=== PATIENT | female | born 1945 | race Caucasian/White ===

== ENCOUNTER → 2017-06-10 | Day surgery (SDC) | payer MEDICARE ==
[2017-06-08 11:12] LABS: BASOPHILS % 0.5 % (0.0-1.0); EOSINOPHILS # (AUTO) 0.3 (0.0-0.4); EOSINOPHILS % 3.8 % (0.0-6.0); HEMATOCRIT 40.8 % (34.2-44.1); HEMOGLOBIN 13.6 g/dL (12.0-16.0); LYMPHOCYTES # (AUTO) 2.7 (1.0-3.2); LYMPHOCYTES % 32.8 % (18.0-39.1); MEAN CORPUSCULAR HEMOGLOBIN 29.5 pg (28-32); MEAN CORPUSCULAR HGB CONC 33.3 g/dL (31-35); MEAN CORPUSCULAR VOLUME 88.5 fL (81-99); MONOCYTES # (AUTO) 0.4 (0.2-0.8); MONOCYTES % 4.9 % (4.4-11.3); NEUTROPHILS # (AUTO) 4.8 (2.1-6.9); NEUTROPHILS % 57.8 % (38.7-80.0); PLATELET COUNT 173 x10e3/uL (140-360); RED BLOOD COUNT 4.61 x10e6/uL (3.6-5.1)
--- NOTE | 2017-06-08 11:49 | Diagnostic Imaging Report ---
PROCEDURE: Frontal and lateral views of the chest. COMPARISON: None. INDICATIONS: PRE-OP KNEE FINDINGS: Lines/tubes: None. Lungs: The lungs are well inflated and clear. There is no evidence of pneumonia or pulmonary edema. Pleura: There is no pleural effusion or pneumothorax. Heart and mediastinum: The heart and the mediastinum are normal. Bones: No acute bony abnormality. Degenerative changes of thoracic spine. IMPRESSION: 1. No acute cardiopulmonary disease. Dictated by: Landen Bey M.D. on 06/08/2017 at 11:51 Electronically approved by: Landen Bey M.D. on 06/08/2017 at 11:51
[~2017-06-10] MED LIST: AMLODIPINE BESYL5 MG PO; ASPIR 8181 MG PO; BENAZEPRIL HCL10 MG PO; BUPIVACAINE 0.5%/EPI 30 ML SDV INJ ONE; CEFAZOLIN SOD 2 GM/D5W 50ML 50 ML IV ONE; DEXAMETHASONE SOD PHOS INJ 4 MG/ML VIAL ONE; FENTANYL CITRATE/PF 100MCG/2 ML INJ ONE; LIDOCAINE HCL 2% LOCAL INJ 5 ML SDV VIAL INJ ONE; MIDAZOLAM HCL 2 MG/2 ML VIAL ONE; ONDANSETRON HCL INJ 2 MG/ML VIAL ONE; PROPOFOL IV EMULSION 10 MG/ML 20 ML VIAL ONE; SEVOFLURANE INHAL SOLN 250 ML PEN BTL ONE
--- OUTSIDE RECORDS SUMMARY | 2017-06-10 07:24 | XMS REPORT ---
Author Author [facility] Address Unknown Phone Unavailable Care Team Providers Care Scale Mechanic Name Role Phone DEENA JUAN Unavailable Unavailable Problems This patient has no known problems. Allergies, Adverse Reactions, Alerts This patient has no known allergies or adverse reactions. Medications This patient has no known medications. Results Test Description Test Time Test Comments Text Results Atomic Results Result Comments CHEST 2 VIEWS [place] [address] Patient Name: VALERIA BAUGH MR #: [id number] : 1945 Age/Sex: 71/F Req #: [id number] Adm Physician: Ordered by: DEENA JUAN MD Report #: [id number] Location: OR Room/Bed: Procedure: [id number] DX/CHEST 2 VIEWS Exam Date: 06/08/17 Exam Time: 1120 REPORT STATUS: Signed PROCEDURE: Frontal and lateral views of the chest. COMPARISON: None. INDICATIONS: PRE-OP KNEE FINDINGS: Lines/tubes: None. Lungs: The lungs are well inflated and clear. There is no evidence of pneumonia or pulmonary edema. Pleura: There is no pleural effusion or pneumothorax. Heart and mediastinum: The heart and the mediastinum are normal. Bones: No acute bony abnormality. Degenerative changes of thoracic spine. IMPRESSION: 1. No acute cardiopulmonary disease. Dictated by: Landen Bey M.D. on 2017 at 11:51 Electronically approved by: Landen Bey M.D. on 2017 at 11:51 Dictated By: LANDEN BEY MD 1151 Transcribed By: JOHNIE on 06/08/17 1151 COPY TO: DEENA JUAN MD
--- NOTE | 2017-06-11 00:13 | Operative Report ---
DATE OF PROCEDURE: June 10, 2017 PREOPERATIVE DIAGNOSES: 1. Left knee medial meniscus tear. 2. Left knee degenerative joint disease of the knee. PREOPERATIVE DIAGNOSES: 1. Left knee medial meniscus tear. 2. Left knee degenerative joint disease of the knee. OPERATIONS/PROCEDURES PERFORMED: Patient underwent: 1. Left knee examination under anesthesia. 2. Left knee arthroscopy. 3. Left knee partial medial meniscectomy. 4. Left knee chondroplasty of the patella, the trochlea, the medial femoral condyle, the medial tibial plateau, and the lateral tibial plateau. JUDICIAL REGISTRAR: None. ANESTHESIA: General endotracheal intubation anesthesia. IV FLUIDS: Per the anesthesia record. BRIEF DESCRIPTION OF THE PATIENT'S OPERATIVE PROCEDURE: Ms. Hernandez was taken to the operating room and placed in the supine position on the operating room table. Following the induction of general anesthesia as well as endotracheal intubation, the patient's left lower extremity was examined under anesthesia. She was found to have mild effusion within the knee joint, but otherwise ligamentously stable knee. Patient's lower extremity was prepped and draped in standard surgical fashion. A 2-portal technique was used to provide this patient arthroscopic evaluation of the knee joint. Examination of the suprapatellar pouch and medial and lateral gutters found no evidence of loose bodies. There was, however, evidence of chondromalacia of the patellar and trochlear surfaces. The scope was advanced in the medial compartment and examination of the medial compartment demonstrated a torn medial meniscus. There was also chondromalacia of the articulating surfaces. A combination of biting forceps and a motorized shaver was used to resect the torn portion of the meniscus. Chondroplasties of the medial femoral condyle and medial tibial plateau were performed at this time. Scope was then advanced in the intercondylar notch, and the anterior cruciate ligament was identified and found to be intact. Scope was then advanced in the lateral compartment. There was chondromalacia of the lateral tibial plateau. A chondroplasty of this surface was performed. The scope was placed in the suprapatellar pouch, and chondroplasties of the patella and trochlea were performed. The knee was deflated of its sterile normal saline. Each of the portal sites was closed using 4-0 nylon suture. The portal sites as well as the knee itself were then injected with 0.5% Marcaine with epinephrine. Sterile dressings were applied, and the patient was then awakened and taken to postanesthesia care unit in stable condition. Job#: [id number]
== END | disposition home or self-care (01) ==
LOC: OR 07:22
PROVIDERS: ATTEND Specialist
DX: S83.242A Other tear of medial meniscus, current injury, left knee, initial encounter (principal); M17.12 Unilateral primary osteoarthritis, left knee; I10 Essential (primary) hypertension; Z01.810 Encounter for preprocedural cardiovascular examination; Z01.812 Encounter for preprocedural laboratory examination; Z01.818 Encounter for other preprocedural examination
CPT/HCPCS: 29881; 29999; 36415; 71046; 85025; 93005; J1100; J2001; J2250; J2405

== ENCOUNTER → 2017-12-15 | Outpatient (CLI) | payer MEDICARE ==
[~2017-12-15] MED LIST changes: -BUPIVACAINE 0.5%/EPI 30 ML SDV INJ ONE; -CEFAZOLIN SOD 2 GM/D5W 50ML 50 ML IV ONE; -DEXAMETHASONE SOD PHOS INJ 4 MG/ML VIAL ONE; -FENTANYL CITRATE/PF 100MCG/2 ML INJ ONE; -LIDOCAINE HCL 2% LOCAL INJ 5 ML SDV VIAL INJ ONE; -MIDAZOLAM HCL 2 MG/2 ML VIAL ONE; -ONDANSETRON HCL INJ 2 MG/ML VIAL ONE; -PROPOFOL IV EMULSION 10 MG/ML 20 ML VIAL ONE; -SEVOFLURANE INHAL SOLN 250 ML PEN BTL ONE
--- NOTE | 2017-12-15 19:47 | Diagnostic Imaging Report ---
Solid-phase gastric emptying study Reason for examination: 72 F with nausea x 3 weeks and RUQ abdominal pain The protocol used for this study is based on the Consensus Recommendations for Gastric Scintigraphy by the [place] [employer] and the Society of Nuclear Medicine. Clinical information: The patient is not diabetic. The patient has not had previous gastrointestinal surgery. The patient is not on any medications expected to affect gastric motility. The patient has been fasting for at least 6 hours prior to this exam. Radiopharmaceutical: Tc-99m sulfur colloid 1 mCi Report: The radiopharmaceutical was added to 1/2 cup egg whites that were then prepared and served with 2 pieces of white bread toasted, 30 grams of jam and 4 ounces of water. The patient took the meal orally without difficulty. Images were obtained of the abdomen in the anterior and posterior projections at 10 minutes post the meal and at 1and 2 hours. Uptake was determined from the geometric mean of the anterior and posterior counts and the counts were corrected for decay of the radiolabel. The percent gastric retention of the labeled meal at: 1 hour was 48% (normal 30-90%) 2 hours was 19% (normal <60%) Two-hour gastric retention of less than 35% identifies normal gastric emptying. Impression: The pattern of gastric emptying is normal. Scan findings do not support the clinical diagnosis of gastroparesis. Signed by: Dr. Maggie Jones M.D. on 12/15/2017 7:44 PM
== END ==
LOC: NM 07:30
PROVIDERS: ATTEND Internal Medicine Gastroenterology
DX: R10.13 Epigastric pain (principal); R14.0 Abdominal distension (gaseous); R68.81 Early satiety; I10 Essential (primary) hypertension; E66.9 Obesity, unspecified; Z71.3 Dietary counseling and surveillance
CPT/HCPCS: 78264; A9541

== ENCOUNTER → 2019-01-07 | Outpatient (CLI) | payer MEDICARE ==
[~2019-01-07] MED LIST changes: +IOPAMIDOL 370 MG/ML 200 ML INFUS..BTL INJ ONE; +SODIUM CHLORIDE 0.9% 50ML 50 ML ONE
[2019-01-07 11:00] LABS: BLOOD UREA NITROGEN 8 mg/dL (7-26); BUN/CREATININE RATIO 12 (6-25); CREATININE, SERUM 0.65 mg/dL (0.57-1.11); EST GLOMERULAR FILTRATION RATE > 60 ML/MIN (60-)
--- NOTE | 2019-01-07 12:10 | Diagnostic Imaging Report ---
EXAMINATION: CT of the abdomen and pelvis with contrast. TECHNIQUE: Spiral CT images of the abdomen and pelvis were performed from the lung bases to the lesser trochanters after the intravenous administration of 100 cc Isovue-370. Coronal and sagittal reformatted images were obtained. COMPARISON: None. CLINICAL HISTORY:Constipation, epigastric and right upper quadrant pain DISCUSSION: ABDOMEN/PELVIS: LOWER THORAX:Reticular and groundglass opacities in the dependent lower lobes compatible with subsegmental atelectasis. No pleural or pericardial effusion. HEPATOBILIARY: No focal hepatic lesions. Hepatic parenchyma is diffusely hypoattenuating compatible with steatosis. The gallbladder is normal. SPLEEN: No splenomegaly. PANCREAS: No focal masses or ductal dilatation. ADRENALS: 2.6 cm hypoattenuating nodule in the left adrenal gland has average internal attenuation approximately 50 Hounsfield units. No right adrenal nodule. KIDNEYS/URETERS: 3.8 cm exophytic simple cyst projecting from the lower pole of the left kidney, average internal attenuation 5-10 Hounsfield units. No additional renal mass lesion. No calculi or hydronephrosis. PELVIC ORGANS/BLADDER: The urinary bladder is incompletely distended but otherwise unremarkable. The uterus is not identified and has presumably been removed. No adnexal mass. PERITONEUM/RETROPERITONEUM: No ascites. No pneumoperitoneum. LYMPH NODES: No pelvic sidewall, retroperitoneal, or mesenteric lymphadenopathy. VESSELS: The abdominal aorta, major branch vessels, and iliac arterial systems are patent. No abdominal aortic aneurysm. There is a 1.1 cm saccular aneurysm with a wide neck at the bifurcation of the right renal artery into dorsal and ventral rami best seen on coronal image 55 and axial image 26. GI TRACT: The large bowel is notable for innumerable descending and sigmoid colon diverticula, with less extensive diverticula along the ascending and transverse colon. No wall thickening or adjacent inflammatory change. The appendix is normal. No small bowel dilatation to suggest obstruction. BONES AND SOFT TISSUE: No osseous destructive lesions. Multilevel degenerative disc changes and facet arthropathy of the lumbar spine. Intraosseous hemangioma in the right side of the L3 vertebral body. Age-indeterminate mild anterior compression deformity of T11 with approximately 20% loss of anterior height. Postsurgical changes of the anterior abdominal wall. Otherwise no focal soft tissue abnormalities. IMPRESSION: No acute intra-abdominal or pelvic CT abnormalities. Extensive large bowel diverticulosis without CT findings of diverticulitis. Left adrenal nodule measures 2.6 cm and is incompletely characterized on this single phase examination, though is statistically likely to represent an adenoma. Definitive characterization with CT or MRI of the abdomen with and without contrast (adrenal mass protocol) is suggested. 1.1 cm left renal artery aneurysm should be assessed for stability by CT angiography of the abdomen in one year in the absence of prior cross-sectional imaging for comparison. Hepatic steatosis. Age-indeterminate anterior compression deformity of T11 as above. Point tenderness over this region of the spine would suggest relative acuity. Signed by: Dr. Higinio Suero M.D. on 01/07/2019 12:07 PM
== END ==
LOC: CT 10:00
PROVIDERS: ATTEND Internal Medicine Gastroenterology
DX: R10.13 Epigastric pain (principal); R10.11 Right upper quadrant pain
CPT/HCPCS: 36415; 74177; 82565; 84520; Q9967

== ENCOUNTER 2019-08-27 15:18 | Inpatient (IN) | payer MEDICARE, OTHER ==
[~2019-08-27] VITALS: Ht 160 cm; Wt 92.1 kg
[2019-08-27] VITALS (10 sets, daily range): BP systolic 106–124; BP diastolic 54–60
[~2019-08-27 15:18] MED LIST changes: -IOPAMIDOL 370 MG/ML 200 ML INFUS..BTL INJ ONE; +MIDAZOLAM HCL 2 MG/2 ML VIAL ONE; -SODIUM CHLORIDE 0.9% 50ML 50 ML ONE; +SUCCINYLCHOLINE CHLORIDE 20 MG/ML 10ML VIAL ONE; +VECURONIUM BROMIDE FOR INJ 20 MG VIAL ONE; +WATER STERILE 10 ML VIAL ONE
[2019-08-27] MEDS ORDERED: SODIUM CHLORIDE 0.9% 1000ML 1,000 ML IV STA (15:30)
[2019-08-27] MEDS ORDERED: SODIUM CHLORIDE 0.9% 1000ML 1,000 ML ONE (15:36)
[2019-08-27] MEDS ORDERED: AZITHROMYCIN 500MG/NS 250 ML 250 ML ONE (15:36)
[2019-08-27] MEDS ORDERED: CEFTRIAXONE SOD 2 GM VIAL ONE (15:36)
[2019-08-27] MEDS ORDERED: SODIUM CHLORIDE 0.9% 1000ML 1,000 ML IV SCH (15:45)
[2019-08-27 15:46] LABS: BASOPHILS % 0.1 % (0.0-1.0); HEMOGLOBIN 14.2 g/dL (12.0-16.0); LYMPHOCYTES # (AUTO) 1.4 (1.0-3.2); LYMPHOCYTES % 13.1 % (18.0-39.1); MEAN CORPUSCULAR HGB CONC 33.8 g/dL (31-35); MEAN CORPUSCULAR VOLUME 85.7 fL (81-99); MONOCYTES # (AUTO) 0.4 (0.2-0.8); MONOCYTES % 3.4 % (4.4-11.3); NEUTROPHILS # (AUTO) 8.6 (2.1-6.9); NEUTROPHILS % 83.1 % (38.7-80.0); PLATELET COUNT 184 x10e3/uL (140-360); RED CELL DISTRIBUTION WIDTH 12.5 % (11.7-14.4)
[2019-08-27 15:52] LABS: INR 1.03; PARTIAL THROMBOPLASTIN TIME 26.6 seconds (23.8-35.5); PROTHROMBIN TIME 14.1 seconds (11.9-14.5)
[2019-08-27 15:59] LABS: ALANINE AMINOTRANSFERASE 45 IU/L (0-55); ALBUMIN 2.8 g/dL (3.5-5.0); ALBUMIN/GLOBULIN RATIO 0.8 (0.8-2.0); ALKALINE PHOSPHATASE 87 IU/L (40-150); ANION GAP 14.9 mmol/L (8-16); BLOOD UREA NITROGEN 9 mg/dL (7-26); BUN/CREATININE RATIO 12 (6-25); CALCIUM 8.3 mg/dL (8.4-10.2); CARBON DIOXIDE 25 mmol/L (22-29); CHLORIDE 99 mmol/L (98-107); CREATINE KINASE 46 IU/L (29-168); CREATININE, SERUM 0.73 mg/dL (0.57-1.11); EST GLOMERULAR FILTRATION RATE > 60 ML/MIN (60-); GLUCOSE 272 mg/dL (74-118); SODIUM 136 mmol/L (136-145)
[2019-08-27 16:07] LABS: POTASSIUM 2.9 mmol/L (3.5-5.1)
[2019-08-27 16:13] LABS: B-TYPE NATRIURETIC PEPTIDE2 23.5 pg/mL (0-100); CLARITY,URINE CLEAR (CLEAR); COLOR,URINE YELLOW (YELLOW); LEUKOCYTE ESTERASE ,URINE NEGATIVE (NEGATIVE); NITRITE,URINE NEGATIVE (NEGATIVE); PROTEIN,URINE DIPSTICK 2+ (NEGATIVE)
[2019-08-27 16:14] LABS: BILIRUBIN,URINE SMALL (NEGATIVE); KETONES,URINE 2+ (NEGATIVE)
[2019-08-27 16:15] LABS: BACTERIA,URINE FEW /HPF; EPITHELIAL CELLS,URINE FEW /LPF; MUCUS,URINE FEW (RARE); WBC,URINE (MAN) 0-5 /HPF (0-5)
[2019-08-27] MEDS: AZITHROMYCIN 500MG/NS 250 ML 250 ML IV SCH (16:21)
[2019-08-27] MEDS: CEFTRIAXONE SOD 1 GM/NS 50 ML 50 ML IV SCH (16:21)
[2019-08-27] MEDS ORDERED: PREDNISONE10 MG PO (16:32)
[2019-08-27] MEDS ORDERED: ACTEMRA80 MG/4 ML SQ (16:32)
[2019-08-27] MEDS ORDERED: LYRICA75 MG PO (16:32)
[2019-08-27] MEDS ORDERED: OMEPRAZOLE40 MG PO (16:32)
[2019-08-27] MEDS ORDERED: ALENDRONATE SOD70 MG PO (16:32)
[2019-08-27] MEDS ORDERED: GABAPENTIN100 MG PO (16:32)
[2019-08-27] MEDS ORDERED: LOTREL 5-10 MG1 EACH PO (16:32)
--- NOTE | 2019-08-27 16:39 | NUR ---
PT REMAINS VAPO THERM 40 LPM AT 100%FIO2 WITH NRB AT 15 LMP BY RT. PT SATS FLUCATE 89-94%. PT REMAINS AWAKE AND ALERT.
--- NOTE | 2019-08-27 16:52 | Diagnostic Imaging Report ---
EXAMINATION: CHEST SINGLE (PORTABLE) INDICATION: sob, cough COMPARISON: None FINDINGS: AP view TUBES and LINES: None. LUNGS/PLEURA: Lungs are well inflated. There are bilateral patchy opacities could represent multifocal pneumonia. There is no pleural effusion or pneumothorax. HEART AND MEDIASTINUM: The cardiomediastinal silhouette is unremarkable. BONES AND SOFT TISSUES: No acute osseous lesion. Soft tissues are unremarkable. UPPER ABDOMEN: No free air under the diaphragm. IMPRESSION: Bilateral patchy opacities could represent multifocal pneumonia. Signed by: Beau Ozuna MD on 08/27/2019 4:49 PM
--- NOTE | 2019-08-27 16:52 | Emergency Department Note ---
History of Present Illnes History of Present Illness Chief Complaint: COVID PUI History of Present Illness This is a 73 year old female PT ARRIVED VIA HFD ON NRB AT 100% FIO2. PT AWAKE AND ALERT. PINK/SLIGHT DIAPHORESIS. SOB. DX COVID FROM [facility]. SICK LAST 12 DAYS AGO. PT FELT SICK LAST NIGHT AND TODAY WITH FEVER WITH RAPID ONSET SOB TODAY. PT FEVER 102.6 AND TOOK TYLENOL 1 GRAM PO IMMEDIATELY DOUBLE CUT OFF SAW OPERATOR OF EMS. PT AAOX4. DENIES PULMONARY HX AND DENIES SMOKING. Historian: Patient, Director Of Placement/EMS Arrival Mode: HFD EMS Treatment DOUBLE CUT OFF SAW OPERATOR: See EMS Report Additional Treatment DOUBLE CUT OFF SAW OPERATOR: A93 First Aid Teacher Required: No Onset (how long ago): day(s) (12) Location: LUNGS Quality: SOB Radiation: Reports non-radiation Severity: severe Onset quality: gradual Timing of current episode: constant Progression: worsening Chronicity: new Context: Denies recent illness Relieving factors: none Exacerbating factors: none Associated symptoms: Reports cough, Reports fever/chills, Reports shortness of breath, Reports other (ACHY) Treatments prior to arrival: none Past Medical/Family History Physician Review I have reviewed the patient's past medical and family history. Any updates have been documented here. Past Medical History Recent Fever: Yes Clinical Suspicion of Infectio: Yes New/Unexplained Change in Ment: No Past Medical History: Hypertension, GERD, Osteoarthritis Other Medical History: NEUROPATHY RHEUM ARTHRITIS (TAKES IMMUNE SUPP. ACTEMRA SQ) EVERY OTHER WK Other Surgery: KNEE SURGERY Social History Smoking Cessation: Never Smoker Counseling Performed: No Alcohol Use: None Any Illegal Drug Use: No TB Exposure/Symptoms: No Physically hurt or threatened: No Family History Family history of heart diseas: No Other Any Pre-Existing Lines (PICC,: No Review of Systems Review of Systems Constitutional: Reports as per HPI EENTM: Reports no symptoms Cardiovascular: Reports no symptoms Respiratory: Reports as per HPI Gastrointestinal: Reports no symptoms Genitourinary: Reports no symptoms Musculoskeletal: Reports no symptoms Integumentary: Reports no symptoms Neurological: Reports no symptoms Psychological: Reports no symptoms Endocrine: Reports no symptoms Hematological/Lymphatic: Reports no symptoms Physical Exam Related Data Allergies: Coded Allergies: No Known Allergies (Unverified , 06/08/17) Triage Vital Signs Vital Signs Date Time Temp Pulse Resp B/P (MAP) Pulse Ox O2 Delivery O2 Flow Rate FiO2 08/27/19 15:38 101.5 115 26 110/52 76 Non-Rebreather 15.0 Vital signs reviewed: Yes Physical Exam CONSTITUTIONAL Constitutional: Present distressed, Present ill appearing HENT HENT: Present normocephalic, Present atraumatic, Present oropharynx clear/moist, Present nose normal HENT L/R: Present left ext ear normal, Present right ext ear normal EYES Eyes: Reports PERRL, Reports conjunctivae normal NECK Neck: Present ROM normal PULMONARY Pulmonary: Present respiratory distress, Present other (BILATERAL DIFFUSE RHONCHI) CARDIOVASCULAR Cardiovascular: Present regular rhythm, Present heart sounds normal, Present capillary refill normal, Present normal rate GASTROINTESTINAL Abdominal: Present soft, Present nontender, Present bowel sounds normal GENITOURINARY Genitourinary: Present exam deferred SKIN Skin: Present warm, Present dry MUSCULOSKELETAL Musculoskeletal: Present ROM normal NEUROLOGICAL Neurological: Present alert, Present oriented x 3, Present no gross motor or sensory deficits PSYCHOLOGICAL Psychological: Present mood/affect normal, Present judgement normal Results Laboratory Result Diagram: 08/27/19 1520 08/27/19 1520 Laboratory Laboratory Tests Test 08/27/19 15:20 White Blood Count 10.29 x10e3/uL (4.8-10.8) Red Blood Count 4.90 x10e6/uL (3.6-5.1) Hemoglobin 14.2 g/dL (12.0-16.0) Hematocrit 42.0 % (34.2-44.1) Mean Corpuscular Volume 85.7 fL (81-99) Mean Corpuscular Hemoglobin 29.0 pg (28-32) Mean Corpuscular Hemoglobin Concent 33.8 g/dL (31-35) Red Cell Distribution Width 12.5 % (11.7-14.4) Platelet Count 184 x10e3/uL (140-360) Neutrophils (%) (Auto) 83.1 % (38.7-80.0) Lymphocytes (%) (Auto) 13.1 % (18.0-39.1) Monocytes (%) (Auto) 3.4 % (4.4-11.3) Eosinophils (%) (Auto) 0.0 % (0.0-6.0) Basophils (%) (Auto) 0.1 % (0.0-1.0) Neutrophils # (Auto) 8.6 (2.1-6.9) Lymphocytes # (Auto) 1.4 (1.0-3.2) Monocytes # (Auto) 0.4 (0.2-0.8) Eosinophils # (Auto) 0.0 (0.0-0.4) Basophils # (Auto) 0.0 (0.0-0.1) Absolute Immature Granulocyte (auto 0.03 x10e3/uL (0-0.1) Prothrombin Time 14.1 seconds (11.9-14.5) Prothromb Time International Ratio 1.03 Activated Partial Thromboplast Time 26.6 seconds (23.8-35.5) Urine Color Yellow (YELLOW) Urine Clarity Clear (CLEAR) Urine pH 6 (5 - 7) Urine Specific Criders 1.025 (1.010-1.025) Urine Protein 2+ (NEGATIVE) Urine Glucose (UA) 2+ (NEGATIVE) Urine Ketones 2+ (NEGATIVE) Urine Blood Negative (NEGATIVE) Urine Nitrite Negative (NEGATIVE) Urine Bilirubin Small (NEGATIVE) Urine Urobilinogen 2.0 mg/dL (0.2 - 1) Urine Leukocyte Esterase Negative (NEGATIVE) Urine RBC None /HPF (0-5) Urine WBC 0-5 /HPF (0-5) Urine Epithelial Cells Few /LPF (NONE) Urine Bacteria Few /HPF (NONE) Urine Mucus Few (RARE) Sodium Level 136 mmol/L (136-145) Potassium Level 2.9 mmol/L (3.5-5.1) Chloride Level 99 mmol/L (98-107) Carbon Dioxide Level 25 mmol/L (22-29) Anion Gap 14.9 mmol/L (8-16) Blood Urea Nitrogen 9 mg/dL (7-26) Creatinine 0.73 mg/dL (0.57-1.11) Estimat Glomerular Filtration Rate > 60 ML/MIN (60-) BUN/Creatinine Ratio 12 (6-25) Glucose Level 272 mg/dL (74-118) Lactic Acid Level 2.6 mmol/L (0.5-2.0) Calcium Level 8.3 mg/dL (8.4-10.2) Total Bilirubin 1.4 mg/dL (0.2-1.2) Aspartate Amino Transf (AST/SGOT) 48 IU/L (5-34) Alanine Aminotransferase (ALT/SGPT) 45 IU/L (0-55) Alkaline Phosphatase 87 IU/L (40-150) Creatine Kinase 46 IU/L (29-168) Creatine Kinase MB 0.40 ng/mL (0-5.0) Troponin I 0.017 ng/mL (0-0.300) B-Type Natriuretic Peptide 23.5 pg/mL (0-100) Total Protein 6.5 g/dL (6.5-8.1) Albumin 2.8 g/dL (3.5-5.0) Globulin 3.7 g/dL (2.3-3.5) Albumin/Globulin Ratio 0.8 (0.8-2.0) Lab results reviewed: Yes Imaging Imaging results reviewed: Yes Procedures 12 Lead ECG Interpretation ECG Interpretation : ECG: ECG 1 First Aid Teacher: Interpreted by ED physician Date: Aug 27, 2019 Time: 15:19 Rhythm: sinus tachycardia Rate: tachycardia (112) QRS axis: left Q waves: III, aVF, V3, V4 Clinical Impression: abnormal ECG Critical Care Time Total Critical Care Time (min): 30 Critical care time exclusive o: separately billable procedures Critcal care necessary due to: respiratory failure Critcal care time spent by me: discussion w consultants, discussion w primary provider, evaluation patient response to tx, examination of patient, order/review laboratory studies, pulse oximetry, re-evaluation of patient condition Assessment & Plan Medical Decision Making MDM CBC, CHEM, ECG, CARDIACS, LACTIC, PANCX'S, UA, CXR, COVID SWAB - R/O COVID, CAP, STEMI/NSTEMI, SEPSIS, ELECTROLYTE ABNL Reassessment Reassessment PLACED ON VAPOTHERM ON ARRIVAL - IMPROVED BUT ALSO NEEDED NRB TO GET O2 SAT TO 90% SPOKE WITH DR PEÑA AND DR RODRIGUEZ Assessment & Plan Final Impression: (1) Respiratory failure (2) Pneumonia due to COVID-19 virus Depart Disposition: ADMITTED Last Vital Signs Date Time Temp Pulse Resp B/P (MAP) Pulse Ox O2 Delivery O2 Flow Rate FiO2 08/27/19 16:38 92 28 102/49 95 08/27/19 16:26 100.8 08/27/19 15:38 Non-Rebreather 15.0 Home Meds Reported Medications Pregabalin (LYRICA) 75 Mg Cap, 2 CAP PO DAILY, #30 CAP 08/27/19 Gabapentin (GABAPENTIN) 100 Mg Capsule, 3 CAP PO DAILY 08/27/19 Prednisone (PREDNISONE) 10 Mg Tab, 30 MG PO DAILY, #30 TAB 08/27/19 Alendronate Sodium (ALENDRONATE SODIUM) 70 Mg Tablet, 1 TAB PO UD 08/27/19 Tocilizumab (ACTEMRA) 80 Mg/4 Ml Vial, 160 MG SQ UD 08/27/19 Omeprazole (OMEPRAZOLE) 40 Mg Capsule.dr, 40 MG PO DAILY 08/27/19 Amlodipine Besylate/Benazepril (LOTREL 5-10 MG CAPSULE) 1 Each Capsule, 1 TAB PO DAILY 08/27/19 Discontinued Reported Medications Benazepril Hcl (BENAZEPRIL HCL) 10 Mg Tablet, 10 MG PO DAILY, #30 TAB 06/08/17 Amlodipine Besylate (AMLODIPINE BESYLATE) 5 Mg Tablet, 5 MG PO DAILY, #30 TAB 06/08/17 Aspirin (ASPIR 81) 81 Mg Tablet.dr, 81 MG PO DAILY 06/08/17 Medications in the ED Sodium Chloride 1,000 ml @ 0 mls/hr Q0M STAT IV Last administered on 08/27/19at 16:21; Admin Dose 1,000 MLS/HR; Start 08/27/19 at 15:30; Stop 08/27/19 at 15:35; Status DC Ceftriaxone Sodium 50 ml @ 100 mls/hr Q24H IV Last administered on 08/27/19at 16:21; Admin Dose 100 MLS/HR; Start 08/27/19 at 15:30; Stop 09/03/19 at 15:29 JOSE ANTONIO DIOR MD Aug 27, 2019 16:52
[2019-08-27 16:58] LABS: ABG PCO2 35 mmHg (35-45); ABG PH 7.45 (7.35-7.45); ABG PO2 65 mmHg (80-105)
[2019-08-27 16:59] LABS: ABG HCO3 24 mmol/L (22-26)
[2019-08-27] MEDS ORDERED: POTASSIUM CHLORIDE 20 MEQ TAB CR PO ONE (17:01)
[2019-08-27] MEDS ORDERED: POTASSIUM CHLORIDE 20 MEQ TAB CR PO STA (17:18)
[2019-08-27] MEDS ORDERED: POTASSIUM CHLORIDE 20 MEQ TAB CR PO NR (17:45)
--- NOTE | 2019-08-27 18:42 | NUR ---
H&P cc: sob HPI: 73yoF, PCP , developed sob, found to have multifocal PNA and COVID19. Pt admits that her daughter was COVID 19 positive. PMH: osteoporosis, HTN, GERD, neuropathy, PSHx: unknown Allergies; see emr Fh/SH: no illicits meds; see MAR ROS; unreliable v/s; revd PE tired appearing; NRBM/Vasotherm 100% anicteric ns1s2 reduced BS soft nt nd no e/t skin dry flat affect awake; adams labs/meds revd A/P; 73yoF Multifocal PNA- azithromycin/ceftriaxone/antitussives/loratadine/flonase/Pulm/ID consult COVID19 positive PNA- as above Sepsis- hold antiHTN meds; IV abx Hypokalemia- recheck HTN- cont home meds GERd- cont med Osteoporosis- hold med Prop; heparin dispo: f/u labs; CleveO. MD Froylan, PhD.
[2019-08-27] MEDS ORDERED: DOCUSATE SODIUM 100 MG CAP PO PRN (18:45)
--- NOTE | 2019-08-27 20:31 | NUR ---
Spoke with Dr. Crews regarding gabapentin and lyrica continued from home med rec. ordered to stop gabapentin and continue with lyrica as ordered.
[2019-08-27] MEDS ORDERED: ZOLPIDEM TARTRATE 5 MG TAB PO PRN (21:00)
[2019-08-27] MEDS ORDERED: HEPARIN SOD (PORCINE) 5,000 UNIT/ML VIAL SC SCH (21:00)
[2019-08-27] MEDS: ENOXAPARIN SOD INJ 40 MG/0.4 ML SYR SC SCH (21:21)
[2019-08-27] MEDS: GUAIFENESIN/DEXTROMETHORPHAN LIQD 5 ML UDC NG SCH (21:21)
[2019-08-27] MEDS: BENZONATATE 100 MG CAP PO SCH (21:23)
[2019-08-27] MEDS ORDERED: GABAPENTIN 100 MG CAP PO SCH (22:00)
--- NOTE | 2019-08-27 22:46 | Consultation ---
DATE OF CONSULTATION: Pulmonary Critical Care Consultation CHIEF COMPLAINT: Dyspnea and cough. HISTORY OF PRESENT ILLNESS: The patient is a 73-year-old woman. She has a history of malaise and fever for several days. She also notes dyspnea and cough. She came to the ER, was found to have an x-ray showing bilateral opacities suggestive of viral pneumonia as well as positive COVID-19 test. She was subsequently found to have a low oxygen saturation, was started on Vapotherm. PAST MEDICAL HISTORY: 1. Hypertension. 2. Chronic pain. 3. Gastroesophageal reflux. 4. Osteoporosis. ALLERGIES: NO KNOWN DRUG ALLERGIES. FAMILY HISTORY: Noncontributory. REVIEW OF SYSTEMS: The patient is having some fevers. She has no headache. She has no neck pain. She is not having any chest discomfort. She has minimal cough. She has no abdominal pain. She has no nausea or vomiting. She has no leg edema. PHYSICAL EXAMINATION: VITAL SIGNS: The patient is afebrile. The blood pressure is 106/55, saturation is 98%. The respiratory rate is 15. HEENT: No facial swelling or erythema. CARDIAC: Reveals regular rate and rhythm with normal S1, S2. LUNGS: Auscultation of lungs reveals crackles at both bases. There is no wheezing. ABDOMEN: Soft and nontender. There is no rebound or guarding. EXTREMITIES: No leg edema or calf tenderness. There is no cyanosis or clubbing. SKIN: No rashes. NEUROLOGICAL: No focal abnormalities. LABORATORY DATA: CBC is within normal limits. Potassium is 2.9. BUN to creatinine ratio is normal. Lactic acid is 2.7. The albumin is 2.8. RADIOGRAPHIC DATA: Chest x-ray shows bilateral patchy infiltrates. IMPRESSION: 1. Acute respiratory failure. 2. Viral pneumonia and coronavirus disease-19 infection. 3. Gastroesophageal reflux. 4. Hypertension. PLAN: 1. Continue Zithromax and Rocephin. 2. Continue Vapotherm and monitor. 3. Continue Protonix. 4. Place the patient in prone position. 5. Replace potassium. Alex Crews MD [facility] /[id number]
[2019-08-27] MEDS: ONDANSETRON HCL INJ 2MG/ML 2ML 2 MG/ML VIAL IV PRN (23:30)
[2019-08-28] VITALS (25 sets, daily range): BP systolic 90–129; BP diastolic 38–72
[2019-08-28 01:54] LABS: CREATINE KINASE MB 0.8 ng/mL (0-5.0)
[2019-08-28] MEDS: GUAIFENESIN/DEXTROMETHORPHAN LIQD 5 ML UDC NG SCH ×3 (05:43→21:21)
[2019-08-28] MEDS: DEXAMETHASONE IV SCH (05:43)
[2019-08-28] MEDS: SODIUM CHLORIDE 0.9% IV SCH (05:43)
[2019-08-28] MEDS: ONDANSETRON HCL INJ 2MG/ML 2ML 2 MG/ML VIAL IV PRN ×2 (05:43→18:52)
[2019-08-28 05:52] LABS: BASOPHILS % 0.2 % (0.0-1.0); EOSINOPHILS % 0.3 % (0.0-6.0); HEMOGLOBIN 13.4 g/dL (12.0-16.0); LYMPHOCYTES % 9.5 % (18.0-39.1); MEAN CORPUSCULAR HEMOGLOBIN 28.9 pg (28-32); MEAN CORPUSCULAR HGB CONC 32.7 g/dL (31-35); MEAN CORPUSCULAR VOLUME 88.4 fL (81-99); MONOCYTES # (AUTO) 0.2 (0.2-0.8); MONOCYTES % 2.1 % (4.4-11.3); NEUTROPHILS % 87.5 % (38.7-80.0); PLATELET COUNT 157 x10e3/uL (140-360); RED BLOOD COUNT 4.64 x10e6/uL (3.6-5.1); RED CELL DISTRIBUTION WIDTH 12.9 % (11.7-14.4)
[2019-08-28] MEDS ORDERED: DEXAMETHASONE SOD PHOS 10 MG/1 ML VIAL IV SCH (06:00)
[2019-08-28 06:23] LABS: ALANINE AMINOTRANSFERASE 45 IU/L (0-55); ALBUMIN 2.6 g/dL (3.5-5.0); ALBUMIN/GLOBULIN RATIO 0.7 (0.8-2.0); ALKALINE PHOSPHATASE 99 IU/L (40-150); ANION GAP 12.4 mmol/L (8-16); BLOOD UREA NITROGEN 6 mg/dL (7-26); BUN/CREATININE RATIO 10 (6-25); CALCIUM 7.9 mg/dL (8.4-10.2); CARBON DIOXIDE 24 mmol/L (22-29); CHLORIDE 106 mmol/L (98-107); CREATININE, SERUM 0.59 mg/dL (0.57-1.11); EST GLOMERULAR FILTRATION RATE > 60 ML/MIN (60-); GLUCOSE 211 mg/dL (74-118); POTASSIUM 3.4 mmol/L (3.5-5.1); SODIUM 139 mmol/L (136-145)
[2019-08-28 07:56] LABS: CREATINE KINASE MB 0.8 ng/mL (0-5.0)
[2019-08-28] MEDS: BENZONATATE 100 MG CAP PO SCH ×3 (09:10→21:20)
[2019-08-28] MEDS: ENOXAPARIN SOD INJ 40 MG/0.4 ML SYR SC SCH ×2 (09:10→21:20)
[2019-08-28] MEDS: PANTOPRAZOLE SOD 40 MG TABEC PO SCH (09:10)
[2019-08-28] MEDS: AZITHROMYCIN 500MG/NS 250 ML 250 ML IV SCH (09:10)
[2019-08-28] MEDS: LORATADINE 10 MG TAB PO SCH (09:10)
[2019-08-28] MEDS: FLUTICASONE PROPIONATE NASAL SPRAY NS SCH (09:10)
[2019-08-28] MEDS: PREGABALIN 75 MG CAP PO SCH ×2 (09:18→16:51)
--- NOTE | 2019-08-28 13:54 | Progress Note ---
DATE: SUBJECTIVE: The patient is still on Vapotherm with 40 L of oxygen on 100% FiO2. There are no new complaints. She is saturating in the high 90s. She does have some nausea and dyspepsia. PHYSICAL EXAMINATION: VITAL SIGNS: Blood pressure is 108/50, is 91 and respiratory rate is in the mid 20s. She is 100%. HEENT: Shows no facial swelling or erythema. CARDIAC: Reveals regular rate and rhythm with normal S1 and S2. LUNGS: Auscultation of lungs reveals crackles. ABDOMEN: Soft and nontender. There is no rebound or guarding. EXTREMITIES: Shows no leg edema or calf tenderness. There is no cyanosis or clubbing. SKIN: Shows no rashes. NEUROLOGICAL: Shows no focal abnormalities. LABORATORY DATA: White blood cell count is 10.2 and hemoglobin is 13.4. The platelet count is 157. BUN to creatinine ratio is normal. Other electrolytes are within normal limits. Albumin is 2.6. IMPRESSION: 1. Acute respiratory failure. 2. Viral pneumonia and COVID-19. 3. Gastroesophageal reflux. 4. Hypertension. PLAN: 1. Continue Zithromax and Rocephin. 2. Continue Vapotherm and decrease as tolerated. 3. Continue Protonix. 4. Evaluate for remdesivir. 5. Decadron. Alex Crews MD [facility] /[id number]
[2019-08-28] MEDS: CEFTRIAXONE SOD 1 GM/NS 50 ML 50 ML IV SCH (15:20)
[2019-08-28] MEDS: INSULIN REGULAR, HUMAN 100 UNIT/1 ML 3ML VIAL SQ SCH ×2 (16:50→21:20)
--- NOTE | 2019-08-28 19:06 | NUR ---
IM- progress note O/N see below ROS; unreliable v/s; revd PE tired appearing; NRBM/Vasotherm 100% anicteric ns1s2 reduced BS soft nt nd no e/t skin dry flat affect awake; adams labs/meds revd A/P; 73yoF Multifocal PNA- azithromycin/ceftriaxone/antitussives/loratadine/flonase/Pulm/ID consult COVID19 positive PNA- as above Sepsis- hold antiHTN meds; IV abx Hypokalemia- recheck HTN- cont home meds GERd- cont med Osteoporosis- hold med Prop; heparin dispo: f/u labs; 7-12 cont supportive care; replace Citlali Marte. MD Froylan, PhD.
[2019-08-29] VITALS (27 sets, daily range): BP systolic 99–153; BP diastolic 48–107
[2019-08-29 05:32] LABS: BASOPHILS % 0.2 % (0.0-1.0); EOSINOPHILS % 0.1 % (0.0-6.0); HEMATOCRIT 39.8 % (34.2-44.1); HEMOGLOBIN 13.2 g/dL (12.0-16.0); LYMPHOCYTES # (AUTO) 0.7 (1.0-3.2); LYMPHOCYTES % 5.7 % (18.0-39.1); MEAN CORPUSCULAR HEMOGLOBIN 29.3 pg (28-32); MEAN CORPUSCULAR HGB CONC 33.2 g/dL (31-35); MEAN CORPUSCULAR VOLUME 88.4 fL (81-99); MONOCYTES # (AUTO) 0.3 (0.2-0.8); MONOCYTES % 2.3 % (4.4-11.3); NEUTROPHILS # (AUTO) 10.5 (2.1-6.9); NEUTROPHILS % 91.2 % (38.7-80.0); PLATELET COUNT 181 x10e3/uL (140-360); RED CELL DISTRIBUTION WIDTH 12.7 % (11.7-14.4)
[2019-08-29 05:51] LABS: ANION GAP 12.4 mmol/L (8-16); BLOOD UREA NITROGEN 10 mg/dL (7-26); BUN/CREATININE RATIO 17 (6-25); CALCIUM 7.7 mg/dL (8.4-10.2); CARBON DIOXIDE 25 mmol/L (22-29); CHLORIDE 105 mmol/L (98-107); CREATININE, SERUM 0.58 mg/dL (0.57-1.11); EST GLOMERULAR FILTRATION RATE > 60 ML/MIN (60-); GLUCOSE 229 mg/dL (74-118); POTASSIUM 3.4 mmol/L (3.5-5.1); SODIUM 139 mmol/L (136-145)
[2019-08-29] MEDS: SODIUM CHLORIDE 0.9% IV SCH (06:00)
[2019-08-29] MEDS: DEXAMETHASONE IV SCH (06:00)
[2019-08-29] MEDS: GUAIFENESIN/DEXTROMETHORPHAN LIQD 5 ML UDC NG SCH ×3 (06:00→22:01)
[2019-08-29] MEDS: INSULIN REGULAR, HUMAN 100 UNIT/1 ML 3ML VIAL SQ SCH ×4 (08:09→22:00)
[2019-08-29] MEDS: FLUTICASONE PROPIONATE NASAL SPRAY NS SCH (09:55)
[2019-08-29] MEDS: AZITHROMYCIN 500MG/NS 250 ML 250 ML IV SCH (09:57)
[2019-08-29] MEDS: BENZONATATE 100 MG CAP PO SCH ×3 (09:57→22:01)
[2019-08-29] MEDS: PREGABALIN 75 MG CAP PO SCH ×2 (09:57→16:02)
[2019-08-29] MEDS: LORATADINE 10 MG TAB PO SCH (09:57)
[2019-08-29] MEDS: PANTOPRAZOLE SOD 40 MG TABEC PO SCH (09:57)
[2019-08-29] MEDS: ASCORBIC ACID 500 MG TAB PO SCH ×2 (09:58→16:02)
[2019-08-29] MEDS: ZINC SULFATE 220 MG CAP PO SCH (09:58)
[2019-08-29] MEDS: ENOXAPARIN SOD INJ 40 MG/0.4 ML SYR SC SCH ×2 (10:00→22:01)
[2019-08-29] MEDS ORDERED: SODIUM CHLORIDE 0.45% 1,000 ML IV ONE (11:00)
[2019-08-29] MEDS: CEFTRIAXONE SOD 1 GM/NS 50 ML 50 ML IV SCH (14:49)
[2019-08-29] MEDS: LOPERAMIDE HCL 2 MG CAP PO PRN (17:08)
[2019-08-29] MEDS ORDERED: FLUCONAZOLE 100 MG/NS 50 ML 50 ML IV SCH (18:00)
--- NOTE | 2019-08-29 18:53 | NUR ---
IM- progress note O/N see below ROS; unreliable v/s; revd PE tired appearing; NRBM/Vasotherm 100% anicteric ns1s2 reduced BS soft nt nd no e/t skin dry flat affect awake; adams labs/meds revd A/P; 73yoF Multifocal PNA- azithromycin/ceftriaxone/antitussives/loratadine/flonase/Pulm/ID consult COVID19 positive PNA- as above Sepsis- hold antiHTN meds; IV abx Hypokalemia- recheck HTN- cont home meds GERd- cont med Osteoporosis- hold med Prop; heparin dispo: f/u labs; 7-12 cont supportive care; replace K 7- cont care; recheck K; remaisn on NRBM. CleveO. Froylan MD, PhD.
--- NOTE | 2019-08-29 19:09 | Progress Note ---
DATE: Pulmonary Critical Care Progress Note SUBJECTIVE: The patient remains on Vapotherm with 100% non-rebreather. She is not having any fevers. She does not complain of chest pain. She is not complaining of nausea or vomiting. PHYSICAL EXAMINATION: VITAL SIGNS: The patient is afebrile. The blood pressure is 127/63, saturation is 93%. She is on Vapotherm at 40 L with 100% FiO2. The non-rebreather mask is placed over the Vapotherm. HEENT: No facial swelling or erythema. CARDIAC: Regular rate and rhythm with normal S1, S2. LUNGS: Auscultation of lungs reveals crackles at the bases. There is no wheezing. ABDOMEN: Soft, nontender. There is no rebound or guarding. EXTREMITIES: No leg edema or calf tenderness. There is no cyanosis or clubbing. SKIN: No rashes. NEUROLOGICAL: No focal abnormalities. LABORATORY DATA: BUN to creatinine ratio is normal. The potassium is 3.4. The glucose is 240. CBC is within normal limits. IMPRESSION: 1. Acute respiratory failure. 2. Viral pneumonia and coronavirus disease-19 infection. 3. Gastroesophageal reflux. 4. Hypertension. PLAN: 1. Continue antibiotics. 2. Continue Vapotherm. 3. Evaluation for remdesivir. 4. Decadron. 5. Lovenox. Alex Crews MD [facility]/MODL /[id number]
[2019-08-29] MEDS ORDERED: POTASSIUM CHLORIDE 20 MEQ TAB CR PO STA (21:51)
[2019-08-30] VITALS (22 sets, daily range): BP systolic 99–129; BP diastolic 44–72
[2019-08-30 05:37] LABS: BASOPHILS % 0.2 % (0.0-1.0); HEMATOCRIT 38.8 % (34.2-44.1); HEMOGLOBIN 12.9 g/dL (12.0-16.0); LYMPHOCYTES # (AUTO) 0.7 (1.0-3.2); LYMPHOCYTES % 6.1 % (18.0-39.1); MEAN CORPUSCULAR HEMOGLOBIN 29.1 pg (28-32); MEAN CORPUSCULAR HGB CONC 33.2 g/dL (31-35); MEAN CORPUSCULAR VOLUME 87.6 fL (81-99); MONOCYTES # (AUTO) 0.3 (0.2-0.8); MONOCYTES % 2.5 % (4.4-11.3); NEUTROPHILS # (AUTO) 10.9 (2.1-6.9); NEUTROPHILS % 90.7 % (38.7-80.0); PLATELET COUNT 205 x10e3/uL (140-360); RED BLOOD COUNT 4.43 x10e6/uL (3.6-5.1); RED CELL DISTRIBUTION WIDTH 12.9 % (11.7-14.4)
[2019-08-30] MEDS ORDERED: SODIUM CHLORIDE 0.9% 50ML 50 ML ONE (05:51)
[2019-08-30] MEDS: GUAIFENESIN/DEXTROMETHORPHAN LIQD 5 ML UDC NG SCH ×3 (05:55→20:22)
[2019-08-30] MEDS: DEXAMETHASONE SOD PHOS INJ 4 MG/ML VIAL IV SCH (05:55)
[2019-08-30 06:00] LABS: ANION GAP 11.9 mmol/L (8-16); BLOOD UREA NITROGEN 9 mg/dL (7-26); BUN/CREATININE RATIO 16 (6-25); CALCIUM 7.3 mg/dL (8.4-10.2); CARBON DIOXIDE 25 mmol/L (22-29); CHLORIDE 107 mmol/L (98-107); CREATININE, SERUM 0.55 mg/dL (0.57-1.11); EST GLOMERULAR FILTRATION RATE > 60 ML/MIN (60-); GLUCOSE 167 mg/dL (74-118); POTASSIUM 3.9 mmol/L (3.5-5.1); SODIUM 140 mmol/L (136-145)
--- NOTE | 2019-08-30 06:57 | NUR ---
Spoke with [place], with answering service for Dr. Perera regarding new consult.
[2019-08-30] MEDS: INSULIN REGULAR, HUMAN 100 UNIT/1 ML 3ML VIAL SQ SCH ×5 (07:30→20:48)
[2019-08-30] MEDS: PREGABALIN 75 MG CAP PO SCH (09:00)
[2019-08-30] MEDS: LORATADINE 10 MG TAB PO SCH (09:00)
[2019-08-30] MEDS: ENOXAPARIN SOD INJ 40 MG/0.4 ML SYR SC SCH ×2 (09:23→20:22)
[2019-08-30] MEDS: AZITHROMYCIN 500MG/NS 250 ML 250 ML IV SCH (09:23)
[2019-08-30] MEDS: PANTOPRAZOLE SOD 40 MG TABEC PO SCH (09:28)
[2019-08-30] MEDS: BENZONATATE 100 MG CAP PO SCH ×3 (09:28→20:48)
[2019-08-30] MEDS: ASCORBIC ACID 500 MG TAB PO SCH ×2 (09:29→16:34)
[2019-08-30] MEDS: ZINC SULFATE 220 MG CAP PO SCH (09:29)
[2019-08-30] MEDS: FLUTICASONE PROPIONATE NASAL SPRAY NS SCH (09:31)
[2019-08-30] MEDS: LOPERAMIDE HCL 2 MG CAP PO PRN ×2 (10:24→20:23)
--- NOTE | 2019-08-30 10:37 | Progress Note ---
DATE: SUBJECTIVE: The patient is still on Vapotherm at 40 L with 100%. She is able to eat. She is not complaining of abdominal pain or diarrhea. PHYSICAL EXAMINATION: VITAL SIGNS: Blood pressure is 110/60, pulse is 100, respiratory rate is 25-30, and saturations in the low 90s. HEENT: Shows no facial swelling or erythema. CARDIAC: Reveals regular rate and rhythm with normal S1, S2. LUNGS: Auscultation of lungs reveals crackles at the bases. There is no wheezing. ABDOMEN: Soft and nontender. There is no rebound or guarding. EXTREMITIES: Shows no leg edema or calf tenderness. There is no cyanosis or clubbing. SKIN: Shows no rashes. NEUROLOGIC: Shows no focal abnormalities. LABORATORY DATA: White blood cell count is 12, hemoglobin is 12.9, and the platelet count is 205. BUN to creatinine ratio is 9 to 0.55. Other electrolytes within normal limits. IMPRESSION: 1. Acute respiratory failure. 2. Viral pneumonia and COVID-19 infection. 3. Gastroesophageal reflux. 4. Hypertension. PLAN: 1. Continue Vapotherm. 2. Complete antibiotics. 3. Decadron. 4. Lovenox. 5. Anti-reflux regimen. Alex Crews MD [facility] /[id number]
[2019-08-30] MEDS ORDERED: CHOLESTYRAMINE 4 GM PACKET PO PRN (14:45)
[2019-08-30] MEDS ORDERED: BISMUTH SUBSALICYLATE 262 MG TAB PO PRN (14:45)
[2019-08-30] MEDS: CEFTRIAXONE SOD 1 GM/NS 50 ML 50 ML IV SCH (16:34)
--- NOTE | 2019-08-30 19:17 | NUR ---
IM- progress note O/N see below ROS; unreliable v/s; revd PE tired appearing; NRBM/Vasotherm 100% anicteric ns1s2 reduced BS soft nt nd no e/t skin dry flat affect awake; adams labs/meds revd A/P; 73yoF Multifocal PNA- azithromycin/ceftriaxone/antitussives/loratadine/flonase/Pulm/ID consult COVID19 positive PNA- as above Sepsis- hold antiHTN meds; IV abx Hypokalemia- recheck HTN- cont home meds GERd- cont med Osteoporosis- hold med Prop; heparin dispo: f/u labs; 08-27 cont supportive care; replace K 08-28 cont care; recheck K; remaisn on NRBM. 08-29 remains on high O2 needs; supportive care. pt remains alert and appropriate; CleveO. Froylan MD, PhD.
--- NOTE | 2019-08-30 21:07 | Consultation ---
DATE OF CONSULTATION: REASON FOR CONSULTATION: Pneumonia. HISTORY OF PRESENT ILLNESS: This patient who is a 73-year-old female, who has history of hypertension, chronic pain syndrome, osteoporosis, comes in with weakness for a few days. She was found to have chest x-ray with bilateral opacities, which were suggestive of viral pneumonia. She had positive COVID-19. She was hypoxemic. She was on Vapotherm. The patient was admitted on 08/26. I was asked to see her today as mentioned above. PAST MEDICAL HISTORY: Could not be obtained. PAST SURGICAL HISTORY: Could not be obtained. LABORATORY DATA: Reviewed. Chart reviewed. The patient currently is also with diarrhea. MEDICATIONS: Medication list reviewed. She is currently on Flonase, zinc, vitamin C, Protonix, Lovenox, insulin, ceftriaxone, fluconazole, Claritin, Lyrica, dextrose, and Ambien. PHYSICAL EXAMINATION: GENERAL: The patient seems to be short of breath. HEENT: Normocephalic. CHEST: Few crackles. HEART: S1, S2. ABDOMEN: Soft. EXTREMITIES: No edema. IMPRESSION: 1. Coronavirus diseas-19 respiratory failure, concerned about superimposed bacterial pneumonia, debility. I would suggest to discontinue the Lyrica. Discontinue fluconazole. The patient azithromycin and we will stop. Continue with Rocephin to finish 5 days. We will increase the dexamethasone to 6 mg daily, Lovenox 0.5 mg/kg q.12. We will use Questran for diarrhea one pack p.o. q.6 hours p.r.n., Pepto-Bismol 1 cap p.o. q.4 hours p.r.n. 2. Diabetes, controlled. 3. We will follow. Thank you for asking me to see this patient. MD KAMAR Galdamez/MODL /[id number]
--- NOTE | 2019-08-30 21:25 | NUR ---
Daughter Sharonda updated via phone at this time. Explained current plan of care and pt condition.
[2019-08-30] MEDS: ONDANSETRON HCL INJ 2MG/ML 2ML 2 MG/ML VIAL IV PRN (22:35)
[2019-08-31] VITALS (22 sets, daily range): BP systolic 107–150; BP diastolic 35–79
--- NOTE | 2019-08-31 04:00 | NUR ---
Pt with increased oxygen demand at this time. Pt repositioned into prone position at this time for optimal oxygenation.
[2019-08-31 04:49] LABS: BASOPHILS % 0.1 % (0.0-1.0); EOSINOPHILS % 0.3 % (0.0-6.0); HEMATOCRIT 40.8 % (34.2-44.1); HEMOGLOBIN 13.3 g/dL (12.0-16.0); LYMPHOCYTES # (AUTO) 0.8 (1.0-3.2); LYMPHOCYTES % 7.8 % (18.0-39.1); MEAN CORPUSCULAR HEMOGLOBIN 28.7 pg (28-32); MEAN CORPUSCULAR HGB CONC 32.6 g/dL (31-35); MEAN CORPUSCULAR VOLUME 88.1 fL (81-99); MONOCYTES # (AUTO) 0.1 (0.2-0.8); MONOCYTES % 1.4 % (4.4-11.3); NEUTROPHILS # (AUTO) 8.7 (2.1-6.9); NEUTROPHILS % 90.1 % (38.7-80.0); PLATELET COUNT 188 x10e3/uL (140-360); RED BLOOD COUNT 4.63 x10e6/uL (3.6-5.1); RED CELL DISTRIBUTION WIDTH 12.8 % (11.7-14.4)
[2019-08-31 05:07] LABS: ALANINE AMINOTRANSFERASE 25 IU/L (0-55); ALBUMIN 2.2 g/dL (3.5-5.0); ALBUMIN/GLOBULIN RATIO 0.6 (0.8-2.0); ALKALINE PHOSPHATASE 140 IU/L (40-150); ANION GAP 10.5 mmol/L (8-16); BLOOD UREA NITROGEN 8 mg/dL (7-26); BUN/CREATININE RATIO 16 (6-25); CALCIUM 7.3 mg/dL (8.4-10.2); CARBON DIOXIDE 26 mmol/L (22-29); CHLORIDE 106 mmol/L (98-107); CREATININE, SERUM 0.51 mg/dL (0.57-1.11); EST GLOMERULAR FILTRATION RATE > 60 ML/MIN (60-); GLUCOSE 102 mg/dL (74-118); POTASSIUM 3.5 mmol/L (3.5-5.1); SODIUM 139 mmol/L (136-145)
[2019-08-31] MEDS: DEXAMETHASONE SOD PHOS INJ 4 MG/ML VIAL IV SCH (06:08)
[2019-08-31] MEDS: GUAIFENESIN/DEXTROMETHORPHAN LIQD 5 ML UDC NG SCH ×3 (06:08→21:16)
--- NOTE | 2019-08-31 06:41 | NUR ---
IM- progress note O/N see below ROS; unreliable v/s; revd PE tired appearing; NRBM/Vasotherm 100% anicteric ns1s2 reduced BS soft nt nd no e/t skin dry flat affect awake; adams labs/meds revd A/P; 73yoF Multifocal PNA- azithromycin/ceftriaxone/antitussives/loratadine/flonase/Pulm/ID consult COVID19 positive PNA- as above Sepsis- hold antiHTN meds; IV abx Hypokalemia- recheck HTN- cont home meds GERd- cont med Osteoporosis- hold med Prop; heparin dispo: f/u labs; 08-27 cont supportive care; replace K 08-28 cont care; recheck K; remaisn on NRBM. 08-29 remains on high O2 needs; supportive care. pt remains alert and appropriate; 08-30 cont care; CleveO. MD Froylan, PhD.
[2019-08-31] MEDS: INSULIN REGULAR, HUMAN 100 UNIT/1 ML 3ML VIAL SQ SCH ×4 (07:30→21:21)
[2019-08-31] MEDS: LORATADINE 10 MG TAB PO SCH (08:30)
[2019-08-31] MEDS: ASCORBIC ACID 500 MG TAB PO SCH ×2 (08:36→17:48)
[2019-08-31] MEDS: ZINC SULFATE 220 MG CAP PO SCH (08:36)
[2019-08-31] MEDS: ENOXAPARIN SOD INJ 40 MG/0.4 ML SYR SC SCH ×2 (08:39→21:16)
[2019-08-31] MEDS: PANTOPRAZOLE SOD 40 MG TABEC PO SCH (08:39)
[2019-08-31] MEDS: BENZONATATE 100 MG CAP PO SCH ×3 (08:39→21:16)
[2019-08-31] MEDS: ACETAMINOPHEN 325 MG TAB PO PRN ×2 (10:45→23:07)
--- NOTE | 2019-08-31 12:38 | Diagnostic Imaging Report ---
EXAMINATION: CHEST SINGLE (PORTABLE) INDICATION: Viral pneumonia COMPARISON: None FINDINGS: LINES/TUBES:EKG leads overlie the chest. LUNGS:The lungs are moderately inflated. Unchanged bilateral airspace opacities. PLEURA:No pleural effusion or pneumothorax. MEDIASTINUM:The cardiomediastinal silhouette appears unchanged in size and shape. BONES/SOFT TISSUES:No acute osseous injury. ABDOMEN:No free air under the diaphragm. IMPRESSION: No significant interval change. Signed by: Haroldo Miner MD on 08/31/2019 12:35 PM
--- NOTE | 2019-08-31 15:49 | Progress Note ---
DATE: SUBJECTIVE: The patient is afebrile. T-max is 100.3. She has less dyspnea. She is not complaining of cough. There is no nausea or vomiting. PHYSICAL EXAMINATION: VITAL SIGNS: The blood pressure is 107/45 and the saturation is 94%. Pulse is 100. She remains on Vapotherm at 40 L with 100% FiO2. She is saturating 97%. HEENT: No facial swelling or erythema. CARDIAC: Regular rate and rhythm with normal S1, S2. LUNGS: Auscultation of lungs reveals crackles at the bases. There is no wheezing. ABDOMEN: Soft, nontender. There is no rebound or guarding. EXTREMITIES: No leg edema or calf tenderness. There is no cyanosis or clubbing. SKIN: No rashes. NEUROLOGICAL: No focal abnormalities. LABORATORY DATA: CBC is within normal limits. BUN to creatinine ratio is normal. Albumin is 2.2. IMPRESSION: 1. Acute respiratory failure. 2. Viral pneumonia and coronavirus disease-19 infection. 3. Gastroesophageal reflux. 4. Hypertension. PLAN: 1. Continue Vapotherm. 2. Decadron. 3. Lovenox. 4. Complete antibiotics. 5. Anti-reflux medications. Alex Crews MD [facility]/MODL /[id number]
[2019-08-31] MEDS: CEFTRIAXONE SOD 1 GM/NS 50 ML 50 ML IV SCH (15:56)
[2019-08-31] MEDS ORDERED: DEXMEDETOMIDINE 200MCG/NS 50ML 50 ML IV PRN (20:15)
[2019-08-31] MEDS: DEXMEDETOMIDINE 200MCG/NS 50ML 50 ML IV PRN (23:00)
[2019-09-01] VITALS (27 sets, daily range): BP systolic 90–114; BP diastolic 42–62
[2019-09-01 04:08] LABS: ABG HCO3 25 mmol/L (22-26); ABG PCO2 37 mmHg (35-45); ABG PH 7.44 (7.35-7.45); ABG PO2 43 mmHg (80-105)
[2019-09-01] MEDS: DEXMEDETOMIDINE 200MCG/NS 50ML 50 ML IV PRN (04:30)
[2019-09-01] MEDS: DEXAMETHASONE SOD PHOS INJ 4 MG/ML VIAL IV SCH (05:38)
[2019-09-01] MEDS: GUAIFENESIN/DEXTROMETHORPHAN LIQD 5 ML UDC NG SCH ×3 (05:38→21:12)
[2019-09-01 05:53] LABS: BASOPHILS % 0.2 % (0.0-1.0); EOSINOPHILS # (AUTO) 0.1 (0.0-0.4); EOSINOPHILS % 0.8 % (0.0-6.0); HEMATOCRIT 39.1 % (34.2-44.1); HEMOGLOBIN 12.8 g/dL (12.0-16.0); LYMPHOCYTES # (AUTO) 0.3 (1.0-3.2); LYMPHOCYTES % 4.5 % (18.0-39.1); MEAN CORPUSCULAR HEMOGLOBIN 28.8 pg (28-32); MEAN CORPUSCULAR HGB CONC 32.7 g/dL (31-35); MEAN CORPUSCULAR VOLUME 88.1 fL (81-99); MONOCYTES # (AUTO) 0.1 (0.2-0.8); MONOCYTES % 1.1 % (4.4-11.3); NEUTROPHILS # (AUTO) 6.1 (2.1-6.9); NEUTROPHILS % 92.8 % (38.7-80.0); PLATELET COUNT 179 x10e3/uL (140-360); RED BLOOD COUNT 4.44 x10e6/uL (3.6-5.1)
--- NOTE | 2019-09-01 06:22 | NUR ---
IM- progress note O/N see below ROS; unreliable v/s; revd PE tired appearing; NRBM/Vasotherm 100% anicteric ns1s2 reduced BS soft nt nd no e/t skin dry flat affect awake; adams labs/meds revd A/P; 73yoF Multifocal PNA- azithromycin/ceftriaxone/antitussives/loratadine/flonase/Pulm/ID consult COVID19 positive PNA- as above Sepsis- hold antiHTN meds; IV abx Acute resp failure- BIPAP/Hiflo Hypokalemia- recheck HTN- cont home meds GERd- cont med Osteoporosis- hold med Prop; heparin dispo: f/u labs; 08-27 cont supportive care; replace K 08-28 cont care; recheck K; remaisn on NRBM. 08-29 remains on high O2 needs; supportive care. pt remains alert and appropriate; 08-30 cont care; 08-31 sepsis- cont care; Acute resp failure- cont O2 support; Pt is more SOB, with Desats throughout night; Now in prone position, but complaining of SOB- may eventually need to be intubated- last resort. CleveO. Froylan MD, PhD.
[2019-09-01 06:33] LABS: ALANINE AMINOTRANSFERASE 21 IU/L (0-55); ALBUMIN 2.1 g/dL (3.5-5.0); ALBUMIN/GLOBULIN RATIO 0.6 (0.8-2.0); ALKALINE PHOSPHATASE 152 IU/L (40-150); ANION GAP 12.6 mmol/L (8-16); BLOOD UREA NITROGEN 10 mg/dL (7-26); BUN/CREATININE RATIO 17 (6-25); CALCIUM 7.4 mg/dL (8.4-10.2); CARBON DIOXIDE 25 mmol/L (22-29); CHLORIDE 105 mmol/L (98-107); CREATININE, SERUM 0.59 mg/dL (0.57-1.11); EST GLOMERULAR FILTRATION RATE > 60 ML/MIN (60-); GLUCOSE 123 mg/dL (74-118); POTASSIUM 3.6 mmol/L (3.5-5.1); SODIUM 139 mmol/L (136-145)
--- NOTE | 2019-09-01 06:42 | NUR ---
Notified Dr. Kishor Crews of pt respiratory status changes and ABG results. Dr. Crews would like to prone patient at this time. Educated patient on respiratory benefits of proning position. Patient currently in prone position and tolerating well.
[2019-09-01] MEDS: INSULIN REGULAR, HUMAN 100 UNIT/1 ML 3ML VIAL SQ SCH ×4 (07:30→21:00)
[2019-09-01] MEDS: BENZONATATE 100 MG CAP PO SCH ×3 (09:00→21:11)
[2019-09-01] MEDS: ZINC SULFATE 220 MG CAP PO SCH (09:00)
[2019-09-01] MEDS: LORATADINE 10 MG TAB PO SCH (09:00)
[2019-09-01] MEDS: PANTOPRAZOLE SOD 40 MG TABEC PO SCH (09:00)
[2019-09-01] MEDS: ASCORBIC ACID 500 MG TAB PO SCH ×2 (09:00→17:58)
[2019-09-01] MEDS: ENOXAPARIN SOD INJ 40 MG/0.4 ML SYR SC SCH ×2 (09:59→21:11)
--- NOTE | 2019-09-01 10:03 | Progress Note ---
DATE: SUBJECTIVE: The patient desaturations during the night. She is on a Vapotherm at 40 L with 100%. She is on a non-rebreather over the top of the Vapotherm. She was placed in the prone position. Saturations have improved to 90%. She does not complain of nausea or vomiting. PHYSICAL EXAMINATION: VITAL SIGNS: The patient is afebrile. The blood pressure is 107/52 and the respiratory rate is in the high 20s. HEENT: Shows no facial swelling or erythema. LYMPHATIC: Shows no submandibular, cervical, or supraclavicular adenopathy. CARDIAC: Reveals a regular rate and rhythm with normal S1 and S2. LUNGS: Auscultation of lungs reveals rhonchorous breath sounds bilaterally. There is no wheezing. ABDOMEN: Soft, nontender. There is no rebound or guarding. EXTREMITIES: Shows no leg edema or calf tenderness. There is no cyanosis or clubbing. SKIN: Shows no rashes. NEUROLOGICAL: Shows no focal abnormalities. LABORATORY DATA: White blood cell count is 6.6 and hemoglobin 12.8. The platelet count is 179. The BUN to creatinine ratio is 10 to 0.59. The total protein is 2.1. The other electrolytes are within normal limits. RADIOGRAPHIC DATA: Shows bilateral pulmonary infiltrates. IMPRESSION: 1. Acute respiratory failure. 2. Viral pneumonia and coronavirus disease-2019 infection. 3. Gastroesophageal reflux. 4. Hypoalbuminemia. 5. Hyperglycemia. PLAN: 1. Continue Vapotherm in the prone position as tolerated. 2. If the patient deteriorates, she may require endotracheal intubation. 3. Continue Lovenox. 4. Complete Decadron. 5. Precedex as needed. 6. Monitor and control blood sugars. 7. Hemoglobin A1c. Case discussed with nightshift nursing, dayshift nursing, Respiratory, Infectious Disease, and the patient. Greater than 35 minutes in direct critical care time apart from any procedures performed. Alex Crews MD [facility]/MODL /[id number]
--- NOTE | 2019-09-01 12:08 | Diagnostic Imaging Report ---
EXAM: CHEST SINGLE (PORTABLE) DATE: 09/01/2019 11:25 AM INDICATION: Respiratory failure, viral pneumonia COMPARISON: 08/31/2019 FINDINGS: There are unchanged patchy airspace opacities throughout the lungs bilaterally. There is no evidence for pneumothorax or significant pleural effusion. The cardiomediastinal silhouette is stable in appearance. No acute osseous abnormality is identified. IMPRESSION: No significant interval change from 08/31/2019 Signed by: Dr. Fabricio Snyder MD on 09/01/2019 12:05 PM
--- NOTE | 2019-09-01 18:16 | Progress Note ---
DATE: SUBJECTIVE: The patient is seen and evaluated. Available labs and notes reviewed. Discussed with Dr. Perera. Please refer to chart for more information. The patient remains in COVID ICU, in prone position. The patient is on Vapotherm 40 at 100% and non-rebreather with a saturation at 92% during my visit. The patient seems to be comfortable. PHYSICAL EXAMINATION: VITAL SIGNS: Temperature 100.5, max, pulse 78, respiration 27, and blood pressure 96/57. GENERAL: Comfortable in bed in prone position. CV: S1 and S2. CHEST: Decreased breath sounds. Equal expansion. ABDOMEN: Soft and nontender. HEENT: Moist. No pallor. No JVD. EXTREMITIES: No significant edema. MEDICATIONS: On Lovenox, dexamethasone, Rocephin for 5 days, zinc sulfate, and vitamin C. LABORATORY STUDIES: White count of 6.6, hemoglobin 12.8, and platelet 179. Sodium 139, potassium 3.6, and creatinine 0.59. Coronavirus PCR positive on 08/27/2019. MICROBIOLOGY: Urine culture, blood culture negative, 08/26. IMAGING: Chest x-ray from yesterday showed no significant interval change. ASSESSMENT AND PLAN: 1. COVID-19 pneumonia. 2. Superimposed bacterial pneumonia. 3. Respiratory failure. 4. The patient is status post Zithromax, completed Rocephin. We will stop Rocephin. Continue with other medications as listed above. Monitor temperature. Further management of this patient is based on daily findings on laboratory and physical examination. Dictated by Beau Collazo PA-C (Al) Anderson Perera MD /MODL /[id number]
[2019-09-02] VITALS (25 sets, daily range): BP systolic 101–139; BP diastolic 45–64
[2019-09-02] MEDS: DEXMEDETOMIDINE 200MCG/NS 50ML 50 ML IV PRN ×4 (00:23→18:33)
[2019-09-02 05:21] LABS: ABG PCO2 35 mmHg (35-45); ABG PH 7.47 (7.35-7.45)
[2019-09-02 05:22] LABS: ABG HCO3 25 mmol/L (22-26); ABG PO2 47 mmHg (80-105)
[2019-09-02] MEDS: GUAIFENESIN/DEXTROMETHORPHAN LIQD 5 ML UDC NG SCH ×3 (05:27→20:40)
[2019-09-02] MEDS: DEXAMETHASONE SOD PHOS INJ 4 MG/ML VIAL IV SCH (05:27)
[2019-09-02 06:01] LABS: ALANINE AMINOTRANSFERASE 16 IU/L (0-55); ALBUMIN 1.9 g/dL (3.5-5.0); ALBUMIN/GLOBULIN RATIO 0.4 (0.8-2.0); ALKALINE PHOSPHATASE 164 IU/L (40-150); ANION GAP 13.2 mmol/L (8-16); BLOOD UREA NITROGEN 14 mg/dL (7-26); BUN/CREATININE RATIO 26 (6-25); CALCIUM 7.5 mg/dL (8.4-10.2); CARBON DIOXIDE 25 mmol/L (22-29); CHLORIDE 106 mmol/L (98-107); CREATININE, SERUM 0.54 mg/dL (0.57-1.11); EST GLOMERULAR FILTRATION RATE > 60 ML/MIN (60-); GLUCOSE 141 mg/dL (74-118); POTASSIUM 4.2 mmol/L (3.5-5.1); SODIUM 140 mmol/L (136-145)
[2019-09-02 06:10] LABS: BASOPHILS % 0.2 % (0.0-1.0); EOSINOPHILS % 0.2 % (0.0-6.0); HEMATOCRIT 40.8 % (34.2-44.1); HEMOGLOBIN 13.5 g/dL (12.0-16.0); LYMPHOCYTES # (AUTO) 0.5 (1.0-3.2); LYMPHOCYTES % 5.5 % (18.0-39.1); MEAN CORPUSCULAR HGB CONC 33.1 g/dL (31-35); MEAN CORPUSCULAR VOLUME 90.7 fL (81-99); MONOCYTES # (AUTO) 0.1 (0.2-0.8); MONOCYTES % 1.1 % (4.4-11.3); NEUTROPHILS # (AUTO) 8.2 (2.1-6.9); NEUTROPHILS % 92.4 % (38.7-80.0); PLATELET COUNT 161 x10e3/uL (140-360); RED CELL DISTRIBUTION WIDTH 13.2 % (11.7-14.4)
--- NOTE | 2019-09-02 07:34 | Diagnostic Imaging Report ---
Examination: Single AP view of the chest. COMPARISON: Portable chest 09/01/2019 INDICATION: Shortness of breath IMPRESSION: 1. Lines and Tubes: None 2. No interval change in diffuse bilateral interstitial and alveolar opacities, consistent with multifocal pneumonia. 3. Cardiomediastinal silhouette is normal. Pulmonary vasculature is obscured. 4. No acute bony abnormalities. Signed by: Dr. Carlos Mendoza M.D. on 09/02/2019 7:30 AM
[2019-09-02] MEDS: ENOXAPARIN SOD INJ 40 MG/0.4 ML SYR SC SCH ×2 (08:55→21:10)
[2019-09-02] MEDS: LORATADINE 10 MG TAB PO SCH (08:55)
[2019-09-02] MEDS: BENZONATATE 100 MG CAP PO SCH ×3 (08:55→20:40)
[2019-09-02] MEDS: ZINC SULFATE 220 MG CAP PO SCH (08:55)
[2019-09-02] MEDS: ASCORBIC ACID 500 MG TAB PO SCH ×2 (08:55→17:00)
[2019-09-02] MEDS: INSULIN REGULAR, HUMAN 100 UNIT/1 ML 3ML VIAL SQ SCH ×4 (09:01→21:12)
[2019-09-02] MEDS: PANTOPRAZOLE 40 MG 10ML VIAL IV SCH (10:11)
--- NOTE | 2019-09-02 10:24 | Progress Note ---
DATE: SUBJECTIVE: The patient's saturation was so worse yesterday. She had to be placed in the prone position. She had some intermittent confusion. She is not having any fevers. She has no chest pain. PHYSICAL EXAMINATION: VITAL SIGNS: The blood pressure is 104/53 and the pulse is 116. Saturation is 92% on a Vapotherm of 40 with 100%. She is in the prone position. Her temperature is 99.8. HEENT: Shows no facial swelling or erythema. LYMPHATIC: Shows no submandibular, cervical, or supraclavicular adenopathy. CARDIAC: Reveals regular rate and rhythm with normal S1 and S2. LUNGS: Auscultation of the lungs reveals rhonchorous breath sounds bilaterally. There is no wheezing. ABDOMEN: Soft, nontender. There is no rebound or guarding. EXTREMITIES: Shows no leg edema or calf tenderness. There is no cyanosis or clubbing. SKIN: Shows no rashes. NEUROLOGIC: Shows no focal abnormalities. LABORATORY DATA: BUN to creatinine ratio is 14 to 0.54. The blood sugar is 167. The albumin is 1.9. Other electrolytes are within normal limits. RADIOGRAPHIC DATA: Shows continued bilateral infiltrates. IMPRESSION: 1. Acute respiratory failure. 2. Viral pneumonia and coronavirus disease 2019 infection. 3. Diabetes mellitus. 4. Gastroesophageal reflux. PLAN: 1. Continue Vapotherm. 2. Echocardiogram and Cardiology evaluation. 3. Continue Lovenox. 4. Complete Decadron. 5. Precedex. 6. Monitor and control blood sugars. 7. Small amount of intravenous fluid. 8. Protonix. 9. Case discussed with daughter, night warehouse selector nursing, dayshift nursing, Respiratory, and Internal Medicine. Greater than 35 minutes in direct critical care time. Alex Crews MD [facility]/MODL /[id number]
--- NOTE | 2019-09-02 10:44 | NUR ---
Have discussed with Dr Kishor Crews regarding low O2 sat at 85 while lying supine with HOB up. Pt assisted to lay prone. At this time, Dr Crews has advised ok to hold the routine po meds and and encourage/ assist pt rest in the prone position. Will monitor. Daughter has called, POC has been discussed.
--- NOTE | 2019-09-02 10:50 | NUR ---
Cardiology has been consulted, echo ordered. Dr Mays has advised to not perform the echo until pt can tolerate being on her back for the test.
[2019-09-02 11:27] LABS: BAND NEUTROPHILS % (MANUAL) 3 %; LYMPHOCYTES % (MANUAL) 4 % (19-48); MONOCYTES % (MANUAL) 1 % (3.4-9.0); NEUTROPHILS % (MANUAL) 92 % (40-74)
--- NOTE | 2019-09-02 12:55 | NUR ---
IM- progress note O/N see below ROS; unreliable v/s; revd PE tired appearing; NRBM/Vasotherm 100% anicteric ns1s2 reduced BS soft nt nd no e/t skin dry flat affect awake; adams labs/meds revd A/P; 73yoF Multifocal PNA- azithromycin/ceftriaxone/antitussives/loratadine/flonase/Pulm/ID consult COVID19 positive PNA- as above Sepsis- hold antiHTN meds; IV abx Acute resp failure- BIPAP/Hiflo Hypokalemia- recheck HTN- cont home meds GERd- cont med Osteoporosis- hold med Prop; heparin dispo: f/u labs; 08-27 cont supportive care; replace K 08-28 cont care; recheck K; remaisn on NRBM. 08-29 remains on high O2 needs; supportive care. pt remains alert and appropriate; 08-30 cont care; 08-31 sepsis- cont care; Acute resp failure- cont O2 support; Pt is more SOB, with Desats throughout night; Now in prone position, but complaining of SOB- may eventually need to be intubated- last resort. 09-01 echo ordered- will f/u; O2 support in Multifocal PNA. CleveO. Froylan MD, PhD.
--- NOTE | 2019-09-02 13:36 | Consultation ---
DATE OF CONSULTATION: 09/02/2019 Cardiology Consultation REQUESTING PHYSICIAN: Alex Crews MD. REASON FOR CONSULTATION: Cardiac evaluation. HISTORY OF PRESENT ILLNESS: This is a 73-year-old woman with history of hypertension, newly diagnosed diabetes mellitus, and osteoporosis, who presented with complaints of shortness of breath, malaise, fever and cough. Chest x-ray revealed bilateral patchy opacities, which could represent multifocal pneumonia and she was found to be positive for COVID-19. Of note, patient's daughter was known to be COVID-19 positive as well. The patient's main complaint is of shortness of breath. No chest pain, edema, orthopnea, or lightheadedness were reported. REVIEW OF SYSTEMS: Limited due to respiratory distress. PAST MEDICAL HISTORY: 1. Hypertension. 2. Newly diagnosed diabetes mellitus. 3. Osteoporosis. PAST SURGICAL HISTORY: Left knee surgery. ALLERGIES: NO KNOWN DRUG ALLERGIES. MEDICATIONS: Please see medication list. SOCIAL HISTORY: No smoking, alcohol, or illicit drugs. FAMILY HISTORY: Noncontributory to current illness. PHYSICAL EXAMINATION: VITAL SIGNS: Temperature 99.7 degrees, pulse 90, respiratory rate 26, blood pressure 103/45, oxygen saturation 91% on Vapotherm and non-rebreather. GENERAL: The patient was not examined due to isolation for COVID-19. LABORATORY DATA: Sodium 140, potassium 4.2, chloride 106, CO2 of 25, BUN 14, and creatinine 0.54. WBC 8.91, hemoglobin 13.5, hematocrit 40.8, platelets 161. IMAGING: EKG from admission was reviewed revealing sinus tachycardia. IMPRESSION: 1. Coronavirus disease-19 pneumonia. 2. Acute hypoxic respiratory failure secondary to above. 3. Hypertension. 4. Newly diagnosed diabetes mellitus. 5. Osteoporosis. RECOMMENDATIONS: Continue supportive care per Pulmonary. Repeat BNP. Echo has been ordered, but patient is hypoxic despite being prone. If patient can safely be turned over, we can proceed with echocardiogram at that point. Continue enoxaparin and dexamethasone. Continue supportive care. Antibiotics per Infectious Disease. Thank you for this consult. We will continue to follow. Harika Mays MD [facility]/MODL /[id number]
--- NOTE | 2019-09-02 15:56 | Progress Note ---
DATE: SUBJECTIVE: Ms. Hernandez is worse. She was placed on prone position, confused. OBJECTIVE: VITAL SIGNS: Her blood pressure is 100/53, heart rate 100, saturation 92 on Vapotherm 40 with 100%. HEENT: Normocephalic. CHEST: Few crackles. HEART: S1 and S2. No S3, S4, or murmur. ABDOMEN: Soft. IMPRESSION: Respiratory failure, COVID-19, diabetes mellitus with gastroesophageal reflux disease. The patient was seen by Cardiology today. Her white count is 8.9, sodium 140, potassium 4.2. She is currently on insulin, Lovenox, and dexamethasone. She will finish her antibiotic. This is day #6. Continue as ordered. We will follow. MD KAMAR Galdamez/MODL /[id number]
--- NOTE | 2019-09-02 16:07 | NUR ---
Nutrition Intervention Note RD Recommendation(s) for Physician: -Continue regular diet -Recommend Ensure Compact BID for added nutrition Plan of Care: RD following, monitoring for tolerance and adequacy, oral supplement recommendation Nutrition reason for involvement: length of stay RD Assessment (09/02/19) Pt is a 73 year old female admitted with pneumonia due to COVID-19 virus and respiratory failure. Unable to enter room due to isolation precautions. MD note indicates pt has some intermittent confusion. It is recorded that pt has been consuming 0-50% of meals during admission. There are no previous weights in chart. Recommend Ensure Compact BID for added nutrition. Will continue to monitor Principal Problems/Diagnoses: pneumonia due to COVID-19 virus and respiratory failure PMH: hypertension, chronic pain, gastroesophageal reflux, osteoporosis GI: soft/non-tender abdomen, last recorded BM 08/29 Skin: no pressure ulcer or wounds noted Labs: (09/01) Na 140, K 4.2, BUN 14, Cr 0.54, Glu 141, Ca 7.5 Meds: insulin, protonix, dexmethasone, zofran, Imodium, zinc sulfate, vitamin C, colace Ht: 63 inches Wt: 163 lbs BMI: 28.9 kg/m2 IBW: 115 lbs Malnutrition Evaluation (09/02/19) The patient does not meet criteria for a specified degree of malnutrition at this time. Will re-evaluate at follow-up as appropriate. Energy intake: </=50% of estimated energy requirements for > 5 days Weight loss: Unable to assess Fat loss: unable to evaluate Muscle loss: unable to evaluate Supporting Evidence: Fluid accumulation: no leg edema per MD note Functional Status: unable to evaluate Nutrition Prescription (Diet Order): regular diet Estimated Nutritional Needs: 0419-9945 calories/day (18-20 kcal/kg CBW) 74-111 g protein/day (1-1.5 g pro/kg CBW) Diet Adequacy: Not meeting calorie needs, Not meeting protein needs Tolerance: unable to assess Diet Education Needs Assessment: Diet education not indicated; patient on regular diet. Nutrition Care Level: low Nutrition Diagnosis: Inadequate energy intake related to decreased ability to consume sufficient energy as evidenced by insufficient energy intake from diet compared to needs Goal: Patient will meet 75-100% of estimated needs by follow up Progress: N/A Interventions: -General healthful diet, Commercial beverage Monitoring/Evaluation: -Total energy intake, Total protein intake, Liquid supplement, Weight change Signed: Stephanie Willis RD, LD
[2019-09-03] VITALS (27 sets, daily range): BP systolic 93–143; BP diastolic 42–65
[2019-09-03] MEDS: DEXMEDETOMIDINE 200MCG/NS 50ML 50 ML IV PRN (05:00)
[2019-09-03] MEDS: GUAIFENESIN/DEXTROMETHORPHAN LIQD 5 ML UDC NG SCH ×2 (05:03→05:46)
[2019-09-03] MEDS: DEXAMETHASONE SOD PHOS INJ 4 MG/ML VIAL IV SCH (05:03)
[2019-09-03 06:12] LABS: BASOPHILS % 0.2 % (0.0-1.0); EOSINOPHILS # (AUTO) 0.1 (0.0-0.4); EOSINOPHILS % 0.9 % (0.0-6.0); HEMATOCRIT 44.4 % (34.2-44.1); HEMOGLOBIN 14.3 g/dL (12.0-16.0); LYMPHOCYTES # (AUTO) 0.5 (1.0-3.2); LYMPHOCYTES % 6.2 % (18.0-39.1); MEAN CORPUSCULAR HGB CONC 32.2 g/dL (31-35); MEAN CORPUSCULAR VOLUME 90.1 fL (81-99); MONOCYTES # (AUTO) 0.1 (0.2-0.8); MONOCYTES % 1.1 % (4.4-11.3); NEUTROPHILS # (AUTO) 7.3 (2.1-6.9); PLATELET COUNT 174 x10e3/uL (140-360); RED BLOOD COUNT 4.93 x10e6/uL (3.6-5.1); RED CELL DISTRIBUTION WIDTH 13.5 % (11.7-14.4)
[2019-09-03 06:35] LABS: ALANINE AMINOTRANSFERASE 17 IU/L (0-55); ALBUMIN 2.1 g/dL (3.5-5.0); ALBUMIN/GLOBULIN RATIO 0.4 (0.8-2.0); ALKALINE PHOSPHATASE 165 IU/L (40-150); ANION GAP 15.2 mmol/L (8-16); BLOOD UREA NITROGEN 15 mg/dL (7-26); BUN/CREATININE RATIO 25 (6-25); CARBON DIOXIDE 27 mmol/L (22-29); CHLORIDE 104 mmol/L (98-107); CREATININE, SERUM 0.59 mg/dL (0.57-1.11); EST GLOMERULAR FILTRATION RATE > 60 ML/MIN (60-); GLUCOSE 120 mg/dL (74-118); POTASSIUM 4.2 mmol/L (3.5-5.1); SODIUM 142 mmol/L (136-145)
--- NOTE | 2019-09-03 06:38 | NUR ---
Patient positioned prone at 0615. Pt exerted self during positioning and is recovering slowly. Will continue to monitor. Dr. Galeano notified of UO 350 for entire shift.
--- NOTE | 2019-09-03 06:46 | Diagnostic Imaging Report ---
Examination: Single AP view of the chest. COMPARISON: Portable chest 09/02/2019 INDICATION: Pneumonia, COVID IMPRESSION: 1. Lines and Tubes: None 2. No interval change in diffuse bilateral interstitial and alveolar opacities, consistent with multifocal pneumonia. 3. Cardiomediastinal silhouette is normal. Pulmonary vasculature is obscured. 4. No acute bony abnormalities. Signed by: Dr. Carlos Mendoza M.D. on 09/03/2019 6:42 AM
[2019-09-03] MEDS: INSULIN REGULAR, HUMAN 100 UNIT/1 ML 3ML VIAL SQ SCH ×4 (07:30→20:53)
[2019-09-03] MEDS: ENOXAPARIN SOD INJ 40 MG/0.4 ML SYR SC SCH ×2 (08:24→20:56)
[2019-09-03] MEDS: ASCORBIC ACID 500 MG TAB PO SCH ×2 (08:25→17:00)
[2019-09-03] MEDS: ZINC SULFATE 220 MG CAP PO SCH (08:25)
[2019-09-03] MEDS: PANTOPRAZOLE 40 MG 10ML VIAL IV SCH (08:25)
[2019-09-03] MEDS: BENZONATATE 100 MG CAP PO SCH (08:25)
[2019-09-03 09:36] LABS: BAND NEUTROPHILS % (MANUAL) 5 %; LYMPHOCYTES % (MANUAL) 7 % (19-48); MONOCYTES % (MANUAL) 1 % (3.4-9.0); NEUTROPHILS % (MANUAL) 87 % (40-74); PLATELET ESTIMATE ADEQUATE; PLATELET MORPHOLOGY COMMENT NORMAL; RBC MORPHOLOGY COMMENT NORMAL
--- NOTE | 2019-09-03 09:38 | NUR ---
IM- progress note O/N see below ROS; unreliable v/s; revd PE tired appearing; NRBM/Vasotherm 100% anicteric ns1s2 reduced BS soft nt nd no e/t skin dry flat affect awake; adams labs/meds revd A/P; 73yoF Multifocal PNA- azithromycin/ceftriaxone/antitussives/loratadine/flonase/Pulm/ID consult COVID19 positive PNA- as above Sepsis- hold antiHTN meds; IV abx Acute resp failure- BIPAP/Hiflo Hypokalemia- recheck HTN- cont home meds GERd- cont med Osteoporosis- hold med Prop; heparin dispo: f/u labs; 08-27 cont supportive care; replace K 08-28 cont care; recheck K; remaisn on NRBM. 08-29 remains on high O2 needs; supportive care. pt remains alert and appropriate; 08-30 cont care; 08-31 sepsis- cont care; Acute resp failure- cont O2 support; Pt is more SOB, with Desats throughout night; Now in prone position, but complaining of SOB- may eventually need to be intubated- last resort. 09-01 echo ordered- will f/u; O2 support in Multifocal PNA. 09-02 Proned; 100% O2, at times still hypoxic; Full code; on full therapy; echo pending ability to safely place on back. cont care . CleveO. Froylan MD, PhD.
[2019-09-03] MEDS ORDERED: LACTATED RINGER'S 500 ML INJ ONE (11:15)
[2019-09-03] MEDS ORDERED: LACTATED RINGER'S 1,000 ML ONE (11:45)
--- NOTE | 2019-09-03 13:05 | Progress Note ---
DATE: SUBJECTIVE: The patient is still saturating around 90% despite being on the Vapotherm at 40 L and 100% along with a non-rebreather over the Vapotherm. The patient does not complain of any nausea or vomiting. She has no fevers. PHYSICAL EXAMINATION: VITAL SIGNS: The patient is afebrile. The vital signs are stable. The blood pressure is 128/50. Saturation is 92%. HEENT: No facial swelling or erythema. CARDIAC: Regular rate and rhythm with normal S1, S2. LUNGS: Auscultation of lungs reveals rhonchorous breath sounds bilaterally. There is no wheezing. ABDOMEN: Soft, nontender. There is no rebound or guarding. EXTREMITIES: No leg edema or calf tenderness. There is no cyanosis or clubbing. SKIN: No rashes. LABORATORY DATA: CBC is within normal limits. The BUN to creatinine ratio is normal. Other electrolytes are within normal limits. RADIOGRAPHIC DATA: Chest x-ray shows no changes. There are bilateral infiltrates. IMPRESSION: 1. Acute respiratory failure. 2. Viral pneumonia and coronavirus disease-19 infection. 3. Diabetes mellitus. 4. Gastroesophageal reflux. PLAN: 1. Continue Vapotherm. 2. Placed in prone position as tolerated. 3. Continue Lovenox. 4. Complete Decadron. 5. Precedex. 6. Monitor and control blood sugars. 7. Protonix. 8. Await echocardiogram. Alex Crews MD [facility]/MODL /[id number]
--- NOTE | 2019-09-03 15:02 | NUR ---
Nurse deferred tx due to pt is not appropriate for therapy, desats so quickly while on hi flow o2 and possibly to be intubated. to d/c pt until pt is more stable and appropriate for therapy Addendum: 09/03/19 at 1505 by Froylan Roman PTA Amended: Links added.
--- NOTE | 2019-09-03 15:36 | Progress Note ---
DATE: SUBJECTIVE: This is a 73-year-old, who remains in intensive care unit, still on 94% on Vapotherm and 40 a non-rebreather. The patient remains in intensive care unit. PHYSICAL EXAMINATION: VITAL SIGNS: Stable, afebrile. HEENT: She is not icteric. NECK: Supple. CHEST: Crackles. HEART: S1 and S2. No S3, S4, or murmur. ABDOMEN: Soft. The patient, who is on prone position yesterday. Blood cultures and urine cultures negative. White count 8.03. Sodium 132, potassium 4.2. This is day #7 on admission. The patient is currently on insulin, vitamin C, and to finish 10 days of dexamethasone. Continue as ordered. Continue supportive care. Discussed with the medical team at length. We will follow. Anderson Perera MD [facility]/MODL /[id number]
[2019-09-03] MEDS ORDERED: MIDAZOLAM HCL 2 MG/2 ML VIAL ONE (17:05)
--- NOTE | 2019-09-03 18:12 | NUR ---
Pt intubated 7.5 at 25 to the lip, L ngt placed without complications noted. Versed, etomidate, succinate given. Fentanyl, versed drips started. Stat chest xray to be obtained. Will monitor. Addendum: 09/03/19 at 1816 by Florentino Wright RN FIO2 100, [id number], Rate 30, P 14
--- NOTE | 2019-09-03 18:32 | Operative Report ---
DATE OF PROCEDURE: SURGEON: Alex Crews MD PREOPERATIVE DIAGNOSIS: Respiratory failure. POSTOPERATIVE DIAGNOSIS: Respiratory failure. CONSENT: Consent was deemed emergent due to poor oxygen saturations and worsening respiratory distress. MEDICATIONS: Versed 1 mg IV, etomidate 20 mg IV and succinylcholine 100 mg IV. PROCEDURE IN DETAIL: The patient was placed in a supine position. A milligram of versed was used. The patient was preoxygenated with an Ambu bag and a mask. The saturation still remained in the low 80s. A 3-0 blade was used to visualize glottis. A 7.5 endotracheal tube was passed through the glottis on the first attempt. There was good CO2 return and equal breath sounds bilaterally. COMPLICATIONS: None. ESTIMATED BLOOD LOSS: None. Alex Crews MD [facility]/MODL /[id number]
[2019-09-03] MEDS: FENTANYL 2000MCG/NS 250 250 ML IV PRN ×2 (18:44→20:57)
--- NOTE | 2019-09-03 18:48 | Diagnostic Imaging Report ---
EXAMINATION: CHEST SINGLE (PORTABLE) INDICATION: s/p intubation, ngt placement COMPARISON: Multiple prior chest x-ray examinations most recent performed earlier same day. FINDINGS: AP view TUBES and LINES: There is a new endotracheal tube in place with distal tip 1 cm above the level of harmna. Recommend 2 cm retraction. There is NG tube in place with distal tip beyond the confines of this exam. LUNGS/PLEURA: There are bilateral patchy opacities greater on the left compatible with multifocal pneumonia, unchanged from prior exam. There is no pleural effusion or pneumothorax. HEART AND MEDIASTINUM: The cardiomediastinal silhouette is obscured by adjacent opacities. BONES AND SOFT TISSUES: No acute osseous lesion. Soft tissues are unremarkable. UPPER ABDOMEN: No free air under the diaphragm. IMPRESSION: 1. New endotracheal tube in place with distal tip 1 cm above the level of harman. Recommend 2 cm retraction. 2. Unchanged bilateral patchy opacities greater on the left compatible with multifocal pneumonia. Signed by: Beau Ozuna MD on 09/03/2019 6:44 PM
--- NOTE | 2019-09-03 18:49 | Diagnostic Imaging Report ---
EXAM: Abdomen Radiograph INDICATION: ngtube placement COMPARISON: None FINDINGS: TUBES and LINES: There is a nasogastric tube in place with distal tip in the stomach. LOWER CHEST: No abnormalities in the lower chest. ABDOMEN: Mildly dilated air-filled loops of the small bowel with no evidence of obstruction.. No pneumoperitoneum. No abnormal abdominal calcifications. BONES AND SOFT TISSUES: No acute osseous lesion. Soft tissues are unremarkable. IMPRESSION: Mildly dilated air-filled loops of the small bowel with no evidence of obstruction. Signed by: Beau Ozuna MD on 09/03/2019 6:45 PM
[2019-09-03] MEDS: MIDAZOLAM HCL 5MG/ML 10ML VIAL 100 ML IV PRN ×2 (18:54→20:56)
[2019-09-03] MEDS ORDERED: SODIUM CHLORIDE 0.9% 1000ML 1,000 ML ONE (19:18)
[2019-09-03] MEDS ORDERED: SODIUM CHLORIDE 0.9% 1000ML 500 ML IV ONE (20:00)
[2019-09-03] MEDS ORDERED: NOREPINEPHRINE INJ 4MG/4ML 8 MG in DEXTROSE 5% 250ML 250 ML IV PRN (20:00)
--- NOTE | 2019-09-03 20:33 | Operative Report ---
DATE OF PROCEDURE: SURGEON: Alex Crews MD PROCEDURE: Arterial line placement under ultrasound guidance. PREOPERATIVE DIAGNOSES: Diabetes, COVID-19, and respiratory failure. POSTOPERATIVE DIAGNOSES: Diabetes, COVID-19, and respiratory failure. CONSENT: Consent was obtained from the daughter. MEDICATIONS: The patient was on Versed and fentanyl at the time of the procedure. PROCEDURE IN DETAIL: The left ribs were prepped sterilely with chlorhexidine. A sterile drape was used as well as a sterile mask and sterile gloves. An ultrasound machine was used to locate the radial artery. The radial artery was cannulated under direct visualization with a 20-gauge needle. A wire was passed through the needle and a 20-gauge catheter was passed over the wire by the Seldinger technique. There was good blood return. COMPLICATIONS: None. ESTIMATED BLOOD LOSS: None. Alex Crews MD [facility]/MODL /[id number]
[2019-09-03 21:18] LABS: ABG HCO3 29 mmol/L (22-26); ABG PCO2 72 mmHg (35-45); ABG PH 7.21 (7.35-7.45); ABG PO2 95 mmHg (80-105)
[2019-09-04] VITALS (27 sets, daily range): BP systolic 85–119; BP diastolic 45–66
--- NOTE | 2019-09-04 00:52 | Diagnostic Imaging Report ---
Examination: Single AP view of the chest. COMPARISON: AP chest 09/03/2019 INDICATION: Right PICC line placement IMPRESSION: 1. Lines and Tubes: Interval placement of right-sided PICC line, which has its distal tip projecting in the cavoatrial junction. Other supporting lines and tubes are unchanged. 2. No significant interval change in bilateral interstitial and alveolar opacities consistent with multifocal pneumonia. Signed by: Dr. Carlos Mendoza M.D. on 09/04/2019 12:48 AM
[2019-09-04 03:57] LABS: BASOPHILS % 0.2 % (0.0-1.0); HEMATOCRIT 38.2 % (34.2-44.1); HEMOGLOBIN 11.8 g/dL (12.0-16.0); LYMPHOCYTES # (AUTO) 0.4 (1.0-3.2); MEAN CORPUSCULAR HEMOGLOBIN 28.6 pg (28-32); MEAN CORPUSCULAR HGB CONC 30.9 g/dL (31-35); MEAN CORPUSCULAR VOLUME 92.5 fL (81-99); MONOCYTES # (AUTO) 0.2 (0.2-0.8); MONOCYTES % 2.7 % (4.4-11.3); NEUTROPHILS # (AUTO) 8.2 (2.1-6.9); NEUTROPHILS % 92.3 % (38.7-80.0); PLATELET COUNT 135 x10e3/uL (140-360); RED BLOOD COUNT 4.13 x10e6/uL (3.6-5.1); RED CELL DISTRIBUTION WIDTH 13.6 % (11.7-14.4)
[2019-09-04 04:07] LABS: ALANINE AMINOTRANSFERASE 15 IU/L (0-55); ALBUMIN 1.7 g/dL (3.5-5.0); ALBUMIN/GLOBULIN RATIO 0.4 (0.8-2.0); ALKALINE PHOSPHATASE 124 IU/L (40-150); ANION GAP 9.3 mmol/L (8-16); BLOOD UREA NITROGEN 17 mg/dL (7-26); BUN/CREATININE RATIO 35 (6-25); CALCIUM 7.3 mg/dL (8.4-10.2); CARBON DIOXIDE 28 mmol/L (22-29); CHLORIDE 108 mmol/L (98-107); CREATININE, SERUM 0.49 mg/dL (0.57-1.11); EST GLOMERULAR FILTRATION RATE > 60 ML/MIN (60-); GLUCOSE 130 mg/dL (74-118); POTASSIUM 4.3 mmol/L (3.5-5.1); SODIUM 141 mmol/L (136-145)
[2019-09-04] MEDS: DEXAMETHASONE SOD PHOS INJ 4 MG/ML VIAL IV SCH (05:26)
[2019-09-04] MEDS: MIDAZOLAM HCL 5MG/ML 10ML VIAL 100 ML IV PRN ×3 (06:19→23:00)
[2019-09-04] MEDS: INSULIN REGULAR, HUMAN 100 UNIT/1 ML 3ML VIAL SQ SCH ×4 (07:30→22:30)
[2019-09-04 07:32] LABS: ABG HCO3 29 mmol/L (22-26); ABG PCO2 65 mmHg (35-45); ABG PH 7.26 (7.35-7.45); ABG PO2 102 mmHg (80-105)
[2019-09-04] MEDS ORDERED: NOREPINEPHRINE 8 MG/D5W 250 ML 250 ML ONE (08:01)
[2019-09-04] MEDS: PANTOPRAZOLE 40 MG 10ML VIAL IV SCH (08:47)
[2019-09-04] MEDS: ASCORBIC ACID 500 MG TAB PO SCH ×2 (08:47→17:52)
[2019-09-04] MEDS: ZINC SULFATE 220 MG CAP PO SCH (08:47)
[2019-09-04 08:59] LABS: LYMPHOCYTES % (MANUAL) 2 % (19-48); MONOCYTES % (MANUAL) 2 % (3.4-9.0); NEUTROPHILS % (MANUAL) 96 % (40-74); PLATELET ESTIMATE SLIGHTLY DECREASED; PLATELET MORPHOLOGY COMMENT NORMAL; RBC MORPHOLOGY COMMENT NORMAL
--- NOTE | 2019-09-04 12:10 | Progress Note ---
DATE: Pulmonary Critical Care Progress Note SUBJECTIVE: The patient is currently on mechanical ventilation. She is on a PRVC at a rate of 28 with a tidal volume of 360. Her PEEP is set at 12 and her FiO2 is set at 80%. She is on Versed and fentanyl. PHYSICAL EXAMINATION: VITAL SIGNS: Blood pressure is 103/47, pulse is 66, and saturation is 94%. HEENT: Shows no facial swelling or erythema.. There is an oral endotracheal tube. CARDIAC: Reveals regular rate and rhythm with normal S1 and S2. LUNGS: Auscultation of lungs reveals crackles at the bases. There is no wheezing. ABDOMEN: Soft and nontender. There is no rebound or guarding. EXTREMITIES: Show a PICC line in. There is no leg edema. There is no calf tenderness. LABORATORY DATA: White blood cell count is 8.9, hemoglobin is 11.4, and platelet count is 135. BUN to creatinine ratio is 17 and 0.49. Other electrolytes are within normal limits. Albumin is 1.7. RADIOGRAPHIC DATA: Chest x-ray shows bilateral pulmonary infiltrates. IMPRESSION: 1. Acute respiratory failure. 2. Viral pneumonia and coronavirus disease 2019 infection. 3. Diabetes. 4. Gastroesophageal reflux. 5. Thrombocytopenia. PLAN: 1. Continue PRVC mode of ventilation and monitor ABGs. 2. Continue Lovenox. 3. Complete Decadron. 4. Continue Versed and fentanyl. 5. Begin enteral feedings. 6. Protonix. 7. Monitor and control blood sugars. 8. Case discussed with nightshift nursing, dayshift nursing, Respiratory, Internal Medicine, and Infectious Disease. Greater than 35 minutes in direct critical care time apart from any procedures performed. MD MATT Swanson/[place] /[id number]
[2019-09-04] MEDS: FENTANYL 2000MCG/NS 250 250 ML IV PRN ×2 (12:29→18:38)
--- NOTE | 2019-09-04 15:49 | NUR ---
IM- progress note O/N see below ROS; unreliable v/s; revd PE tired appearing; intubated; NGT anicteric ns1s2 reduced BS soft nt nd no e/t skin dry flat affect adams labs/meds revd A/P; 73yoF Multifocal PNA- azithromycin/ceftriaxone/antitussives/loratadine/flonase/Pulm/ID consult COVID19 positive PNA- as above Sepsis- hold antiHTN meds; IV abx Acute resp failure- BIPAP/Hiflo Hypokalemia- recheck HTN- cont home meds GERd- cont med Osteoporosis- hold med Prop; heparin dispo: f/u labs; 08-27 cont supportive care; replace K 08-28 cont care; recheck K; remaisn on NRBM. 08-29 remains on high O2 needs; supportive care. pt remains alert and appropriate; 08-30 cont care; 08-31 sepsis- cont care; Acute resp failure- cont O2 support; Pt is more SOB, with Desats throughout night; Now in prone position, but complaining of SOB- may eventually need to be intubated- last resort. 09-01 echo ordered- will f/u; O2 support in Multifocal PNA. 09-02 Proned; 100% O2, at times still hypoxic; Full code; on full therapy; echo pending ability to safely place on back. cont care . 09-03 Intubated overnight; cont vent support; Estuardo. MD Froylan, PhD.
[2019-09-04] MEDS: ENOXAPARIN SOD INJ 40 MG/0.4 ML SYR SC SCH (21:12)
[2019-09-04 21:15] LABS: ABG HCO3 26 mmol/L (22-26); ABG PCO2 56 mmHg (35-45); ABG PH 7.27 (7.35-7.45); ABG PO2 88 mmHg (80-105)
[2019-09-05] VITALS (20 sets, daily range): BP systolic 96–114; BP diastolic 44–61
[2019-09-05] MEDS: FENTANYL 2000MCG/NS 250 250 ML IV PRN ×2 (03:56→23:26)
[2019-09-05] MEDS: MIDAZOLAM HCL 5MG/ML 10ML VIAL 100 ML IV PRN ×2 (03:56→21:33)
[2019-09-05] MEDS: DEXAMETHASONE SOD PHOS INJ 4 MG/ML VIAL IV SCH (06:00)
[2019-09-05 06:06] LABS: BASOPHILS # (AUTO) 0.1 (0.0-0.1); BASOPHILS % 0.8 % (0.0-1.0); EOSINOPHILS % 0.3 % (0.0-6.0); HEMOGLOBIN 11.9 g/dL (12.0-16.0); LYMPHOCYTES # (AUTO) 0.3 (1.0-3.2); LYMPHOCYTES % 4.2 % (18.0-39.1); MEAN CORPUSCULAR HEMOGLOBIN 30.7 pg (28-32); MEAN CORPUSCULAR HGB CONC 31.3 g/dL (31-35); MEAN CORPUSCULAR VOLUME 97.9 fL (81-99); MONOCYTES # (AUTO) 0.1 (0.2-0.8); NEUTROPHILS # (AUTO) 5.7 (2.1-6.9); PLATELET COUNT 104 x10e3/uL (140-360); RED BLOOD COUNT 3.88 x10e6/uL (3.6-5.1); RED CELL DISTRIBUTION WIDTH 14.4 % (11.7-14.4)
[2019-09-05 06:34] LABS: ALANINE AMINOTRANSFERASE 17 IU/L (0-55); ALBUMIN 1.7 g/dL (3.5-5.0); ALBUMIN/GLOBULIN RATIO 0.4 (0.8-2.0); ALKALINE PHOSPHATASE 122 IU/L (40-150); ANION GAP 11.3 mmol/L (8-16); BUN/CREATININE RATIO 38 (6-25); CALCIUM 7.3 mg/dL (8.4-10.2); CARBON DIOXIDE 27 mmol/L (22-29); CHLORIDE 110 mmol/L (98-107); CREATININE, SERUM 0.68 mg/dL (0.57-1.11); EST GLOMERULAR FILTRATION RATE > 60 ML/MIN (60-); GLUCOSE 296 mg/dL (74-118); POTASSIUM 4.3 mmol/L (3.5-5.1); SODIUM 144 mmol/L (136-145)
--- NOTE | 2019-09-05 06:35 | Diagnostic Imaging Report ---
Examination: Single AP view of the chest. COMPARISON: Portable chest 09/03/2019 INDICATION: Intubated, COVID IMPRESSION: 1. Lines and Tubes: Supporting lines and tubes are unchanged. Endotracheal tube has distal tip projecting approximately 2.0 cm above the harman. 2. No significant interval change in bilateral interstitial and alveolar opacities consistent with multifocal pneumonia. 3. Cardiac silhouette is normal. Pulmonary vasculature is normal. 4. No acute bony abnormalities. Signed by: Dr. Carlos Mendoza M.D. on 09/05/2019 6:31 AM
[2019-09-05 06:43] LABS: BLOOD UREA NITROGEN 26 mg/dL (7-26)
--- NOTE | 2019-09-05 07:03 | NUR ---
infectious disease progress note Date entry for 09/04/2019 Patient seen and examined chart reviewed discussed the medical team please refer to my orders and notes he patient is currently on mechanical ventilation. She is on a PRVC at a rate of 28 with a tidal volume of 360. Her PEEP is set at 12 and her FiO2 is set at 80%. She is on Versed and fentanyl. PHYSICAL EXAMINATION: VITAL SIGNS: Blood pressure is 103/47, pulse is 66, and saturation is 94%. HEENT: Shows no facial swelling or erythema.. There is an oral endotracheal tube. CARDIAC: Reveals regular rate and rhythm with normal S1 and S2. LUNGS: Auscultation of lungs reveals crackles at the bases. There is no wheezing. ABDOMEN: Soft and nontender. There is no rebound or guarding. EXTREMITIES: Show a PICC line in. There is no leg edema. There is no calf tenderness. LABORATORY DATA: White blood cell count is 8.9, hemoglobin is 11.4, and platelet count is 135. BUN to creatinine ratio is 17 and 0.49. Other electrolytes are within normal limits. Albumin is 1.7. RADIOGRAPHIC DATA: Chest x-ray shows bilateral pulmonary infiltrates. IMPRESSION: 1. Acute respiratory failure. 2. Viral pneumonia and coronavirus disease 2019 infection. 3. Diabetes. 4. Gastroesophageal reflux. 5. Thrombocytopenia. Continue as ordered discussed with the medical team and care
--- NOTE | 2019-09-05 07:04 | NUR ---
infectious disease progress note Patient seen and examined chart reviewed met with all consultants discussed with critical care discussed with the medical team he patient is currently on mechanical ventilation. She is on a PRVC at a rate of 28 with a tidal volume of 360. Her PEEP is set at 12 and her FiO2 is set at 80%. She is on Versed and fentanyl. PHYSICAL EXAMINATION: VITAL SIGNS: Blood pressure is 103/47, pulse is 66, and saturation is 94%. HEENT: Shows no facial swelling or erythema.. There is an oral endotracheal tube. CARDIAC: Reveals regular rate and rhythm with normal S1 and S2. LUNGS: Auscultation of lungs reveals crackles at the bases. There is no wheezing. ABDOMEN: Soft and nontender. There is no rebound or guarding. EXTREMITIES: Show a PICC line in. There is no leg edema. There is no calf tenderness. LABORATORY DATA: White blood cell count is 8.9, hemoglobin is 11.4, and platelet count is 135. BUN to creatinine ratio is 17 and 0.49. Other electrolytes are within normal limits. Albumin is 1.7. RADIOGRAPHIC DATA: Chest x-ray shows bilateral pulmonary infiltrates. IMPRESSION: 1. Acute respiratory failure. 2. Viral pneumonia and coronavirus disease 2019 infection. 3. Diabetes. 4. Gastroesophageal reflux. 5. Thrombocytopenia. [id number]
[2019-09-05] MEDS: INSULIN REGULAR, HUMAN 100 UNIT/1 ML 3ML VIAL SQ SCH ×4 (07:09→21:21)
[2019-09-05 08:13] LABS: BAND NEUTROPHILS % (MANUAL) 3 %; LYMPHOCYTES % (MANUAL) 6 % (19-48); MONOCYTES % (MANUAL) 1 % (3.4-9.0); NEUTROPHILS % (MANUAL) 90 % (40-74)
[2019-09-05 08:14] LABS: PLATELET ESTIMATE SLIGHTLY DECREASED; PLATELET MORPHOLOGY COMMENT NORMAL; RBC MORPHOLOGY COMMENT NORMAL
[2019-09-05] MEDS: PANTOPRAZOLE 40 MG 10ML VIAL IV SCH (09:00)
[2019-09-05] MEDS: ENOXAPARIN SOD INJ 40 MG/0.4 ML SYR SC SCH ×2 (09:00→21:14)
[2019-09-05] MEDS: ZINC SULFATE 220 MG CAP PO SCH (09:00)
[2019-09-05] MEDS: ASCORBIC ACID 500 MG TAB PO SCH ×2 (09:00→16:55)
[2019-09-05 10:42] LABS: ABG PCO2 65 mmHg (35-45); ABG PH 7.26 (7.35-7.45); ABG PO2 162 mmHg (80-105)
[2019-09-05 10:43] LABS: ABG HCO3 29 mmol/L (22-26)
[2019-09-05] MEDS ORDERED: FENTANYL 2,000 MCG/250 ML BAG ONE (10:46)
--- NOTE | 2019-09-05 12:44 | Progress Note ---
DATE: 09/05/2019 Medicine Progress Note SUBJECTIVE: I am covering for Dr. Kevni Galeano. The patient was admitted for COVID-19 pneumonia. She is currently intubated and sedated. I have discussed the case with nursing staff. No overnight events. She is still at baseline. PHYSICAL EXAMINATION: VITAL SIGNS: Temperature is 99.5, pulse 111, respiratory rate is 32, and blood pressure is 96/57. She is on a mechanical ventilator, 93% saturating. GENERAL: Intubated and sedated. PULMONARY: Intubated and sedated. CARDIOVASCULAR: Positive S1 and S2. No murmurs, rubs, or gallops appreciated. ABDOMEN: Soft, nondistended, and nontender to palpation. Bowel sounds present. MUSCULOSKELETAL: Unable to assess. She is sedated. NEUROLOGIC: Sedated. SKIN: Intact. Warm to touch. Good cap refill. EXTREMITIES: No edema appreciated. LABORATORY DATA: Show white count 6.1, hemoglobin 11.9, hematocrit is 38, and platelets of 104. Chemistry; sodium 144, potassium 4.3, chloride 110, bicarb 27, anion gap of 11, BUN is 26, creatinine is 0.68, glucose is 296 recorded, and calcium is 7.3. Coronavirus is positive. MICROBIOLOGY: Blood cultures, no growth. Urine cultures were negative. IMAGING STUDIES: Chest x-ray this morning still shows evidence of bilateral interstitial alveolar opacity consistent with multifocal pneumonia. IMPRESSION: 1. Acute respiratory failure, now on a mechanical ventilator secondary to coronavirus. 2. Viral pneumonia with COVID-19 infection. 3. Type 2 diabetes. 4. Acid reflux. 5. Thrombocytopenia. PLAN: At this time, continue with mechanical ventilator, being managed by Pulmonary Critical Care. Continue with Decadron, IV antibiotics, and vitamins. ID is consulted. Cardiology was consulted as well. Continue with anticoagulation with Lovenox 40 mg subcutaneous b.i.d. We will continue to monitor very closely. MD CALISTA Blandon/MODL /[id number]
--- NOTE | 2019-09-05 14:43 | NUR ---
Late entry for 09/03/2019 @ 1700H Discussed care with GLORY Alexander and VALERIE Roman. Patient has been medically unstable for PT. Will discontinue PT services at this time. Possible intubation today per . Addendum: 09/05/19 at 1448 by Jeff Bobby PT Amended: Links added.
--- NOTE | 2019-09-05 15:05 | Progress Note ---
DATE: SUBJECTIVE: The patient remains on mechanical ventilation. She is on a PRVC mode of ventilation and rate of 32 with the tidal volume of 350 and a PEEP of 16. Her FiO2 is set at 80%. She remains on Versed and fentanyl. She has enteral feeding tube in place and is receiving enteral feedings. PHYSICAL EXAMINATION: VITAL SIGNS: The blood pressure is 102/53, saturation is in the low 90s. Her T-max is 99.6. She is on the above ventilator settings. HEENT: Shows no facial swelling or erythema. She has an oral endotracheal tube. LYMPHATIC: Shows no submandibular, cervical, or supraclavicular adenopathy. CARDIAC: Reveals a regular rate and rhythm with a normal S1 and S2. There are no murmurs or rubs. LUNGS: Auscultation of lungs reveals crackles at the bases. There is no wheezing. ABDOMEN: Soft and nontender. There is no rebound or guarding. EXTREMITIES: Shows no leg edema or calf tenderness. There is no cyanosis or clubbing. SKIN: Shows no rashes. NEUROLOGICAL: Shows the patient to be sedated. LABORATORY DATA: White blood cell count is 6.1, hemoglobin is 11.9. The platelet count is 104. The BUN to creatinine ratio is 26 to 0.68, and the sodium is 155. Chloride is 110 and the blood sugars are 130 to 280. RADIOGRAPHIC DATA: Chest x-ray shows bilateral infiltrates. IMPRESSION: 1. Acute respiratory failure. 2. Viral pneumonia and COVID-19 infection. 3. Diabetes. 4. Thrombocytopenia. 5. Anemia. 6. Gastroesophageal reflux. PLAN: 1. Continue current mode of ventilation and monitor ABGs. 2. Complete Decadron. 3. Continue Lovenox. 4. Continue Versed and fentanyl. 5. Continue enteral feedings. 6. Monitor and control blood sugars. 7. Case discussed with nightshift nursing, dayshift nursing, Respiratory, and Infectious Disease. Greater than 35 minutes in direct critical care time. Alex Crews MD [facility]/MODL /[id number]
--- NOTE | 2019-09-05 15:35 | Progress Note ---
DATE: SUBJECTIVE: Ms. Hernandez is currently in the intensive care unit, intubated. PHYSICAL EXAMINATION: GENERAL: Noncommunicative, intubated, sedated. VITAL SIGNS: Stable, afebrile. HEENT: Not icteric. NECK: Supple. CHEST: Clear. IMPRESSION: Respiratory failure, COVID-19. Continue as ordered. Discussed with medical team. MD KAMAR Galdamez/[facility] /[id number]
--- NOTE | 2019-09-05 18:56 | Progress Note ---
DATE: 09/05/2019 Cardiology Progress Note SUBJECTIVE: Remains critically ill. OBJECTIVE: VITAL SIGNS: Temperature 99.6, pulse 88, respiratory rate 22, blood pressure 102/53, 92% on mechanical ventilation. GENERAL: Intubated and sedated. Rest of the exam not performed due to COVID isolation. INPATIENT MEDICATIONS: Reviewed. LABORATORY DATA: Reviewed. TELEMETRY DATA: Reviewed, shows sinus tachycardia and sinus rhythm, frequent PACs. ASSESSMENT AND PLAN: 1. Coronavirus disease 2019 pneumonia. 2. Hypoxemic respiratory failure. 3. Elevated BNP. ASSESSMENT AND PLAN: Continue supportive care. We will continue to monitor volume status. Thank you for this consult. We will continue to follow. MD GEOVANNA Rich/[place] /[id number]
[2019-09-05] MEDS ORDERED: INSULIN GLARGINE 100 UNITS/ML VIAL SQ SCH (21:00)
[2019-09-05 22:58] LABS: ABG HCO3 28 mmol/L (22-26); ABG PCO2 55 mmHg (35-45); ABG PH 7.31 (7.35-7.45); ABG PO2 68 mmHg (80-105)
[2019-09-06] VITALS (25 sets, daily range): BP systolic 91–110; BP diastolic 23–59
[2019-09-06] MEDS: MIDAZOLAM HCL 5MG/ML 10ML VIAL 100 ML IV PRN ×2 (02:07→06:52)
[2019-09-06] MEDS: DEXAMETHASONE SOD PHOS INJ 4 MG/ML VIAL IV SCH (06:06)
--- NOTE | 2019-09-06 06:06 | Diagnostic Imaging Report ---
EXAMINATION: CHEST SINGLE (PORTABLE) INDICATION: resp failure COMPARISON: Chest radiograph 09-05-2019. FINDINGS: TUBES and LINES: ET tube, enteric tube, and right arm PICC are unchanged. LUNGS: Lungs are well inflated. Slightly increased bilateral interstitial and airspace opacities. PLEURA: Trace bilateral pleural effusions. No pneumothorax. HEART AND MEDIASTINUM: The cardiomediastinal silhouette is unremarkable. BONES AND SOFT TISSUES: No acute osseous lesion. Soft tissues are unremarkable. UPPER ABDOMEN: No free air under the diaphragm. IMPRESSION: Slightly increased bilateral interstitial and airspace opacities, compatible with multifocal pneumonia, possibly with superimposed pulmonary edema. Lines and tubes as above. No pneumothorax. Signed by: Dr. Serafin Maldonado MD on 09/06/2019 6:03 AM
[2019-09-06] MEDS: FENTANYL 2000MCG/NS 250 250 ML IV PRN ×2 (06:31→15:21)
[2019-09-06 06:41] LABS: BASOPHILS # (AUTO) 0.1 (0.0-0.1); BASOPHILS % 0.6 % (0.0-1.0); EOSINOPHILS % 0.2 % (0.0-6.0); HEMATOCRIT 34.3 % (34.2-44.1); HEMOGLOBIN 10.6 g/dL (12.0-16.0); LYMPHOCYTES # (AUTO) 0.4 (1.0-3.2); LYMPHOCYTES % 3.9 % (18.0-39.1); MEAN CORPUSCULAR HEMOGLOBIN 30.4 pg (28-32); MEAN CORPUSCULAR HGB CONC 30.9 g/dL (31-35); MEAN CORPUSCULAR VOLUME 98.3 fL (81-99); MONOCYTES # (AUTO) 0.1 (0.2-0.8); MONOCYTES % 1.4 % (4.4-11.3); NEUTROPHILS # (AUTO) 9.3 (2.1-6.9); NEUTROPHILS % 92.5 % (38.7-80.0); PLATELET COUNT 89 x10e3/uL (140-360); RED BLOOD COUNT 3.49 x10e6/uL (3.6-5.1); RED CELL DISTRIBUTION WIDTH 14.5 % (11.7-14.4)
[2019-09-06 07:07] LABS: ALANINE AMINOTRANSFERASE 14 IU/L (0-55); ALBUMIN 1.6 g/dL (3.5-5.0); ALBUMIN/GLOBULIN RATIO 0.4 (0.8-2.0); ALKALINE PHOSPHATASE 99 IU/L (40-150); BLOOD UREA NITROGEN 29 mg/dL (7-26); BUN/CREATININE RATIO 45 (6-25); CALCIUM 7.5 mg/dL (8.4-10.2); CARBON DIOXIDE 27 mmol/L (22-29); CHLORIDE 112 mmol/L (98-107); CREATININE, SERUM 0.64 mg/dL (0.57-1.11); EST GLOMERULAR FILTRATION RATE > 60 ML/MIN (60-); GLUCOSE 367 mg/dL (74-118); SODIUM 144 mmol/L (136-145)
[2019-09-06] MEDS: ENOXAPARIN SOD INJ 40 MG/0.4 ML SYR SC SCH ×2 (08:40→21:22)
[2019-09-06] MEDS: PANTOPRAZOLE 40 MG 10ML VIAL IV SCH (08:40)
[2019-09-06] MEDS: ASCORBIC ACID 500 MG TAB PO SCH ×2 (08:40→21:22)
[2019-09-06] MEDS: ZINC SULFATE 220 MG CAP PO SCH (08:40)
[2019-09-06] MEDS: INSULIN REGULAR, HUMAN 100 UNIT/1 ML 3ML VIAL SQ SCH ×3 (08:47→17:49)
[2019-09-06 09:06] LABS: ABG HCO3 29 mmol/L (22-26); ABG PCO2 52 mmHg (35-45); ABG PH 7.35 (7.35-7.45); ABG PO2 58 mmHg (80-105); ABG TCO2 30
[2019-09-06 09:59] LABS: BAND NEUTROPHILS % (MANUAL) 4 %; LYMPHOCYTES % (MANUAL) 2 % (19-48); MONOCYTES % (MANUAL) 1 % (3.4-9.0); NEUTROPHILS % (MANUAL) 93 % (40-74); PLATELET ESTIMATE MODERATELY DECREASED
[2019-09-06 10:00] LABS: PLATELET MORPHOLOGY COMMENT NORMAL
--- NOTE | 2019-09-06 12:44 | Progress Note ---
DATE: SUBJECTIVE: The patient remains on mechanical ventilation. She is in a prone position. She is sedated with Versed and fentanyl. PHYSICAL EXAMINATION: VITAL SIGNS: The blood pressure is 108/55 and saturation is 94%. She is on a PRVC mode of ventilation at a rate of 34 with a tidal volume of 350. Her FiO2 is set at 80%. HEENT: Shows no facial swelling or erythema. There is an oral endotracheal tube. There is a nasogastric tube. CARDIAC: Reveals regular rate and rhythm with normal S1 and S2. LUNGS: Auscultation of lungs reveals rhonchorous breath sounds bilaterally. There is no wheezing. ABDOMEN: Soft and nontender. There is no rebound or guarding. EXTREMITIES: Shows no leg edema or calf tenderness. There is no cyanosis or clubbing. SKIN: Shows no rashes. NEUROLOGICAL: Shows no focal abnormalities. LABORATORY DATA: White blood cell count is 10 and hemoglobin is 10.6. The platelet count is 89. BUN to creatinine ratio is normal. The other electrolytes are within normal limits. The blood sugar is 270 to 372. The albumin is 1.6. Blood gas is 7.35, 52, 58, and 29. RADIOGRAPHIC DATA: Chest x-ray shows bilateral airspace disease. IMPRESSION: 1. Acute respiratory failure. 2. Viral pneumonia and COVID-19 infection. 3. Diabetes. 4. Thrombocytopenia. 5. Anemia. PLAN: 1. Continue current ventilator settings and monitor ABGs. 2. Complete Decadron. 3. Continue Lovenox. 4. Continue Versed and fentanyl. 5. Continue enteral feedings. 6. Adjust insulin. Greater than 35 minutes in direct critical care time. Alex Crews MD [facility]/MODL /[id number]
[2019-09-06] MEDS: ACETAMINOPHEN 325 MG TAB PO PRN (13:01)
--- NOTE | 2019-09-06 16:06 | Progress Note ---
DATE: 09/06/2019 Medicine Progress Note SUBJECTIVE: The patient is still at baseline with no change. She is intubated and sedated. PHYSICAL EXAMINATION: VITAL SIGNS: Temperature 100.4, pulse 67, respiratory rate is 34, blood pressure 104/55, and pulse ox 95% on mechanical ventilator. GENERAL: Intubated and sedated. PULMONARY: Intubated and sedated. CARDIOVASCULAR: Positive S1 and S2. No murmurs, rubs, or gallops appreciated. ABDOMEN: Soft, nondistended, and nontender to palpation. Bowel sounds present. MUSCULOSKELETAL: Unable to assess. NEUROLOGIC: Unable to assess. SKIN: Intact. Warm to touch. Good cap refill. EXTREMITIES: No edema appreciated. LABORATORY DATA: CBC reviewed, stable. Chemistry reviewed, stable. IMPRESSION: 1. Acute respiratory failure, intubated and sedated, secondary to COVID-19. 2. Viral pneumonia with COVID-19 infection. 3. Type 2 diabetes. 4. Acid reflux. 5. Thrombocytopenia. PLAN: At this time, the patient is intubated and sedated. She is on antibiotics and vitamins and Decadron. She is being managed by Pulmonary, Critical Care, and ID. Continue with Lovenox b.i.d. Continue following recommendations by the consultants. MD CALISTA Blandon/MODL /[id number]
--- NOTE | 2019-09-06 20:52 | Progress Note ---
DATE: SUBJECTIVE: Ms. Hernandez remains in intensive care unit. No changes, intubated. OBJECTIVE: VITAL SIGNS: Stable, afebrile, low fever. HEENT: She is not icteric. NECK: Supple. CHEST: Clear. IMPRESSION: Respiratory failure, coronavirus disease 19, diabetes mellitus, has been off antibiotic. Continue supportive care. Discussed with the medical team. We will follow. MD KAMAR Galdamez/MODL /[id number]
[2019-09-06] MEDS ORDERED: INSULIN GLARGINE 100 UNITS/ML VIAL SQ SCH (21:00)
[2019-09-06 21:51] LABS: ABG HCO3 29 mmol/L (22-26); ABG PCO2 57 mmHg (35-45); ABG PH 7.31 (7.35-7.45); ABG PO2 90 mmHg (80-105)
[2019-09-06 21:52] LABS: ABG TCO2 31
[2019-09-07] VITALS (26 sets, daily range): BP systolic 102–127; BP diastolic 50–64
[2019-09-07] MEDS: INSULIN REGULAR, HUMAN 100 UNIT/1 ML 3ML VIAL SQ SCH ×4 (00:47→18:12)
[2019-09-07] MEDS: FENTANYL 2000MCG/NS 250 250 ML IV PRN ×2 (05:45→20:35)
--- NOTE | 2019-09-07 05:52 | Diagnostic Imaging Report ---
EXAMINATION: CHEST SINGLE (PORTABLE) INDICATION: resp failure COMPARISON: Chest radiograph 09-06-2019. FINDINGS: TUBES and LINES: ET tube, enteric tube, and right arm PICC are unchanged. LUNGS: Lungs are well inflated. Decreased bilateral interstitial and airspace opacities. PLEURA: Trace bilateral pleural effusions. No pneumothorax. HEART AND MEDIASTINUM: The cardiomediastinal silhouette is unremarkable. BONES AND SOFT TISSUES: No acute osseous lesion. Soft tissues are unremarkable. UPPER ABDOMEN: No free air under the diaphragm. IMPRESSION: Decreased bilateral interstitial and airspace opacities, compatible with multifocal pneumonia, possibly with superimposed pulmonary edema. Lines and tubes as above. No pneumothorax. Signed by: Dr. Serafin Maldonado MD on 09/07/2019 5:49 AM
[2019-09-07] MEDS: DEXAMETHASONE SOD PHOS INJ 4 MG/ML VIAL IV SCH (05:55)
[2019-09-07 06:02] LABS: BASOPHILS % 0.3 % (0.0-1.0); EOSINOPHILS % 0.1 % (0.0-6.0); HEMOGLOBIN 10.3 g/dL (12.0-16.0); LYMPHOCYTES # (AUTO) 0.5 (1.0-3.2); LYMPHOCYTES % 5.1 % (18.0-39.1); MEAN CORPUSCULAR HEMOGLOBIN 29.4 pg (28-32); MEAN CORPUSCULAR HGB CONC 30.3 g/dL (31-35); MEAN CORPUSCULAR VOLUME 97.1 fL (81-99); MONOCYTES # (AUTO) 0.2 (0.2-0.8); MONOCYTES % 2.1 % (4.4-11.3); NEUTROPHILS # (AUTO) 9.4 (2.1-6.9); PLATELET COUNT 111 x10e3/uL (140-360); RED CELL DISTRIBUTION WIDTH 14.3 % (11.7-14.4)
[2019-09-07 06:27] LABS: ALANINE AMINOTRANSFERASE 25 IU/L (0-55); ALBUMIN 1.5 g/dL (3.5-5.0); ALBUMIN/GLOBULIN RATIO 0.4 (0.8-2.0); ALKALINE PHOSPHATASE 102 IU/L (40-150); BLOOD UREA NITROGEN 29 mg/dL (7-26); BUN/CREATININE RATIO 48 (6-25); CALCIUM 7.5 mg/dL (8.4-10.2); CARBON DIOXIDE 29 mmol/L (22-29); CHLORIDE 112 mmol/L (98-107); EST GLOMERULAR FILTRATION RATE > 60 ML/MIN (60-); GLUCOSE 334 mg/dL (74-118); SODIUM 145 mmol/L (136-145)
[2019-09-07 08:11] LABS: ABG PCO2 59 mmHg (35-45); ABG PH 7.32 (7.35-7.45); ABG PO2 104 mmHg (80-105)
[2019-09-07 08:12] LABS: ABG HCO3 30 mmol/L (22-26); ABG TCO2 32
[2019-09-07] MEDS: PANTOPRAZOLE 40 MG 10ML VIAL IV SCH (09:08)
[2019-09-07] MEDS: ZINC SULFATE 220 MG CAP PO SCH (09:08)
[2019-09-07] MEDS: ASCORBIC ACID 500 MG TAB PO SCH ×2 (09:08→20:33)
[2019-09-07] MEDS: ENOXAPARIN SOD INJ 40 MG/0.4 ML SYR SC SCH ×2 (09:08→20:34)
[2019-09-07 11:07] LABS: BAND NEUTROPHILS % (MANUAL) 1 %; LYMPHOCYTES % (MANUAL) 2 % (19-48); MONOCYTES % (MANUAL) 2 % (3.4-9.0); NEUTROPHILS % (MANUAL) 95 % (40-74)
[2019-09-07 11:08] LABS: PLATELET ESTIMATE SLIGHTLY DECREASED; PLATELET MORPHOLOGY COMMENT NORMAL; RBC MORPHOLOGY COMMENT NORMAL
[2019-09-07] MEDS ORDERED: FUROSEMIDE INJ 10 MG/ML 2 ML VIAL IV SCH (11:15)
--- NOTE | 2019-09-07 11:47 | Progress Note ---
DATE: SUBJECTIVE: The patient is still on a mechanical ventilator. She is on a PRVC mode of ventilation at a rate of 32 with a tidal volume of 370. Her FiO2 is set at 65% and her PEEP is set at 12. She is now in the prone position. She is on Versed and fentanyl. She is receiving enteral feedings. PHYSICAL EXAMINATION: VITAL SIGNS: The patient is afebrile. The blood pressure is 125/64 and saturation 96%. HEENT: Shows no facial swelling or erythema. There is an oral endotracheal tube in place. There is a nasogastric feeding tube. The patient has a PICC line. There is a radial arterial line. CARDIAC: Reveals regular rate and rhythm with normal S1 and S2. LUNGS: Auscultation of lungs reveals crackles at the bases. There is no wheezing. ABDOMEN: Soft and nontender. There is no rebound or guarding. EXTREMITIES: Shows 1 to 2+ leg edema. There is no calf tenderness. LABORATORY DATA: White blood cell count is 10.5 and the hemoglobin is 10.3. The platelet count is 111. The BUN to creatinine ratio is 29 to 0.6 and other electrolytes are within normal limits. The glucose is 290 to 380. Albumin is 1.5. RADIOGRAPHIC DATA: Shows slight improvement in pulmonary infiltrates. IMPRESSION: 1. Acute respiratory failure. 2. Viral pneumonia and COVID-19 infection. 3. Diabetes. 4. Anemia secondary to chronic blood loss. 5. Thrombocytopenia. PLAN: 1. Continue current ventilator settings. Check ABG. 2. Lasix 20 mg IV now. 3. Continue Decadron. 4. Continue enteral feedings and free water. 5. Increase Lantus insulin at night and continue sliding scale. 6. Echocardiogram. 7. Complete Decadron. 8. Continue antibiotics. 9. Case discussed with nursing staff, Respiratory, Cardiology, and Infectious Disease. Greater than 35 minutes in direct critical care time. Alex Crews MD [facility]/MODL /[id number]
--- NOTE | 2019-09-07 13:52 | NUR ---
this is infectious disease progress note Patient seen and examined chart reviewed The patient has been here for 11 days Remains on a ventilator See she is slowly getting better The patient is still on a mechanical ventilator. She is on a PRVC mode of ventilation at a rate of 32 with a tidal volume of 370. Her FiO2 is set at 65% and her PEEP is set at 12. She is now in the prone position. She is on Versed and fentanyl. She is receiving enteral feedings. PHYSICAL EXAMINATION: VITAL SIGNS: The patient is afebrile. The blood pressure is 125/64 and saturation 96%. HEENT: Shows no facial swelling or erythema. There is an oral endotracheal tube in place. There is a nasogastric feeding tube. The patient has a PICC line. There is a radial arterial line. CARDIAC: Reveals regular rate and rhythm with normal S1 and S2. LUNGS: Auscultation of lungs reveals crackles at the bases. There is no wheezing. ABDOMEN: Soft and nontender. There is no rebound or guarding. EXTREMITIES: Shows 1 to 2+ leg edema. There is no calf tenderness. LABORATORY DATA: White blood cell count is 10.5 and the hemoglobin is 10.3. The platelet count is 111. The BUN to creatinine ratio is 29 to 0.6 and other electrolytes are within normal limits. The glucose is 290 to 380. Albumin is 1.5. RADIOGRAPHIC DATA: Shows slight improvement in pulmonary infiltrates. IMPRESSION: 1. Acute respiratory failure. 2. Viral pneumonia and COVID-19 infection. 3. Diabetes. 4. Anemia secondary to chronic blood loss. 5. Thrombocytopenia. continue as ordered continue supportive care PLAN: 1. Continue current ventilator settings. Check ABG. 2. Lasix 20 mg IV now. 3. Continue Decadron. 4. Continue enteral feedings and free water. 5. Increase Lantus insulin at night and continue sliding scale. 6. Echocardiogram. 7. Complete Decadron. 8. 9. Case discussed with nursing staff, Respiratory, Cardiology, medical care Greater than 35 minutes in direct critical care time.
--- NOTE | 2019-09-07 15:38 | Progress Note ---
DATE: 09/07/2019 SUBJECTIVE: The patient is still intubated. She is still requiring a little left oxygen according to the nursing staff. PHYSICAL EXAMINATION: VITAL SIGNS: Temperature is 98.9, pulse 80, respiratory rate 36, blood pressure 121/64. She is on a mechanical ventilator. GENERAL: Intubated and sedated. PULMONARY: Intubated and sedated. CARDIOVASCULAR: Positive S1, S2. No murmurs, rubs, or gallops. GI: Abdomen is soft, nondistended, nontender to palpation. Bowel sounds present. MUSCULOSKELETAL: Unable to assess. She is sedated. NEUROLOGICAL: Sedated. SKIN: Intact, warm to touch. Good cap refill. LABORATORY DATA: Show CBC stable. Chemistries; reviewed, shows stable, potassium was 5. MICROBIOLOGY: All cultures were negative. IMAGING STUDIES: Chest x-ray this morning shows decreased bilateral interstitial airspace opacities, compatible with multifocal pneumonia. IMPRESSION: 1. Acute respiratory failure, intubated and sedated, secondary to COVID-19. 2. Viral pneumonia with COVID-19 infection. 3. Type 2 diabetes. 4. Acid reflux. 5. Thrombocytopenia. PLAN: At this time, the patient continues to be intubated and sedated, requiring less oxygen. Continue with antibiotics, vitamins, Decadron as well, being managed by Pulmonary, Critical Care, and ID. Continue with Lovenox b.i.d. Continue to follow with the rest of the consultants. MD CALISTA Blandon/[place] /[id number]
--- NOTE | 2019-09-07 15:41 | NUR ---
Nutrition Intervention Note RD Recommendation(s) for Physician: -Continue Vital AF 1.2. Recommend increasing goal rate to 50 mL/hr (provides 1440 kcal, 90 g protein) -Fluid management per MD Plan of Care: RD following, monitoring for tolerance and adequacy, tube feeding recommendation Nutrition reason for involvement: enteral nutrition RD Assessment 09/06: Follow up. Pt is now mechanically ventilated and tube feeding of Vital AF was started. MD note today indicates pt is in the prone position. Tube feeding rate was recorded at 40 mL/hr yesterday. Will continue to monitor. (09/02/19) Pt is a 73 year old female admitted with pneumonia due to COVID-19 virus and respiratory failure. Unable to enter room due to isolation precautions. MD note indicates pt has some intermittent confusion. It is recorded that pt has been consuming 0-50% of meals during admission. There are no previous weights in chart. Recommend Ensure Compact BID for added nutrition. Will continue to monitor Principal Problems/Diagnoses: pneumonia due to COVID-19 virus and respiratory failure PMH: hypertension, chronic pain, gastroesophageal reflux, osteoporosis GI: soft/non-tender abdomen, last recorded BM 08/29 Skin: stage 2 sacrum pressure ulcer Labs: 09/06: Na 145, K 5.0, BUN 29, Cr 0.60, Glu 334, Ca 7.5, AST 39 (09/01) Na 140, K 4.2, BUN 14, Cr 0.54, Glu 141, Ca 7.5 Meds: insulin, lasix, vitamin C, protonix, zinc sulfate, fentanyl, zofran, insulin, colace, cholestyramine Ht: 63 inches Wt: 162 lbs (09/04) 163 lbs (08/29) BMI: 28.8 kg/m2 IBW: 115 lbs Malnutrition Evaluation (09/07/19) The patient does not meet criteria for a specified degree of malnutrition at this time. Will re-evaluate at follow-up as appropriate. Energy intake: </=50% of estimated energy requirements for > 5 days Weight loss: Unable to assess Fat loss: unable to evaluate Muscle loss: unable to evaluate Supporting Evidence: Fluid accumulation: MD note indicates pt has 1 to 2+ leg edema Functional Status: unable to evaluate Nutrition Prescription (Diet Order): Vital AF 1.2 @ 40 mL/hr (provides 1152 kcal and 72 g protein) Estimated Nutritional Needs: 5000-7861 calories/day (18-20 kcal/kg CBW) 89-148 g protein/day (1.2-2 g pro/kg CBW) Diet Adequacy: Not meeting calorie needs, Not meeting protein needs Tolerance: tolerating TF Diet Education Needs Assessment: Diet education not indicated; patient intubated Nutrition Care Level: high Nutrition Diagnosis: Inadequate oral intake related to acute respiratory failure/mechanical ventilation as evidenced by pt requiring enteral nutrition. Goal: Patient will meet 75-100% of estimated needs by follow up Progress: progressing Interventions: -Composition/Rate/Route, Recommended modifications Monitoring/Evaluation: -Total energy intake, Total protein intake, Formula/Solution Signed: Stephanie Willis RD, LD
[2019-09-07] MEDS: MIDAZOLAM HCL 5MG/ML 10ML VIAL 100 ML IV PRN (18:11)
[2019-09-07] MEDS ORDERED: ACETAMINOPHEN 325 MG/10 ML UDC NG PRN (20:00)
--- NOTE | 2019-09-07 20:33 | NUR ---
Pt noted febrile (100.8) at beginning of shift. Several layers of sheets immedately removed from pt. MD notified, order for tylenol obtained. Prior to administration of tylenol, temperature rechecked. Current temp 100.0 degress F. Tylenol held at this time. Will continue to monitor and note all changes.
[2019-09-07] MEDS ORDERED: INSULIN GLARGINE 100 UNITS/ML VIAL SQ SCH (21:00)
[2019-09-08] VITALS (24 sets, daily range): BP systolic 112–145; BP diastolic 20–77
[2019-09-08] MEDS: INSULIN REGULAR, HUMAN 100 UNIT/1 ML 3ML VIAL SQ SCH ×4 (00:06→18:01)
[2019-09-08 03:24] LABS: ABG HCO3 32 mmol/L (22-26); ABG PCO2 50 mmHg (35-45); ABG PH 7.42 (7.35-7.45); ABG PO2 88 mmHg (80-105); ABG TCO2 33
[2019-09-08 04:51] LABS: BASOPHILS % 0.2 % (0.0-1.0); EOSINOPHILS % 0.2 % (0.0-6.0); HEMOGLOBIN 10.3 g/dL (12.0-16.0); LYMPHOCYTES # (AUTO) 0.7 (1.0-3.2); LYMPHOCYTES % 5.6 % (18.0-39.1); MEAN CORPUSCULAR HEMOGLOBIN 28.3 pg (28-32); MEAN CORPUSCULAR HGB CONC 30.3 g/dL (31-35); MEAN CORPUSCULAR VOLUME 93.4 fL (81-99); MONOCYTES # (AUTO) 0.2 (0.2-0.8); MONOCYTES % 1.8 % (4.4-11.3); NEUTROPHILS # (AUTO) 10.5 (2.1-6.9); NEUTROPHILS % 87.8 % (38.7-80.0); PLATELET COUNT 144 x10e3/uL (140-360); RED BLOOD COUNT 3.64 x10e6/uL (3.6-5.1)
[2019-09-08 05:09] LABS: ALANINE AMINOTRANSFERASE 39 IU/L (0-55); ALBUMIN 1.6 g/dL (3.5-5.0); ALBUMIN/GLOBULIN RATIO 0.4 (0.8-2.0); ALKALINE PHOSPHATASE 119 IU/L (40-150); ANION GAP 11.8 mmol/L (8-16); BLOOD UREA NITROGEN 28 mg/dL (7-26); BUN/CREATININE RATIO 49 (6-25); CALCIUM 7.7 mg/dL (8.4-10.2); CARBON DIOXIDE 30 mmol/L (22-29); CHLORIDE 108 mmol/L (98-107); CREATININE, SERUM 0.57 mg/dL (0.57-1.11); EST GLOMERULAR FILTRATION RATE > 60 ML/MIN (60-); GLUCOSE 269 mg/dL (74-118); POTASSIUM 4.8 mmol/L (3.5-5.1); SODIUM 145 mmol/L (136-145)
--- NOTE | 2019-09-08 05:10 | Diagnostic Imaging Report ---
EXAMINATION: CHEST SINGLE (PORTABLE) INDICATION: resp failure COMPARISON: Chest radiograph 09-07-2019. FINDINGS: TUBES and LINES: ET tube, enteric tube, and right arm PICC are unchanged. LUNGS: Lungs are well inflated. Slightly increased bilateral interstitial and airspace opacities. PLEURA: Trace bilateral pleural effusions. No pneumothorax. HEART AND MEDIASTINUM: The cardiomediastinal silhouette is unremarkable. BONES AND SOFT TISSUES: No acute osseous lesion. Soft tissues are unremarkable. UPPER ABDOMEN: No free air under the diaphragm. IMPRESSION: Slightly increased bilateral interstitial and airspace opacities, compatible with multifocal pneumonia, possibly with superimposed pulmonary edema. Lines and tubes as above. No pneumothorax. Signed by: Dr. Serafin Maldonado MD on 09/08/2019 5:07 AM
[2019-09-08 08:27] LABS: MAGNESIUM 2.2 MG/DL (1.3-2.1)
[2019-09-08] MEDS: ENOXAPARIN SOD INJ 40 MG/0.4 ML SYR SC SCH ×2 (08:36→21:35)
[2019-09-08] MEDS: ASCORBIC ACID 500 MG TAB PO SCH ×2 (08:36→21:35)
[2019-09-08] MEDS: PANTOPRAZOLE 40 MG 10ML VIAL IV SCH (08:36)
[2019-09-08] MEDS: ZINC SULFATE 220 MG CAP PO SCH (08:36)
--- NOTE | 2019-09-08 11:36 | Progress Note ---
DATE: SUBJECTIVE: The patient remains on a PRVC mode of ventilation. She is now on a rate of 32 with a tidal volume of 370. Her PEEP is set at 10 and her FiO2 is at 50%. She is in the prone position. She is receiving enteral feedings as well as free water through an NG tube. She is on Versed at 2 mg along with fentanyl at 75. PHYSICAL EXAMINATION: VITAL SIGNS: The patient is afebrile. She is saturating in the mid 90s on the above settings. Her blood pressure is 130/70 and heart rate is 70 to 80. HEENT: No facial swelling or erythema. She has oral endotracheal tube in place. She has a PICC line and arterial line. CARDIAC: Regular rate and rhythm with normal S1, S2. LUNGS: Auscultation of lungs reveals crackles at the bases. There is no wheezing. ABDOMEN: Soft, nontender. There is no rebound or guarding. EXTREMITIES: No leg edema or calf tenderness. There is no cyanosis or clubbing. SKIN: No rashes. NEUROLOGICAL: The patient to be sedated. LABORATORY DATA: The BUN to creatinine ratio is normal. The other electrolytes are within normal limits. The CBC is within normal limits. IMPRESSION: 1. Acute respiratory failure. 2. Viral pneumonia and coronavirus disease-19 infection. 3. Diabetes. PLAN: 1. Continue current mode of ventilation. 2. Continue to monitor ABGs. 3. Continue enteral feedings and free water. 4. Complete dexamethasone. 5. Complete antibiotics. 6. Case discussed with daughter today. 7. Case discussed with the production supervisor off shift nursing, dayshift nursing, Respiratory, and Infectious Disease. Greater than 35 minutes in direct critical care time. MD MATT Swanson/K[place]LEY /[id number]
[2019-09-08 12:19] LABS: ABG HCO3 33 mmol/L (22-26); ABG PCO2 51 mmHg (35-45); ABG PH 7.42 (7.35-7.45); ABG PO2 101 mmHg (80-105); ABG TCO2 34
[2019-09-08] MEDS: ALBUMIN 25% 25GM 100ML 0.25 GM/ML BTL IV SCH ×2 (12:44→17:05)
[2019-09-08] MEDS: MIDAZOLAM HCL 5MG/ML 10ML VIAL 100 ML IV PRN (12:51)
--- NOTE | 2019-09-08 15:29 | Progress Note ---
DATE: 09/08/2019 Medicine Progress Note SUBJECTIVE: No change overnight. The patient is still intubated, on a mechanical ventilator. PHYSICAL EXAMINATION: VITAL SIGNS: Temperature is 96.6, pulse 69, respiratory rate is 34, blood pressure 124/62, and pulse ox 94% on mechanical ventilator. GENERAL: Intubated and sedated. PULMONARY: Intubated and sedated. CARDIOVASCULAR: Positive S1 and S2. No murmurs, rubs, or gallops appreciated. ABDOMEN: Soft, nondistended, and nontender to palpation. Bowel sounds present. MUSCULOSKELETAL: Unable to assess. NEUROLOGIC: Unable to assess. SKIN: Intact. Warm to touch. Good cap refill. PSYCHIATRIC: Unable to assess. EXTREMITIES: Still shows some edema on examination. LABORATORY DATA: White count 11.8, hemoglobin 10.3, hematocrit is 34, and platelets of 144. Chemistry; sodium 145, potassium 4.8, chloride 108, bicarb 30, anion gap of 11, BUN is 28, creatinine is 0.57, glucose was 269, calcium is 7.7, magnesium 2.2, and phosphorus is 2. IMAGING STUDIES: Chest x-ray, there is slightly increased bilateral interstitial airspace opacity compatible with multifocal pneumonia. IMPRESSION: 1. Acute respiratory failure, intubated and sedated secondary to COVID-19 pneumonia. 2. Viral pneumonia with COVID-19 infection. 3. Type 2 diabetes. 4. Acid reflux. 5. Thrombocytopenia. PLAN: At this time, I will go ahead and add Diamox and Lasix to see if this will help with her oxygenation and give some fluid off. She is still intubated and sedated. Antibiotics, vitamins, and Decadron all being managed by Pulmonary Critical Care and ID. She is on Lovenox b.i.d. Continue to follow with the rest of the consultants. MD CALISTA Blandon/MODL /[id number]
[2019-09-08] MEDS: FUROSEMIDE INJ 10 MG/ML 4 ML VIAL IV SCH ×2 (15:53→21:36)
--- NOTE | 2019-09-08 16:11 | NUR ---
o change overnight. The patient is still intubated, on a mechanical ventilator. PHYSICAL EXAMINATION: VITAL SIGNS: Temperature is 96.6, pulse 69, respiratory rate is 34, blood pressure 124/62, and pulse ox 94% on mechanical ventilator. GENERAL: Intubated and sedated. PULMONARY: Intubated and sedated. CARDIOVASCULAR: Positive S1 and S2. No murmurs, rubs, or gallops appreciated. ABDOMEN: Soft, nondistended, and nontender to palpation. Bowel sounds present. MUSCULOSKELETAL: Unable to assess. NEUROLOGIC: Unable to assess. SKIN: Intact. Warm to touch. Good cap refill. PSYCHIATRIC: Unable to assess. EXTREMITIES: Still shows some edema on examination. LABORATORY DATA: White count 11.8, hemoglobin 10.3, hematocrit is 34, and platelets of 144. Chemistry; sodium 145, potassium 4.8, chloride 108, bicarb 30, anion gap of 11, BUN is 28, creatinine is 0.57, glucose was 269, calcium is 7.7, magnesium 2.2, and phosphorus is 2. IMAGING STUDIES: Chest x-ray, there is slightly increased bilateral interstitial airspace opacity compatible with multifocal pneumonia. IMPRESSION: 1. Acute respiratory failure, intubated and sedated secondary to COVID-19 pneumonia. 2. Viral pneumonia with COVID-19 infection. 3. Type 2 diabetes. 4. Acid reflux. 5. Thrombocytopenia. PLAN: At this time, I will go ahead and add Diamox and Lasix to see if this will help with her oxygenation and give some fluid off. She is still intubated and sedated. Antibiotics, vitamins, and Decadron all being managed by Pulmonary Critical Care and ID. She is on Lovenox b.i.d. Continue to follow with the rest of the consultants.
[2019-09-08] MEDS: ACETAZOLAMIDE SODIUM 500 MG/VIAL IV SCH ×2 (17:05→21:36)
[2019-09-08] MEDS: INSULIN GLARGINE 100 UNITS/ML VIAL SQ SCH (20:09)
[2019-09-08 22:41] LABS: ABG HCO3 32 mmol/L (22-26); ABG PCO2 55 mmHg (35-45); ABG PH 7.37 (7.35-7.45); ABG PO2 72 mmHg (80-105); ABG TCO2 34
[2019-09-09] VITALS (23 sets, daily range): BP systolic 86–146; BP diastolic 44–95
[2019-09-09] MEDS: MIDAZOLAM HCL 5MG/ML 10ML VIAL 100 ML IV PRN (00:34)
[2019-09-09] MEDS: INSULIN REGULAR, HUMAN 100 UNIT/1 ML 3ML VIAL SQ SCH ×4 (00:35→18:00)
[2019-09-09 05:49] LABS: BASOPHILS # (AUTO) 0.1 (0.0-0.1); BASOPHILS % 0.6 % (0.0-1.0); EOSINOPHILS # (AUTO) 0.1 (0.0-0.4); EOSINOPHILS % 0.9 % (0.0-6.0); HEMATOCRIT 31.4 % (34.2-44.1); HEMOGLOBIN 9.8 g/dL (12.0-16.0); LYMPHOCYTES # (AUTO) 0.5 (1.0-3.2); LYMPHOCYTES % 3.4 % (18.0-39.1); MEAN CORPUSCULAR HGB CONC 31.2 g/dL (31-35); MONOCYTES # (AUTO) 0.2 (0.2-0.8); MONOCYTES % 1.1 % (4.4-11.3); NEUTROPHILS # (AUTO) 14.1 (2.1-6.9); NEUTROPHILS % 90.7 % (38.7-80.0); PLATELET COUNT 134 x10e3/uL (140-360); RED BLOOD COUNT 3.27 x10e6/uL (3.6-5.1); RED CELL DISTRIBUTION WIDTH 14.3 % (11.7-14.4)
[2019-09-09] MEDS: ACETAZOLAMIDE SODIUM 500 MG/VIAL IV SCH (06:00)
[2019-09-09] MEDS: FUROSEMIDE INJ 10 MG/ML 4 ML VIAL IV SCH ×2 (06:00→18:45)
[2019-09-09 06:23] LABS: ALANINE AMINOTRANSFERASE 49 IU/L (0-55); ALBUMIN 2.5 g/dL (3.5-5.0); ALBUMIN/GLOBULIN RATIO 0.8 (0.8-2.0); ALKALINE PHOSPHATASE 124 IU/L (40-150); ANION GAP 13.4 mmol/L (8-16); BLOOD UREA NITROGEN 23 mg/dL (7-26); BUN/CREATININE RATIO 39 (6-25); CALCIUM 7.7 mg/dL (8.4-10.2); CARBON DIOXIDE 31 mmol/L (22-29); CHLORIDE 102 mmol/L (98-107); CREATININE, SERUM 0.59 mg/dL (0.57-1.11); EST GLOMERULAR FILTRATION RATE > 60 ML/MIN (60-); GLUCOSE 189 mg/dL (74-118); POTASSIUM 3.4 mmol/L (3.5-5.1); SODIUM 143 mmol/L (136-145)
--- NOTE | 2019-09-09 06:57 | Diagnostic Imaging Report ---
EXAMINATION: CHEST SINGLE (PORTABLE) INDICATION: resp failure COMPARISON: Chest radiograph 09-08-2019. FINDINGS: TUBES and LINES: ET tube, enteric tube, and right arm PICC are unchanged. LUNGS: Lungs are well inflated. Persistent bilateral airspace opacities, slightly increased on the right, and slightly decreased on the left. PLEURA: Trace bilateral pleural effusions. No pneumothorax. HEART AND MEDIASTINUM: The cardiomediastinal silhouette is unremarkable. BONES AND SOFT TISSUES: No acute osseous lesion. Soft tissues are unremarkable. UPPER ABDOMEN: No free air under the diaphragm. IMPRESSION: Bilateral pulmonary opacities, compatible with multifocal pneumonia, possibly with superimposed pulmonary edema. Lines and tubes as above. No pneumothorax. Signed by: Dr. Serafin Maldonado MD on 09/09/2019 6:53 AM
[2019-09-09] MEDS: ENOXAPARIN SOD INJ 40 MG/0.4 ML SYR SC SCH ×2 (08:43→21:33)
[2019-09-09] MEDS: PANTOPRAZOLE 40 MG 10ML VIAL IV SCH (08:43)
[2019-09-09] MEDS: ASCORBIC ACID 500 MG TAB PO SCH ×2 (08:43→21:33)
[2019-09-09] MEDS: POTASSIUM CHLORIDE 20MEQ/15ML UDC NG SCH ×2 (08:45→09:00)
[2019-09-09] MEDS: ZINC SULFATE 220 MG CAP PO SCH (08:46)
[2019-09-09] MEDS: FENTANYL 2000MCG/NS 250 250 ML IV PRN ×2 (09:01→22:21)
[2019-09-09 09:11] LABS: BAND NEUTROPHILS % (MANUAL) 6 %; EOSINOPHILS % (MANUAL) 2 % (0-7); LYMPHOCYTES % (MANUAL) 2 % (19-48); NEUTROPHILS % (MANUAL) 90 % (40-74)
[2019-09-09 09:13] LABS: PLATELET ESTIMATE SLIGHTLY DECREASED; PLATELET MORPHOLOGY COMMENT NORMAL
[2019-09-09 09:13] LABS: ABG HCO3 30 mmol/L (22-26); ABG PCO2 55 mmHg (35-45); ABG PH 7.35 (7.35-7.45); ABG PO2 76 mmHg (80-105); ABG TCO2 32
[2019-09-09] MEDS: PIPER-TAZ 3.375 GM 50 ML IV SCH ×2 (11:35→18:46)
[2019-09-09] MEDS ORDERED: VECURONIUM BROMIDE FOR INJ 20 MG VIAL IV STA (12:01)
--- NOTE | 2019-09-09 12:53 | Progress Note ---
DATE: SUBJECTIVE: The patient is currently on a PRVC mode of ventilation. She is not synchronized well with the ventilator. She required a small dose of vecuronium. She remains on Versed and fentanyl. PHYSICAL EXAMINATION: VITAL SIGNS: The blood pressure is 93/60 and heart rate is 68. She is on a PRVC mode of ventilation at a rate of 26. Her tidal volume is set at 390. Her FiO2 is set at 60% and PEEP is set at 12. HEENT: Shows no facial swelling or erythema. She has an oral endotracheal tube. CARDIAC: Reveals regular rate and rhythm with normal S1 and S2. LUNGS: Auscultation of lungs reveals crackles at the bases. There is no wheezing. ABDOMEN: Soft and nontender. There is no rebound or guarding. EXTREMITIES: Shows no leg edema or calf tenderness. There is no cyanosis or clubbing. SKIN: Shows no rashes. NEUROLOGICAL: Shows no focal abnormalities. LABORATORY DATA: White blood cell count is 15.6 and the hemoglobin is 9.8. The platelet count is 134. BUN to creatinine ratio is normal. The other electrolytes are within normal limits. The albumin is 2.5. Chest x-ray shows no acute disease. There are bilateral infiltrates consistent with viral pneumonia. IMPRESSION: 1. Acute respiratory failure. 2. Viral pneumonia and COVID-19 infection. 3. Diabetes. PLAN: 1. Continue current PRVC mode of ventilation. 2. Place the patient back in prone position. 3. Continue enteral feedings and free water. 4. Continue dexamethasone. 5. Complete antibiotics. 6. Case discussed with Respiratory, nursing, and Infectious Disease. Greater than 35 minutes in direct critical care time. Alex Crews MD [facility]/MODL /[id number]
[2019-09-09] MEDS ORDERED: POTASSIUM CHLORIDE 20MEQ/100ML 200 ML IV ONE (15:00)
--- NOTE | 2019-09-09 15:59 | Progress Note ---
DATE: 09/09/2019 Medicine Progress Note SUBJECTIVE: The patient is still intubated, sedated. No overnight events. PHYSICAL EXAMINATION: VITAL SIGNS: Temperature is 98, pulse , respiratory rate is 32, blood pressure 104/47, and pulse ox 98% on mechanical ventilator. GENERAL: Intubated and sedated. CARDIOVASCULAR: Positive S1 and S2. No murmurs, rubs, or gallops appreciated. PULMONARY: Intubated and sedated. ABDOMEN: Soft, nondistended, and nontender to palpation. Bowel sounds present. MUSCULOSKELETAL: Unable to assess. The patient is sedated. NEUROLOGIC: Sedated. SKIN: Intact. Warm to touch. Good cap refill. LABORATORY DATA: Show white count 15, hemoglobin 9.8, hematocrit is 31, and platelets of 134. Chemistry; sodium 143, potassium 3.4, chloride 102, bicarb 21, anion gap of 13, BUN is 23, creatinine is 0.59, and glucose is 189. IMAGING STUDIES: Chest x-ray shows bilateral pulmonary opacities compatible with multifocal pneumonia, possibly with superimposed pulmonary edema. IMPRESSION: 1. Acute respiratory failure, intubated and sedated secondary to COVID-19 pneumonia. 2. Viral pneumonia with COVID-19 infection. 3. Type 2 diabetes. 4. Acid reflux. 5. Thrombocytopenia. PLAN: At this time, go ahead and potassium was replaced. We will continue with IV diuretics, which will hopefully help the oxygenation. The patient is still intubated and sedated. She is on antibiotics, vitamins, Decadron, full-dose anticoagulation. All being managed by Pulmonary, Critical Care, and ID. Continue to follow with the rest of the consultants MD CALISTA Blandon/MODL /[id number]
--- NOTE | 2019-09-09 16:06 | NUR ---
ITAL SIGNS: The blood pressure is 93/60 and heart rate is 68. She is on a PRVC mode of ventilation at a rate of 26. Her tidal volume is set at 390. Her FiO2 is set at 60% and PEEP is set at 12. HEENT: Shows no facial swelling or erythema. She has an oral endotracheal tube. CARDIAC: Reveals regular rate and rhythm with normal S1 and S2. LUNGS: Auscultation of lungs reveals crackles at the bases. There is no wheezing. ABDOMEN: Soft and nontender. There is no rebound or guarding. EXTREMITIES: Shows no leg edema or calf tenderness. There is no cyanosis or clubbing. SKIN: Shows no rashes. NEUROLOGICAL: Shows no focal abnormalities. LABORATORY DATA: White blood cell count is 15.6 and the hemoglobin is 9.8. The platelet count is 134. BUN to creatinine ratio is normal. The other electrolytes are within normal limits. The albumin is 2.5. Chest x-ray shows no acute disease. [id number]
--- NOTE | 2019-09-09 18:15 | Progress Note ---
DATE: SUBJECTIVE: Ms. Hernandez, this is day #13, remains on a ventilator. She is requiring sedation to sync with the ventilator. OBJECTIVE: VITAL SIGNS: Stable. HEENT: She is not icteric. NECK: Supple. CHEST: A few crackles. HEART: S1 and S2. No S3, S4, or murmur. ABDOMEN: Soft. LABORATORY DATA: Reviewed. Chart reviewed. IMPRESSION: Respiratory failure, coronavirus disease 2019, diabetes mellitus. Her white count today is 15.5, hemoglobin 9.8. Sodium 143, creatinine 0.59. Concerned about aspiration pneumonia. She is on Zosyn, we started today. We will plan for 7 days. Continue anticoagulation. Continue with supportive care. We will follow. MD KAMAR Galdamez/MODL /[id number]
[2019-09-09] MEDS ORDERED: SODIUM CHLORIDE 0.9% 500ML 500 ML IV ONE (21:20)
[2019-09-09] MEDS: INSULIN GLARGINE 100 UNITS/ML VIAL SQ SCH (21:37)
[2019-09-10] VITALS (24 sets, daily range): BP systolic 92–152; BP diastolic 39–80
[2019-09-10 00:03] LABS: ABG HCO3 30 mmol/L (22-26); ABG PCO2 54 mmHg (35-45); ABG PH 7.35 (7.35-7.45); ABG PO2 80 mmHg (80-105)
[2019-09-10] MEDS: INSULIN REGULAR, HUMAN 100 UNIT/1 ML 3ML VIAL SQ SCH ×4 (00:24→18:12)
[2019-09-10] MEDS: FUROSEMIDE INJ 10 MG/ML 4 ML VIAL IV SCH ×2 (00:28→06:32)
[2019-09-10] MEDS: PIPER-TAZ 3.375 GM 50 ML IV SCH ×3 (02:05→18:11)
[2019-09-10 04:39] LABS: BASOPHILS % 0.2 % (0.0-1.0); EOSINOPHILS # (AUTO) 0.2 (0.0-0.4); EOSINOPHILS % 1.3 % (0.0-6.0); HEMATOCRIT 31.1 % (34.2-44.1); HEMOGLOBIN 9.6 g/dL (12.0-16.0); LYMPHOCYTES # (AUTO) 0.7 (1.0-3.2); LYMPHOCYTES % 4.4 % (18.0-39.1); MEAN CORPUSCULAR HEMOGLOBIN 28.6 pg (28-32); MEAN CORPUSCULAR HGB CONC 30.9 g/dL (31-35); MEAN CORPUSCULAR VOLUME 92.6 fL (81-99); MONOCYTES # (AUTO) 0.2 (0.2-0.8); MONOCYTES % 1.4 % (4.4-11.3); NEUTROPHILS # (AUTO) 13.1 (2.1-6.9); PLATELET COUNT 122 x10e3/uL (140-360); RED BLOOD COUNT 3.36 x10e6/uL (3.6-5.1); RED CELL DISTRIBUTION WIDTH 14.2 % (11.7-14.4)
[2019-09-10 04:57] LABS: ALANINE AMINOTRANSFERASE 47 IU/L (0-55); ALBUMIN 2.4 g/dL (3.5-5.0); ALBUMIN/GLOBULIN RATIO 0.7 (0.8-2.0); ALKALINE PHOSPHATASE 117 IU/L (40-150); ANION GAP 10.9 mmol/L (8-16); BLOOD UREA NITROGEN 17 mg/dL (7-26); BUN/CREATININE RATIO 35 (6-25); CALCIUM 7.7 mg/dL (8.4-10.2); CARBON DIOXIDE 31 mmol/L (22-29); CHLORIDE 102 mmol/L (98-107); CREATININE, SERUM 0.49 mg/dL (0.57-1.11); EST GLOMERULAR FILTRATION RATE > 60 ML/MIN (60-); GLUCOSE 181 mg/dL (74-118); POTASSIUM 3.9 mmol/L (3.5-5.1); SODIUM 140 mmol/L (136-145)
[2019-09-10] MEDS: MIDAZOLAM HCL 5MG/ML 10ML VIAL 100 ML IV PRN (05:54)
[2019-09-10] MEDS: PANTOPRAZOLE 40 MG 10ML VIAL IV SCH (08:38)
[2019-09-10] MEDS: ASCORBIC ACID 500 MG TAB PO SCH ×2 (08:38→21:29)
[2019-09-10] MEDS: ZINC SULFATE 220 MG CAP PO SCH (08:38)
[2019-09-10] MEDS: ENOXAPARIN SOD INJ 40 MG/0.4 ML SYR SC SCH ×2 (08:39→21:19)
[2019-09-10] MEDS: FENTANYL 2000MCG/NS 250 250 ML IV PRN (11:57)
--- NOTE | 2019-09-10 12:18 | Progress Note ---
DATE: SUBJECTIVE: The patient remains on mechanical ventilation. She is in a prone position. The patient received Lasix yesterday, was negative 300 mL. PHYSICAL EXAMINATION: VITAL SIGNS: The blood pressure is 113/56, pulse is 97. Saturation is 95%. HEENT: Shows no facial swelling or erythema. CARDIAC: Reveals regular rate and rhythm with normal S1 and S2. There is a PICC line in place and an arterial line. ABDOMEN: Soft, nontender. There is no rebound or guarding. EXTREMITIES: Shows 1 to 2+ leg edema. LABORATORY DATA: White blood cell count is 14.7, hemoglobin is 9.6. The platelet count is 122. The BUN to creatinine ratio is 17 to 0.49 and the electrolytes within normal limits. The albumin is 2.4. IMPRESSION: 1. Acute respiratory failure. 2. Viral pneumonia coronavirus disease-2019. 3. Diabetes. PLAN: 1. Continue PRVC mode of ventilation. 2. Continue ventilating in the prone position. 3. Continue enteral feedings and free water. 4. Complete antibiotics. 5. Complete dexamethasone. 6. Continue to monitor and control blood sugars. Greater than 35 minutes in direct critical care time. Alex rCews MD [facility]/MODL /[id number]
[2019-09-10 14:23] LABS: ABG PH 7.38 (7.35-7.45)
[2019-09-10 14:24] LABS: ABG HCO3 33 mmol/L (22-26); ABG PCO2 55 mmHg (35-45); ABG PO2 86 mmHg (80-105); ABG TCO2 34
--- NOTE | 2019-09-10 16:15 | NUR ---
dictation done progress note
--- NOTE | 2019-09-10 17:25 | Progress Note ---
DATE: SUBJECTIVE: Ms. Hernandez remains on the ventilator. PHYSICAL EXAMINATION: VITAL SIGNS: Stable. HEENT: Not icteric. NECK: Supple. CHEST: Crackles. HEART: S1, S2. ABDOMEN: Soft. IMPRESSION: Respiratory failure, COVID-19. Discussed with medical team to continue course as ordered. MD KAMAR Galdamez/MODL /[id number]
--- NOTE | 2019-09-10 17:45 | Progress Note ---
DATE: 09/10/2019 Medicine Progress Note SUBJECTIVE: The patient is still intubated, sedated. PHYSICAL EXAMINATION: VITAL SIGNS: Temperature 97.7, pulse 89, respiratory rate 34, blood pressure 104/54, and pulse ox 90% on mechanical ventilator. GENERAL: Intubated and sedated. CARDIOVASCULAR: Positive S1, S2. No murmurs, rubs, or gallops. ABDOMEN: Soft, nondistended, nontender to palpation. Bowel sounds present. MUSCULOSKELETAL: Unable to assess. NEUROLOGIC: Unable to assess. SKIN: Intact, warm to touch. Good cap refill. EXTREMITIES: No edema appreciated. LABORATORY DATA: Labs show white count was 14.7, hemoglobin 9.6, hematocrit 31, and platelets of 122. Chemistry; sodium 140, potassium 3.9, chloride 102, bicarb 31, anion gap of 10. BUN 17. Creatinine 0.49. MICROBIOLOGY: None. Chest x-ray, none. IMPRESSION: 1. Acute respiratory failure, intubated today, secondary to COVID-19 pneumonia. 2. Viral pneumonia with COVID-19 infection. 3. Type 2 diabetes. 4. Acid reflux. 5. Thrombocytopenia. PLAN: At this time, get a.m. labs. Continue with IV diuretics, hopefully that will help with oxygenation. Still intubated and sedated. On antibiotics, vitamins, Decadron, and full-dose anticoagulation. Continue following with Pulmonary Critical Care and ID. I am covering for Dr. Kevin Galeano. MD CALISTA Blandon/MODL /[id number]
[2019-09-10] MEDS: INSULIN GLARGINE 100 UNITS/ML VIAL SQ SCH (21:21)
[2019-09-11] VITALS (27 sets, daily range): BP systolic 72–186; BP diastolic 45–89
[2019-09-11] MEDS: ROCURONIUM BROMIDE 250 MG in SODIUM CHLORIDE 0.9% 250ML 225 ML IV SCH ×2 (00:10→06:15)
[2019-09-11] MEDS: FENTANYL 2000MCG/NS 250 250 ML IV PRN ×3 (00:36→21:17)
[2019-09-11] MEDS: INSULIN REGULAR, HUMAN 100 UNIT/1 ML 3ML VIAL SQ SCH ×4 (00:44→18:05)
[2019-09-11] MEDS ORDERED: DILTIAZEM HCL 125 ML IV SCH (01:00)
[2019-09-11] MEDS ORDERED: DILTIAZEM HCL IV 5MG/ML 25 ML VIAL ONE (01:05)
[2019-09-11] MEDS ORDERED: SODIUM CHLORIDE 0.9% 100 ML ONE (01:06)
[2019-09-11] MEDS ORDERED: DILTIAZEM HCL VIAL 5 ML ONE (01:20)
[2019-09-11] MEDS: PIPER-TAZ 3.375 GM 50 ML IV SCH ×3 (01:34→17:34)
[2019-09-11] MEDS: MIDAZOLAM HCL 5MG/ML 10ML VIAL 100 ML IV PRN ×2 (03:25→12:00)
--- NOTE | 2019-09-11 04:46 | Progress Note ---
DATE: 09/08/2019 SUBJECTIVE: Ms. Hernandez seems to be doing well. She remains on the ventilator. PHYSICAL EXAMINATION: GENERAL: Intubated, sedated. VITAL SIGNS: Stable, afebrile. HEENT: He is not icteric. NECK: Supple. CHEST: Crackles. IMPRESSION: 1. Respiratory failure. 2. COVID-19. PLAN: Discussed with medical team. Discussed at length with ICU, Critical Care and Internal Medicine. Please refer to the notes in the chart. MD KAMAR Galdamez/MODL /[id number]
--- NOTE | 2019-09-11 05:19 | NUR ---
AT 2340 LAST NIGHT PATIENTS HEAD WAS TURNED FROM LEFT FACING TO RIGHT FACING (PATIENT WAS IN PRONE POSITION). PATIENT SEEMED TO TOLERATE IT OKAY, BUT 15 MIN LATER SPO2 STARTED TO DECREASE TO 78-80% AND HR/RR INCREASED TO 120'2-130'S/RR 40'S. FENTANYL AND VERSED GTTS WERE INCREASED TO MAX DOSE INFUSION BUT DID NOT CHANGE VITALS. DR. RODRIGUEZ WAS CALLED AT THIS TIME WHO GAVE A VERBAL ORDER TO START ROCURONIUM. ROCURONIUM BEGAN INFUSING AT 0010. SPO2 IMPROVED FOLLOWING ROCURONIUM ADMINISTRATION, BUT HR CONTINUED TO INCREASE TO 150'S -160. DR. RODRIGUEZ WAS AGAIN CALLED AND REPORTED TO. REQUESTED EKG ORDER BUT WOULD NEED TO REPOSITION PATIENT TO SUPINE. DR. RODRIGUEZ TOLD RN TO HOLD OFF ON EKG AND TO START DILTIAZEM GTT WITH 10CC BOLUS, WHICH WAS STARTED AT 0113 AND INCREASED TO 15ML/HR BY 0138. AT 0330 SBP < 100 WITH HR IN THE 130'S SO DILT WAS DECREASED TO 10ML/HR. AT 035 DILT WAS TURNED OFF D/T BP OF 76/49. Addendum: 09/11/19 at 0623 by Gabbie Cristobal RN NG TUBE WAS ACCIDENTALLY PULLED OUT WHILE HANGING CARDIZEM. REPLACEMENT NOT ATTEMPTED AT THIS TIME D/T PATIENT BEING IN PRONE POSITION.
[2019-09-11 05:28] LABS: BASOPHILS % 0.5 % (0.0-1.0); EOSINOPHILS % 0.2 % (0.0-6.0); LYMPHOCYTES # (AUTO) 0.3 (1.0-3.2); LYMPHOCYTES % 4.5 % (18.0-39.1); MEAN CORPUSCULAR HEMOGLOBIN 28.2 pg (28-32); MEAN CORPUSCULAR VOLUME 93.9 fL (81-99); MONOCYTES # (AUTO) 0.2 (0.2-0.8); MONOCYTES % 2.5 % (4.4-11.3); NEUTROPHILS # (AUTO) 5.9 (2.1-6.9); NEUTROPHILS % 91.1 % (38.7-80.0); PLATELET COUNT 185 x10e3/uL (140-360); RED BLOOD COUNT 4.26 x10e6/uL (3.6-5.1); RED CELL DISTRIBUTION WIDTH 14.4 % (11.7-14.4)
[2019-09-11 05:55] LABS: ALANINE AMINOTRANSFERASE 46 IU/L (0-55); ALBUMIN 2.1 g/dL (3.5-5.0); ALBUMIN/GLOBULIN RATIO 0.5 (0.8-2.0); ALKALINE PHOSPHATASE 142 IU/L (40-150); ANION GAP 12.6 mmol/L (8-16); BLOOD UREA NITROGEN 22 mg/dL (7-26); BUN/CREATININE RATIO 31 (6-25); CALCIUM 7.9 mg/dL (8.4-10.2); CARBON DIOXIDE 28 mmol/L (22-29); CHLORIDE 101 mmol/L (98-107); CREATININE, SERUM 0.72 mg/dL (0.57-1.11); EST GLOMERULAR FILTRATION RATE > 60 ML/MIN (60-); GLUCOSE 130 mg/dL (74-118); POTASSIUM 3.6 mmol/L (3.5-5.1); SODIUM 138 mmol/L (136-145)
[2019-09-11] MEDS ORDERED: NOREPINEPHRINE 8 MG/D5W 250 ML 250 ML ONE (07:59)
[2019-09-11] MEDS ORDERED: NOREPINEPHRINE INJ 4MG/4ML 8 MG in DEXTROSE 5% 250ML 250 ML IV SCH (08:30)
[2019-09-11] MEDS: ASCORBIC ACID 500 MG TAB PO SCH ×2 (08:42→21:30)
[2019-09-11] MEDS: ENOXAPARIN SOD INJ 40 MG/0.4 ML SYR SC SCH (08:42)
[2019-09-11] MEDS: PANTOPRAZOLE 40 MG 10ML VIAL IV SCH (08:42)
[2019-09-11] MEDS: ZINC SULFATE 220 MG CAP PO SCH (08:42)
[2019-09-11] MEDS: NOREPINEPHRINE 8 MG/D5W 250 ML 250 ML IV PRN ×2 (08:51→18:47)
[2019-09-11] MEDS ORDERED: PROPOFOL IV EMULSION 10MG/ML 100 ML ONE (10:16)
[2019-09-11] MEDS ORDERED: HYDROCORTISONE SOD SUCCINATE 100 MG VIAL IV ONE (10:30)
[2019-09-11] MEDS ORDERED: LACTATED RINGER'S 500 ML INJ ONE (10:30)
--- NOTE | 2019-09-11 10:51 | Progress Note ---
DATE: Pulmonary Critical Care Progress Note SUBJECTIVE: The patient had some hypertension and tachycardia yesterday. She was given some Cardizem. She also required an increase in her FiO2. This morning, she was hypotensive and required Levophed briefly. She also has a decreased urine output. PHYSICAL EXAMINATION: VITAL SIGNS: The patient is now on a PRVC at a rate of 30 with a tidal volume of 400 and FiO2 of 90%. Her PEEP is set at 13. GENERAL: She is on Versed and fentanyl as well as rocuronium. She is now off the Levophed. HEENT: She has an oral endotracheal tube in place. She has an arterial line. She also has a PICC line. CARDIAC: Reveals regular rhythm with normal S1 and S2. LUNGS: Auscultation of lungs reveals rhonchorous breath sounds bilaterally. There is no wheezing. ABDOMEN: Soft and nontender. There is no rebound or guarding. EXTREMITIES: Show no leg edema or calf tenderness. There is no cyanosis or clubbing. SKIN: Shows no rashes. NEUROLOGICAL: Shows the patient to be sedated. LABORATORY DATA: The BUN to creatinine ratio is normal. The other electrolytes are within normal limits. White blood cell count is 6.5, hemoglobin is 12, and platelet count is 185. IMPRESSION: 1. Acute respiratory failure. 2. Viral pneumonia and coronavirus disease 2019 infection. 3. Diabetes. 4. Decreased urine output. PLAN: 1. Continue PRVC of mode of ventilation and wean oxygen as tolerated. 2. Hydrocortisone x1 for possible adrenal insufficiency. 3. Continue enteral feedings. 4. 500 mL of lactated Ringer's. 5. Continue antibiotics. 6. Continue dexamethasone. 7. Monitor and control blood sugars. 8. Renal ultrasound. 9. Stat portable chest x-ray. Greater than 35 minutes in direct critical care time. Alex Crews MD [facility]/MODL /[id number]
--- NOTE | 2019-09-11 15:17 | Progress Note ---
DATE: SUBJECTIVE: Ms. Hernandez is in the intensive care unit. She is intubated and sedated, but looks comfortable. PHYSICAL EXAMINATION: GENERAL: She is currently intubated. VITAL SIGNS: Stable, afebrile. HEENT: She is not icteric. NECK: Supple. CHEST: Crackles bilaterally. HEART: S1, S2. ABDOMEN: Soft. IMPRESSION AND PLAN: 1. Respiratory failure. 2. Coronavirus disease-19. 3. Diabetes mellitus. Laboratory data reviewed. Chart reviewed. She is receiving one dose of steroid today. Her white count came down to normal today. She remains on insulin. She remains on Zosyn. The patient has been on Zosyn now since 09/09/2019 with the plan is to continue for 5 days. Discussed with the medical team. Continue plan as ordered. MD KAMAR Galdamez/MODL /[id number]
[2019-09-11 15:48] LABS: ABG HCO3 29 mmol/L (22-26); ABG PCO2 64 mmHg (35-45); ABG PH 7.26 (7.35-7.45); ABG PO2 168 mmHg (80-105); ABG TCO2 30
[2019-09-11] MEDS ORDERED: FUROSEMIDE INJ 10 MG/ML 4 ML VIAL IV NR (16:00)
--- NOTE | 2019-09-11 17:45 | Diagnostic Imaging Report ---
EXAMINATION: CHEST SINGLE (PORTABLE) INDICATION: resp failure COMPARISON: Multiple prior chest x-ray examinations most recent dated 09/08/2019. FINDINGS: TUBES and LINES: ET tube, enteric tube, and right arm PICC are unchanged. LUNGS: Lungs are well inflated. Unchanged bilateral airspace opacities compatible multifocal pneumonia. PLEURA: Trace bilateral pleural effusions, unchanged. No pneumothorax. HEART AND MEDIASTINUM: The cardiomediastinal silhouette is unremarkable. BONES AND SOFT TISSUES: No acute osseous lesion. Soft tissues are unremarkable. UPPER ABDOMEN: No free air under the diaphragm. IMPRESSION: Unchanged multifocal pneumonia. Signed by: Beau Ozuna MD on 09/11/2019 5:42 PM
--- NOTE | 2019-09-11 17:47 | Diagnostic Imaging Report ---
EXAM: Abdomen Radiograph INDICATION:NG TUBE PLACEMENT VERIFICATION COMPARISON: KUB dated 09/03/2019 FINDINGS: TUBES and LINES: There is a nasogastric tube in place with distal tip in the stomach. LOWER CHEST: Bilateral patchy consolidations due to multifocal pneumonia. ABDOMEN: Improved previously seen multiple dilated air-filled loops of the small bowel. No evidence of obstruction.. No pneumoperitoneum. No abnormal abdominal calcifications. BONES AND SOFT TISSUES: No acute osseous lesion. Soft tissues are unremarkable. IMPRESSION: Improved previously seen multiple dilated air-filled loops of the small bowel. No evidence of obstruction. Signed by: Beau Ozuna MD on 09/11/2019 5:44 PM
[2019-09-11] MEDS: ALBUMIN 25% 25GM 100ML 0.25 GM/ML BTL IV SCH (18:02)
--- NOTE | 2019-09-11 18:54 | Progress Note ---
DATE: 09/11/2019 Medicine Progress Note SUBJECTIVE: I am covering for Dr. Kevin Galeano. The patient is still at baseline. She is still intubated. No overnight events. PHYSICAL EXAMINATION: VITAL SIGNS: Temperature 97.5, pulse 110, respiratory rate 30, blood pressure 120/62, pulse ox 96% on mechanical ventilator. GENERAL: Intubated and sedated. PULMONARY: Intubated and sedated. CARDIOVASCULAR: Positive S1, S2. No murmurs, rubs, or gallops appreciated. ABDOMEN: Soft, nondistended, nontender to palpation. Bowel sounds present. MUSCULOSKELETAL: Unable to assess. NEUROLOGIC: Unable to assess. SKIN: Intact, warm to touch. Good cap refill. PSYCHIATRIC: Unable to assess. LABORATORY FINDINGS: Show white count 6.4, hemoglobin 12, hematocrit 40, platelets of 185. Chemistry; sodium 138, potassium 3.6, chloride 101, bicarb 29, anion gap of 12, BUN 22, creatinine 0.72, glucose is 130, calcium is 7.9. MICROBIOLOGY: Nothing there. IMAGING STUDIES: None. IMPRESSION: 1. Acute respiratory failure, intubated secondary to coronavirus disease-19 pneumonia. 2. Viral pneumonia with coronavirus disease-19 infection. 3. Type 2 diabetes. 4. Acid reflux. 5. Thrombocytopenia. PLAN: At this time, the patient's labs are stable. We will get repeat labs in the morning. Continue with steroids, antibiotics, full-dose anticoagulation and vitamins. Pulmonary Critical Care and ID are following. Dr. Kevin Galeano will be available tomorrow. The patient is still in the ICU. MD CALISTA Blandon/MODL /[id number]
--- NOTE | 2019-09-11 19:05 | NUR ---
patient urine output for the 12 hr shift was 110ml. Dr Crews is aware. Dr rcews ordered LR 1L was given, albulmin was also given but urine output was still low.
[2019-09-11 20:19] LABS: ABG HCO3 28 mmol/L (22-26); ABG PCO2 57 mmHg (35-45); ABG PO2 88 mmHg (80-105)
[2019-09-11 20:20] LABS: ABG TCO2 29
--- NOTE | 2019-09-11 21:15 | NUR ---
DR. RODRIGUEZ HAS GIVEN THE OKAY TO USE NG TUBE. TUBE FEEDING TO BE STARTED AT A RATE OF 20CC/HR. BLOOD GAS DISCUSSED. PATIENT NOT TO BE PRONED THIS EVENING. FIO2 TO BE DECREASED TO 65%. THIS HAS BEEN RELAYED TO RT.
[2019-09-11] MEDS: INSULIN GLARGINE 100 UNITS/ML VIAL SQ SCH (21:33)
--- NOTE | 2019-09-11 21:59 | NUR ---
DURING PICC LINE ASSESSMENT I FOUND THE WHITE PORT TO BE OCCLUDED, UNABLE TO FLUSH OR PULL BACK BLOOD. OTHER TWO LUMENS FLUSHING AND INFUSING WITHOUT ISSUE.
[2019-09-12] VITALS (27 sets, daily range): BP systolic 99–148; BP diastolic 47–94
[2019-09-12] MEDS: ALBUMIN 25% 25GM 100ML 0.25 GM/ML BTL IV SCH ×2 (00:45→05:32)
[2019-09-12] MEDS: INSULIN REGULAR, HUMAN 100 UNIT/1 ML 3ML VIAL SQ SCH ×4 (00:46→18:14)
[2019-09-12] MEDS: PIPER-TAZ 3.375 GM 50 ML IV SCH ×2 (01:59→10:02)
[2019-09-12] MEDS ORDERED: ALBUMIN 25% 25GM 100ML 0.25 GM/ML BTL IV ONE ×2 (02:00→02:14)
[2019-09-12] MEDS ORDERED: FUROSEMIDE INJ 10 MG/ML 4 ML VIAL IV ONE ×3 (04:15→19:00)
[2019-09-12 04:42] LABS: BASOPHILS % 0.3 % (0.0-1.0); EOSINOPHILS % 0.2 % (0.0-6.0); HEMATOCRIT 29.2 % (34.2-44.1); LYMPHOCYTES # (AUTO) 0.4 (1.0-3.2); MEAN CORPUSCULAR HEMOGLOBIN 28.7 pg (28-32); MEAN CORPUSCULAR HGB CONC 30.8 g/dL (31-35); MONOCYTES # (AUTO) 0.2 (0.2-0.8); MONOCYTES % 1.5 % (4.4-11.3); NEUTROPHILS # (AUTO) 9.8 (2.1-6.9); NEUTROPHILS % 92.6 % (38.7-80.0); PLATELET COUNT 74 x10e3/uL (140-360); RED BLOOD COUNT 3.14 x10e6/uL (3.6-5.1); RED CELL DISTRIBUTION WIDTH 14.6 % (11.7-14.4)
[2019-09-12] MEDS: ROCURONIUM BROMIDE 250 MG in SODIUM CHLORIDE 0.9% 250ML 225 ML IV SCH ×2 (04:44→10:30)
[2019-09-12 04:58] LABS: ALBUMIN 3.2 g/dL (3.5-5.0); ALBUMIN/GLOBULIN RATIO 1.2 (0.8-2.0); ANION GAP 14.3 mmol/L (8-16); CALCIUM 7.4 mg/dL (8.4-10.2); POTASSIUM 4.3 mmol/L (3.5-5.1)
--- NOTE | 2019-09-12 05:22 | NUR ---
IM- progress note O/N see below ROS; unreliable v/s; revd PE tired appearing; intubated; NGT anicteric ns1s2 reduced BS soft nt nd no e/t skin dry flat affect adams labs/meds revd A/P; 73yoF Multifocal PNA- azithromycin/ceftriaxone/antitussives/loratadine/flonase/Pulm/ID consult COVID19 positive PNA- as above Sepsis- hold antiHTN meds; IV abx Acute resp failure-BIPAP/Hiflo; Now intubated; Hypokalemia- recheck HTN- cont home meds GERd- cont med Osteoporosis- hold med 09-12-19 remains intubated; f/u labs; continue zosyn; RADHA- recheck later today; give free water flushes with NGT; Thrombocytopenia- d/c lovenox; CleveO. MD Froylan, PhD.
[2019-09-12 05:24] LABS: CREATININE, SERUM 1.63 mg/dL (0.57-1.11)
[2019-09-12 07:30] LABS: ANISOCYTOSIS SLIGHT; BAND NEUTROPHILS % (MANUAL) 4 %; LYMPHOCYTES % (MANUAL) 4 % (19-48); MONOCYTES % (MANUAL) 1 % (3.4-9.0); NEUTROPHILS % (MANUAL) 91 % (40-74); RBC MORPHOLOGY COMMENT NORMAL
[2019-09-12 07:31] LABS: PLATELET ESTIMATE MODERATELY DECREASED; PLATELET MORPHOLOGY COMMENT NORMAL
[2019-09-12] MEDS: CEFTRIAXONE SOD 1 GM/NS 50 ML 50 ML IV SCH (07:57)
--- NOTE | 2019-09-12 08:11 | Progress Note ---
DATE: SUBJECTIVE: The patient is having difficulty with urine output. She received IV fluids late yesterday. She subsequently received Lasix and albumin. She has had several 100 mL of the output over the past 24 hours, but her creatinine is increased to 1.63. The patient remains on mechanical ventilation with a PRVC mode of ventilation at a rate of 32 with a tidal volume of 400. Her FiO2 is set at 70%. PEEP is set at 14. PHYSICAL EXAMINATION: VITAL SIGNS: Blood pressure is 115/51 and the pulse is 95. Saturation is in the low 90s. HEENT: No facial swelling or erythema. LYMPHATIC: No submandibular, cervical, or supraclavicular adenopathy. CARDIAC: Regular rate and rhythm with normal S1 and S2. LUNGS: Auscultation of lungs reveals rhonchorous breath sounds bilaterally. There is no wheezing. ABDOMEN: Soft and nontender. There is no rebound or guarding. EXTREMITIES: No leg edema or calf tenderness. There is no cyanosis or clubbing. SKIN: No rashes. The patient is currently sedated on vent, fentanyl and Versed. She has no focal neurological abnormalities. LABORATORY DATA: White blood cell count is 10.6 and hemoglobin is 9. The platelet count is 74,000. Creatinine is 1.63. BUN is 38 and the other electrolytes are within normal limits. Albumin is 3.2. IMPRESSION: 1. Acute renal failure with decreased urine output. 2. Acute respiratory failure. 3. COVID-19 and viral pneumonia. 4. Thrombocytopenia. 5. Anemia, unspecified. 6. Diabetes. PLAN: 1. Await renal ultrasound and Nephrology consultation. 2. Urinalysis. 3. Stop Zosyn due to the risk of substitute antibiotics. 4. Monitor and control blood sugars. 5. Continue PRVC mode of ventilation. 6. Continue enteral feedings. 7. Case discussed with nursing, Respiratory, daughter, Infectious Disease, and administration. Greater than 35 minutes in direct critical care time apart from any procedures performed. Alex Crews MD [facility]/MODL /[id number]
[2019-09-12] MEDS: ASCORBIC ACID 500 MG TAB PO SCH ×2 (08:25→20:37)
[2019-09-12] MEDS: ZINC SULFATE 220 MG CAP PO SCH (08:25)
[2019-09-12] MEDS: PANTOPRAZOLE 40 MG 10ML VIAL IV SCH (08:25)
[2019-09-12 09:09] LABS: ABG HCO3 26 mmol/L (22-26); ABG PCO2 60 mmHg (35-45); ABG PH 7.24 (7.35-7.45); ABG PO2 65 mmHg (80-105); ABG TCO2 28
[2019-09-12] MEDS: FENTANYL 2000MCG/NS 250 250 ML IV PRN ×2 (11:26→20:53)
[2019-09-12] MEDS: MIDAZOLAM HCL 5MG/ML 10ML VIAL 100 ML IV PRN ×2 (11:28→19:50)
--- NOTE | 2019-09-12 13:50 | Diagnostic Imaging Report ---
EXAM: Renal Ultrasound INDICATION: Decreased urine output COMPARISON: CT abdomen and pelvis of 01/07/2019 TECHNIQUE: Transverse and longitudinal images of the kidneys and bladder were obtained. FINDINGS: Right Kidney: Length: 11.9 cm Appearance: Normal echogenicity. Collecting system: No hydronephrosis Stones: None Cyst/Mass: None Left Kidney: Length: 13.2 cm Appearance: Normal echogenicity. Collecting system: No hydronephrosis Stones: None Cyst/Mass: Lower pole 3.6 cm anechoic simple cyst. Bladder: Leos catheter in the decompressed bladder. Trace abdominal ascites. Hepatic steatosis. Gallbladder filled with sludge. Gallbladder wall measures 4 mm. IMPRESSION: No hydronephrosis or renal calculi. Simple left renal cyst. Sludge filled gallbladder. Hepatic steatosis. Small volume ascites. Signed by: Haroldo Miner MD on 09/12/2019 1:47 PM
--- NOTE | 2019-09-12 16:11 | NUR ---
Nutrition Intervention Note RD Recommendation(s) for Physician: -Continue Vital AF 1.2. Recommend increasing goal rate to 50 mL/hr (provides 1440 kcal, 90 g protein) -Fluid management per MD Plan of Care: RD following, monitoring for tolerance and adequacy, tube feeding recommendation Nutrition reason for involvement: enteral nutrition RD Assessment 09/11: Follow up. Pt remains intubated. TF was recorded at 30 mL/hr this morning. Current recommendations remain appropriate at this time. Will continue to monitor. 09/06: Follow up. Pt is now mechanically ventilated and tube feeding of Vital AF was started. MD note today indicates pt is in the prone position. Tube feeding rate was recorded at 40 mL/hr yesterday. Will continue to monitor. (09/02/19) Pt is a 73 year old female admitted with pneumonia due to COVID-19 virus and respiratory failure. Unable to enter room due to isolation precautions. MD note indicates pt has some intermittent confusion. It is recorded that pt has been consuming 0-50% of meals during admission. There are no previous weights in chart. Recommend Ensure Compact BID for added nutrition. Will continue to monitor Principal Problems/Diagnoses: pneumonia due to COVID-19 virus and respiratory failure PMH: hypertension, chronic pain, gastroesophageal reflux, osteoporosis GI: soft abdomen, last recorded BM 08/29 Skin: stage 2 sacrum pressure ulcer Labs: 09/11: Na 137, K 4.3, BUN 38, Cr 1.63, Glu 134, Ca 7.4, Total bili 2.7 09/06: Na 145, K 5.0, BUN 29, Cr 0.60, Glu 334, Ca 7.5, AST 39 (09/01) Na 140, K 4.2, BUN 14, Cr 0.54, Glu 141, Ca 7.5 Meds: fentanyl, insulin, rocuronium, antibiorics, vitamin C, zinc sulfate, norepinephrine, zofran, colace Ht: 63 inches Wt: 183.5 lbs (09/11) 162 lbs (09/04) 163 lbs (08/29) BMI: 28.8 kg/m2 using weight of 163 lbs IBW: 115 lbs Malnutrition Evaluation (09/07/19) The patient does not meet criteria for a specified degree of malnutrition at this time. Will re-evaluate at follow-up as appropriate. Energy intake: </=50% of estimated energy requirements for > 5 days Weight loss: Unable to assess Fat loss: unable to evaluate Muscle loss: unable to evaluate Supporting Evidence: Fluid accumulation: no leg edeme per MD note Functional Status: unable to evaluate Nutrition Prescription (Diet Order): Vital AF 1.2 @ 40 mL/hr (provides 1152 kcal and 72 g protein) infusing at 30 mL/hr this morning Estimated Nutritional Needs: 8250-9942 calories/day (18-20 kcal/kg CBW) 89-148 g protein/day (1.2-2 g pro/kg CBW) Diet Adequacy: Not meeting calorie needs, Not meeting protein needs Tolerance: tolerating TF Diet Education Needs Assessment: Diet education not indicated; patient is intubated Nutrition Care Level: high Nutrition Diagnosis: Inadequate oral intake related to acute respiratory failure/mechanical ventilation as evidenced by pt requiring enteral nutrition. Goal: Patient will meet 75-100% of estimated needs by follow up Progress: progressing Interventions: -Composition/Rate/Route, Recommended modifications Monitoring/Evaluation: -Total energy intake, Total protein intake, Formula/Solution Signed: Stephanie Willis RD, LD
--- NOTE | 2019-09-12 16:33 | Progress Note ---
DATE: SUBJECTIVE: Ms. Hernandez remains in intensive care unit, concerned about her urine output. PHYSICAL EXAMINATION: GENERAL: She is intubated. VITAL SIGNS: Stable, afebrile. HEENT: She is not icteric. NECK: Supple. CHEST: Few crackles. HEART: S1, S2. No murmurs. ABDOMEN: Soft. Bowel sounds present. EXTREMITIES: No edema. LABORATORY DATA: Her sputum showing yeast. Her white count 10.4, hemoglobin 9. Her sodium 137, potassium 4.3 with creatinine 1.63. IMPRESSION: 1. Respiratory failure. 2. Acute kidney injury. 3. Diabetes mellitus. 4. Aspiration. Discussed with Critical Care. We will DC Zosyn. Currently on Rocephin. We will plan five days for aspiration. Continue with other medical management as ordered. MD KAMAR Galdamez/MODL /[id number]
[2019-09-12] MEDS ORDERED: ENOXAPARIN 30 MG/0.3 ML SYR SC SCH (17:00)
[2019-09-12] MEDS ORDERED: SODIUM CHLORIDE 0.9% 250ML 250 ML IV ONE (19:00)
[2019-09-12] MEDS: INSULIN GLARGINE 100 UNITS/ML VIAL SQ SCH (20:39)
[2019-09-12 21:00] LABS: ABG HCO3 23 mmol/L (22-26); ABG PCO2 57 mmHg (35-45); ABG PH 7.22 (7.35-7.45); ABG PO2 70 mmHg (80-105)
[2019-09-12 21:01] LABS: ABG TCO2 25
[2019-09-13] VITALS (26 sets, daily range): BP systolic 103–148; BP diastolic 53–92
[2019-09-13] MEDS: INSULIN REGULAR, HUMAN 100 UNIT/1 ML 3ML VIAL SQ SCH ×4 (00:34→13:45)
[2019-09-13 01:47] LABS: BILIRUBIN,URINE NEGATIVE (NEGATIVE); CLARITY,URINE CLOUDY (CLEAR); COLOR,URINE YELLOW (YELLOW); KETONES,URINE NEGATIVE (NEGATIVE); LEUKOCYTE ESTERASE ,URINE TRACE (NEGATIVE); NITRITE,URINE NEGATIVE (NEGATIVE); PROTEIN,URINE DIPSTICK >=300 (NEGATIVE); URINE UROBILINOGEN 1 mg/dL (0.2 - 1)
[2019-09-13 01:52] LABS: BACTERIA,URINE MODERATE /HPF; EPITHELIAL CELLS,URINE FEW /LPF; WBC,URINE (MAN) 21-50 /HPF (0-5)
[2019-09-13 01:53] LABS: MUCUS,URINE FEW (RARE)
[2019-09-13] MEDS: MIDAZOLAM HCL 5MG/ML 10ML VIAL 100 ML IV PRN ×2 (02:53→17:15)
[2019-09-13] MEDS: ROCURONIUM BROMIDE 250 MG in SODIUM CHLORIDE 0.9% 250ML 225 ML IV SCH ×2 (04:03→20:19)
--- NOTE | 2019-09-13 05:12 | NUR ---
IM- progress note O/N see below ROS; unreliable v/s; revd PE tired appearing; intubated; NGT anicteric ns1s2 reduced BS soft nt nd no e/t skin dry flat affect adams labs/meds revd A/P; 73yoF Multifocal PNA- azithromycin/ceftriaxone/antitussives/loratadine/flonase/Pulm/ID consult COVID19 positive PNA- as above Sepsis- hold antiHTN meds; IV abx Acute resp failure-BIPAP/Hiflo; Now intubated; Hypokalemia- recheck HTN- cont home meds GERd- cont med Osteoporosis- hold med 09-12-19 remains intubated; f/u labs; continue zosyn; RADHA- recheck later today; give free water flushes with NGT; Thrombocytopenia- d/c lovenox; 09-12 check labs; cont vent support; Estuardo. MD Froylan, PhD.
[2019-09-13 05:35] LABS: BASOPHILS # (AUTO) 0.1 (0.0-0.1); BASOPHILS % 0.6 % (0.0-1.0); EOSINOPHILS # (AUTO) 0.1 (0.0-0.4); EOSINOPHILS % 0.5 % (0.0-6.0); HEMATOCRIT 30.2 % (34.2-44.1); HEMOGLOBIN 9.3 g/dL (12.0-16.0); LYMPHOCYTES # (AUTO) 0.5 (1.0-3.2); LYMPHOCYTES % 3.4 % (18.0-39.1); MEAN CORPUSCULAR HEMOGLOBIN 29.2 pg (28-32); MEAN CORPUSCULAR HGB CONC 30.8 g/dL (31-35); MEAN CORPUSCULAR VOLUME 94.7 fL (81-99); MONOCYTES # (AUTO) 0.3 (0.2-0.8); MONOCYTES % 1.8 % (4.4-11.3); NEUTROPHILS # (AUTO) 13.7 (2.1-6.9); PLATELET COUNT 88 x10e3/uL (140-360); RED BLOOD COUNT 3.19 x10e6/uL (3.6-5.1); RED CELL DISTRIBUTION WIDTH 15.2 % (11.7-14.4)
[2019-09-13 06:11] LABS: ALBUMIN 2.7 g/dL (3.5-5.0); ALBUMIN/GLOBULIN RATIO 0.8 (0.8-2.0); ANION GAP 17.9 mmol/L (8-16); CALCIUM 7.3 mg/dL (8.4-10.2); CREATININE, SERUM 2.54 mg/dL (0.57-1.11); POTASSIUM 4.9 mmol/L (3.5-5.1)
[2019-09-13 06:24] LABS: MAGNESIUM 1.6 MG/DL (1.3-2.1); PHOSPHORUS 5.2 MG/DL (2.3-4.7)
[2019-09-13] MEDS: FENTANYL 2000MCG/NS 250 250 ML IV PRN ×2 (06:43→17:14)
--- NOTE | 2019-09-13 06:51 | NUR ---
PATIENT WITH MINIMAL OUTPUT OVERNIGHT, JUST 20CC. CONCERN FOR PLUNKETT OBSTRUCTION SO PLUNKETT CATHETER CHANGED. SMALL AMOUNT OF URINE NOTED IN CATHETER TO CONFIRM CORRECT PLACEMENT BUT NO URINE NOT FLOWING. PLUNKETT IRRIGATED WITH MULTIPLE SMALL CLOTS COMING FROM CATHETER LINE. HR IN THE 120'S OVERNIGHT. PATIENT VERY SENSITIVE TO SLIGHT POSITIONAL CHANGES AND DESATS QUICKLY. ATTEMPTED TO SUCTION PATIENT INLINE AND CLOT PRESENT AT END OF SUCTION LINE. RT CALLED TO ASSESS IN LINE SUCTION. DR. RODRIGUEZ CALLED TO REPORT PATIENT STATUS. VERBAL ORDERS RECEIVED AND ENTERED INTO COMPUTER (HIT ANTIBODY, STAT ABG, FIBRINOGEN, PT/PTT, D-DIMER, CONSULT TO DR. HOOKS). DR. RODRIGUEZ ON HIS WAY INTO HOSPITAL.
[2019-09-13 07:29] LABS: INR 1.06; PROTHROMBIN TIME 14.4 seconds (11.9-14.5)
[2019-09-13 07:30] LABS: PARTIAL THROMBOPLASTIN TIME 29.9 seconds (23.8-35.5)
[2019-09-13] MEDS ORDERED: SODIUM BICARBONATE 8.4% INJ 50 ML SYR IV STA (07:39)
[2019-09-13 07:45] LABS: ABG HCO3 23 mmol/L (22-26); ABG PCO2 84 mmHg (35-45); ABG PH 7.05 (7.35-7.45); ABG PO2 110 mmHg (80-105)
[2019-09-13] MEDS ORDERED: FUROSEMIDE INJ 10 MG/ML 4 ML VIAL IV STA (07:46)
[2019-09-13] MEDS: CEFTRIAXONE SOD 1 GM/NS 50 ML 50 ML IV SCH (07:59)
[2019-09-13 08:26] LABS: ANISOCYTOSIS SLIGHT; BAND NEUTROPHILS % (MANUAL) 3 %; LYMPHOCYTES % (MANUAL) 5 % (19-48); MONOCYTES % (MANUAL) 2 % (3.4-9.0); NEUTROPHILS % (MANUAL) 90 % (40-74); PLATELET ESTIMATE SLIGHTLY DECREASED; PLATELET MORPHOLOGY COMMENT NORMAL; RBC MORPHOLOGY COMMENT NORMAL
--- NOTE | 2019-09-13 08:37 | Progress Note ---
DATE: Pulmonary Critical Care Progress Note SUBJECTIVE: The patient had decreased urine output for the last 24 hours. Her respiratory status is worsening. She has increased to 90% FiO2. She has less responsive. She remains on sedation. PHYSICAL EXAMINATION: VITAL SIGNS: The blood pressure is 112/53 and the pulse is 118. The respiratory rate is now 34 is set with the vent. Her saturation is 92%. She is on a PRVC at a rate of 34 with tidal volume of 430. Her PEEP is set at 12 and FiO2 is set at 90%. Her peak airway pressures are 47 and a mean airway pressure is 28. She has an oral endotracheal tube in place. She has an arterial line. She also has a PICC line. CARDIAC: Regular rate and rhythm with normal S1, S2. LUNGS: Auscultation of lungs reveals crackles at the bases. There is no wheezing. ABDOMEN: Soft, nontender. There is no rebound or guarding. EXTREMITIES: 2 to 3+ edema. LABORATORY DATA: BUN to creatinine ratio is 55 to 2.54. The carbon dioxide is 21 and the sodium is 134. The glucose is 169. The total bilirubin is 2.4 and the AST is 64. The ALT is 36. Albumin is 2.7. White blood cell count is 15.7, hemoglobin is 9.3, and the platelet count is 88. RADIOGRAPHIC DATA: Chest x-ray is still pending. IMPRESSION: 1. Acute respiratory failure. 2. Viral pneumonia and coronavirus disease-19 infection. 3. Acute renal failure with metabolic acidosis and volume overload. 4. Thrombocytopenia. 5. Anemia secondary to chronic blood loss. 6. Diabetes. PLAN: 1. The patient's minute ventilation has been increased by increasing the tidal volume to 430 and the rate to 34. 2. In order to keep her plateau pressure and peak airway pressure close to the acceptable range, her PEEP has been decreased to 12. She remains at 90%. 3. The patient has received two amps of bicarb. 4. I placed dialysis access and begin dialysis. 5. Adjust current antibiotics for renal failure. 6. Continue enteral feedings. 7. Adjust free water. Case discussed with Respiratory, nursing, administration, Nephrology, Infectious Disease and family. Greater than 35 minutes in direct critical care time apart from any procedures performed. MD MATT Swanson/IGORL /[id number]
[2019-09-13] MEDS: ZINC SULFATE 220 MG CAP PO SCH (08:57)
[2019-09-13] MEDS: ASCORBIC ACID 500 MG TAB PO SCH ×2 (08:57→21:00)
[2019-09-13] MEDS: PANTOPRAZOLE 40 MG 10ML VIAL IV SCH (08:58)
--- NOTE | 2019-09-13 08:59 | Diagnostic Imaging Report ---
Examination: Single AP view of the chest. COMPARISON: 09/11/2019 INDICATION: Respiratory failure DISCUSSION: Endotracheal tube tip now projects 1.2 cm above the harman, which may be related to neck flexion. Enteric tube and right upper extremity PICC are unchanged in position. No appreciable interval change in confluent bilateral airspace opacities relative to 09/11/2019. No sizable pleural effusion or definite pneumothorax. Stable cardiomediastinal contour when accounting for rightward patient rotation. No acute osseous abnormalities. IMPRESSION: Tip of endotracheal tube now terminates approximately 1.2 cm above the harman, which may be related to cervical flexion. Remaining support lines and tubes are stable in appearance. Stable findings of multifocal pneumonia relative to 09/11/2019. Signed by: Dr. Higinio Suero M.D. on 09/13/2019 8:55 AM
--- NOTE | 2019-09-13 09:06 | Diagnostic Imaging Report ---
Exam: Abdominal film Clinical History: NG tube placement Comparison: 09/11/2019 DISCUSSION: Nasogastric tube is stable in position, coiled over the stomach with the tip projecting over the expected region of the gastric fundus. No dilated, air-filled loops of bowel, or abnormal calcifications. Regional skeletal structures are intact. IMPRESSION: Nasogastric tube is stable in position relative to 09/11/2019. Nonobstructive bowel gas pattern. Signed by: Dr. Higinio Suero M.D. on 09/13/2019 9:02 AM
--- NOTE | 2019-09-13 09:18 | NUR ---
HEMATOLOGY/ONCOLOGY CONSULTATION NOTE: REASON FOR CONSULTATION: Anticoagulation management HISTORY OF PRESENT ILLNESS: Ms. Hernandez is a 73-year-old female with past medical history of GERD, HTN, Chronic pain syndrome, and osteoporosis, who was admitted on 08/27/2019 with malaise and fever along with dyspnea nd cough found to have COVID19 pneumonia leading to acute respiratory failure requiring intubation and transfer to the [facility] ICU. She has been on IV antibiotics, Vitamin C, Zinc, and started on pressor support on 09/11/2019. Patient was noted to have worsening renal failure with minimal urine output and clotting in Cherry catheter. Patient was on DVT proph with Lovenox 30mg sq daily, however, due to clots in Cherry catheter, Lovenox was discontinued and DIC and HIT panel were ordered. Hematology/Oncology has been consulted to assist with management. Discussed with nurse via phone. Patient with little UOP, plans for dialysis starting today. ALLERGIES: NKDA PAST MEDICAL HISTORY: Hypertension, Chronic pain, Gastroesophageal reflux, Osteoporosis. PAST SURGICAL HISTORY: Unable to obtain FAMILY HISTORY: Noncontributory REVIEW OF SYSTEMS: 14 Point ROS unable to obtain secondary to patient clinical condition, intubated and sedated PHYSICAL EXAMINATION: VITAL SIGNS: Reviewed per [facility] PHYSICAL EXAM NOT PERFORMED PATIENT IS ON COVID ICU UNIT ON CONTACT PRECAUTIONS. LABORATORY DATA: 09/13/2019 WBC: 15.70 Hgb: 9.3 Hct: 30.2 Plt: 88 BUN: 55 Creatinine: 2.54 PT: 14.4 INR: 1.06 Fibrinogen: 685 D-dimer: 4460 HIT antibody: Pending RADIOGRAPHIC DATA: 09/13/19: CXR: Tip of endotracheal tube now terminates approximately 1.2 cm above the harman, which may be related to cervical flexion. Remaining support lines and tubes are stable in appearance. Stable findings of multifocal pneumonia relative to 09/11/2019. Abd X-ray: Nasogastric tube is stable in position relative to 09/11/2019. Nonobstructive bowel gas pattern. ASSESSMENT/PLAN: Ms. Hernandez is a 73-year-old female with past medical history of GERD, HTN, Chronic pain syndrome, and osteoporosis, who was admitted on 08/27/2019 with malaise and fever along with dyspnea nd cough found to have COVID19 pneumonia leading to acute respiratory failure requiring intubation and transfer to the [facility] ICU. She has been on IV antibiotics, Vitamin C, Zinc, and started on pressor support on 09/11/2019. Patient was noted to have worsening renal failure with minimal urine output and clotting in Cherry catheter. Patient was on DVT proph with Lovenox 30mg sq daily, however, due to clots in Cherry catheter, Lovenox was discontinued and DIC and HIT panel were ordered. Hematology/Oncology has been consulted to assist with management. 1. COVID19 PNA/sepsis/resp failure: Patient is on IV antibiotics, Zinc, Vitamin C. She is on pressor support as well. Patient remains intubated and sedated. Maame kocytosis trending up, currently afebrile. Managed per ICu/primary/pulmonary/ID teams on board. 2. Anticoagulation: Patient is at increased risk for microthrombotic event secondary to COVID19. Lovenox 30mg sq daily has been discontinued with HIT panel pending. Will start patient on argatroban drip until HIT panel is back as patie nt has worsening renal failure and inflammatory markers are elevated. Will check inflammatory markers daily including D-dimer and CRP. Monitor closely for now. 3. Renal failure: Uncertain etiology. Could be secondary to COVID19 PNA however recommend avoiding nephrotoxic medications. Creatinine trending up with little UOP in Cherry catheter per nursing staff. Clots in cherry catheter noted as well, does not appear DIC. Plans to start dialysis. Managed per ICU/primary team. 4. Thrombocytopenia: Appears acute as counts were normal on admission. Could be consumption secondary to sepsis as per #1. Does not appear DIC though. Platelets slightly trending down however appear overall stable and in the noncritical range. Will await for HIT panel to come back however this appears less likely. Will obtain acute hepatitis panel. For now, avoid heparin or heparin containing products as per #2. Monitor closely. 5. Anemia: Likely multifactorial. Normocytic, hypochromic counts suggestive of underlying iron deficiency anemia. Will obtain baseline workup and provide futher recommendation pending results. Counts overall stable. Patient may benefit from IV Iron infusions pending ferritin level as this is likely elevated as APR per #1. Monitor for now. 6. DVT proph: Start patient on argatroban per #2. Above plan discussed with Dr. Franklin. Thank you for the consult. I will be available. Please call with questions.
--- NOTE | 2019-09-13 09:45 | NUR ---
ASSESSMENT: Spiritual distress Door Patcher called pt's daughter to provide spiritual/emotional support. Pt's dtr overwhelmed by worry and guilt concerning mother's illness. Pt's daughter states she came in contact with the disease through her work and unknowingly transmitted it to her mother because they share a small apartment. Pt's daughter states her mother is a devout Mandaen and is her "best friend." Pt's daughter expressed emotions thru words and tears. Pt's daughter states it is difficult to not be at her mother's bedside. Intervention: Provided non-judgmental, empathic listening. Facilitated storytelling. Provided prayer. Outcome: Pt's daughter stated, "thank you for your call. I really needed it." Pt's daughter is open to follow up calls. I will follow as able. MARTIN Walker Spiritual Care Department O: [phone]
[2019-09-13 10:07] LABS: FERRITIN 429.58 ng/mL (4.63-204.00)
--- NOTE | 2019-09-13 10:22 | Operative Report ---
DATE OF PROCEDURE: SURGEON: Alex Crews MD PROCEDURE: Trialysis catheter placement under ultrasound guidance. PREOPERATIVE DIAGNOSIS: Acute renal failure. POSTOPERATIVE DIAGNOSIS: Acute renal failure. CONSENT: Consent was obtained from the daughter. ANESTHESIA: 1% lidocaine for local anesthesia. PROCEDURE IN DETAIL: The right neck was prepped sterilely with Betadine and chlorhexidine. A full length sterile drape was used as well as a sterile gown, sterile gloves, and sterile mask. The area between the heads of sternocleidomastoid was anesthetized with 1% lidocaine. An ultrasound probe was used to locate the right internal jugular vein. It was patent without thrombosis. The right internal jugular vein was cannulated under direct visualization with a 16-gauge needle. A wire was then passed through the needle. A dilator was used to open the skin and a Trialysis catheter was placed over the wire by the Seldinger technique. All the ports flushed. COMPLICATIONS: None. ESTIMATED BLOOD LOSS: 5 mL. Alex Crews MD [facility]/MODL /[id number]
--- NOTE | 2019-09-13 10:27 | Diagnostic Imaging Report ---
EXAMINATION: CHEST SINGLE (PORTABLE) INDICATION: Catheter placement COMPARISON: Chest radiograph of 09/11/2019 FINDINGS: LINES/TUBES:Interval placement of right IJ temporary dialysis catheter which terminates in the superior vena cava. Remaining support lines and tubes unchanged. LUNGS:The lungs are moderately inflated. Interval increase in bilateral lower lung airspace opacities. PLEURA:No pleural effusion or pneumothorax. MEDIASTINUM:The cardiomediastinal silhouette appears normal in size and shape. BONES/SOFT TISSUES:No acute osseous injury. ABDOMEN:No free air under the diaphragm. IMPRESSION: Interval placement of right IJ temporary dialysis catheter which terminates at the superior vena cava. Remaining support lines and tubes unchanged. Interval increase in bilateral lower lung predominant multifocal airspace opacities. Signed by: Haroldo Miner MD on 09/13/2019 10:24 AM
--- NOTE | 2019-09-13 10:32 | Consultation ---
DATE OF CONSULTATION: 09/13/2019 Nephrology Consultation REASON FOR CONSULTATION: Acute kidney injury. HISTORY OF PRESENT ILLNESS: This is a 73-year-old female, admitted more than two weeks ago with multifocal pneumonia, and COVID-19 positive. She has a history of hypertension. Her renal function on admission was normal. However, in the last couple of days, she has become oligoanuric, having both metabolic and respiratory acidosis and needing 100% FiO2 on a ventilator with 14 of PEEP. Her serum creatinine has gone from 0.72 on 10 September to 2.54 today. She has remained hemodynamically stable, without need for vasopressors. She is being treated with IV ceftriaxone for the pneumonia. She has also received some IV sodium bicarbonate boluses to counter the metabolic acidosis. She was given a single dose of Lasix 80 mg IV this morning with no apparent effect. This consultation is requested for acute management of the renal failure. PAST MEDICAL HISTORY: As above. MEDICATIONS: Reviewed in APR. REVIEW OF SYSTEMS: The patient is currently sedated and on a ventilator and unable to give any history. SOCIAL AND FAMILY HISTORY: Unobtainable. PHYSICAL EXAMINATION: GENERAL: The patient is lying supine in [facility] ICU. Appears sedated. VITAL SIGNS: Stable. Blood pressure 130/60, pulse 110 per minute, and temperature 98.1. Mechanically ventilated on FiO2 of 100% and PEEP of 14. HEENT: Normocephalic, atraumatic. Eyes are closed. Obvious facial edema. NECK: Unable to tell if she has any jugular venous distention due to thickness of the neck and unable to manipulate. CHEST: Has bilateral air entry to mechanical breaths. CARDIOVASCULAR: Regular rate and rhythm. ABDOMEN: Soft, nondistended. EXTREMITIES: May have peripheral edema, though both legs are compressed by anti-DVT equipment. NEUROLOGICAL: The patient is sedated. IMAGING DATA: Chest x-ray reports bilateral pneumonic infiltrates. LABORATORY DATA: Sodium 135, potassium 4.9, chloride 101, bicarb 21, BUN 55, creatinine 2.5, glucose 144, and total calcium 7.3 with albumin of 2.7. White count 15.7, hemoglobin 9.3, and platelet count has dropped from 185 two days ago to 88,000 today. Latest ABGs this morning showed pH of 7.05, pCO2 of 84, and PO2 of 110. IMPRESSION: 1. Acute, oligoanuric renal failure in a patient with coronavirus disease pneumonia/sepsis. Urinalysis reviewed. Most likely cause of the acute kidney injury is coronavirus disease associated acute tubular necrosis. 2. Severe, mainly, respiratory acidosis due to pneumonia and pulmonary edema. 3. History of hypertension, current blood pressure is stable. 4. Fluid overload, secondary to oliguria and having received high volumes of IV fluids. RECOMMENDATION: 1. We will institute immediate hemodialysis, with the primary goal of removing fluid and alleviate pulmonary edema thereby lessening oxygen requirement. Dialysis should also help with the metabolic component of acidosis. 2. Avoid all known nephrotoxins such as NSAIDs, IV iodine contrast, aminoglycoside antibiotics. 3. Adjust dose of relevant medications for decreased GFR. Briefly discussed with Dr. Smith in ICU and [facility]. A hemodialysis catheter has just been placed and will be used shortly. We will follow the patient closely and recommend as indicated. Thank you for the opportunity to participate in her care. Bishop Nation MD [facility]/MODL /[id number]
--- NOTE | 2019-09-13 11:31 | NUR ---
[facility] notified of need for dialysis. dialysis nurse will call RN back.
[2019-09-13 11:46] LABS: ABG HCO3 23 mmol/L (22-26); ABG PCO2 46 mmHg (35-45); ABG PO2 61 mmHg (80-105)
[2019-09-13 11:47] LABS: ABG TCO2 24
[2019-09-13] MEDS: ARGATROBAN 250 MG in SODIUM CHLORIDE 0.9% 250ML 247.5 ML IV SCH (12:41)
[2019-09-13] MEDS ORDERED: HEPARIN SOD (PORCINE) 1000 UNIT/ML SDV ONE (18:44)
[2019-09-13] MEDS ORDERED: MANNITOL 25% 12.5GM/50ML 100 ML ONE (18:45)
[2019-09-13] MEDS: FLUCONAZOLE 200 MG/100 ML 100 ML IV SCH (19:32)
--- NOTE | 2019-09-13 20:20 | Progress Note ---
DATE: SUBJECTIVE: Ms. Hernandez is in the intensive care unit, intubated, sedated. PHYSICAL EXAMINATION: VITAL SIGNS: Stable. Currently afebrile. HEENT: She is not icteric. NECK: Supple. CHEST: Crackles bilateral. COR: S1 and S2. ABDOMEN: Soft. IMPRESSION: COVID-19, respiratory failure, acute kidney injury, leukocytosis, concerned about infection. We will discontinue Rocephin. We will add Diflucan. Put her on heparin subcu. Continue supportive care. We will follow. MD KAMAR Galdamez/MODL /[id number]
[2019-09-13] MEDS ORDERED: HEPARIN SOD (PORCINE) 5,000 UNIT/ML VIAL SC SCH (21:00)
[2019-09-13] MEDS: INSULIN GLARGINE 100 UNITS/ML VIAL SQ SCH (21:14)
[2019-09-14] VITALS (21 sets, daily range): BP systolic 112–143; BP diastolic 53–75
[2019-09-14] MEDS: FENTANYL 2000MCG/NS 250 250 ML IV PRN ×2 (03:40→07:21)
[2019-09-14] MEDS: ROCURONIUM BROMIDE 250 MG in SODIUM CHLORIDE 0.9% 250ML 225 ML IV SCH ×3 (03:41→22:50)
[2019-09-14 05:15] LABS: BASOPHILS % 0.2 % (0.0-1.0); EOSINOPHILS # (AUTO) 0.1 (0.0-0.4); EOSINOPHILS % 0.8 % (0.0-6.0); HEMOGLOBIN 8.4 g/dL (12.0-16.0); LYMPHOCYTES # (AUTO) 0.5 (1.0-3.2); LYMPHOCYTES % 3.9 % (18.0-39.1); MEAN CORPUSCULAR HEMOGLOBIN 28.3 pg (28-32); MEAN CORPUSCULAR HGB CONC 32.3 g/dL (31-35); MEAN CORPUSCULAR VOLUME 87.5 fL (81-99); MONOCYTES # (AUTO) 0.3 (0.2-0.8); MONOCYTES % 1.9 % (4.4-11.3); NEUTROPHILS # (AUTO) 11.6 (2.1-6.9); NEUTROPHILS % 89.1 % (38.7-80.0); PLATELET COUNT 93 x10e3/uL (140-360); RED BLOOD COUNT 2.97 x10e6/uL (3.6-5.1); RED CELL DISTRIBUTION WIDTH 15.2 % (11.7-14.4)
[2019-09-14 05:43] LABS: ALBUMIN 2.1 g/dL (3.5-5.0); ALBUMIN/GLOBULIN RATIO 0.6 (0.8-2.0); ANION GAP 14.2 mmol/L (8-16); CALCIUM 7.1 mg/dL (8.4-10.2); CREATININE, SERUM 2.3 mg/dL (0.57-1.11); POTASSIUM 4.2 mmol/L (3.5-5.1)
[2019-09-14] MEDS: INSULIN REGULAR, HUMAN 100 UNIT/1 ML 3ML VIAL SQ SCH ×4 (06:09→17:03)
[2019-09-14] MEDS: MIDAZOLAM HCL 5MG/ML 10ML VIAL 100 ML IV PRN ×3 (07:22→23:30)
--- NOTE | 2019-09-14 08:17 | NUR ---
HEMATOLOGY/ONCOLOGY PROGRESS NOTE: REASON FOR CONSULTATION: Anticoagulation management HISTORY OF PRESENT ILLNESS: Events noted, discussed with nurse. Dialysis cath placed, patient remains on argatroban drop with HIT panel pending. REVIEW OF SYSTEMS: 14 Point ROS unable to obtain secondary to patient clinical condition, intubated and sedated PHYSICAL EXAMINATION: VITAL SIGNS: Reviewed per [facility] PHYSICAL EXAM NOT PERFORMED PATIENT IS ON COVID ICU UNIT ON CONTACT PRECAUTIONS. LABORATORY DATA: 09/14/2019 WBC: 12.98 Hgb: 8.4 Hct: 26.0 Plt: 93 BUN: 44 Creatinine: 2.30 HIT antibody: Pending Iron: 21 TIBC: 104 %sat: 20 Transferrin: 74 Ferrtin 429 B12: 1465 Folate: 6.6 RADIOGRAPHIC DATA: 09/14/2019: Pending, follow up results.. ASSESSMENT/PLAN: Ms. Hernandez is a 73-year-old female with past medical history of GERD, HTN, Chronic pain syndrome, and osteoporosis, who was admitted on 08/27/2019 with malaise and fever along with dyspnea nd cough found to have COVID19 pneumonia leading to acute respiratory failure requiring intubation and transfer to the [facility] ICU. She has been on IV antibiotics, Vitamin C, Zinc, and started on pressor support on 09/11/2019. Patient was noted to have worsening renal failure with minimal urine output and clotting in Cherry catheter. Patient was on DVT proph with Lovenox 30mg sq daily, however, due to clots in Cherry catheter, Lovenox was discontinued and DIC and HIT panel were ordered. Hematology/Oncology has been consulted to assist with management. 1. COVID19 PNA/sepsis/resp failure: Patient is on IV antibiotics, Zinc, Vitamin C. She is on pressor support as well. Patient remains intubated and sedated. Maame kocytosis trending up, currently afebrile. Managed per ICu/primary/pulmonary/ID teams on board. 2. Anticoagulation: Patient is at increased risk for microthrombotic event secondary to COVID19. Lovenox 30mg sq daily has been discontinued with HIT panel pending. Continue patient on argatroban drip until HIT panel is back as patient has worsening renal failure and inflammatory markers are elevated. If HI T negative, patient can likely switch to heparin drip. Will check inflammatory markers daily including D-dimer and CRP. Monitor closely for now. 3. Renal failure: Uncertain etiology. Could be secondary to COVID19 PNA however recommend avoiding nephrotoxic medications. Creatinine trending up with little UOP in Cherry catheter per nursing staff. Clots in cherry catheter noted as well, does not appear DIC. S/p dialysis catheter placement, on HD. Managed per ICU/Primary/Nephrology team. 4. Thrombocytopenia: Appears acute as counts were normal on admission. Could be consumption secondary to sepsis as per #1. Does not appear DIC though. Platelets slightly trending up today and appear overall stable in the noncritical range. Will await for HIT panel to come back however this appears less likely. Acute hepatitis panel pending. For now, avoid heparin or heparin containing products as per #2. Monitor closely. 5. Anemia: Likely multifactorial. Normocytic, hypochromic counts appears secondary to iron deficiency anemia. TIBC low and ferritin elevated likely as APR. H/H trending down, will give trial dose of IV Iron although plan to limit IV Iron secondary to elevated ferritin level as above. Monitor for now. 6. DVT proph: Continue on argatroban per #2. Above plan discussed with Dr. Franklin. Thank you for the consult. I will be available. Please call with questions.
--- NOTE | 2019-09-14 08:50 | Diagnostic Imaging Report ---
EXAM: CHEST SINGLE (PORTABLE) DATE: 09/14/2019 5:20 AM INDICATION: Respiratory failure COMPARISON: 09/13/2019 FINDINGS/IMPRESSION: Right IJ nontunneled dialysis catheter, right-sided PICC line, an endotracheal tube identified in stable position. Enteric tube noted coursing below the diaphragm. Again identified are patchy airspace opacities throughout the lungs bilaterally, which appears similar to slightly decreased in appearance from the prior examination. Findings can be seen in the setting of a multifocal/viral infectious process. There is no evidence for pneumothorax or significant volume pleural effusion. The cardiomediastinal silhouette is stable in appearance. No acute osseous abnormalities identified. Signed by: Dr. Fabricio Snyder MD on 09/14/2019 8:47 AM
[2019-09-14] MEDS ORDERED: SODIUM CHLORIDE 0.9% 1000ML 3,000 ML ONE (08:56)
[2019-09-14] MEDS ORDERED: HEPARIN SOD (PORCINE) 1000 UNIT/ML SDV ONE (08:57)
[2019-09-14] MEDS: CEFTRIAXONE SOD 1 GM/NS 50 ML 50 ML IV SCH (09:07)
[2019-09-14] MEDS: ZINC SULFATE 220 MG CAP PO SCH (09:34)
[2019-09-14] MEDS: PANTOPRAZOLE 40 MG 10ML VIAL IV SCH (09:34)
[2019-09-14] MEDS: ASCORBIC ACID 500 MG TAB PO SCH ×2 (09:34→21:10)
[2019-09-14] MEDS ORDERED: SODIUM FERRIC GLUCONATE COMPLX 125 MG in SODIUM CHLORIDE 0.9% 100 ML 100 ML IV ONE (10:00)
[2019-09-14] MEDS: ARGATROBAN 250 MG in SODIUM CHLORIDE 0.9% 250ML 247.5 ML IV SCH (10:03)
--- NOTE | 2019-09-14 16:09 | Progress Note ---
DATE: SUBJECTIVE: The patient had dialysis again today. She remains on a PRVC mode of ventilation at a rate of 26 with the FiO2 of 100% PEEP of 13. Her tidal volume was 370. She remains on Versed and fentanyl along with rocuronium. PHYSICAL EXAMINATION: VITAL SIGNS: The patient is afebrile. Blood pressure is 126/73, saturation set at 90%. She is on the above ventilator settings. She is on fentanyl and Versed as well as rocuronium. HEENT: Shows no facial swelling or erythema. There is an oral endotracheal tube. The patient has a right IJ line. The site looks clean. There is no drainage. CARDIAC: Reveals regular rate and rhythm with normal S1 and S2. LUNGS: Auscultation of lungs reveals crackles at the bases. There is no wheezing. ABDOMEN: Soft and nontender. There is no rebound or guarding. EXTREMITIES: Shows 2 to 3+ leg edema. LABORATORY DATA: White blood cell count is 12.98 and hemoglobin is 8.4. The platelet count is 93. The patient's BUN to creatinine ratio is 44 to 2.3. The other electrolytes are within normal limits. Albumin is 2.1. RADIOGRAPHIC DATA: Chest x-ray shows bilateral infiltrates. IMPRESSION: 1. Acute respiratory failure. 2. Viral pneumonia and COVID-19 infection. 3. Acute renal failure. 4. Thrombocytopenia. 5. Anemia secondary to chronic blood loss. 6. Diabetes. 7. Thrombocytopenia. PLAN: 1. Place the patient in prone position. 2. Continue current mode of ventilation and monitor ABGs. 3. Continue dialysis as needed. 4. Complete antibiotics. 5. Continue enteral feedings. 6. Prognosis is poor. Greater than 35 minutes in direct critical care time. Alex Crews MD [facility]/MODL /[id number]
[2019-09-14] MEDS: FLUCONAZOLE 200 MG/100 ML 100 ML IV SCH (16:50)
--- NOTE | 2019-09-14 19:44 | Progress Note ---
DATE: SUBJECTIVE: Ms. Hernandez remains in Intensive Care Unit, intubated, sedated. OBJECTIVE: VITAL SIGNS: Stable. Afebrile. HEENT: She is not icteric. NECK: Supple. CHEST: Crackles. HEART: S1, S2. ABDOMEN: Soft. Bowel sounds present. EXTREMITIES: No edema. IMPRESSION AND PLAN: 1. Respiratory failure. 2. COVID-19. 3. Acute renal failure. 4. Anemia. 5. Diabetes mellitus. Currently, on dialysis. White count 12.9 and hemoglobin 8.4. Sodium 136 and creatinine 2.3. Currently, on fluconazole and Rocephin. The plan is to continue both for 7 days, and then we will stop. Anderson Perera MD [facility]/MODL /[id number]
[2019-09-14 20:37] LABS: ABG PCO2 45 mmHg (35-45); ABG PH 7.32 (7.35-7.45); ABG PO2 74 mmHg (80-105)
[2019-09-14 20:38] LABS: ABG HCO3 23 mmol/L (22-26); ABG TCO2 24
[2019-09-14] MEDS: INSULIN GLARGINE 100 UNITS/ML VIAL SQ SCH (21:46)
[2019-09-15] VITALS (26 sets, daily range): BP systolic 102–135; BP diastolic 49–80
[2019-09-15] MEDS: INSULIN REGULAR, HUMAN 100 UNIT/1 ML 3ML VIAL SQ SCH ×5 (00:03→23:43)
[2019-09-15] MEDS: FENTANYL 2000MCG/NS 250 250 ML IV PRN ×3 (00:27→18:31)
[2019-09-15 04:32] LABS: BASOPHILS # (AUTO) 0.1 (0.0-0.1); BASOPHILS % 0.4 % (0.0-1.0); EOSINOPHILS # (AUTO) 0.2 (0.0-0.4); EOSINOPHILS % 1.3 % (0.0-6.0); HEMATOCRIT 25.1 % (34.2-44.1); LYMPHOCYTES # (AUTO) 0.8 (1.0-3.2); LYMPHOCYTES % 5.9 % (18.0-39.1); MEAN CORPUSCULAR HEMOGLOBIN 27.8 pg (28-32); MEAN CORPUSCULAR HGB CONC 31.9 g/dL (31-35); MEAN CORPUSCULAR VOLUME 87.2 fL (81-99); MONOCYTES # (AUTO) 0.3 (0.2-0.8); MONOCYTES % 2.1 % (4.4-11.3); NEUTROPHILS # (AUTO) 10.3 (2.1-6.9); NEUTROPHILS % 81.4 % (38.7-80.0); PLATELET COUNT 104 x10e3/uL (140-360); RED BLOOD COUNT 2.88 x10e6/uL (3.6-5.1); RED CELL DISTRIBUTION WIDTH 15.7 % (11.7-14.4)
[2019-09-15 04:56] LABS: ALBUMIN 1.8 g/dL (3.5-5.0); ALBUMIN/GLOBULIN RATIO 0.5 (0.8-2.0); ANION GAP 15.1 mmol/L (8-16); CALCIUM 7.2 mg/dL (8.4-10.2); CREATININE, SERUM 2.06 mg/dL (0.57-1.11); POTASSIUM 4.1 mmol/L (3.5-5.1)
[2019-09-15] MEDS: ROCURONIUM BROMIDE 250 MG in SODIUM CHLORIDE 0.9% 250ML 225 ML IV SCH ×4 (05:30→23:49)
[2019-09-15] MEDS: ARGATROBAN 250 MG in SODIUM CHLORIDE 0.9% 250ML 247.5 ML IV SCH (05:30)
[2019-09-15] MEDS: MIDAZOLAM HCL 5MG/ML 10ML VIAL 100 ML IV PRN ×3 (05:45→21:40)
--- NOTE | 2019-09-15 06:30 | NUR ---
IM- progress note O/N see below ROS; unreliable v/s; revd PE tired appearing; intubated; NGT anicteric ns1s2 reduced BS soft nt nd no e/t skin dry flat affect adams labs/meds revd A/P; 73yoF Multifocal PNA- azithromycin/ceftriaxone/antitussives/loratadine/flonase/Pulm/ID consult COVID19 positive PNA- as above Sepsis- hold antiHTN meds; IV abx Acute resp failure-BIPAP/Hiflo; Now intubated; Hypokalemia- recheck HTN- cont home meds GERd- cont med Osteoporosis- hold med 09-12-19 remains intubated; f/u labs; continue zosyn; RADHA- recheck later today; give free water flushes with NGT; Thrombocytopenia- d/c lovenox; 09-12 check labs; cont vent support; 09-13 HD started; remains intubated; cont care; 09-14 cont care; monitor; labs rev/d Estuardo. MD Froylan, PhD.
[2019-09-15 08:06] LABS: BAND NEUTROPHILS % (MANUAL) 1 %; EOSINOPHILS % (MANUAL) 1 % (0-7); LYMPHOCYTES % (MANUAL) 6 % (19-48); MYELOCYTES % (MANUAL) 3 % (0-0); NEUTROPHILS % (MANUAL) 89 % (40-74); NUCLEATED RED BLOOD CELLS 1
[2019-09-15 08:07] LABS: ANISOCYTOSIS SLIGHT; PLATELET ESTIMATE SLIGHTLY DECREASED; PLATELET MORPHOLOGY COMMENT FEW LARGE; RBC MORPHOLOGY COMMENT NORMAL
--- NOTE | 2019-09-15 08:33 | NUR ---
HEMATOLOGY/ONCOLOGY PROGRESS NOTE: REASON FOR CONSULTATION: Anticoagulation management HISTORY OF PRESENT ILLNESS: Events noted, HIT still not back? Will reorder. Discussed with nurse. REVIEW OF SYSTEMS: 14 Point ROS unable to obtain secondary to patient intubated and sedated PHYSICAL EXAMINATION: VITAL SIGNS: Reviewed per [facility] PHYSICAL EXAM NOT PERFORMED PATIENT IS ON COVID19 ICU UNIT ON CONTACT PRECAUTIONS. LABORATORY DATA: 09/15/2019 WBC: 12.65 Hgb: 8.0 Hct: 25.1 Plt: 104 BUN: 37 Creatinine: 2.06 HIT antibody: Pending D-dimer: 3390 CRP: pending RADIOGRAPHIC DATA: CXR 09/14/2019: Right IJ nontunneled dialysis catheter, right-sided PICC line, an endotracheal tube identified in stable position. Enteric tube noted coursing below the diaphragm. Again identified are patchy airspace opacities throughout the lungs bilaterally, which appears similar to slightly decreased in appearance from the prior examination. Findings can be seen in the setting of a multifocal/viral infectious process. There is no evidence for pneumothorax or significant volume pleural effusion. The cardiomediastinal silhouette is stable in appearance. No acute osseous abnormalities identified. ASSESSMENT/PLAN: Ms. Hernandez is a 73-year-old female with past medical history of GERD, HTN, Chronic pain syndrome, and osteoporosis, who was admitted on 08/27/2019 with malaise and fever along with dyspnea nd cough found to have COVID19 pneumonia leading to acute respiratory failure requiring intubation and transfer to the COVID ICU. She has been on IV antibiotics, Vitamin C, Zinc, and started on pressor support on 09/11/2019. Patient was noted to have worsening renal failure with minimal urine output and clotting in Cherry catheter. Patient was on DVT proph with Lovenox 30mg sq daily, however, due to clots in Cherry catheter, Lovenox was discontinued and DIC and HIT panel were ordered. Hematology/Oncology has been consulted to assist with management. 1. COVID19 PNA/sepsis/resp failure: Patient is on IV antibiotics, Zinc, Vitamin C. Patient remains intubated and sedated. Leukocytosis stable, currently afebrile. Managed per ICu/primary/pulmonary/ID teams on board. 2. Anticoagulation: Patient is at increased risk for microthrombotic event secondary to COVID19. Lovenox 30mg sq daily has been discontinued with HIT panel pending, reordered STAT this morning. Continue patient on argatroban drip until HIT panel is back as patient is intubated, has worsening renal failure requiring dialysis, and inflammatory markers are elevated. If HIT negative, patient can likely switch to heparin drip. Will check inflammatory markers daily including D-dimer and CRP, D-dimer trending down, CRP pending for today. Monitor closely for now. 3. Renal failure: Uncertain etiology. Could be secondary to COVID19 PNA however recommend avoiding nephrotoxic medications. Clots in cherry catheter noted on 09/13/19, does not appear DIC. S/p dialysis catheter placement, on HD, creatinine trending down. Managed per ICU/Primary/Nephrology team. 4. Thrombocytopenia: Appears acute as counts were normal on admission. Could be consumption secondary to sepsis as per #1. Does not appear DIC though. Platelets trending up and appear overall stable in the noncritical range. Will await for HIT panel to come back however this appears less likely. Acute hepatitis panel negative. For now, avoid heparin or heparin containing products as per #2. Monitor closely. 5. Anemia: Likely multifactorial. Appears secondary to iron deficiency anemia. TIBC low and ferritin elevated likely as APR. H/H trending down, s/p trial dose of IV Iron. Plan to limit IV Iron secondary to elevated ferritin level as above. Transfuse if hemoglobin <7. Monitor for now. 6. DVT proph: Continue on argatroban per #2. Above plan discussed with Dr. Franklin. Thank you for the consult. I will be available. Please call with questions.
[2019-09-15] MEDS: PANTOPRAZOLE 40 MG 10ML VIAL IV SCH (09:58)
[2019-09-15] MEDS: CEFTRIAXONE SOD 1 GM/NS 50 ML 50 ML IV SCH (09:58)
[2019-09-15] MEDS: ZINC SULFATE 220 MG CAP PO SCH (09:58)
[2019-09-15] MEDS: ASCORBIC ACID 500 MG TAB PO SCH ×2 (09:58→19:58)
--- NOTE | 2019-09-15 10:52 | Diagnostic Imaging Report ---
X-ray chest AP portable prone Comparison: 09/14/2019 History: Respiratory failure. Findings: Endotracheal tube at the thoracic inlet. Nasogastric tube courses down the expected path with the tip overlying the left upper quadrant. Right arm PICC line with the tip overlying the cavoatrial junction. A large bore double lumen catheter in the superior vena cava. All of these are unchanged. There is no definite pleural effusion. There is no pneumothorax. There is apparent worsening of the right lung infiltrates. Bilateral diffuse pulmonary infiltrates are present and relatively unchanged in the left lung. Visualized skeletal structures show left rib fractures. Upper abdomen unremarkable. Impression: Worsening of bilateral pulmonary infiltrates. Signed by: Chuckie Pollock MD on 09/15/2019 10:49 AM
--- NOTE | 2019-09-15 12:38 | Progress Note ---
DATE: SUBJECTIVE: The patient is currently on mechanical ventilation. Her tidal volume is decreased to 390. Her rate is increased to 36, her PEEP is 10, and her FiO2 is 80%. She remains on fentanyl and Versed as well as rocuronium. She is also on argatroban. She is currently in the prone position. PHYSICAL EXAMINATION: VITAL SIGNS: The blood pressure is 127/58 and pulse is 101. Saturation is 97% on the above mentioned settings. HEENT: Shows some irritation and slight bleeding in the perilabial area. The patient has an oral endotracheal tube. There is a dialysis catheter in place on the right side. CARDIAC: Reveals regular rate and rhythm with normal S1 and S2. LUNGS: Auscultation of lungs reveals crackles at the bases. There is no wheezing. ABDOMEN: Soft and nontender. There is no rebound or guarding. EXTREMITIES: Shows 1 to 2+ leg edema. LABORATORY DATA: White blood cell count is 12.6 and hemoglobin is 8. The platelet count is 104. BUN to creatinine ratio is 37 to 2.06. The other electrolytes are within normal limits. The total bilirubin is 1.9. AST is 82 and the albumin is 1.8. RADIOGRAPHIC DATA: Chest x-ray shows bilateral infiltrates. IMPRESSION: 1. Acute respiratory failure. 2. Viral pneumonia and COVID-19 infection. 3. Acute renal failure. 4. Thrombocytopenia. 5. Anemia secondary to chronic blood loss. 6. Diabetes. PLAN: 1. Continue to adjust ventilator as tolerated and monitor ABG. 2. Continue enteral feedings. 3. Continue argatroban until HIT antibodies are available. 4. Complete antibiotics. 5. Prognosis remains poor. 6. Family is aware of poor prognosis. 7. Case discussed with Respiratory, nursing, medicine, Nephrology, and administration. Greater than 35 minutes in direct critical care time. Alex Crews MD [facility]/MODL /[id number]
[2019-09-15 13:33] LABS: ABG PCO2 49 mmHg (35-45); ABG PH 7.27 (7.35-7.45); ABG PO2 108 mmHg (80-105)
[2019-09-15 13:34] LABS: ABG HCO3 23 mmol/L (22-26); ABG TCO2 24
--- NOTE | 2019-09-15 14:54 | Progress Note ---
DATE: 09/15/2019 Nephrology Progress Note SUBJECTIVE: Followed up for acute kidney injury, which is essentially anuric. Has been dialyzed twice so far, ultrafiltered 2.5 L yesterday, limited by tachycardia. OBJECTIVE: GENERAL: The patient remains sedated, and mechanically ventilated. FiO2 of 80% with PEEP of 10. VITAL SIGNS: Blood pressure 127/58, pulse 101, saturation 97% on above oxygen settings. HEENT: Positive for periorbital edema. Endotracheal tube in place. CARDIAC: Regular rate and rhythm. LUNGS: Bilateral air entry to mechanical ventilation. EXTREMITIES: 1 to 2+ leg edema. LABORATORY DATA: Labs are reviewed. Hemoglobin 8 and white count 12.6. BUN down to 2.06 following yesterday's dialysis. Electrolytes stable. Serum albumin 1.8. IMPRESSION: 1. Acute, anuric renal failure, most likely coronavirus disease induced acute tubular necrosis. No improvement yet. Being dialyzed for fluid overload and pulmonary edema. 2. History of hypertension, currently not requiring any blood pressure medications. 3. Fluid overload, remains in positive balance despite ultrafiltration x2. RECOMMENDATIONS: These were discussed with RN. Attempt to concentrate all IV infusions to limit intake. We will dialyze and ultrafilter today, attempting to remove maximum fluid tolerated to improve respiratory status. Bishop Nation MD [facility]/MODL /[id number]
[2019-09-15 15:41] LABS: ABG HCO3 22 mmol/L (22-26); ABG PH 7.28 (7.35-7.45); ABG TCO2 23
[2019-09-15 15:42] LABS: ABG PCO2 47 mmHg (35-45); ABG PO2 100 mmHg (80-105)
[2019-09-15] MEDS: FLUCONAZOLE 200 MG/100 ML 100 ML IV SCH (16:45)
--- NOTE | 2019-09-15 17:32 | NUR ---
MPRESSION: 1. Acute respiratory failure. 2. Viral pneumonia and COVID-19 infection. 3. Acute renal failure. 4. Thrombocytopenia. 5. Anemia secondary to chronic blood loss. 6. Diabetes. PLAN: 1. Continue to adjust ventilator as tolerated and monitor ABG. 2. Continue enteral feedings. 3. Continue argatroban until HIT antibodies are available. 4. Complete antibiotics. 5. Prognosis remains poor. 6. Family is aware of poor prognosis. 7. Case discussed with Respiratory, nursing, medicine, Nephrology, and administration. Greater than 35 minutes in direct critical care time. [id number]
[2019-09-15] MEDS ORDERED: SODIUM CHLORIDE 0.9% 1000ML 2,000 ML ONE (20:49)
[2019-09-15] MEDS: INSULIN GLARGINE 100 UNITS/ML VIAL SQ SCH (21:00)
[2019-09-15] MEDS ORDERED: HEPARIN SOD (PORCINE) 1000 UNIT/ML SDV ONE ×2 (22:46→23:39)
[2019-09-16] VITALS (25 sets, daily range): BP systolic 100–146; BP diastolic 45–68
[2019-09-16] MEDS: MIDAZOLAM HCL 5MG/ML 10ML VIAL 100 ML IV PRN ×3 (04:00→18:24)
[2019-09-16 04:41] LABS: BASOPHILS # (AUTO) 0.1 (0.0-0.1); BASOPHILS % 0.7 % (0.0-1.0); EOSINOPHILS # (AUTO) 0.2 (0.0-0.4); EOSINOPHILS % 1.6 % (0.0-6.0); HEMATOCRIT 23.6 % (34.2-44.1); HEMOGLOBIN 7.5 g/dL (12.0-16.0); LYMPHOCYTES # (AUTO) 0.7 (1.0-3.2); LYMPHOCYTES % 5.4 % (18.0-39.1); MEAN CORPUSCULAR HEMOGLOBIN 28.4 pg (28-32); MEAN CORPUSCULAR HGB CONC 31.8 g/dL (31-35); MEAN CORPUSCULAR VOLUME 89.4 fL (81-99); MONOCYTES # (AUTO) 0.3 (0.2-0.8); MONOCYTES % 2.1 % (4.4-11.3); NEUTROPHILS # (AUTO) 10.4 (2.1-6.9); NEUTROPHILS % 79.7 % (38.7-80.0); PLATELET COUNT 105 x10e3/uL (140-360); RED BLOOD COUNT 2.64 x10e6/uL (3.6-5.1); RED CELL DISTRIBUTION WIDTH 16.1 % (11.7-14.4)
[2019-09-16 05:01] LABS: ALBUMIN 1.7 g/dL (3.5-5.0); ALBUMIN/GLOBULIN RATIO 0.4 (0.8-2.0); ANION GAP 14.2 mmol/L (8-16); CALCIUM 7.4 mg/dL (8.4-10.2); CREATININE, SERUM 1.72 mg/dL (0.57-1.11); POTASSIUM 4.2 mmol/L (3.5-5.1)
[2019-09-16] MEDS: INSULIN REGULAR, HUMAN 100 UNIT/1 ML 3ML VIAL SQ SCH ×3 (06:00→18:10)
[2019-09-16] MEDS: ROCURONIUM BROMIDE 250 MG in SODIUM CHLORIDE 0.9% 250ML 225 ML IV SCH ×2 (06:15→20:50)
--- NOTE | 2019-09-16 06:31 | NUR ---
IM- progress note O/N see below ROS; unreliable v/s; revd PE tired appearing; intubated; NGT anicteric ns1s2 reduced BS soft nt nd no e/t skin dry flat affect adams labs/meds revd A/P; 73yoF Multifocal PNA- azithromycin/ceftriaxone/antitussives/loratadine/flonase/Pulm/ID consult COVID19 positive PNA- as above Sepsis- hold antiHTN meds; IV abx Acute resp failure-BIPAP/Hiflo; Now intubated; Hypokalemia- recheck HTN- cont home meds GERd- cont med Osteoporosis- hold med 09-12-19 remains intubated; f/u labs; continue zosyn; RADHA- recheck later today; give free water flushes with NGT; Thrombocytopenia- d/c lovenox; 09-12 check labs; cont vent support; 09-13 HD started; remains intubated; cont care; 09-14 cont care; monitor; labs rev/d 09-15 started on argatroban; falling Hb- recheck at 4pm. continue supportive care; Monitor BP CleveO. Froylan MD, PhD.
[2019-09-16 07:08] LABS: ABG HCO3 23 mmol/L (22-26); ABG PCO2 46 mmHg (35-45); ABG PH 7.32 (7.35-7.45); ABG PO2 82 mmHg (80-105); ABG TCO2 25
[2019-09-16 07:35] LABS: BAND NEUTROPHILS % (MANUAL) 3 %; EOSINOPHILS % (MANUAL) 2 % (0-7); LYMPHOCYTES % (MANUAL) 2 % (19-48); MONOCYTES % (MANUAL) 1 % (3.4-9.0); MYELOCYTES % (MANUAL) 6 % (0-0); NEUTROPHILS % (MANUAL) 86 % (40-74)
[2019-09-16 07:36] LABS: ANISOCYTOSIS SLIGHT; PLATELET ESTIMATE SLIGHTLY DECREASED
[2019-09-16 07:37] LABS: POLYCHROMASIA FEW
[2019-09-16 07:38] LABS: PLATELET MORPHOLOGY COMMENT NORMAL; RBC MORPHOLOGY COMMENT NORMAL
--- NOTE | 2019-09-16 08:36 | Diagnostic Imaging Report ---
Examination: Single AP view of the chest. COMPARISON: 09/15/2019 INDICATION: Respiratory failure DISCUSSION: Endotracheal tube, enteric tube, right upper extremity PICC, and right internal jugular high flow central venous catheter are stable in appearance when accounting for differences in patient positioning. The lungs remain reasonably well inflated. Interval improvement in multifocal consolidations relative to 09/15/2019, particularly with improved aeration of the upper lung zones. No pneumothorax. Stable cardiomediastinal contour. Left-sided rib fractures described on the comparison examination are less conspicuous on the current radiograph. IMPRESSION: Stable position of support lines and tubes. Slight interval improvement in multifocal airspace consolidations relative to 09/15/2019. Signed by: Dr. Higinio Suero M.D. on 09/16/2019 8:32 AM
--- NOTE | 2019-09-16 08:37 | Progress Note ---
DATE: SUBJECTIVE: The patient desaturates last night after being turned from the prone position to the supine position. Her FiO2 was increased to 100%. She subsequently received dialysis and her oxygenation improved. She is now on 80%. She is on a PRVC mode of ventilation, rate of 36 with a tidal volume of 370 and FiO2 of 80% and a PEEP of 12. PHYSICAL EXAMINATION: VITAL SIGNS: The blood pressure is 108/45 and saturation is 93%, and respiratory rate is 36. She is breathing with the ventilator. HEENT: Shows no facial swelling or erythema. LYMPHATIC: Shows no submandibular, cervical, or supraclavicular adenopathy. CARDIAC: Reveals regular rate and rhythm with normal S1 and S2. LUNGS: Auscultation of lungs is crackles at the bases. There is no wheezing. ABDOMEN: Soft and nontender. There is no rebound or guarding. EXTREMITIES: Shows no leg edema or calf tenderness. There is no cyanosis or clubbing. SKIN: Shows no rashes. NEUROLOGIC: The patient to be sedated. She is currently on rocuronium, Versed and fentanyl. LABORATORY DATA: White blood cell count is 13.1, hemoglobin is 7.5, and the platelet count is 105. HIT antibody was negative. Electrolytes within normal limits. BUN to creatinine ratio is 29 to 1.72. Albumin is 1.7. Total bilirubin is 1.8, AST is 70, and the alkaline phosphatase is 232. IMPRESSION: 1. Acute respiratory failure. 2. Viral pneumonia and COVID-19. 3. Acute renal failure. 4. Thrombocytopenia. 5. Anemia, unspecified. 6. Diabetes. PLAN: 1. The patient is scheduled to receive ultrafiltration again today. 2. Continue enteral feedings. 3. Stop argatroban and restart heparin. 4. Complete antibiotics. 5. Monitor blood counts. 6. Continue to monitor blood sugars and adjust insulin. 7. Continue enteral feedings. 8. Case discussed with Dr. Galeano of Internal Medicine, Nephrology, administration, nursing, and Respiratory. Greater than 35 minutes in direct critical care time. Alex Crews MD [facility]/MODL /[id number]
[2019-09-16] MEDS: CEFTRIAXONE SOD 1 GM/NS 50 ML 50 ML IV SCH (08:42)
[2019-09-16] MEDS: PANTOPRAZOLE 40 MG 10ML VIAL IV SCH (08:42)
[2019-09-16] MEDS: ZINC SULFATE 220 MG CAP PO SCH (08:42)
[2019-09-16] MEDS: ASCORBIC ACID 500 MG TAB PO SCH ×2 (08:42→20:09)
--- NOTE | 2019-09-16 09:22 | Progress Note ---
DATE: 09/16/2019 Renal Progress Note BODY AFTER ALLERGIES: SUBJECTIVE: The patient is followed for acute kidney injury, ATN secondary to COVID pneumonia. The patient remains intubated in the ICU. The patient has been having 12 hours of proning and 12 hours of supination, remains on the vent, dialysis #3, treatment #3 was done yesterday. Ultrafiltration was done as well as clearance. The patient's labs this morning, creatinine is 1.7, potassium is 4.2, BUN is 29. The patient's chest x-ray from yesterday showed increased worsening pulmonary infiltrates. OBJECTIVE: VITAL SIGNS: Have been noted. Blood pressure 108/45, respirations 30s, pulse 100, afebrile, 93% on O2 saturation, the patient is on about 85% FiO2. LUNGS: Bilateral rhonchi over the lung etienne. CARDIOVASCULAR: S1, S2. No rub. ABDOMEN: Soft. Positive bowel sounds. Difficult to assess tenderness. EXTREMITIES: No evidence of lower extremity edema. No clubbing or cyanosis. LABORATORY DATA: Creatinine 1.7, BUN 29, potassium is 4.2. IMPRESSION AND PLAN: 1. Acute kidney injury, sustained acute tubular necrosis. We will continue to monitor daily for dialysis needs. The patient may even benefit from ultrafiltration only today and then will likely need both clearance and ultrafiltration tomorrow and we will watch daily for any further dialysis needs. 2. Hypertension. Blood pressure is currently stable. Continue to monitor. 3. Fluid overload. We will ultrafilter as allowed by dialysis. We will also consider adding IV Lasix if the patient has become nonoliguric and is not already on IV Lasix. 4. Coronavirus disease pneumonia. Plan would be as per pulmonology recommendations. Dao Diallo MD [facility]/MODL /[id number]
--- NOTE | 2019-09-16 09:33 | Progress Note ---
DATE: SUBJECTIVE: Ms. Hernandez remain intubated, sedated. OBJECTIVE: VITAL SIGNS: Stable and afebrile. HEENT: She is not icteric. NECK: Supple. CHEST: Crackles. HEART: S1 and S2. ABDOMEN: Soft. IMPRESSION: 1. Respiratory failure, COVID-19. 2. Acute kidney injury. 3. Thrombocytopenia. 4. Anemia. 5. Diabetes. 6. Continue supportive care as ordered. Prognosis remains poor. Discussed with medical team. We will follow. MD KAMAR Galdamez/MODL /[id number]
[2019-09-16] MEDS: ARGATROBAN 250 MG in SODIUM CHLORIDE 0.9% 250ML 247.5 ML IV SCH (10:00)
--- OUTSIDE RECORDS SUMMARY | 2019-09-16 10:12 | XMS REPORT ---
Author Author VALERIA Jade Organization [employer] Address Unknown Phone Unavailable Care Team Providers Care Dipper Machine Operator Name Role Phone Lucinda Jade CP Unavailable Allergies No Known Allergies Problems Problem Type Condition Code Onset Dates Condition Statu s Problem Left knee pain M25.562 Active Medications No Known Medications Results No Known Results Summary Purpose eClinicalWorks Submission
--- OUTSIDE RECORDS SUMMARY | 2019-09-16 10:12 | XMS REPORT ---
Author Author VALERIA Jade Organization [employer] Address Unknown Phone Unavailable Care Team Providers Care Virtual Assistant Name Role Phone Lucinda Jade CP Unavailable Allergies, Adverse Reactions, Alerts Substance Reaction Event Type N.K.D.A. Info Not Available Non Drug Allergy Problems Problem Type Condition Code Onset Dates Condition Statu s Problem Left knee pain M25.562 Active Problem Temporal arteritis M31.6 Active Assessment Temporal arteritis M31.6 Active Medications Medication Code System Code Instructions Start Date End Date Status Dosage Amlodipine Besy-Benazepril HCl ND 32668402284 5-10 MG Orally on ce a day Active 1 tablet Actemra SQ ND 6553018214 162mg/0.9 mL subcutaneous every wee k June 15, 2018 Active 1 injection PredniSONE ND 70493947912 20 MG Orally Once a day A ctive 1.5 tablets FD nathen NDC 0 Active as directed Vital Signs Date/Time: June 30, 2018 BMI 32 Index Weight 157.1 lbs Height 59 in Temperature 98.8 F Cardiac Monitoring Heart Rate 84 /min Blood Pressure Diastolic 76 mm Hg Blood Pressure Systolic 138 mm Hg Results No Known Results Summary Purpose eClinicalWorks Submission
--- OUTSIDE RECORDS SUMMARY | 2019-09-16 10:12 | XMS REPORT ---
Author Author VALERIA Paz Organization [employer] Address Unknown Phone Unavailable Care Team Providers Care Process Improvement Consultant Name Role Phone Norbert Paz CP Unavailable Allergies No Known Allergies Problems Problem Type Condition Code Onset Dates Condition Statu s Problem Hypercholesteremia E78.00 Active Problem Vitamin D deficiency E55.9 Active Problem Liver function abnormality K76.89 A ctive Problem Left knee pain M25.562 Active Problem Osteoporosis M81.0 Active Problem Temporal arteritis M31.6 Active Medications Medication Code System Code Instructions Start Date End Date Status Dosage PredniSONE [facility] 48100888802 5 MG Orally Once a day Feb 02, 2019 Active 4 Tablets Results No Known Results Summary Purpose eClinicalWorks Submission
--- OUTSIDE RECORDS SUMMARY | 2019-09-16 10:12 | XMS REPORT ---
Author Author VALERIA Metz Organization [employer] Address Unknown Phone Unavailable Care Team Providers Care Clutch Inspector Name Role Phone Mira Metz CP Unavailable Allergies No Known Allergies Problems Problem Type Condition Code Onset Dates Condition Statu s Problem Liver function abnormality K76.89 A ctive Problem Hypercholesteremia E78.00 Active Problem Elevated C-reactive protein (CRP) R79.82 Active Problem Temporal arteritis M31.6 Active Problem Left knee pain M25.562 Active Problem Vitamin D deficiency E55.9 Active Problem Osteoporosis M81.0 Active Medications Medication Code System Code Instructions Start Date End Date Status Dosage Alendronate Sodium [facility] 62493938399 70 MG Orally once a week June 21, 2019 Active 1 tablet Results No Known Results Summary Purpose eClinicalWorks Submission
--- OUTSIDE RECORDS SUMMARY | 2019-09-16 10:12 | XMS REPORT ---
Author Author VALERIA Metz Organization [employer] Address Unknown Phone Unavailable Care Team Providers Care Gypsum Block Setter Name Role Phone Mira Metz CP Unavailable Allergies, Adverse Reactions, Alerts Substance Reaction Event Type N.K.D.A. Info Not Available Non Drug Allergy Problems Problem Type Condition Code Onset Dates Condition Statu s Assessment Osteoporosis M81.0 Active Assessment Temporal arteritis M31.6 Active Assessment Immunocompromised patient D89.9 Ac tive Assessment Encounter for long-term (current) drug use Z79.899 Active Problem Liver function abnormality K76.89 A ctive Problem Hypercholesteremia E78.00 Active Problem Elevated C-reactive protein (CRP) R79.82 Active Problem Temporal arteritis M31.6 Active Problem Left knee pain M25.562 Active Problem Vitamin D deficiency E55.9 Active Problem Osteoporosis M81.0 Active Medications Medication Code System Code Instructions Start Date End Date Status Dosage Actemra SQ NDC 0 162mg/0.9 mL subcutaneous every other w [place] June 15, 2018 Active 1 injection Alendronate Sodium NDC 51235568635 70 MG Orally once a week August 30, 2018 Active 1 tablet PredniSONE NDC 0 10 MG Orally Once a day Mar 23, 2019 Active 1.5 Gabapentin NDC 29470483135 100 MG Orally Once a day Mar 25, 2019 Active 3 capsule FD nathen NDC 0 Active as directed Amlodipine Besy-Benazepril HCl NDC 25885405309 5-10 MG Orally on ce a day Active 1 tablet Omeprazole NDC 65218414455 40 MG Orally Once a day A ctive 1 capsule 30 minutes before morning meal Pregabalin NDC 93446606638 75 MG Orally Once a day A ctive 2 capsules Vital Signs Date/Time: June 23, 2019 Blood Pressure Diastolic 70 mm Hg Blood Pressure Systolic 117 mm Hg Results No Known Results Summary Purpose eClinicalWorks Submission
--- OUTSIDE RECORDS SUMMARY | 2019-09-16 10:12 | XMS REPORT ---
Author Author VALERIA Metz Organization [employer] Address Unknown Phone Unavailable Care Team Providers Care Rand Tacker Name Role Phone Mira Metz CP Unavailable [...] End Date Status Dosage Alendronate Sodium [facility] 66528632026 70 MG Orally once a week June 21, 2019 Active 1 tablet Results No Known Results Summary Purpose eClinicalWorks Submission
--- OUTSIDE RECORDS SUMMARY | 2019-09-16 10:12 | XMS REPORT ---
Author Author VALERIA Metz Organization [employer] Address Unknown Phone Unavailable Care Team Providers Care Residential Sales Executive Name Role Phone Mira Metz CP Unavailable Allergies, Adverse Reactions, Alerts Substance Reaction Event Type N.K.D.A. Info Not Available Non Drug Allergy Problems Problem Type Condition Code Onset Dates Condition Statu s Assessment Encounter for drug therapy Z79.899 A ctive Assessment Temporal arteritis M31.6 Active Assessment Osteoporosis M81.0 Active Problem Liver function abnormality K76.89 A ctive Problem Hypercholesteremia E78.00 Active Problem Elevated C-reactive protein (CRP) R79.82 Active Problem Temporal arteritis M31.6 Active Problem Left knee pain M25.562 Active Problem Vitamin D deficiency E55.9 Active Problem Osteoporosis M81.0 Active Medications Medication Code System Code Instructions Start Date End Date Status Dosage Gabapentin NDC 54777296933 100 MG Orally Once a day Mar 25, 2019 Active 3 capsule Pregabalin NDC 93077205721 75 MG Orally Once a day A ctive 2 capsules Omeprazole NDC 46205211291 40 MG Orally Once a day A ctive 1 capsule 30 minutes before morning meal Amlodipine Besy-Benazepril HCl NDC 12766265561 5-10 MG Orally on ce a day Active 1 tablet PredniSONE NDC 0 10 MG Orally Once a day Mar 23, 2019 Active 1.5 Alendronate Sodium NDC 08329423393 70 MG Orally once a week August 30, 2018 Active 1 tablet Actemra SQ NDC 0 162mg/0.9 mL subcutaneous every other w ione June 15, 2018 Active 1 injection FD nathen NDC 0 Active as directed Vital Signs Date/Time: May 12, 2019 BMI 34.27 Index Weight 164 lbs Height 58 in Cardiac Monitoring Heart Rate 99 /min Blood Pressure Diastolic 75 mm Hg Blood Pressure Systolic 122 mm Hg Results No Known Results Summary Purpose eClinicalWorks Submission
--- OUTSIDE RECORDS SUMMARY | 2019-09-16 10:12 | XMS REPORT | Clinical Summary ---
Author Author Jaiden Cheondoism Organization [employer] Address Unknown Phone Unavailable Care Team Providers Care Parts Inspector Name Role Phone PCP Unavailable Allergies Not on File Medications Not on file Active Problems Not on file Social History Date Tobacco Use Types Packs/Day Years Used Never Assessed Sex Assigned at Date Recorded Not on file Industry Job Start Date Occupation Not on file Not on file Not on file Travel End Travel History Travel Start No recent travel history available. Last Filed Vital Signs Not on file Plan of Treatment Health Maintenance Due Date Last Done Comments COLONOSCOPY SCREENING 12/15/1995 SHINGLES VACCINES (#1) 12/15/1995 65+ PNEUMOCOCCAL VACCINE 2010 (1 of 2 - PCV13) BREAST CANCER SCREENING 09/04/2012 09/04/2010 INFLUENZA VACCINE 09/17/2019 Results Not on fileafter 08/26/2018 Insurance Type Payer Benefit Subscriber ID Effective Phone Address Plan / Dates Group HMO [employer] C[employer] xxxxxxxxxxx [id number] [facility] Advance Directives For more information, please contact: [phone] Patient Director Plans Explanation Type Date Recorded Advance Directives, Living Will and Medical Power of Logistics Supervisor
--- OUTSIDE RECORDS SUMMARY | 2019-09-16 10:12 | XMS REPORT ---
Author Author VALERIA Metz Organization [employer] Address Unknown Phone Unavailable Care Team Providers Care Lion Hunter Name Role Phone Mira Metz CP Unavailable [...] Instructions Start Date End Date Status Dosage [facility] 57587408662 75 MG Orally Once a day May 10, 2019 Active 1 capsule Results No Known Results Summary Purpose eClinicalWorks Submission
--- OUTSIDE RECORDS SUMMARY | 2019-09-16 10:12 | XMS REPORT ---
Author Author VALERIA Metz Organization [employer] Address Unknown Phone Unavailable Care Team Providers Care Sizing End Bander Name Role Phone Mira Metz CP Unavailable Allergies, Adverse Reactions, Alerts Substance Reaction Event Type N.K.D.A. Info Not Available Non Drug Allergy Problems Problem Type Condition Code Onset Dates Condition Statu s Assessment Liver function abnormality K76.89 A ctive Assessment Temporal arteritis M31.6 Active Assessment Osteoporosis M81.0 Active Problem Hypercholesteremia E78.00 Active Problem Vitamin D deficiency E55.9 Active Problem Liver function abnormality K76.89 A ctive Problem Left knee pain M25.562 Active Problem Osteoporosis M81.0 Active Problem Temporal arteritis M31.6 Active Medications Medication Code System Code Instructions Start Date End Date Status Dosage Omeprazole NDC 19835829093 40 MG Orally Once a day A ctive 1 capsule 30 minutes before morning meal Actemra SQ ND 1391824823 162mg/0.9 mL subcutaneous every wee k June 15, 2018 Active 1 injection Alendronate Sodium NDC 93612521210 70 MG Orally once a week August 30, 2018 Active 1 tablet Biotin Maximum Strength ND 69663309462 97096 MCG Orally Once a day Active 1 tablet Amlodipine Besy-Benazepril HCl NDC 26104519559 5-10 MG Orally on a day Active 1 tablet PredniSONE NDC 0 10 MG Orally Once a day Jan 27, 2019 Active 3 tabs PredniSONE NDC 80184215108 5 MG Orally Once a day July 22, 2018 Active 1 tablet Prednisone NDC 0 1mg Orally Once a day Dec 07, 2018 Ac tive 4 tabs FD nathen NDC 0 Active as directed Vital Signs Date/Time: Jan 27, 2019 BMI 34.63 Index Weight 165.7 lbs Height 58 in Temperature 98.6 F Cardiac Monitoring Heart Rate 72 /min Blood Pressure Diastolic 70 mm Hg Blood Pressure Systolic 140 mm Hg Results Name Result Date Reference Range Unit Abnormali ty Flag C-REACTIVE PROTEIN ----C-REACTIVE PROTEIN 2.5 [id number] <8.0 mg/L N SED RATE BY MODIFIED WESTERGREN ----SED RATE BY MODIFIED WESTERGREN 2 [id number] < OR = 30 mm/h N Summary Purpose eClinicalWorks Submission
--- OUTSIDE RECORDS SUMMARY | 2019-09-16 10:12 | XMS REPORT ---
Author Author VALERIA Jade Organization [employer] Address Unknown Phone Unavailable Care Team Providers Care Town Administrator Name Role Phone Lucinda Jade CP Unavailable Allergies No Known Allergies Problems Problem Type Condition Code Onset Dates Condition Statu s Problem Osteoporosis M81.0 Active Problem Hypercholesteremia E78.00 Active Problem Vitamin D deficiency E55.9 Active Problem Temporal arteritis M31.6 Active Problem Left knee pain M25.562 Active Medications No Known Medications Results No Known Results Summary Purpose eClinicalWorks Submission
--- OUTSIDE RECORDS SUMMARY | 2019-09-16 10:12 | XMS REPORT ---
Author Author VALERIA Paz Organization [employer] Address Unknown Phone Unavailable Care Team Providers Care Chinese Language Professor Name Role Phone Norbert Paz CP Unavailable Allergies, Adverse Reactions, Alerts Substance Reaction Event Type N.K.D.A. Info Not Available Non Drug Allergy Problems Problem Type Condition Code Onset Dates Condition Statu s Assessment Pain in left knee M25.562 Active Problem Left knee pain M25.562 Active Medications Medication Code System Code Instructions Start Date End Date Status Dosage Amlodipine Besy-Benazepril HCl ND 97526103117 5-10 MG Orally on ce a day Active 1 tablet Meloxicam ND 10185362507 7.5 MG Orally bid with food AprilJuly 20, 2017 Active 1 tablet Aspir-81 ND 51845001932 81 MG Orally Once a day Act rich 1 tablet Vital Signs Date/Time: April 21, 2017 BMI 31.50 Index Weight 156 lbs Height 59 in Temperature 98.6 F Cardiac Monitoring Heart Rate 68 /min Blood Pressure Diastolic 62 mm Hg Blood Pressure Systolic 122 mm Hg Results No Known Results Summary Purpose eClinicalWorks Submission
--- OUTSIDE RECORDS SUMMARY | 2019-09-16 10:12 | XMS REPORT ---
Author Author VALERIA Jade Organization [employer] Address Unknown Phone Unavailable Care Team Providers Care Restorative Coordinator Name Role Phone Lucinda Jdae CP Unavailable Allergies, Adverse Reactions, Alerts Substance Reaction Event Type N.K.D.A. Info Not Available Non Drug Allergy Problems Problem Type Condition Code Onset Dates Condition Statu s Assessment Temporal arteritis M31.6 Active Problem Osteoporosis M81.0 Active Problem Hypercholesteremia E78.00 Active Problem Vitamin D deficiency E55.9 Active Assessment Osteoporosis M81.0 Active Problem Temporal arteritis M31.6 Active Problem Left knee pain M25.562 Active Medications Medication Code System Code Instructions Start Date End Date Status Dosage Ibuprofen ND 84147801109 200 MG Orally Three times a day Active 1 tablet with food or milk as needed PredniSONE ND 30076241561 5 MG Orally Once a day July 22, 2018 Active 2 tablet FD nathen NDC 0 Active as directed Amlodipine Besy-Benazepril HCl ND 96698358443 5-10 MG Orally on ce a day Active 1 tablet Actemra SQ ND 4436341067 162mg/0.9 mL subcutaneous every wee k June 15, 2018 Active 1 injection Alendronate Sodium ND 03749737539 70 MG Orally once a week August 30, 2018 Active 1 tablet Vital Signs Date/Time: Oct 29, 2018 BMI 33.20 Index Weight 164.4 lbs Height 59 in Temperature 97.1 F Cardiac Monitoring Heart Rate 72 /min Blood Pressure Diastolic 70 mm Hg Blood Pressure Systolic 120 mm Hg Results No Known Results Summary Purpose [employer] Submission
--- OUTSIDE RECORDS SUMMARY | 2019-09-16 10:12 | XMS REPORT ---
Author Author VALERIA Paz Organization [employer] Address Unknown Phone Unavailable Care Team Providers Care Mandarin Chinese Teacher Name Role Phone Norbert Paz CP Unavailable Allergies No Known Allergies Problems Problem Type Condition Code Onset Dates Condition Statu s Problem Left knee pain M25.562 Active Problem Temporal arteritis M31.6 Active Medications No Known Medications Results No Known Results Summary Purpose [employer] Submission
--- OUTSIDE RECORDS SUMMARY | 2019-09-16 10:12 | XMS REPORT ---
Author Author VALERIA Metz Organization [employer] Address Unknown Phone Unavailable Care Team Providers Care Moccasin Sewer Name Role Phone Mira Metz CP Unavailable Allergies, Adverse Reactions, Alerts Substance Reaction Event Type N.K.D.A. Info Not Available Non Drug Allergy Problems Problem Type Condition Code Onset Dates Condition Statu s Assessment Numbness R20.0 Active Assessment Temporal arteritis M31.6 Active Problem Liver function abnormality K76.89 A ctive Problem Hypercholesteremia E78.00 Active Problem Elevated C-reactive protein (CRP) R79.82 Active Problem Temporal arteritis M31.6 Active Problem Left knee pain M25.562 Active Problem Vitamin D deficiency E55.9 Active Problem Osteoporosis M81.0 Active Medications Medication Code System Code Instructions Start Date End Date Status Dosage FD nathen NDC 0 Active as directed Amlodipine Besy-Benazepril HCl NDC 07959323333 5-10 MG Orally on ce a day Active 1 tablet Alendronate Sodium NDC 52474662210 70 MG Orally once a week August 30, 2018 Active 1 tablet PredniSONE NDC 0 10 MG Orally Once a day Mar 23, 2019 Active 1.5 Pregabalin NDC 40436510049 75 MG Orally Once a day A ctive 2 capsules Omeprazole NDC 16833754190 40 MG Orally Once a day A ctive 1 capsule 30 minutes before morning meal Actemra SQ NDC 0 162mg/0.9 mL subcutaneous every other w viejas June 15, 2018 Active 1 injection Vital Signs Date/Time: July 26, 2019 Cardiac Monitoring Heart Rate 79 /min Blood Pressure Diastolic 67 mm Hg Blood Pressure Systolic 128 mm Hg Results No Known Results Summary Purpose eClinicalWorks Submission
--- OUTSIDE RECORDS SUMMARY | 2019-09-16 10:12 | XMS REPORT ---
Author Author VALERIA Jade Organization [employer] Address Unknown Phone Unavailable Care Team Providers Care Reproduction Production Manager Name Role Phone Lucinda Jade CP Unavailable [...] Date Status Dosage Amlodipine Besy-Benazepril HCl ND 52888232373 5-10 MG Orally on ce a day Active 1 tablet FD nathen NDC 0 Active as directed PredniSONE ND 56872218808 20 MG Orally Once a day I nactive 1.5 tablets Actemra SQ ND 7280576717 162mg/0.9 mL subcutaneous every wee k June 15, 2018 Active 1 injection PredniSONE ND 32923801831 5 MG Orally Once a day July 22, 2018 Nov 19, 2018 Active 25mg x 1wk, 20mg x1wk, 15mg x1wk, 10mgx1 wk and then take 5mg daily Vital Signs Date/Time: July 22, 2018 BMI 31.67 Index Weight 156.8 lbs Height 59 in Temperature 97.0 F Cardiac Monitoring Heart Rate 80 /min Blood Pressure Diastolic 78 mm Hg Blood Pressure Systolic 130 mm Hg Results No Known Results Summary Purpose [employer]ClinicalWorks Submission
--- OUTSIDE RECORDS SUMMARY | 2019-09-16 10:12 | XMS REPORT ---
Author Author VALERIA Paz Organization [employer] Address Unknown Phone Unavailable Care Team Providers Care Rn Cvicu Name Role Phone Norbert Paz CP Unavailable Allergies No Known Allergies Problems Problem Type Condition Code Onset Dates Condition Statu s Assessment Left knee pain M25.562 Active Assessment Medial meniscus tear S83.249A Active Problem Left knee pain M25.562 Active Medications No Known Medications Results No Known Results Summary Purpose [employer] Submission
--- OUTSIDE RECORDS SUMMARY | 2019-09-16 10:12 | XMS REPORT ---
Author Author VALERIA Jade Organization [employer] Address Unknown Phone Unavailable Care Team Providers Care Show Host/Hostess Name Role Phone Lucinda Jade CP Unavailable Allergies No Known Allergies Problems Problem Type Condition Code Onset Dates Condition Statu s Problem Left knee pain M25.562 Active Problem Temporal arteritis M31.6 Active Medications No Known Medications Results No Known Results Summary Purpose [employer] Submission
--- OUTSIDE RECORDS SUMMARY | 2019-09-16 10:12 | XMS REPORT | Continuity of Care Document ---
Author Author [facility] VALERIA West Organization [employer] Address Unknown Phone Unavailable Care Team Providers Care Forward Air Controller/Air Officer Name Role Phone [employer] Unavailable Un available Problems Problem Status Onset Date Classification Date Reported Comments Source Left knee pain Active Problem 09/07/2019 Galen Jackson Medial meniscus tear Active Diagnosis 04/28/2017 Galen Paz Pain in left knee Active Diagnosis 04/30/2017 Galen Paz Temporal arteritis Active Problem 09/07/2019 Galenangelina Paz Osteoporosis Active Problem 09/07/2019 Galen Paz Hypercholesteremia Active Problem 09/07/2019 Galen Paz Vitamin D deficiency Active Problem 09/07/2019 Galen Paz Liver function abnormality Act rich Problem Galen Paz Elevated C-reactive protein (CRP) Active Problem Galen Paz Headache Active Diagnosis 02/24/2019 Galen Paz Unspecified ptosis of unspecified eyelid Active Diagnosis 02/24/2019 Galen Paz Encounter for drug therapy Act rich Diagnosis 0 05/14/2019 Galen Paz Immunocompromised patient Acti ve Diagnosis 0 06/24/2019 Galen Paz Encounter for long-term (current) drug use Active Diagnosis 06/24/2019 Galen Paz Numbness Active Diagnosis 07/31/2019 Galen Paz Medications Medication Details Route Status Patient Instructions Ordering Provider Order Date Source Actemra SQ 1 injection subcutaneous Active 162mg/0.9 mL subcutaneous every week [place] 08/23/2019 Galen Paz Alendronate Sodium 1 tablet Orally Active 70 MG Orally once a week [place] 06/21/2019 Galen Paz Lyrica 1 capsule Orally Active 75 MG Orally Once a day [place] 05/10/2019 Galen Paz Gabapentin 3 capsule Orally Active 100 MG Orally Once a da y [place] 03/25/2019 Galen Paz PredniSONE 1.5 Orally Active 10 MG Orally Once a day [place] 03/23/2019 Galen Paz PredniSONE 1 tablet Orally Active 2.5 MG Orally Once a da y [place] 03/22/2019 Galen Paz Gabapentin 1 capsule Orally Active 100 MG Orally 1 cap on day one, 2 caps on day two, 3 caps every day after [place] 02/23/2019 Galen Paz PredniSONE 3 tablets Orally Active 10 MG Orally Once a day [place] 02/10/2019 Galen Paz PredniSONE 4 Tablets Orally Active 5 MG Orally Once a day [place] 02/02/2019 Galen Paz PredniSONE 3 tabs Orally Active 10 MG Orally Once a day [place] 01/27/2019 Galen Paz Prednisone 4 tabs Orally Active 1mg Orally Once a day [place] 12/07/2018 Galen Paz Alendronate Sodium 1 tablet Orally Active 70 MG Orally once a week [place] 08/30/2018 Galen Paz PredniSONE 1 tablet Orally Active 5 MG Orally Once a day [place] 07/22/2018 Galen Paz Actemra SQ 1 injection subcutaneous Active 162mg/0.9 mL subcutaneous every week [place] 06/15/2018 Galen Paz Actemra SQ 1 injection subcutaneous Active 162mg/0.9 mL subcutaneous every other week [place] 06/15/2018 Galen Paz Meloxicam 1 tablet Orally Active 7.5 MG Orally bid with food [place] 04/21/2017 Galen Paz Amlodipine Besy-Benazepril HCl 1 tablet Orally Active 5-10 MG Orally once a day [place] Galen Paz Aspir-81 1 tablet Orally Active 81 MG Orally Once a day [facility] [place] [place] Jaylon Paz PredniSONE 1.5 tablets Orally Active 20 MG Orally Once a day Yasmany Galen Paz FD nathen as directed NA Active [place] is Galen Paz Ibuprofen 1 tablet with food o r milk as needed Orally Active 200 MG Orally Three times a day Yasmany Galen Paz Amlodipine Besy-Benazepril HCl 1 tablet Orally Active 5-10 MG Orally once a day Yasmany Galen Paz Sqwhkzmg-Rvygcaesd-Cpzxgczl 1 application Ophthalmic Active 0.1 % Ophthalmic Two times a day Yasmany Galen Paz Omeprazole 1 capsule 30 minute s before morning meal Orally Active 40 MG Orally Once a day [place] Galen Paz Biotin Maximum Strength 1 tabl et Orally Active 13410 MCG Orally Once a day [place] Galen Paz Pregabalin 2 capsules Orally Active 75 MG Orally Once a day [place] Galen Paz Ondansetron 1 tablet on the to ngue and allow to dissolve as needed Orally Active 8 MG Orally Once a day Isaías Paz Allergies, Adverse Reactions, Alerts Substance Category Reaction Severity Reaction type Status Date Reported Comments Source N.K.D.A. Adverse Reaction Info Not Available Adverse Reaction 07/26/2019 Galen Paz Immunizations No Data Provided for This Section Results No Data Provided for This Section Pathology Reports No Data Provided for This Section Diagnostic Reports No Data Provided for This Section Consultation Notes No Data Provided for This Section Discharge Summaries No Data Provided for This Section History and Physicals No Data Provided for This Section Vital Signs Vital Sign Value Date Comments Source Heart Rate 79 07/26/2019 Galen Paz Diastolic (mm Hg) 67 07/26/2019 Galen Paz Systolic (mm Hg) 128 07/26/2019 Galen Paz Diastolic (mm Hg) 70 06/23/2019 Galen Paz Systolic (mm Hg) 117 06/23/2019 Galen Paz Weight 164 05/12/2019 Galen Paz Height 58 0 05/12/2019 Galen Paz Heart Rate 99 05/12/2019 Galen Paz Diastolic (mm Hg) 75 05/12/2019 Galen Paz Systolic (mm Hg) 122 05/12/2019 Galen Paz Weight 163.8 03/22/2019 Galen Paz Height 58 0 03/22/2019 Galen Paz Temperature Oral (F) 97.6 F 03/22/2019 Galen Paz Heart Rate 84 03/22/2019 Galen Paz Diastolic (mm Hg) 78 03/22/2019 Galen Paz Systolic (mm Hg) 130 03/22/2019 Galen Paz Weight 165.7 01/27/2019 Galen Paz Height 58 1 03/30/2018 Galen Paz Temperature Oral (F) 98.6 F 01/27/2019 Galen Paz Heart Rate 72 01/27/2019 Galen Paz Diastolic (mm Hg) 70 01/27/2019 Galen Paz Systolic (mm Hg) 140 01/27/2019 Galen Paz Weight 163.8 12/07/2018 Galen Paz Height 58.5 12/07/2018 Galen Paz Temperature Oral (F) 97.0 F 12/07/2018 Galen Paz Heart Rate 68 12/07/2018 Galen Paz Diastolic (mm Hg) 70 12/07/2018 Galen Paz Systolic (mm Hg) 118 12/07/2018 Galen Paz Weight 164.4 10/29/2018 Galen Paz Height 59 0 10/29/2018 Galen Paz Temperature Oral (F) 97.1 F 10/29/2018 Galen Paz Heart Rate 72 10/29/2018 Galen Paz Diastolic (mm Hg) 70 10/29/2018 Galen Paz Systolic (mm Hg) 120 10/29/2018 Galen Paz Weight 157.2 08/30/2018 Galen Paz Height 59 0 08/30/2018 Galen Paz Temperature Oral (F) 98.2 F 08/30/2018 Galen Paz Heart Rate 78 08/30/2018 Galen Paz Diastolic (mm Hg) 70 08/30/2018 Galen Paz Systolic (mm Hg) 120 08/30/2018 Galen Paz Weight 156.8 07/22/2018 Galen Paz Height 59 0 07/22/2018 Galen Paz Temperature Oral (F) 97.0 F 07/22/2018 Galen Paz Heart Rate 80 07/22/2018 Galen Paz Diastolic (mm Hg) 78 07/22/2018 Galen Paz Systolic (mm Hg) 130 07/22/2018 Galen Paz Weight 157.1 06/30/2018 Galen Paz Height 59 0 06/30/2018 Galen Paz Temperature Oral (F) 98.8 F 06/30/2018 Galen Paz Heart Rate 84 06/30/2018 Galen Paz Diastolic (mm Hg) 76 06/30/2018 Galen Paz Systolic (mm Hg) 138 06/30/2018 Galen Paz Weight 158.2 06/15/2018 Galen Paz Height 59 0 06/15/2018 Galen Paz Temperature Oral (F) 98.9 F 06/15/2018 Galen Paz Heart Rate 76 06/15/2018 Galen Paz Diastolic (mm Hg) 76 06/15/2018 Galen Paz Systolic (mm Hg) 152 06/15/2018 Galen Paz Weight 156 04/21/2017 Galen Paz Height 59 0 04/21/2017 Galen Paz Temperature Oral (F) 98.6 F 04/21/2017 Galen Paz Heart Rate 68 04/21/2017 Galen Paz Diastolic (mm Hg) 62 04/21/2017 Galen Paz Systolic (mm Hg) 122 04/21/2017 Galen Paz Encounters No Data Provided for This Section Procedures No Data Provided for This Section Assessment and Plan No Data Provided for This Section Plan of Care No Data Provided for This Section Social History No Data Provided for This Section Family History No Data Provided for This Section Advance Directives No Data Provided for This Section Functional Status No Data Provided for This Section
--- OUTSIDE RECORDS SUMMARY | 2019-09-16 10:12 | XMS REPORT ---
Author Author VALERIA Paz Organization [employer] Address Unknown Phone Unavailable Care Team Providers Care International Logistics Manager Name Role Phone Norbert Paz CP Unavailable Allergies No Known Allergies Problems Problem Type Condition Code Onset Dates Condition Statu s Problem Liver function abnormality K76.89 A ctive Problem Hypercholesteremia E78.00 Active Problem Elevated C-reactive protein (CRP) R79.82 Active Problem Temporal arteritis M31.6 Active Problem Left knee pain M25.562 Active Problem Vitamin D deficiency E55.9 Active Problem Osteoporosis M81.0 Active Medications No Known Medications Results No Known Results Summary Purpose eClinicalWorks Submission
--- OUTSIDE RECORDS SUMMARY | 2019-09-16 10:12 | XMS REPORT ---
Author Author VALERIA Jade Organization [employer] Address Unknown Phone Unavailable Care Team Providers Care Supervising Librarian Name Role Phone YasmanyLucinda mejia CP Unavailable Allergies, Adverse Reactions, Alerts Substance Reaction Event Type N.K.D.A. Info Not Available Non Drug Allergy Problems Problem Type Condition Code Onset Dates Condition Statu s Problem Left knee pain M25.562 Active Problem Temporal arteritis M31.6 Active Assessment Temporal arteritis M31.6 Active Medications Medication Code System Code Instructions Start Date End Date Status Dosage Aspir-81 [facility] 30634003365 81 MG Orally Once a day Act rich 1 tablet Actemra SQ [facility] 4406263142 162mg/0.9 mL subcutaneous every wee k June 15, 2018 Active 1 injection FD nathen NDC 0 Active as directed PredniSONE [facility] 68431960175 20 MG Orally Once a day A ctive 1.5 tablets Amlodipine Besy-Benazepril HCl [facility] [address]-41 5-10 MG Orally once a day Active 1 tablet Actemra SQ [facility] 1473301318 162mg/0.9 mL subcutaneous ev akosua other week June 15, 2018 Inactive 1 injection Lajufdwj-Bkuizjfpn-Ykyuolsi [facility] [address]-85 0.1 % Ophtha lmic Two times a day Active 1 application Vital Signs Date/Time: June 15, 2018 BMI 31.95 Index Weight 158.2 lbs Height 59 in Temperature 98.9 F Cardiac Monitoring Heart Rate 76 /min Blood Pressure Diastolic 76 mm Hg Blood Pressure Systolic 152 mm Hg Results No Known Results Summary Purpose eClinicalWorks Submission
--- OUTSIDE RECORDS SUMMARY | 2019-09-16 10:12 | XMS REPORT ---
Author Author VALERIA Paz Organization [employer] Address Unknown Phone Unavailable Care Team Providers Care Stereotype Caster Name Role Phone Norbert Pza CP Unavailable Allergies No Known Allergies Problems Problem Type Condition Code Onset Dates Condition Statu s Problem Osteoporosis M81.0 Active Problem Hypercholesteremia E78.00 Active Problem Vitamin D deficiency E55.9 Active Assessment Temporal arteritis M31.6 Active Problem Temporal arteritis M31.6 Active Problem Left knee pain M25.562 Active Medications Medication Code System Code Instructions Start Date End Date Status Dosage Actemra SQ [facility] 1431781169 162mg/0.9 mL subcutaneous every wee k June 15, 2018 Active 1 injection Results No Known Results Summary Purpose eClinicalWorks Submission
--- OUTSIDE RECORDS SUMMARY | 2019-09-16 10:13 | XMS REPORT ---
Author Author VALERIA Metz Organization [employer] Address Unknown Phone Unavailable Care Team Providers Care Gis Physical Scientist Name Role Phone Mira Metz CP Unavailable [...] NDC 0 Active as directed PredniSONE ND 47250104435 5 MG Orally Once a day July 22, 2018 Active 4 tablets Pregabalin ND 85807062329 75 MG Orally Once a day A ctive 1 capsule Omeprazole ND 20397720306 40 MG Orally Once a day A ctive 1 capsule 30 minutes before morning meal PredniSONE ND 09620301209 2.5 MG Orally Once a day Mar 22, 2019 Active 1 tablet Alendronate Sodium ND 05128566272 70 MG Orally once a week August 30, 2018 Active 1 tablet Actemra SQ [facility] 5120420159 162mg/0.9 mL subcutaneous every wee k June 15, 2018 Active 1 injection Amlodipine Besy-Benazepril HCl ND 41532392853 5-10 MG Orally on ce a day Active 1 tablet Vital Signs Date/Time: Mar 22, 2019 BMI 34.23 Index Weight 163.8 lbs Height 58 in Temperature 97.6 F Cardiac Monitoring Heart Rate 84 /min Blood Pressure Diastolic 78 mm Hg Blood Pressure Systolic 130 mm Hg Results No Known Results Summary Purpose eClinicalWorks Submission
--- OUTSIDE RECORDS SUMMARY | 2019-09-16 10:13 | XMS REPORT ---
Author Author VALERIA Paz Organization [employer] Address Unknown Phone Unavailable Care Team Providers Care Supervisor [employer] Name Role Phone Norbert Paz CP Unavailable [...]
--- OUTSIDE RECORDS SUMMARY | 2019-09-16 10:13 | XMS REPORT ---
Author Author VALERIA Paz Organization [employer] Address Unknown Phone Unavailable Care Team Providers Care Complaint Clerk Name Role Phone Norbert Paz CP Unavailable [...] Start Date End Date Status Dosage Gabapentin [facility] 39454312366 100 MG Orally Once a day Mar 25, 2019 Active 3 capsule Results No Known Results Summary Purpose eClinicalWorks Submission
--- OUTSIDE RECORDS SUMMARY | 2019-09-16 10:13 | XMS REPORT ---
Author Author VALERIA Paz Organization [employer] Address Unknown Phone Unavailable Care Team Providers Care Die Designer Name Role Phone Norbert Paz CP Unavailable Allergies No Known Allergies Problems Problem Type Condition Code Onset Dates Condition Statu s Assessment Temporal arteritis M31.6 Active Problem Hypercholesteremia E78.00 Active Problem Vitamin D deficiency E55.9 Active Problem Liver function abnormality K76.89 A ctive Problem Left knee pain M25.562 Active Problem Osteoporosis M81.0 Active Problem Temporal arteritis M31.6 Active Medications Medication Code System Code Instructions Start Date End Date Status Dosage Prednisone NDC 0 1mg Orally Once a day Dec 07, 2018 Ac tive 4 tabs PredniSONE NDC 19523080501 5 MG Orally Once a day July 22, 2018 Active 2 tablets Results No Known Results Summary Purpose [employer]ClinicalWorks Submission
--- OUTSIDE RECORDS SUMMARY | 2019-09-16 10:13 | XMS REPORT ---
Author Author VALERIA Paz Organization [employer] Address Unknown Phone Unavailable Care Team Providers Care On Call Name Role Phone Norbert Paz CP Unavailable Allergies No Known Allergies Problems Problem Type Condition Code Onset Dates Condition Statu s Problem Left knee pain M25.562 Active Problem Temporal arteritis M31.6 Active Medications No Known Medications Results No Known Results Summary Purpose [employer]ClinicalWorks Submission
--- OUTSIDE RECORDS SUMMARY | 2019-09-16 10:13 | XMS REPORT ---
Author Author VALERIA Jade Organization [employer] Address Unknown Phone Unavailable Care Team Providers Care Cane Stripper Name Role Phone Lucinda Jade CP Unavailable Allergies, Adverse Reactions, Alerts Substance Reaction Event Type N.K.D.A. Info Not Available Non Drug Allergy Problems Problem Type Condition Code Onset Dates Condition Statu s Assessment Osteoporosis M81.0 Active Assessment Hypercholesteremia E78.00 Active Assessment Vitamin D deficiency E55.9 Active Problem Osteoporosis M81.0 Active Problem Hypercholesteremia E78.00 Active Problem Vitamin D deficiency E55.9 Active Assessment Temporal arteritis M31.6 Active Problem Temporal arteritis M31.6 Active Problem Left knee pain M25.562 Active Medications Medication Code System Code Instructions Start Date End Date Status Dosage Alendronate Sodium ND 86815825496 70 MG Orally once a week [place] 2018Dec 28, 2018 Active 1 tablet Actemra SQ ND 0869419926 162mg/0.9 mL subcutaneous every wee k June 15, 2018 Active 1 injection FD nathen NDC 0 Active as directed Amlodipine Besy-Benazepril HCl ND 60678811474 5-10 MG Orally on ce a day Active 1 tablet PredniSONE ND 77137400435 5 MG Orally Once a day July 22, 2018 Active 1 tablet Vital Signs Date/Time: August 30, 2018 BMI 31.75 Index Weight 157.2 lbs Height 59 in Temperature 98.2 F Cardiac Monitoring Heart Rate 78 /min Blood Pressure Diastolic 70 mm Hg Blood Pressure Systolic 120 mm Hg Results No Known Results Summary Purpose eClinicalWorks Submission
--- OUTSIDE RECORDS SUMMARY | 2019-09-16 10:13 | XMS REPORT ---
Author Author VALERIA Metz Organization [employer] Address Unknown Phone Unavailable Care Team Providers Care Prepper Name Role Phone Mira Metz CP Unavailable [...] Date End Date Status Dosage Actemra SQ [facility] 5030308686 162mg/0.9 mL subcutaneous every week August 23, 2019 Active 1 injection Results No Known Results Summary Purpose eClinicalWorks Submission
--- OUTSIDE RECORDS SUMMARY | 2019-09-16 10:13 | XMS REPORT ---
Author Author VALERIA Paz Organization [employer] Address Unknown Phone Unavailable Care Team Providers Care Alteration Specialist Name Role Phone Norbert Paz CP Unavailable [...] Start Date End Date Status Dosage PredniSONE NDC 0 10 MG Orally Once a day Mar 23, 2019 Active 3 tablets Results No Known Results Summary Purpose eClinicalWorks Submission
--- OUTSIDE RECORDS SUMMARY | 2019-09-16 10:13 | XMS REPORT ---
Author Author VALERIA Metz Organization [employer] Address Unknown Phone Unavailable Care Team Providers Care Data Systems Analyst Name Role Phone Mira Metz CP Unavailable Allergies, Adverse Reactions, Alerts Substance Reaction Event Type N.K.D.A. Info Not Available Non Drug Allergy Problems Problem Type Condition Code Onset Dates Condition Statu s Assessment Osteoporosis M81.0 Active Assessment Temporal arteritis M31.6 Active Problem [...] Active as directed Amlodipine Besy-Benazepril HCl ND 73015163193 5-10 MG Orally on ce a day Active 1 tablet Actemra SQ ND 1010521059 162mg/0.9 mL subcutaneous every wee k June 15, 2018 Active 1 injection PredniSONE ND 08294844759 5 MG Orally Once a day July 22, 2018 Active 1 tablet Ondansetron ND 41981787876 8 MG Orally Once a day A ctive 1 tablet on the tongue and allow to dissolve as needed Biotin Maximum Strength ND 30100035181 63707 MCG Orally Once a day Active 1 tablet Prednisone NDC 0 1mg Orally Once a day Dec 07, 2018 Ac tive 4 tabs Alendronate Sodium NDC 83478918819 70 MG Orally once a week August 30, 2018 Active 1 tablet Vital Signs Date/Time: Dec 07, 2018 BMI 33.65 Index Weight 163.8 lbs Height 58.5 in Temperature 97.0 F Cardiac Monitoring Heart Rate 68 /min Blood Pressure Diastolic 70 mm Hg Blood Pressure Systolic 118 mm Hg Results No Known Results Summary Purpose eClinicalWorks Submission
--- OUTSIDE RECORDS SUMMARY | 2019-09-16 10:13 | XMS REPORT ---
Author Author VALERIA Jade Organization [employer] Address Unknown Phone Unavailable Care Team Providers Care Cell Phone Repair Technician Name Role Phone Lucinda Jade CP Unavailable Allergies No Known Allergies Problems Problem Type Condition Code Onset Dates Condition Statu s Problem Left knee pain M25.562 Active Problem Temporal arteritis M31.6 Active Medications No Known Medications Results No Known Results Summary Purpose [employer] Submission
--- OUTSIDE RECORDS SUMMARY | 2019-09-16 10:13 | XMS REPORT | Continuity of Care Document ---
Author Author Le Floch Depollution VALERIA West Organization [employer] Address Unknown Phone Unavailable Care Team Providers Care Rug Cleaner Helper Name Role Phone [employer] Unavailable Un available Problems Problem Status Onset [...] subcutaneous Active 162mg/0.9 mL subcutaneous every week [place] 08/23/2019 [place] Alendronate Sodium 1 tablet Orally Active 70 MG Orally once a week [place] 06/21/2019 [place] Lyrica 1 capsule Orally Active 75 MG Orally Once a day [place] 05/10/2019 [place] Gabapentin 3 capsule Orally Active 100 MG Orally Once a da y [place] 03/25/2019 [place] PredniSONE 1.5 Orally Active 10 MG Orally Once a day [place] 03/23/2019 [place] PredniSONE 1 tablet Orally Active 2.5 MG Orally Once a da y [place] 03/22/2019 [place] Gabapentin 1 capsule Orally Active 100 MG Orally 1 cap on day one, 2 caps on day two, 3 caps every day after [place] 02/23/2019 [place] PredniSONE 3 tablets Orally Active 10 MG Orally Once a day [place] 02/10/2019 [place] PredniSONE 4 Tablets Orally Active 5 MG Orally Once a day [place] 02/02/2019 [place] PredniSONE 3 tabs Orally Active 10 MG Orally Once a day [place] 01/27/2019 [place] Prednisone 4 tabs Orally Active 1mg Orally Once a day [place] 12/07/2018 [place] Alendronate Sodium 1 tablet Orally Active 70 MG Orally once a week [place] 08/30/2018 [place] PredniSONE 1 tablet Orally Active 5 MG Orally Once a day [place] 07/22/2018 [place] Actemra SQ 1 injection subcutaneous Active 162mg/0.9 mL subcutaneous every week [place] 06/15/2018 [place] Actemra SQ 1 injection subcutaneous Active 162mg/0.9 mL subcutaneous every other week [place] 06/15/2018 [place] Meloxicam 1 tablet Orally Active 7.5 MG Orally bid with food [place] 04/21/2017 [place] Amlodipine Besy-Benazepril HCl 1 tablet Orally Active 5-10 MG Orally once a day [place] Aspir-81 1 tablet Orally Active 81 MG Orally Once a day [facility] Jaylon Paz PredniSONE 1.5 tablets Orally Active [...] Orally once a day Yasmany [place] Lgeepjay-Btrfmzjop-Ugsbadgw 1 application Ophthalmic Active 0.1 % Ophthalmic Two times a day Yasmany [place] Omeprazole 1 capsule 30 minute s before morning meal Orally Active 40 MG Orally Once a day [place] Biotin Maximum Strength 1 tabl et Orally Active 04942 MCG Orally Once a day [place] Pregabalin 2 capsules Orally Active 75 MG Orally Once a day [place] Ondansetron 1 tablet on the to [...] [place]az Diastolic (mm Hg) 70 08/30/2018 [place] [facility] Systolic (mm Hg) 120 08/30/2018 [place] [...] 152 06/15/2018 [place] Weight 156 04/21/2017 [place] Height 59 0 04/21/2017 [place] [...]
--- OUTSIDE RECORDS SUMMARY | 2019-09-16 10:13 | XMS REPORT ---
Author Author VALERIA Paz Organization [employer] Address Unknown Phone Unavailable Care Team Providers Care Baton Twirler Name Role Phone Norbert Paz CP Unavailable [...]
--- OUTSIDE RECORDS SUMMARY | 2019-09-16 10:13 | XMS REPORT ---
Author Author VALERIA Metz Organization [employer] Address Unknown Phone Unavailable Care Team Providers Care Medication Aid Name Role Phone Mira Metz CP Unavailable Allergies No Known Allergies Problems Problem Type Condition Code Onset Dates Condition Statu s Assessment Headache R51 Active Assessment Unspecified ptosis of unspecified eyelid H02.409 Active Problem Hypercholesteremia E78.00 Active Problem Vitamin D deficiency E55.9 Active Problem Liver function abnormality K76.89 A ctive Problem Left knee pain M25.562 Active Problem Osteoporosis M81.0 Active Problem Temporal arteritis M31.6 Active Medications Medication Code System Code Instructions Start Date End Date Status Dosage PredniSONE NDC 0 10 MG Orally Once a day Feb 10, 2019 Active 3 tablets Gabapentin NDC [id number] 100 MG Orally 1 cap on day one, 2 caps on day two, 3 caps every day after Feb 23, 2019 Active 1 capsule Results No Known Results Summary Purpose [employer] Submission
--- OUTSIDE RECORDS SUMMARY | 2019-09-16 10:13 | XMS REPORT ---
Author Author VALERIA Metz Organization [employer] Address Unknown Phone Unavailable Care Team Providers Care House Sitter Name Role Phone Mira Metz CP Unavailable [...]
--- OUTSIDE RECORDS SUMMARY | 2019-09-16 10:13 | XMS REPORT ---
Author Author VALERIA Paz Organization [employer] Address Unknown Phone Unavailable Care Team Providers Care Project Management Advisor Name Role Phone Norbert Paz CP Unavailable [...]
--- NOTE | 2019-09-16 10:54 | NUR ---
called pt's daughter, Sharonda, for follow up. Pt's daughter states her mom "is a strong woman" and they are "in the palm of God's hand." Pt's daughter remains hopeful for recovery. Banjo Repairer reminded pt's daughter of availability of spiritual support. Will continue to follow as able. MARTIN Walker [facility] Department O: [phone]
--- NOTE | 2019-09-16 15:40 | NUR ---
HEMATOLOGY/ONCOLOGY PROGRESS NOTE: REASON FOR CONSULTATION: Anticoagulation management HISTORY OF PRESENT ILLNESS: Events noted, tried to call ICU phone 3 times, no answer. HIT back and negative REVIEW OF SYSTEMS: 14 Point ROS unable to obtain secondary to patient intubated and sedated PHYSICAL EXAMINATION: VITAL SIGNS: Reviewed per [facility] PHYSICAL EXAM NOT PERFORMED PATIENT IS ON COVID19 ICU UNIT ON CONTACT PRECAUTIONS. LABORATORY DATA: 09/16/2019 WBC: 13.10 Hgb: 7.5 Hct: 23.6 Plt: 105 BUN: 29 Creatinine: 1.72 HIT antibody: 0.281 D-dimer: 2820 CRP: 127 RADIOGRAPHIC DATA: CXR 09/14/2019: Right IJ nontunneled dialysis catheter, right-sided PICC line, an endotracheal tube identified in stable position. Enteric tube noted coursing below the diaphragm. Again identified are patchy airspace opacities throughout the lungs bilaterally, which appears similar to slightly decreased in appearance from the prior examination. Findings can be seen in the setting of a multifocal/viral infectious process. There is no evidence for pneumothorax or significant volume pleural effusion. The cardiomediastinal silhouette is stable in appearance. No acute osseous abnormalities identified. ASSESSMENT/PLAN: Ms. Hernandez is a 73-year-old female with past medical history of GERD, HTN, Chronic pain syndrome, and osteoporosis, who was admitted on 08/27/2019 with malaise and fever along with dyspnea nd cough found to have COVID19 pneumonia leading to acute respiratory failure requiring intubation and transfer to the COVID ICU. She has been on IV antibiotics, Vitamin C, Zinc, and started on pressor support on 09/11/2019. Patient was noted to have worsening renal failure with minimal urine output and clotting in Cherry catheter. Patient was on DVT proph with Lovenox 30mg sq daily, however, due to clots in Cherry catheter, Lovenox was discontinued and DIC and HIT panel were ordered. Hematology/Oncology has been consulted to assist with management. 1. COVID19 PNA/sepsis/resp failure: Patient is on IV antibiotics, Zinc, Vitamin C. Patient remains intubated and sedated. Leukocytosis stable, currently afebrile. Managed per ICu/primary/pulmonary/ID teams on board. 2. Anticoagulation: Patient is at increased risk for microthrombotic event secondary to COVID19. HIT panel NEGATIVE. Discontinue Argatroban drip and start patient on heparin drip as she remains intubated and elevated inflammatory markers although improving. Kidney function improving. Will check inflammatory markers daily including D-dimer and CRP. Monitor closely for now. 3. Renal failure: Uncertain etiology. Could be secondary to COVID19 PNA however recommend avoiding nephrotoxic medications. Clots in cherry catheter noted on 09/13/19, does not appear DIC. S/p dialysis catheter placement, on HD, creatinine trending down. Managed per ICU/Primary/Nephrology team. 4. Thrombocytopenia: Appears acute as counts were normal on admission. Could be consumption secondary to sepsis as per #1. Does not appear DIC though. Platelets stable in the 100s range. Acute hepatitis panel negative. Monitor closely. 5. Anemia: Likely multifactorial. Appears secondary to iron deficiency anemia. TIBC low and ferritin elevated likely as APR. H/H trending down, s/p trial dose of IV Iron. Plan to limit IV Iron secondary to elevated ferritin level as above. Transfuse if hemoglobin <7. Monitor for now. 6. DVT proph: Started on heparin drip as per #2. Above plan discussed with Dr. Franklin. Thank you for the consult. I will be available. Please call with questions.
[2019-09-16] MEDS ORDERED: HEPARIN 25,000 UNIT 1,200 UNIT in DEXTROSE 5% 250ML 250 ML IV SCH ×2 (15:45→16:00)
--- NOTE | 2019-09-16 15:57 | NUR ---
HemOnc - DC argatroban and start heparin drip per DVT/PE protocol without bolus, discussed with pharmacy. HIT panel NEGATIVE. Plt count stable. Full note below. Thank you, JOÃO Charlton Dr.
--- NOTE | 2019-09-16 16:06 | NUR ---
Nutrition Intervention Note RD Recommendation(s) for Physician: -Continue Vital AF 1.2. Recommend increasing goal rate to 50 mL/hr (provides 1440 kcal, 90 g protein) -Fluid management per MD Plan of Care: RD following, monitoring for tolerance and adequacy, tube feeding recommendation Nutrition reason for involvement: enteral nutrition RD Assessment 09/15: Follow up. Pt remains intubated. Pt is being dialyzed for fluid overload and pulmonary edema per MD note. Last recorded tube feed rate was 20 mL/hr yesterday morning. Current recommendations remain appropriate. Will continue to monitor. 09/11: Follow up. Pt remains intubated. TF was recorded at 30 mL/hr this morning. Current recommendations remain appropriate at this time. Will continue to monitor. 09/06: Follow up. Pt is now mechanically ventilated and tube feeding of Vital AF was started. MD note today indicates pt is in the prone position. Tube feeding rate was recorded at 40 mL/hr yesterday. Will continue to monitor. (09/02/19) Pt is a 73 year old female admitted with pneumonia due to COVID-19 virus and respiratory failure. Unable to enter room due to isolation precautions. MD note indicates pt has some intermittent confusion. It is recorded that pt has been consuming 0-50% of meals during admission. There are no previous weights in chart. Recommend Ensure Compact BID for added nutrition. Will continue to monitor Principal Problems/Diagnoses: pneumonia due to COVID-19 virus and respiratory failure PMH: hypertension, chronic pain, gastroesophageal reflux, osteoporosis GI: soft abdomen, last recorded BM 08/29 Skin: stage 2 sacrum pressure ulcer Labs: 09/15: Na 138, K 4.2, BUN 29, Cr 1.72, Glu 101, Ca 7.4, Total Bili 1.8, AST 70 09/11: Na 137, K 4.3, BUN 38, Cr 1.63, Glu 134, Ca 7.4, Total bili 2.7 09/06: Na 145, K 5.0, BUN 29, Cr 0.60, Glu 334, Ca 7.5, AST 39 (09/01) Na 140, K 4.2, BUN 14, Cr 0.54, Glu 141, Ca 7.5 Meds: insulin, antibiotic, vitamin C, protonix, zinc sulfate, rocuronium, fentanyl, norepinephrine, zofran, colace Ht: 63 inches Wt: 183.5 lbs (09/11) 162 lbs (09/04) 163 lbs (08/29) BMI: 28.8 kg/m2 using weight of 163 lbs IBW: 115 lbs Malnutrition Evaluation (09/07/19) The patient does not meet criteria for a specified degree of malnutrition at this time. Will re-evaluate at follow-up as appropriate. Energy intake: </=50% of estimated energy requirements for > 5 days Weight loss: Unable to assess Fat loss: unable to evaluate Muscle loss: unable to evaluate Supporting Evidence: Fluid accumulation: no leg edema per MD note Functional Status: unable to evaluate Nutrition Prescription (Diet Order): Vital AF 1.2 @ 30 mL/hr (provides 864 kcal and 54 g protein) infusing at 20 mL/hr per documentation yesterday morning Estimated Nutritional Needs: 3373-5055 calories/day (18-20 kcal/kg CBW) 89-148 g protein/day (1.2-2 g pro/kg CBW) Diet Adequacy: Not meeting calorie needs, Not meeting protein needs Tolerance: tolerating TF Diet Education Needs Assessment: Diet education not indicated; patient is intubated Nutrition Care Level: high Nutrition Diagnosis: Inadequate oral intake related to acute respiratory failure/mechanical ventilation as evidenced by pt requiring enteral nutrition. Goal: Patient will meet 75-100% of estimated needs by follow up Progress: goal not met Interventions: -Composition/Rate/Route, Recommended modifications Monitoring/Evaluation: -Total energy intake, Total protein intake, Formula/Solution Signed: Stephanie Willis RD, JOSHUA
[2019-09-16 16:42] LABS: HEMATOCRIT 21.3 % (34.2-44.1); HEMOGLOBIN 6.8 g/dL (12.0-16.0)
--- NOTE | 2019-09-16 16:44 | NUR ---
progress note infectious diseases he patient desaturates last night after being turned from the prone position to the supine position. Her FiO2 was increased to 100%. She subsequently received dialysis and her oxygenation improved. She is now on 80%. She is on a PRVC mode of ventilation, rate of 36 with a tidal volume of 370 and FiO2 of 80% and a PEEP of 12. PHYSICAL EXAMINATION: VITAL SIGNS: The blood pressure is 108/45 and saturation is 93%, and respiratory rate is 36. She is breathing with the ventilator. HEENT: Shows no facial swelling or erythema. LYMPHATIC: Shows no submandibular, cervical, or supraclavicular adenopathy. CARDIAC: Reveals regular rate and rhythm with normal S1 and S2. LUNGS: Auscultation of lungs is crackles at the bases. There is no wheezing. ABDOMEN: Soft and nontender. There is no rebound or guarding. EXTREMITIES: Shows no leg edema or calf tenderness. There is no cyanosis or clubbing. SKIN: Shows no rashes. NEUROLOGIC: The patient to be sedated. She is currently on rocuronium, Versed and fentanyl. LABORATORY DATA: White blood cell count is 13.1, hemoglobin is 7.5, and the platelet count is 105. HIT antibody was negative. Electrolytes within normal limits. BUN to creatinine ratio is 29 to 1.72. Albumin is 1.7. Total bilirubin is 1.8, AST is 70, and the alkaline phosphatase is 232. covid 19 resp failure CKD cont same
[2019-09-16] MEDS: FLUCONAZOLE 200 MG/100 ML 100 ML IV SCH (17:07)
[2019-09-16] MEDS ORDERED: SODIUM CHLORIDE 0.9% 250ML 250 ML IV ONE (17:15)
[2019-09-16] MEDS ORDERED: ACETAMINOPHEN 325 MG TAB PO ONE (17:15)
[2019-09-16] MEDS: HEPARIN 25,000 UNIT 1,200 UNIT in DEXTROSE 5% 250ML 250 ML IV SCH (18:10)
[2019-09-16] MEDS ORDERED: HEPARIN SOD (PORCINE) 1000 UNIT/ML SDV ONE (19:26)
[2019-09-16] MEDS ORDERED: SODIUM CHLORIDE 0.9% 1000ML 1,000 ML ONE (19:27)
[2019-09-16] MEDS: INSULIN GLARGINE 100 UNITS/ML VIAL SQ SCH (20:17)
[2019-09-16 21:08] LABS: ABG HCO3 21 mmol/L (22-26); ABG PCO2 50 mmHg (35-45); ABG PH 7.22 (7.35-7.45); ABG PO2 79 mmHg (80-105); ABG TCO2 22
--- NOTE | 2019-09-16 23:05 | NUR ---
Patient received one unit of RBC with dialysis. 3L of fluid removed during dialysis.
[2019-09-17] VITALS (23 sets, daily range): BP systolic 102–136; BP diastolic 43–85
[2019-09-17] MEDS: INSULIN REGULAR, HUMAN 100 UNIT/1 ML 3ML VIAL SQ SCH ×4 (00:15→17:21)
[2019-09-17] MEDS: MIDAZOLAM HCL 5MG/ML 10ML VIAL 100 ML IV PRN ×3 (01:55→16:36)
--- NOTE | 2019-09-17 02:07 | NUR ---
Critical aPTT level of greater than 200seconds on 2 different draws one hour apart. Heparin gtt stopped after the first result of >200s. Will recheck PTT after 6 hours.
[2019-09-17] MEDS: FENTANYL 2000MCG/NS 250 250 ML IV PRN ×2 (03:57→12:54)
[2019-09-17] MEDS: ROCURONIUM BROMIDE 250 MG in SODIUM CHLORIDE 0.9% 250ML 225 ML IV SCH ×3 (04:40→20:24)
[2019-09-17 05:37] LABS: BASOPHILS # (AUTO) 0.1 (0.0-0.1); BASOPHILS % 0.7 % (0.0-1.0); EOSINOPHILS # (AUTO) 0.2 (0.0-0.4); EOSINOPHILS % 1.2 % (0.0-6.0); HEMOGLOBIN 8.4 g/dL (12.0-16.0); LYMPHOCYTES # (AUTO) 1.1 (1.0-3.2); LYMPHOCYTES % 5.8 % (18.0-39.1); MEAN CORPUSCULAR HEMOGLOBIN 28.4 pg (28-32); MEAN CORPUSCULAR HGB CONC 32.3 g/dL (31-35); MEAN CORPUSCULAR VOLUME 87.8 fL (81-99); MONOCYTES # (AUTO) 0.4 (0.2-0.8); MONOCYTES % 2.2 % (4.4-11.3); NEUTROPHILS % 78.1 % (38.7-80.0); PLATELET COUNT 130 x10e3/uL (140-360); RED BLOOD COUNT 2.96 x10e6/uL (3.6-5.1); RED CELL DISTRIBUTION WIDTH 16.1 % (11.7-14.4)
[2019-09-17 06:03] LABS: MAGNESIUM 1.8 MG/DL (1.3-2.1); PHOSPHORUS 5.5 MG/DL (2.3-4.7)
--- NOTE | 2019-09-17 06:52 | NUR ---
IM- progress note O/N see below ROS; unreliable v/s; revd PE tired appearing; intubated; NGT anicteric ns1s2 reduced BS soft nt nd no e/t skin dry flat affect adams labs/meds revd A/P; 73yoF Multifocal PNA- azithromycin/ceftriaxone/antitussives/loratadine/flonase/Pulm/ID consult COVID19 positive PNA- as above Sepsis- hold antiHTN meds; IV abx Acute resp failure-BIPAP/Hiflo; Now intubated; Hypokalemia- recheck HTN- cont home meds GERd- cont med Osteoporosis- hold med 09-12-19 remains intubated; f/u labs; continue zosyn; RADHA- recheck later today; give free water flushes with NGT; Thrombocytopenia- d/c lovenox; 09-12 check labs; cont vent support; 09-13 HD started; remains intubated; cont care; 09-14 cont care; monitor; labs rev/d 09-15 started on argatroban; falling Hb- recheck at 4pm. continue supportive care; Monitor BP 8-1 Hb better after 1 unit PRBC; CleveO. Froylan MD, PhD.
[2019-09-17 07:34] LABS: ALBUMIN 1.7 g/dL (3.5-5.0); ALBUMIN/GLOBULIN RATIO 0.4 (0.8-2.0); ANION GAP 17.1 mmol/L (8-16); CALCIUM 7.5 mg/dL (8.4-10.2); CREATININE, SERUM 2.49 mg/dL (0.57-1.11); POTASSIUM 5.1 mmol/L (3.5-5.1)
[2019-09-17] MEDS ORDERED: SODIUM CHLORIDE 0.9% 1000ML 2,000 ML ONE (08:31)
[2019-09-17] MEDS ORDERED: ALBUMIN 25% 12.5GM 50ML 100 ML IV ONE (08:31)
[2019-09-17] MEDS: ZINC SULFATE 220 MG CAP PO SCH (09:42)
[2019-09-17] MEDS: PANTOPRAZOLE 40 MG 10ML VIAL IV SCH (09:42)
[2019-09-17] MEDS: CEFTRIAXONE SOD 1 GM/NS 50 ML 50 ML IV SCH (09:42)
[2019-09-17] MEDS: ASCORBIC ACID 500 MG TAB PO SCH ×2 (09:42→21:25)
[2019-09-17 10:42] LABS: ABG HCO3 20 mmol/L (22-26); ABG PCO2 47 mmHg (35-45); ABG PH 7.24 (7.35-7.45); ABG PO2 89 mmHg (80-105); ABG TCO2 22
--- NOTE | 2019-09-17 11:47 | NUR ---
PTT 133.3. Heparin drip decreased to 1000 u/hr from 1200 units/ hr. Nurse S Wright with Citlali monsalve. PTT at 1800 today.
--- NOTE | 2019-09-17 12:54 | Progress Note ---
DATE: 09/17/2019 Renal Progress Note SUBJECTIVE: Followed for acute kidney injury. The patient continues to be dialysis dependent, oligoanuric. The patient had dialysis yesterday for ultrafiltration only. Will have a dialysis session today for both clearance and UF. The patient has COVID pneumonia and is not significantly better from that. Remains on the ventilator. OBJECTIVE: VITAL SIGNS: Have been noted. Blood pressure is 105/52, pulse 95, afebrile. LUNGS: Rhonchi bilaterally. CARDIOVASCULAR: S1, S2. No rub. ABDOMEN: Soft, nontender. EXTREMITIES: 1+ edema. LABORATORY DATA: H and H 8.4 and 26. Chemistry; sodium 135, potassium 5.1, chloride 103, carbon 20, BUN 57, creatinine is 2.49, calcium 7.5. IMPRESSION AND PLAN: 1. Acute kidney injury, sustained acute tubular necrosis secondary to coronavirus disease pneumonia. Continue dialysis today. We will watch daily for any dialysis needs. May watch off dialysis tomorrow if there is no urgent indication. We will continue monitor closely. 2. Hypertension. Blood pressure is on the low side of normal. Continue to monitor closely. 3. Anemia of chronic disease. The patient's hemoglobin has improved. We will continue to monitor closely. 4. Metabolic acidosis. We will correct with dialysis today. 5. Case is discussed with Dr. Crews. Dao Diallo MD /MODL /[id number]
[2019-09-17 13:00] LABS: ABG HCO3 28 mmol/L (22-26); ABG PCO2 62 mmHg (35-45); ABG PH 7.26 (7.35-7.45); ABG PO2 80 mmHg (80-105); ABG TCO2 30
--- NOTE | 2019-09-17 15:25 | Progress Note ---
DATE: SUBJECTIVE: The patient is receiving dialysis with ultrafiltration again today. She remains on a mechanical ventilator. She is on pressure control. Her PEEP is set at 10. Her pressure above PEEP is 32. Her FiO2 is set at 85%. OBJECTIVE: VITAL SIGNS: The blood pressure is 105/52, saturation is 91%, and the respiratory rate is 36. HEENT: Shows no facial swelling or erythema. There is an oral endotracheal tube in place. The patient has a dialysis catheter in the right IJ area. The site looks clean. CARDIAC: Reveals regular rate and rhythm with normal S1 and S2. LUNGS: Auscultation of lungs shows decreased breath sounds at the bases. There is no wheezing. ABDOMEN: Soft, nontender. There is no rebound or guarding. EXTREMITIES: Shows no leg edema or calf tenderness. There is no cyanosis or clubbing. SKIN: Shows no rashes. NEUROLOGICAL: Shows no focal abnormalities. LABORATORY DATA: White blood cell count is 17.9 and hemoglobin is 8.4. The platelet count is 130. The BUN to creatinine ratio is 57 to 2.49. Carbon dioxide is 20 and the potassium is 2.1. The albumin is 1.7. AST is 119 and the ALT is 71. The alkaline phosphatase is 417. ASSESSMENT: 1. Acute respiratory failure. 2. Viral pneumonia and coronavirus disease-19 infection. 3. Acute renal failure. 4. Thrombocytopenia. 5. Anemia. 6. Diabetes. PLAN: 1. The patient will continue to receive dialysis and ultrafiltration. 2. The patient remains on pressure control ventilation. Repeat ABG. 3. The patient is now on heparin. 4. The patient received blood yesterday and will continue to monitor blood counts. 5. Continue to monitor blood sugars. 6. Continue enteral feedings. 7. Case discussed with Nephrology, Nursing and Respiratory. Greater than 35 minutes in direct critical care time apart from any procedures performed. Alex Crews MD [facility]/MODL /[id number]
[2019-09-17] MEDS: HEPARIN 25,000 UNIT 1,200 UNIT in DEXTROSE 5% 250ML 250 ML IV SCH ×2 (16:15→21:00)
--- NOTE | 2019-09-17 16:55 | NUR ---
HEMATOLOGY/ONCOLOGY PROGRESS NOTE: REASON FOR CONSULTATION: Anticoagulation management HISTORY OF PRESENT ILLNESS: Events noted, tried to call ICU phone 3 times, no answer. HIT back and negative REVIEW OF SYSTEMS: 14 Point ROS unable to obtain secondary to patient intubated and sedated PHYSICAL EXAMINATION: VITAL SIGNS: Reviewed per [facility] PHYSICAL EXAM NOT PERFORMED PATIENT IS ON COVID19 ICU UNIT ON CONTACT PRECAUTIONS. LABORATORY DATA: 09/17/2019 WBC: 17.97 Hgb: 8.4 Hct: 26.0 Plt: 130 BUN: 57 Creatinine: 2.49 HIT antibody: 0.281 RADIOGRAPHIC DATA: CXR 09/14/2019: Right IJ nontunneled dialysis catheter, right-sided PICC line, an endotracheal tube identified in stable position. Enteric tube noted coursing below the diaphragm. Again identified are patchy airspace opacities throughout the lungs bilaterally, which appears similar to slightly decreased in appearance from the prior examination. Findings can be seen in the setting of a multifocal/viral infectious process. There is no evidence for pneumothorax or significant volume pleural effusion. The cardiomediastinal silhouette is stable in appearance. No acute osseous abnormalities identified. ASSESSMENT/PLAN: Ms. Hernandez is a 73-year-old female with past medical history of GERD, HTN, Chronic pain syndrome, and osteoporosis, who was admitted on 08/27/2019 with malaise and fever along with dyspnea nd cough found to have COVID19 pneumonia leading to acute respiratory failure requiring intubation and transfer to the COVID ICU. She has been on IV antibiotics, Vitamin C, Zinc, and started on pressor support on 09/11/2019. Patient was noted to have worsening renal failure with minimal urine output and clotting in Cherry catheter. Patient was on DVT proph with Lovenox 30mg sq daily, however, due to clots in Cherry catheter, Lovenox was discontinued and DIC and HIT panel were ordered. Hematology/Oncology has been consulted to assist with management. 1. COVID19 PNA/sepsis/resp failure: Patient is on IV antibiotics, Zinc, Vitamin C. Patient remains intubated and sedated. Leukocytosis trending up, currently afebrile. Managed per ICU/primary/pulmonary/ID teams on board. 2. Anticoagulation: Patient is at increased risk for microthrombotic event secondary to COVID19. HIT panel NEGATIVE. Discontinued Argatroban drip. Continue heparin drip as she remains intubated and elevated inflammatory markers although improving. Kidney function trending back up. Will check inflammatory markers daily including D-dimer and CRP. Monitor closely for now. 3. Renal failure: Uncertain etiology. Could be secondary to COVID19 PNA however recommend avoiding nephrotoxic medications. Clots in cherry catheter noted on 08/17 10/05, does not appear DIC. S/p dialysis catheter placement, creatinine trending up, HD today. Managed per ICU/Primary/Nephrology team. 4. Thrombocytopenia: Appears acute as counts were normal on admission. Could be consumption secondary to sepsis as per #1. Does not appear DIC though. Platelets improving, 130,000. Acute hepatitis panel negative. Monitor closely. 5. Anemia: Likely multifactorial. Appears secondary to iron deficiency anemia. TIBC low and ferritin elevated likely as APR. S/p trial dose of IV Iron. Plan to limit IV Iron secondary to elevated ferritin level as above. Hgb drop yesterday afternoon s/p 1 unit PRBC with improvement in H/H. Monitor for now. 6. DVT proph: On heparin drip as per #2. Above plan discussed with Dr. Franklin. Thank you for the consult. I will be available. Please call with questions.
[2019-09-17] MEDS: FLUCONAZOLE 200 MG/100 ML 100 ML IV SCH (16:58)
--- NOTE | 2019-09-17 19:35 | Progress Note ---
DATE: SUBJECTIVE: Ms. Hernandez remains in intensive care unit, intubated, sedated, on dialysis ultrafiltration. Vent settings reviewed. OBJECTIVE: HEENT normocephalic. CHEST: Crackles. HEART: S1, S2. ABDOMEN: Soft. EXTREMITIES: No edema. LABORATORY DATA: White count 17.9, hemoglobin 8.4, and platelet 130. IMPRESSION AND PLAN: Respiratory failure, acute renal failure, status post coronavirus disease-19, thrombocytopenia, anemia, and diabetes mellitus. Continue with dialysis as ordered. I am going to stop her Diflucan. I am going to stop her Rocephin. We will check her CBC. The patient has been on antibiotic since admission. This is day #21 of hospitalization. We will follow. MD KAMAR Galdamez/MODL /[id number]
[2019-09-17] MEDS: INSULIN GLARGINE 100 UNITS/ML VIAL SQ SCH (21:00)
[2019-09-17] MEDS: SENNOSIDES 8.6 MG TAB PO SCH (21:25)
[2019-09-17] MEDS: FENTANYL CITRATE INJ 2,000 MCG in SODIUM CHLORIDE 0.9% 250ML 210 ML IV PRN (22:20)
[2019-09-18] VITALS (60 sets, daily range): BP systolic 89–153; BP diastolic 48–66
[2019-09-18] MEDS: INSULIN REGULAR, HUMAN 100 UNIT/1 ML 3ML VIAL SQ SCH ×5 (00:23→23:54)
[2019-09-18] MEDS: MIDAZOLAM HCL 50 MG in SODIUM CHLORIDE 0.9% 100 ML 90 ML IV PRN ×2 (01:20→09:30)
[2019-09-18] MEDS: ROCURONIUM BROMIDE 250 MG in SODIUM CHLORIDE 0.9% 250ML 225 ML IV SCH (03:51)
[2019-09-18 05:30] LABS: BASOPHILS # (AUTO) 0.1 (0.0-0.1); BASOPHILS % 0.5 % (0.0-1.0); EOSINOPHILS # (AUTO) 0.3 (0.0-0.4); EOSINOPHILS % 1.4 % (0.0-6.0); HEMATOCRIT 23.3 % (34.2-44.1); HEMOGLOBIN 7.5 g/dL (12.0-16.0); LYMPHOCYTES # (AUTO) 1.5 (1.0-3.2); LYMPHOCYTES % 7.1 % (18.0-39.1); MEAN CORPUSCULAR HEMOGLOBIN 28.2 pg (28-32); MEAN CORPUSCULAR HGB CONC 32.2 g/dL (31-35); MEAN CORPUSCULAR VOLUME 87.6 fL (81-99); MONOCYTES # (AUTO) 0.7 (0.2-0.8); NEUTROPHILS # (AUTO) 16.6 (2.1-6.9); NEUTROPHILS % 77.6 % (38.7-80.0); RED BLOOD COUNT 2.66 x10e6/uL (3.6-5.1); RED CELL DISTRIBUTION WIDTH 16.6 % (11.7-14.4)
[2019-09-18 05:46] LABS: ANION GAP 13.9 mmol/L (8-16); CALCIUM 7.7 mg/dL (8.4-10.2); CREATININE, SERUM 2.08 mg/dL (0.57-1.11); POTASSIUM 4.9 mmol/L (3.5-5.1)
[2019-09-18] MEDS: FENTANYL CITRATE INJ 2,000 MCG in SODIUM CHLORIDE 0.9% 250ML 210 ML IV PRN (08:37)
[2019-09-18] MEDS: ASCORBIC ACID 500 MG TAB PO SCH ×2 (08:49→21:09)
[2019-09-18] MEDS: ZINC SULFATE 220 MG CAP PO SCH (08:49)
[2019-09-18] MEDS: PANTOPRAZOLE 40 MG 10ML VIAL IV SCH (08:49)
[2019-09-18] MEDS: SENNOSIDES 8.6 MG TAB PO SCH ×2 (08:49→21:09)
[2019-09-18] MEDS: DOCUSATE SODIUM LIQD 100 MG/10 ML UDC NG SCH (08:49)
[2019-09-18 09:16] LABS: ABG HCO3 23 mmol/L (22-26); ABG PCO2 55 mmHg (35-45); ABG PH 7.24 (7.35-7.45); ABG PO2 70 mmHg (80-105); ABG TCO2 25
[2019-09-18 09:31] LABS: PLATELET COUNT 159 x10e3/uL (140-360)
--- NOTE | 2019-09-18 12:27 | Progress Note ---
DATE: The patient received dialysis yesterday. The patient was in the prone position yesterday, but is now in a supine position. OBJECTIVE: VITAL SIGNS: The blood pressure is 105/52, saturation is 91%, and the respiratory rate is 36. HEENT: Shows no facial swelling or erythema. There is an oral endotracheal tube in place. The patient has a dialysis catheter in the right IJ area. The site looks clean. CARDIAC: Reveals regular rate and rhythm with normal S1 and S2. LUNGS: Auscultation of lungs shows decreased breath sounds at the bases. There is no wheezing. ABDOMEN: Soft, nontender. There is no rebound or guarding. EXTREMITIES: Shows no leg edema or calf tenderness. There is no cyanosis or clubbing. SKIN: Shows no rashes. NEUROLOGICAL: Shows no focal abnormalities. LABORATORY DATA: White blood cell count is 17.9 and hemoglobin is 8.4. The platelet count is 130. The BUN to creatinine ratio is 57 to 2.49. Carbon dioxide is 20 and the potassium is 2.1. The albumin is 1.7. AST is 119 and the ALT is 71. The alkaline phosphatase is 417. ASSESSMENT: 1. Acute respiratory failure. 2. Viral pneumonia and coronavirus disease-19 infection. 3. Acute renal failure. 4. Thrombocytopenia. 5. Anemia. 6. Diabetes. PLAN: 1. The patient will continue to receive dialysis and ultrafiltration. 2. The patient remains on pressure control ventilation. Repeat ABG. 3. The patient is now on heparin. 4. The patient received blood yesterday and will continue to monitor blood counts. 5. Continue to monitor blood sugars. 6. Continue enteral feedings. 7. Case discussed with Nephrology, Nursing and Respiratory. Greater than 35 minutes in direct critical care time apart from any procedures performed. MD MATT Swanson/[place] /[id number] THAO
--- NOTE | 2019-09-18 13:44 | NUR ---
INFECTIOUS DISEASE PROGRESS NOTE DR PATEL SUBJECTIVE: Ms. Hernandez remains in intensive care unit, intubated, sedated, on dialysis ultrafiltration. Vent settings reviewed. PHYSICAL EXAM OBJECTIVE: HEENT normocephalic. CHEST: Crackles. HEART: S1, S2. ABDOMEN: Soft. EXTREMITIES: No edema. LABORATORY DATA: REVIEWED RADIOLOGY: REVIEWED IMPRESSION AND PLAN: Respiratory failure acute renal failure status post coronavirus disease-19, thrombocytopenia, anemia, diabetes mellitus. Continue with dialysis as ordered. I am going to stop her Diflucan. I am going to stop her Rocephin. We will check her CBC. The patient has been on antibiotic since admission. This is day #21 of hospitalization. We will follow. PT SEEN AND EXAMINED BY DR PATEL
--- NOTE | 2019-09-18 13:53 | Progress Note ---
DATE: SUBJECTIVE: The patient received dialysis again yesterday. She continued four saturations in the low 90s on 85% and 13 of PEEP. PHYSICAL EXAMINATION: VITAL SIGNS: The blood pressure is 116/60, saturations in the low 90s on the ventilator settings as noted above. HEENT: Shows some skin breakdown from the ET tube holding zygomatic area bilaterally. There is an oral endotracheal tube. There is a right-sided dialysis line. The site looks clean. There is a nasogastric tube. CARDIAC: Reveals regular rate and rhythm with normal S1 and S2. LUNGS: Auscultation of lungs reveals crackles at the bases. There is no wheezing. ABDOMEN: Soft and nontender. There is no rebound or guarding. EXTREMITIES: Shows no leg edema or calf tenderness. There is no cyanosis or clubbing. SKIN: Shows no rashes. NEUROLOGICAL: Shows the patient to be sedated. LABORATORY DATA: White blood cell count is 21.4 and hemoglobin is 7.5. The platelet count is 159. The BUN to creatinine ratio is 53 to 2.08 and the other electrolytes are within normal limits. Blood gas shows a pH of 7.24 with a CO2 of 55 and an O2 of 57. RADIOGRAPHIC DATA: Chest x-ray shows bilateral infiltrates. IMPRESSION: 1. Acute respiratory failure. 2. Viral pneumonia and COVID-19 infection. 3. Acute renal failure. 4. Thrombocytopenia. 5. Anemia. 6. Diabetes. PLAN: 1. Place the patient in prone position. 2. Continue current ventilation and monitor ABG. 3. Continue dialysis as needed. 4. Wound care consult. 5. Continue enteral feedings. 6. Continue anticoagulation. 7. Continue enteral feedings. Greater than 35 minutes in direct critical care time. Alex Crews MD [facility]/MODL /[id number]
--- NOTE | 2019-09-18 16:29 | NUR ---
IM- progress note O/N see below ROS; unreliable v/s; revd PE tired appearing; intubated; NGT anicteric ns1s2 reduced BS soft nt nd no e/t skin dry flat affect adams labs/meds revd A/P; 73yoF Multifocal PNA- azithromycin/ceftriaxone/antitussives/loratadine/flonase/Pulm/ID consult COVID19 positive PNA- as above Sepsis- hold antiHTN meds; IV abx Acute resp failure-BIPAP/Hiflo; Now intubated; Hypokalemia- recheck HTN- cont home meds GERd- cont med Osteoporosis- hold med 09-12-19 remains intubated; f/u labs; continue zosyn; RADHA- recheck later today; give free water flushes with NGT; Thrombocytopenia- d/c lovenox; 09-12 check labs; cont vent support; 09-13 HD started; remains intubated; cont care; 09-14 cont care; monitor; labs rev/d 09-15 started on argatroban; falling Hb- recheck at 4pm. continue supportive care; Monitor BP 8-1 Hb better after 1 unit PRBC; 8-2 WBC worse today; Hb improved, now trending down again. CleveO. Froylan MD, PhD.
[2019-09-18] MEDS: INSULIN GLARGINE 100 UNITS/ML VIAL SQ SCH (20:12)
[2019-09-18 20:48] LABS: ABG HCO3 23 mmol/L (22-26); ABG PCO2 61 mmHg (35-45); ABG PH 7.18 (7.35-7.45); ABG PO2 74 mmHg (80-105); ABG TCO2 25
[2019-09-18] MEDS ORDERED: SODIUM BICARBONATE 8.4% SYRING 100 ML ONE (21:04)
[2019-09-18] MEDS ORDERED: DEXTROSE 5% 1,000 ML IV ONE (21:04)
[2019-09-18] MEDS: SODIUM BICARBONATE 8.4% 100 ML in DEXTROSE 5% 1,000 ML IV SCH (21:39)
[2019-09-19] VITALS (63 sets, daily range): BP systolic 86–135; BP diastolic 39–61
[2019-09-19] MEDS: MIDAZOLAM HCL 50 MG in SODIUM CHLORIDE 0.9% 100 ML 90 ML IV PRN ×3 (00:06→17:03)
[2019-09-19] MEDS: ROCURONIUM BROMIDE 250 MG in SODIUM CHLORIDE 0.9% 250ML 225 ML IV SCH ×3 (03:26→18:44)
[2019-09-19 05:24] LABS: BASOPHILS # (AUTO) 0.1 (0.0-0.1); BASOPHILS % 0.3 % (0.0-1.0); EOSINOPHILS # (AUTO) 0.1 (0.0-0.4); EOSINOPHILS % 0.5 % (0.0-6.0); HEMATOCRIT 23.3 % (34.2-44.1); HEMOGLOBIN 7.5 g/dL (12.0-16.0); LYMPHOCYTES # (AUTO) 1.1 (1.0-3.2); LYMPHOCYTES % 5.3 % (18.0-39.1); MEAN CORPUSCULAR HEMOGLOBIN 28.7 pg (28-32); MEAN CORPUSCULAR HGB CONC 32.2 g/dL (31-35); MEAN CORPUSCULAR VOLUME 89.3 fL (81-99); MONOCYTES # (AUTO) 0.8 (0.2-0.8); MONOCYTES % 3.6 % (4.4-11.3); NEUTROPHILS # (AUTO) 18.2 (2.1-6.9); PLATELET COUNT 173 x10e3/uL (140-360); RED BLOOD COUNT 2.61 x10e6/uL (3.6-5.1); RED CELL DISTRIBUTION WIDTH 17.6 % (11.7-14.4)
[2019-09-19] MEDS: INSULIN REGULAR, HUMAN 100 UNIT/1 ML 3ML VIAL SQ SCH ×3 (05:32→18:30)
[2019-09-19] MEDS: FENTANYL CITRATE INJ 2,000 MCG in SODIUM CHLORIDE 0.9% 250ML 210 ML IV PRN ×2 (06:10→17:04)
[2019-09-19 06:17] LABS: ALBUMIN 1.7 g/dL (3.5-5.0); ALBUMIN/GLOBULIN RATIO 0.3 (0.8-2.0); ANION GAP 17.3 mmol/L (8-16); CALCIUM 7.7 mg/dL (8.4-10.2); CREATININE, SERUM 2.82 mg/dL (0.57-1.11); MAGNESIUM 1.9 MG/DL (1.3-2.1); PHOSPHORUS 8.1 MG/DL (2.3-4.7)
[2019-09-19 06:28] LABS: POTASSIUM 6.3 mmol/L (3.5-5.1)
[2019-09-19] MEDS ORDERED: SOD POLYSTYRENE SULFONATE SUSP 15 GM/60 ML BTL ONE (06:46)
--- NOTE | 2019-09-19 07:19 | NUR ---
Potassium 6.3 this morning. Reported to Dr. Kishor Crews. Received order to give Kayexalate. same given via NG tube
[2019-09-19] MEDS: SENNOSIDES 8.6 MG TAB PO SCH ×2 (09:00→20:53)
[2019-09-19] MEDS: DOCUSATE SODIUM LIQD 100 MG/10 ML UDC NG SCH (09:00)
[2019-09-19] MEDS: ZINC SULFATE 220 MG CAP PO SCH (09:00)
[2019-09-19] MEDS: ASCORBIC ACID 500 MG TAB PO SCH ×2 (09:00→20:53)
[2019-09-19] MEDS: PANTOPRAZOLE 40 MG 10ML VIAL IV SCH (09:00)
[2019-09-19 10:00] LABS: ABG PCO2 70 mmHg (35-45); ABG PH 7.14 (7.35-7.45)
[2019-09-19 10:01] LABS: ABG HCO3 24 mmol/L (22-26); ABG PO2 64 mmHg (80-105); ABG TCO2 26
--- NOTE | 2019-09-19 10:03 | Progress Note ---
DATE: 09/19/2019 Renal Progress Note SUBJECTIVE: The patient is followed for acute kidney injury. The patient has sustained ATN secondary to COVID pneumonia. Remains dialysis-dependent. Potassium is slightly elevated today at 6.3. The patient is due for dialysis today. Creatinine is also elevated at 2.82, BUN 67, still oliguric, anuric. Remains on the vent. OBJECTIVE: VITAL SIGNS: Noted. Blood pressure is 117/49. The patient is on 100% FiO2 on the ventilator. Afebrile. LUNGS: Rhonchi bilaterally. CARDIOVASCULAR: S1 and S2. No rub. ABDOMEN: Soft. Positive bowel sounds. EXTREMITIES: 1 to 2+ edema. No clubbing. No cyanosis. LABORATORY DATA: Sodium 132, potassium 6.0, chloride 97, bicarb 25, BUN 67, and creatinine is 2.82. Hematology; H and H are 7.5 and 23.3. IMPRESSION AND PLAN: 1. Acute kidney injury, sustained acute tubular necrosis. We will continue to provide dialysis today and once daily for dialysis needs and for ultrafiltration only. We will continue to monitor closely. 2. Hypertension. Blood pressure is on low side of normal. Continue to monitor. Continue all blood pressure lowering medications. 3. Hyperkalemia. We will correct with dialysis. 4. Anemia of chronic disease. Transfuse as needed for hemoglobin less than 7. Recommend to continue Epogen. Dao Diallo MD /MODL /[id number]
--- NOTE | 2019-09-19 10:06 | NUR ---
IM- progress note O/N see below ROS; unreliable v/s; revd PE tired appearing; intubated; NGT anicteric ns1s2 reduced BS soft nt nd no e/t skin dry flat affect adams labs/meds revd A/P; 73yoF Multifocal PNA- azithromycin/ceftriaxone/antitussives/loratadine/flonase/Pulm/ID consult COVID19 positive PNA- as above Sepsis- hold antiHTN meds; IV abx Acute resp failure-BIPAP/Hiflo; Now intubated; Hypokalemia- recheck HTN- cont home meds GERd- cont med Osteoporosis- hold med 09-12-19 remains intubated; f/u labs; continue zosyn; RADHA- recheck later today; give free water flushes with NGT; Thrombocytopenia- d/c lovenox; 09-12 check labs; cont vent support; 09-13 HD started; remains intubated; cont care; 09-14 cont care; monitor; labs rev/d 09-15 started on argatroban; falling Hb- recheck at 4pm. continue supportive care; Monitor BP 8-1 Hb better after 1 unit PRBC; 8-2 WBC worse today; Hb improved, now trending down again. 8-3 supportive care; Hyperkalemia- HD now; monitor H/H CleveO. Froylan MD, PhD.
[2019-09-19] MEDS ORDERED: SODIUM CHLORIDE 0.9% 1000ML 2,000 ML ONE (11:00)
[2019-09-19] MEDS ORDERED: SODIUM CHLORIDE 0.9% 1000ML 2,000 ML IV PRN (11:00)
[2019-09-19] MEDS ORDERED: ALBUMIN 25% 12.5GM 0.25 GM/ML BTL IV PRN ×2 (11:00→11:15)
[2019-09-19] MEDS ORDERED: HEPARIN SOD (PORCINE) 1000 UNIT/ML SDV IV PRN (11:00)
[2019-09-19] MEDS ORDERED: SODIUM CHLORIDE 0.9% 250ML 500 ML IV PRN (11:00)
[2019-09-19] MEDS ORDERED: HEPARIN SOD (PORCINE) 1000 UNIT/ML SDV ONE (11:02)
[2019-09-19] MEDS ORDERED: ALBUMIN 25% 12.5GM 50ML 100 ML IV ONE (11:02)
--- NOTE | 2019-09-19 11:57 | Progress Note ---
DATE: SUBJECTIVE: The patient had worsening acidosis yesterday on her blood gas. Her minute ventilation was increased. She is now on a rate of 36 with pressure control. Her pressure is set at 35 above PEEP with a PEEP of 10. Her tidal volumes are 300-350 mL. She is now on a bicarb drip. She is in the supine position. PHYSICAL EXAMINATION: VITAL SIGNS: The patient is afebrile. The blood pressure is 120/51, and the pulse is 116. HEENT: No facial swelling or erythema. There is no oral endotracheal tube. There is a nasogastric tube. There is a right IJ line. The site looks clean. There is no drainage. CARDIAC: Regular rate and rhythm. Normal S1, S2. LUNGS: Auscultation of lungs reveals crackles at the bases. There is no wheezing. ABDOMEN: Soft, nontender. There is no rebound or guarding. EXTREMITIES: Leg edema. LABORATORY DATA: White blood cell count 21.6 and hemoglobin 7.5. The platelet count is 173. BUN to creatinine ratio is 67 to 2.82 and the potassium is 6.3. Blood gas is 7.14, 70, 64 and 24. IMPRESSION: 1. Acute kidney injury. 2. Acute renal failure. 3. Mixed respiratory and metabolic acidosis. 4. Acute respiratory failure. 5. Viral pneumonia and coronavirus disease-19 infection. 6. Hyperkalemia. 7. Anemia. 8. Thrombocytopenia. 9. Diabetes. PLAN: 1. Prognosis is very poor. The family is aware of this. 2. Continue dialysis and ultrafiltration as tolerated. 3. Continue bicarbonate drip along with Kayexalate. 4. Continue to increase minute ventilation and repeat ABG. 5. Place the patient in prone position after dialysis. 6. Continue enteral feedings. Greater than 35 minutes in direct critical care time. Alex Crews MD [facility]/MODL /[id number]
[2019-09-19] MEDS: SODIUM BICARBONATE 8.4% 100 ML in DEXTROSE 5% 1,000 ML IV SCH (12:15)
[2019-09-19 12:20] LABS: ANISOCYTOSIS SLIGHT; HYPOCHROMASIA SLIGHT; LYMPHOCYTES % (MANUAL) 5 % (19-48); MONOCYTES % (MANUAL) 4 % (3.4-9.0); MYELOCYTES % (MANUAL) 2 % (0-0); NEUTROPHILS % (MANUAL) 89 % (40-74); PLATELET ESTIMATE ADEQUATE; PLATELET MORPHOLOGY COMMENT NORMAL; POLYCHROMASIA FEW
[2019-09-19 12:21] LABS: RBC MORPHOLOGY COMMENT ABNORMAL
--- NOTE | 2019-09-19 12:29 | Diagnostic Imaging Report ---
EXAMINATION: CHEST SINGLE (PORTABLE) INDICATION: Respiratory failure COMPARISON: Chest radiograph 09/16/2019 FINDINGS: LINES/TUBES:Support lines and tubes unchanged. LUNGS:The lungs are moderately inflated. Stable bilateral lower lung predominant multifocal patchy airspace opacities. PLEURA:Possible small bilateral pleural effusions. No pneumothorax. MEDIASTINUM:The cardiomediastinal silhouette appears unchanged in size and shape. BONES/SOFT TISSUES:No acute osseous injury. ABDOMEN:No free air under the diaphragm. IMPRESSION: No significant interval change. Signed by: Haroldo Miner MD on 09/19/2019 12:26 PM
[2019-09-19] MEDS: HEPARIN 25,000 UNIT 1,200 UNIT in DEXTROSE 5% 250ML 250 ML IV SCH (14:14)
--- NOTE | 2019-09-19 14:28 | NUR ---
WOUND CARE CONSULT FOR 73YO FEMALE HX OF [place] 9 ON STRICT PUP STATUS AND INTERVENTIONS AND ALTERNATING PRESSURE MATTRESS LABS: WBC-21.66 HGB_7.5 GLUCOSE-137 SKIN ASSESSMENT COMPLETE PATIENT PRESENTS WITH BILATERAL CHEEK US ULCERATION R/T NG TUBE LAWSON 2.5CM X2.5CM BROWN SCABB /ESCHAR RIGHT THIGH HEALING SKIN TEAR 5CM X4CM X0.1CM RECOMMENDATIONS: NURSING TO CONTINUE TO MAINTAIN STRICT PUP STATUS PUP STATUS AND INTERVENTIONS AND ALTERNATING PRESSURE MATTRESS NURSING TO CONTINUE TO ASSIST PATIENT NEEDED WITH MEALS AND NUTRITIONAL SUPPLEMENTS TO ENSURE PROPER REQUIREMENTS FOR HEALING NURSING TO CONTINUE TO OFFLOAD FEET AND HEELS NEEDED WITH PILLOW SUSPENSION WHEN IN BED NURSING TO CLEAN BILATERAL CHEEKS US ULCERATION BROWN SCAB /ESCHAR AND RIGHT THIGH HEALING SKIN TEAR WITH NORMAL SALINE DAILY AND APPLY VENELEX OINTMENT AND APPLY ALLEVYN FOAM DRESSING TO RIGHT THIGH Addendum: 09/19/19 at 1446 by Roberto Martinez RN Amended: Links added.
--- NOTE | 2019-09-19 16:17 | NUR ---
NFECTIOUS DISEASE PROGRESS NOTE DR PATEL SUBJECTIVE: Ms. Hernandez remains in intensive care unit, intubated, sedated, on dialysis ultrafiltration. Vent settings reviewed. PHYSICAL EXAM OBJECTIVE: HEENT normocephalic. CHEST: Crackles. HEART: S1, S2. ABDOMEN: Soft. EXTREMITIES: No edema. LABORATORY DATA: REVIEWED RADIOLOGY: REVIEWED IMPRESSION AND PLAN: Respiratory failure acute renal failure status post coronavirus disease-19, thrombocytopenia, anemia, diabetes mellitus. cont supportive care discussed with medical team day
--- NOTE | 2019-09-19 17:55 | NUR ---
HEMATOLOGY/ONCOLOGY PROGRESS NOTE: REASON FOR CONSULTATION: Anticoagulation management HISTORY OF PRESENT ILLNESS: Events noted. Discussed with RN, no new changed. On vent 100% FiO2. On heparin drip. REVIEW OF SYSTEMS: 14 Point ROS unable to obtain secondary to patient intubated and sedated PHYSICAL EXAMINATION: VITAL SIGNS: Reviewed per [facility] [place] PHYSICAL EXAM NOT PERFORMED PATIENT IS ON COVID19 ICU UNIT ON CONTACT PRECAUTIONS. LABORATORY DATA: 09/19/2019 WBC: 21.66 Hgb: 7.5 Hct: 23.3 Plt: 173 Creatinine: 2.82 BUN: 67 RADIOGRAPHIC DATA: CXR 09/19/2019:No significant interval change. ASSESSMENT/PLAN: Ms. Hernandez is a 73-year-old female with past medical history of GERD, HTN, Chronic pain syndrome, and osteoporosis, who was admitted on 08/27/2019 with malaise and fever along with dyspnea nd cough found to have COVID19 pneumonia leading to acute respiratory failure requiring intubation and transfer to the [facility] ICU. She has been on IV antibiotics, Vitamin C, Zinc, and started on pressor support on 09/11/2019. Patient was noted to have worsening renal failure with minimal urine output and clotting in Cherry catheter. Patient was on DVT proph with Lovenox 30mg sq daily, however, due to clots in Cherry catheter, Lovenox was discontinued and DIC and HIT panel were ordered. Hematology/Oncology has been consulted to assist with management. 1. COVID19 PNA/sepsis/resp failure: Patient is s/p antibiotics. Zinc, Vitamin C. Patient remains intubated and sedated. Leukocytosis trending up, currently afebrile. Managed per ICU/primary/pulmonary/ID teams on board. 2. Anticoagulation: Patient is at increased risk for microthrombotic event secondary to COVID19. HIT panel NEGATIVE. Discontinued Argatroban drip. Continue heparin drip as she remains intubated with elevated inflammatory markers. Kidney function trending back up. Will check inflammatory markers daily including D-dimer and CRP. Monitor closely for now. 3. Renal failure: Uncertain etiology. Could be secondary to COVID19 PNA however recommend avoiding nephrotoxic medications. Clots in cherry catheter noted on 09/13/19, does not appear DIC. S/p dialysis catheter placement. On HD. Managed per ICU/Primary/Nephrology team. 4. Thrombocytopenia: Appears acute as counts were normal on admission. Could be consumption secondary to sepsis as per #1. Does not appear DIC though. RESOLVED. Acute hepatitis panel negative. Monitor closely. 5. Anemia: Likely multifactorial. Appears secondary to iron deficiency anemia. TIBC low and ferritin elevated likely as APR. S/p trial dose of IV Iron. Plan to limit IV Iron secondary to elevated ferritin level as above. S/p 1 unit PRBC with improvement in H/H, though now trending down. Give one time dose of ES A as kidney function is worsening. CBC in the morning. Continue to transfuse for hemoglobin less than 7. Monitor for now. 6. DVT proph: On heparin drip as per #2. Above plan discussed with Dr. Franklin. Thank you for the consult. I will be available. Please call with questions.
[2019-09-19] MEDS ORDERED: EPOETIN ALFA-EPBX 10,000 UNIT/ML VIAL SC ONE (18:00)
[2019-09-19 20:30] LABS: ABG PH 7.17 (7.35-7.45)
[2019-09-19 20:31] LABS: ABG HCO3 32 mmol/L (22-26); ABG PCO2 86 mmHg (35-45); ABG PO2 66 mmHg (80-105); ABG TCO2 34
[2019-09-19] MEDS: INSULIN GLARGINE 100 UNITS/ML VIAL SQ SCH (20:58)
[2019-09-20] VITALS (44 sets, daily range): BP systolic 95–135; BP diastolic 44–65
[2019-09-20] MEDS: INSULIN REGULAR, HUMAN 100 UNIT/1 ML 3ML VIAL SQ SCH ×4 (00:28→18:45)
[2019-09-20] MEDS: FENTANYL CITRATE INJ 2,000 MCG in SODIUM CHLORIDE 0.9% 250ML 210 ML IV PRN ×2 (00:37→21:25)
[2019-09-20] MEDS: ROCURONIUM BROMIDE 250 MG in SODIUM CHLORIDE 0.9% 250ML 225 ML IV SCH ×3 (00:37→21:24)
[2019-09-20] MEDS: MIDAZOLAM HCL 50 MG in SODIUM CHLORIDE 0.9% 100 ML 90 ML IV PRN ×2 (00:37→21:25)
[2019-09-20] MEDS: SODIUM BICARBONATE 8.4% 100 ML in DEXTROSE 5% 1,000 ML IV SCH (05:25)
[2019-09-20 05:46] LABS: BASOPHILS # (AUTO) 0.1 (0.0-0.1); BASOPHILS % 0.6 % (0.0-1.0); EOSINOPHILS # (AUTO) 0.1 (0.0-0.4); EOSINOPHILS % 0.7 % (0.0-6.0); LYMPHOCYTES # (AUTO) 1.7 (1.0-3.2); LYMPHOCYTES % 8.7 % (18.0-39.1); MEAN CORPUSCULAR HEMOGLOBIN 30.5 pg (28-32); MEAN CORPUSCULAR HGB CONC 31.5 g/dL (31-35); MEAN CORPUSCULAR VOLUME 96.8 fL (81-99); MONOCYTES # (AUTO) 1.1 (0.2-0.8); MONOCYTES % 5.4 % (4.4-11.3); NEUTROPHILS # (AUTO) 15.7 (2.1-6.9); NEUTROPHILS % 78.2 % (38.7-80.0); PLATELET COUNT 181 x10e3/uL (140-360); RED CELL DISTRIBUTION WIDTH 19.3 % (11.7-14.4)
[2019-09-20 06:13] LABS: HEMATOCRIT 21.3 % (34.2-44.1)
[2019-09-20 06:15] LABS: ANION GAP 13.2 mmol/L (8-16); CALCIUM 7.6 mg/dL (8.4-10.2); CREATININE, SERUM 1.99 mg/dL (0.57-1.11); MAGNESIUM 1.8 MG/DL (1.3-2.1); PHOSPHORUS 5.4 MG/DL (2.3-4.7); POTASSIUM 4.2 mmol/L (3.5-5.1)
[2019-09-20 06:16] LABS: HEMOGLOBIN 6.7 g/dL (12.0-16.0)
--- NOTE | 2019-09-20 06:52 | NUR ---
Paged Dr. Franklin regarding critical hemoglobin, awaiting call back.
[2019-09-20 07:59] LABS: BAND NEUTROPHILS % (MANUAL) 2 %; EOSINOPHILS % (MANUAL) 1 % (0-7); LYMPHOCYTES % (MANUAL) 14 % (19-48); MONOCYTES % (MANUAL) 3 % (3.4-9.0); MYELOCYTES % (MANUAL) 7 % (0-0); NEUTROPHILS % (MANUAL) 73 % (40-74); NUCLEATED RED BLOOD CELLS 1
[2019-09-20] MEDS ORDERED: SODIUM CHLORIDE 0.9% 250ML 250 ML IV ONE (08:00)
[2019-09-20 08:01] LABS: PLATELET ESTIMATE ADEQUATE; PLATELET MORPHOLOGY COMMENT RARE EDTA CLUMPING; RBC MORPHOLOGY COMMENT ABNORMAL
[2019-09-20 08:02] LABS: ANISOCYTOSIS MODERATE; POLYCHROMASIA FEW
[2019-09-20] MEDS: PANTOPRAZOLE 40 MG 10ML VIAL IV SCH (08:34)
[2019-09-20] MEDS: DOCUSATE SODIUM LIQD 100 MG/10 ML UDC NG SCH (08:34)
[2019-09-20] MEDS: SENNOSIDES 8.6 MG TAB PO SCH ×2 (08:34→20:15)
[2019-09-20] MEDS: BALSAM PERU/CASTOR OIL 60 GM OINT...G. TP SCH (08:35)
[2019-09-20] MEDS: ZINC SULFATE 220 MG CAP PO SCH (08:35)
[2019-09-20] MEDS: ASCORBIC ACID 500 MG TAB PO SCH ×2 (08:35→20:15)
--- NOTE | 2019-09-20 08:47 | Progress Note ---
DATE: 09/20/2019 Renal Progress Note SUBJECTIVE: The patient followed for acute kidney injury secondary to acute tubular necrosis from COVID-19 pneumonia. The patient is dialysis-dependent on a daily basis. Alternate days of ultrafiltration only along with other days with clearance and ultrafiltration. The patient remains on the vent 100% FiO2. OBJECTIVE: VITAL SIGNS: Blood pressure is around 107/48, respirations 35, pulse 91, afebrile. LUNGS: Rhonchi bilaterally in the lung etienen. CARDIOVASCULAR: S1 and S2. No rub. ABDOMEN: Soft. Positive bowel sounds. EXTREMITIES: 1 to 2+ edema. LABORATORY DATA: H and H 6.7 and 21.3. Chemistry; sodium 133, potassium 4.2, chloride 94, bicarb 30, BUN 40, and creatinine 1.99. IMPRESSION AND PLAN: 1. Acute kidney injury, sustained acute tubular necrosis, dialysis-dependent. We will do ultrafiltration. We will try to ultrafilter about 3 L or so fluid today. 2. Hypertension. Blood pressure stable. Continue to monitor. 3. Anemia of chronic disease. Recommend to transfuse 1 to 2 units PRBCs. Also recommend to start the patient on Epogen 10,000 units Thursday, Thursday, Thursday. 4. COVID pneumonia. Plan would be as per primary and Critical Care recommendation. Dao Diallo MD /MODL /[id number]
[2019-09-20 10:07] LABS: ABG HCO3 28 mmol/L (22-26); ABG PCO2 77 mmHg (35-45); ABG PH 7.18 (7.35-7.45); ABG PO2 86 mmHg (80-105); ABG TCO2 31
[2019-09-20] MEDS ORDERED: HEPARIN SOD (PORCINE) 1000 UNIT/ML SDV IV PRN (10:15)
--- NOTE | 2019-09-20 10:59 | NUR ---
IM- progress note O/N see below ROS; unreliable v/s; revd PE tired appearing; intubated; NGT anicteric ns1s2 reduced BS soft nt nd no e/t skin dry flat affect adams labs/meds revd A/P; 73yoF Multifocal PNA- azithromycin/ceftriaxone/antitussives/loratadine/flonase/Pulm/ID consult COVID19 positive PNA- as above Sepsis- hold antiHTN meds; IV abx Acute resp failure-BIPAP/Hiflo; Now intubated; Hypokalemia- recheck HTN- cont home meds GERd- cont med Osteoporosis- hold med 09-12-19 remains intubated; f/u labs; continue zosyn; RADHA- recheck later today; give free water flushes with NGT; Thrombocytopenia- d/c lovenox; 09-12 check labs; cont vent support; 09-13 HD started; remains intubated; cont care; 09-14 cont care; monitor; labs rev/d 09-15 started on argatroban; falling Hb- recheck at 4pm. continue supportive care; Monitor BP 8-1 Hb better after 1 unit PRBC; 8-2 WBC worse today; Hb improved, now trending down again. 8-3 supportive care; Hyperkalemia- HD now; monitor H/H 8-4 worsened anemia on heparin- d/c heparin; give blood; Estuardo. MD Froylan, PhD.
[2019-09-20 14:17] LABS: ABG PH 7.18 (7.35-7.45)
[2019-09-20 14:18] LABS: ABG HCO3 27 mmol/L (22-26); ABG PCO2 73 mmHg (35-45); ABG PO2 97 mmHg (80-105); ABG TCO2 29
--- NOTE | 2019-09-20 14:33 | Progress Note ---
DATE: Pulmonary Critical Care Progress Note SUBJECTIVE: The patient had dialysis again this morning. She received 2 units of packed red blood cells. The patient remains on Versed, fentanyl, and rocuronium. She was placed in the prone position after dialysis. PHYSICAL EXAMINATION: VITAL SIGNS: The blood pressure is 122/55 and pulse is 76. She is on a PRVC with pressure control at a rate of 36. Her PEEP is set at 10 and her pressure control was 28 above PEEP. Her tidal volumes of 350 to 370 mL with this setting. HEENT: Shows no facial swelling or erythema. The oropharynx is normal. LYMPHATIC: Shows no submandibular, cervical, or supraclavicular adenopathy. LYMPHATIC: Shows no adenopathy. CARDIAC: Reveals regular rate and rhythm with normal S1 and S2. LUNGS: Auscultation of lungs reveals crackles and rhonchi on both bases. There is no wheezing. ABDOMEN: Soft and nontender. There is no rebound or guarding. EXTREMITIES: Shows no leg edema or calf tenderness. There is no cyanosis or clubbing. SKIN: Shows no rashes. NEUROLOGICAL: Shows no focal abnormalities. LABORATORY DATA: White blood cell count is 20.09 and the hemoglobin was 6.7 prior to transfusion. Platelet count is 181. The BUN to creatinine ratio is 40 to 1.99. Other electrolytes are within normal limits. Blood gas prior to dialysis was 7.18, 77, 86, and 28. RADIOGRAPHIC DATA: Chest x-ray shows bilateral pulmonary infiltrates. IMPRESSION: 1. Acute respiratory failure. 2. Viral pneumonia and COVID-19 infection. 3. Acute renal failure. 4. Thrombocytopenia. 5. Anemia secondary to chronic blood loss. 6. Diabetes. PLAN: 1. Repeat CBC and monitor hemoglobin. 2. Repeat ABG now. 3. Continue to ventilate the patient in prone position. 4. Continue to adjust ventilator as tolerated and needed. 5. Continue dialysis. 6. Continue enteral feedings. 7. Case discussed with Dr. Galeano, Respiratory, nursing, Nephrology, and administration. Greater than 35 minutes in direct critical care time. Alex Crews MD [facility]/MODL /[id number]
--- NOTE | 2019-09-20 15:37 | NUR ---
Nutrition Intervention Note RD Recommendation(s) for Physician: -Continue Vital AF 1.2. Recommend increasing goal rate in order to 50 mL/hr (provides 1440 kcal, 90 g protein) -Fluid management per MD Plan of Care: RD following, monitoring for tolerance and adequacy, tube feeding recommendation Nutrition reason for involvement: follow up RD Assessment 09/19: Follow up. Pt remains intubated, sedated, and paralyzed. Pt requiring daily dialysis and proning. No pressor support. TF currently at 10 ml/hr while proned, previously infusing at 50 ml/hr when supine- meeting needs. Current TF rec's remain appropriate. Will continue to monitor. 09/15: Follow up. Pt remains intubated. Pt is being dialyzed for fluid overload and pulmonary edema per MD note. Last recorded tube feed rate was 20 mL/hr yesterday morning. Current recommendations remain appropriate. Will continue to monitor. 09/11: Follow up. Pt remains intubated. TF was recorded at 30 mL/hr this morning. Current recommendations remain appropriate at this time. Will continue to monitor. 09/06: Follow up. Pt is now mechanically ventilated and tube feeding of Vital AF was started. MD note today indicates pt is in the prone position. Tube feeding rate was recorded at 40 mL/hr yesterday. Will continue to monitor. (09/02/19) Pt is a 73 year old female admitted with pneumonia due to COVID-19 virus and respiratory failure. Unable to enter room due to isolation precautions. MD note indicates pt has some intermittent confusion. It is recorded that pt has been consuming 0-50% of meals during admission. There are no previous weights in chart. Recommend Ensure Compact BID for added nutrition. Will continue to monitor Principal Problems/Diagnoses: pneumonia due to COVID-19 virus and respiratory failure PMH: hypertension, chronic pain, gastroesophageal reflux, osteoporosis GI: soft abdomen, last recorded BM 08/29 Skin: stage 2 sacrum pressure ulcer, bilateral cheek ulcerations 2/2 NGT clemente Labs: 09/19: Na 133, K 4.2, BUN 40, Cr 1.99, Gluc 144, Phos 5.4, Mg 1.8, POC Gluc 163-208 09/15: Na 138, K 4.2, BUN 29, Cr 1.72, Glu 101, Ca 7.4, Total Bili 1.8, AST 70 09/11: Na 137, K 4.3, BUN 38, Cr 1.63, Glu 134, Ca 7.4, Total bili 2.7 09/06: Na 145, K 5.0, BUN 29, Cr 0.60, Glu 334, Ca 7.5, AST 39 (09/01) Na 140, K 4.2, BUN 14, Cr 0.54, Glu 141, Ca 7.5 Meds: vitamin C, zinc sulfate, senokot, colace, protonix, insulin IVF/Drips: Rocuronium drip, Fentanyl drip, Versed drip, Na Bicarb drip Ht: 63 inches Wt: 180.5 lbs (09/19) 183.5 lbs (09/11) 162 lbs (09/04) 163 lbs (08/29) BMI: 28.8 kg/m2 using weight of 163 lbs IBW: 115 lbs Malnutrition Evaluation (09/07/19) The patient does not meet criteria for a specified degree of malnutrition at this time. Will re-evaluate at follow-up as appropriate. Energy intake: </=50% of estimated energy requirements for > 5 days Weight loss: Unable to assess Fat loss: unable to evaluate Muscle loss: unable to evaluate Supporting Evidence: Fluid accumulation: no leg edema per MD note Functional Status: unable to evaluate Nutrition Prescription (Diet Order): Vital AF 1.2 @ 10 mL/hr while proned, increased to 50ml/hr when supine. Estimated Nutritional Needs: 4539-3187 calories/day (18-20 kcal/kg CBW) 89-148 g protein/day (1.2-2 g pro/kg CBW) Diet Adequacy: Not meeting calorie needs, Not meeting protein needs- meeting needs while supine Tolerance: tolerating TF Diet Education Needs Assessment: Diet education not indicated; patient is intubated Nutrition Care Level: moderate Nutrition Diagnosis: Inadequate oral intake related to acute respiratory failure/mechanical ventilation as evidenced by pt requiring enteral nutrition. Goal: Patient will meet 75-100% of estimated needs by follow up Progress: goal not met Interventions: -Composition/Rate/Route, Recommended modifications Monitoring/Evaluation: -Total energy intake, Total protein intake, Formula/Solution Signed: Roseann Dacosta RD, LD, CNSC
--- NOTE | 2019-09-20 15:50 | NUR ---
HEMATOLOGY/ONCOLOGY PROGRESS NOTE: REASON FOR CONSULTATION: Anticoagulation management HISTORY OF PRESENT ILLNESS: Events noted. Patient receiving PRBC transfusion for drop in hgb. REVIEW OF SYSTEMS: 14 Point ROS unable to obtain secondary to patient intubated and sedated in COVID ICU unit. PHYSICAL EXAMINATION: VITAL SIGNS: Reviewed per [facility] PHYSICAL EXAM NOT PERFORMED PATIENT IS ON COVID19 ICU UNIT ON CONTACT PRECAUTIONS. LABORATORY DATA: 09/19/2019 WBC: 20.09 Hgb: 6.7 Hct: 21.3 Plt: 181 Creatinine: 1.99 BUN: 40 D-dimer: 3.50 RADIOGRAPHIC DATA: CXR 09/19/2019:No significant interval change. ASSESSMENT/PLAN: Ms. Hernandez is a 73-year-old female with past medical history of GERD, HTN, Chronic pain syndrome, and osteoporosis, who was admitted on 08/27/2019 with malaise and fever along with dyspnea nd cough found to have COVID19 pneumonia leading to acute respiratory failure requiring intubation and transfer to the [facility] ICU. She has been on IV antibiotics, Vitamin C, Zinc, and started on pressor support on 09/11/2019. Patient was noted to have worsening renal failure with minimal urine output and clotting in Cherry catheter. Patient was on DVT proph with Lovenox 30mg sq daily, however, due to clots in Cherry catheter, Lovenox was discontinued and DIC and HIT panel were ordered. Hematology/Oncology has been consulted to assist with management. 1. COVID19 PNA/sepsis/resp failure: Patient is s/p antibiotics. Zinc, Vitamin C. Patient remains intubated and sedated. Leukocytosis trending up, currently afebrile. Managed per ICU/primary/pulmonary/ID teams on board. 2. Anticoagulation: Patient is at increased risk for microthrombotic event secondary to COVID19. HIT panel NEGATIVE. Discontinued Argatroban drip. Will discontinue heparin drip as patient has worsening anemia requiring PRBC transfusion. Possible start on DVT proph if counts improve. Will check inflammatory markers daily including D-dimer. Monitor closely for now. 3. Renal failure: Uncertain etiology. Could be secondary to COVID19 PNA however recommend avoiding nephrotoxic medications. Clots in cherry catheter noted on 09/13/19, does not appear DIC. S/p dialysis catheter placement. On HD per Nephrology on board. Managed per ICU/Primary/Nephrology team. 4. Thrombocytopenia: Appears acute as counts were normal on admission. Could be consumption secondary to sepsis as per #1. Does not appear DIC though. RESOLVED. Acute hepatitis panel negative. Monitor closely. 5. Anemia: Likely multifactorial. Appears secondary to iron deficiency anemia. TIBC low and ferritin elevated likely as APR. S/p trial dose of IV Iron. Plan to limit IV Iron secondary to elevated ferritin level as above. S/p 1 unit PRBC transfused. Hemoglobin drop this morning with 2 unit PRBC transfused today. CBC in the morning. DC Heparin drip as per #2. Monitor for now. Above plan discussed with Dr. Franklin. Thank you for the consult. I will be available. Please call with questions.
[2019-09-20] MEDS: CEFEPIME 1GM/NS 0.9% 50 ML 50 ML IV SCH (16:26)
[2019-09-20] MEDS: HEPARIN 25,000 UNIT 1,200 UNIT in DEXTROSE 5% 250ML 250 ML IV SCH (16:27)
[2019-09-20] MEDS: METRONIDAZOLE 500MG/NS 100ML 100 ML IV SCH (17:50)
--- NOTE | 2019-09-20 18:59 | Progress Note ---
DATE: SUBJECTIVE: Ms. Hernandez remains in intensive care unit. She is intubated and sedated. OBJECTIVE: VITAL SIGNS: Stable. Currently afebrile. She had dialysis again. She received 2 units of blood. HEENT: Normocephalic. Not icteric. NECK: Supple. CHEST: Crackles. HEART: S1, S2. ABDOMEN: Soft. IMPRESSION: Respiratory failure, COVID-19, acute renal failure, thrombocytopenia, diabetes mellitus. Her prognosis remains poor. She is currently on insulin. She is off antibiotic. Her white count is 20.09. Her sodium is 133. Remains extremely ill. We will try to get a CT of abdomen and pelvis . Anderson Perera MD ZS/MODL /[id number]
[2019-09-20] MEDS: INSULIN GLARGINE 100 UNITS/ML VIAL SQ SCH (20:21)
[2019-09-21] VITALS (25 sets, daily range): BP systolic 89–137; BP diastolic 39–60
[2019-09-21] MEDS: METRONIDAZOLE 500MG/NS 100ML 100 ML IV SCH ×4 (00:10→23:53)
[2019-09-21] MEDS: SODIUM BICARBONATE 8.4% 100 ML in DEXTROSE 5% 1,000 ML IV SCH ×2 (03:30→08:42)
[2019-09-21] MEDS: MIDAZOLAM HCL 50 MG in SODIUM CHLORIDE 0.9% 100 ML 90 ML IV PRN ×3 (04:45→20:08)
[2019-09-21 05:07] LABS: BASOPHILS # (AUTO) 0.1 (0.0-0.1); BASOPHILS % 0.5 % (0.0-1.0); EOSINOPHILS # (AUTO) 0.3 (0.0-0.4); EOSINOPHILS % 1.8 % (0.0-6.0); HEMATOCRIT 30.8 % (34.2-44.1); LYMPHOCYTES # (AUTO) 0.8 (1.0-3.2); LYMPHOCYTES % 5.7 % (18.0-39.1); MEAN CORPUSCULAR HEMOGLOBIN 28.3 pg (28-32); MEAN CORPUSCULAR HGB CONC 32.5 g/dL (31-35); MEAN CORPUSCULAR VOLUME 87.3 fL (81-99); MONOCYTES # (AUTO) 0.7 (0.2-0.8); MONOCYTES % 4.7 % (4.4-11.3); NEUTROPHILS # (AUTO) 12.1 (2.1-6.9); NEUTROPHILS % 82.3 % (38.7-80.0); PLATELET COUNT 143 x10e3/uL (140-360); RED BLOOD COUNT 3.53 x10e6/uL (3.6-5.1); RED CELL DISTRIBUTION WIDTH 17.2 % (11.7-14.4)
[2019-09-21 05:28] LABS: ALBUMIN 1.9 g/dL (3.5-5.0); ALBUMIN/GLOBULIN RATIO 0.4 (0.8-2.0); ANION GAP 15.8 mmol/L (8-16); CALCIUM 7.3 mg/dL (8.4-10.2); CREATININE, SERUM 2.22 mg/dL (0.57-1.11); MAGNESIUM 1.6 MG/DL (1.3-2.1); PHOSPHORUS 6.6 MG/DL (2.3-4.7); POTASSIUM 3.8 mmol/L (3.5-5.1)
[2019-09-21] MEDS: INSULIN REGULAR, HUMAN 100 UNIT/1 ML 3ML VIAL SQ SCH ×5 (05:50→23:09)
[2019-09-21] MEDS: DEXTROSE 50% SYRINGE 50 ML IV PRN ×2 (05:59→16:38)
[2019-09-21] MEDS: ROCURONIUM BROMIDE 250 MG in SODIUM CHLORIDE 0.9% 250ML 225 ML IV SCH ×2 (06:18→12:45)
--- NOTE | 2019-09-21 06:42 | NUR ---
IM- progress note O/N see below ROS; unreliable v/s; revd PE tired appearing; intubated; NGT anicteric ns1s2 reduced BS soft nt nd no e/t skin dry flat affect adams labs/meds revd A/P; 73yoF Multifocal PNA- azithromycin/ceftriaxone/antitussives/loratadine/flonase/Pulm/ID consult COVID19 positive PNA- as above Sepsis- hold antiHTN meds; IV abx Acute resp failure-BIPAP/Hiflo; Now intubated; Hypokalemia- recheck HTN- cont home meds GERd- cont med Osteoporosis- hold med 09-12-19 remains intubated; f/u labs; continue zosyn; RADHA- recheck later today; give free water flushes with NGT; Thrombocytopenia- d/c lovenox; 09-12 check labs; cont vent support; 09-13 HD started; remains intubated; cont care; 09-14 cont care; monitor; labs rev/d 09-15 started on argatroban; falling Hb- recheck at 4pm. continue supportive care; Monitor BP 8-1 Hb better after 1 unit PRBC; 8-2 WBC worse today; Hb improved, now trending down again. 8-3 supportive care; Hyperkalemia- HD now; monitor H/H 8-4 worsened anemia on heparin- d/c heparin; give blood; 8-5 Hb improved after transfusion; HIT Ab positive; Estuardo. MD Froylan, PhD.
[2019-09-21 08:16] LABS: ABG HCO3 26 mmol/L (22-26); ABG PCO2 61 mmHg (35-45); ABG PH 7.24 (7.35-7.45); ABG PO2 112 mmHg (80-105); ABG TCO2 28
[2019-09-21] MEDS: PANTOPRAZOLE 40 MG 10ML VIAL IV SCH (08:37)
[2019-09-21] MEDS: BALSAM PERU/CASTOR OIL 60 GM OINT...G. TP SCH (08:41)
[2019-09-21] MEDS: DOCUSATE SODIUM LIQD 100 MG/10 ML UDC NG SCH (08:41)
[2019-09-21] MEDS: ASCORBIC ACID 500 MG TAB PO SCH ×2 (08:41→20:07)
[2019-09-21] MEDS: ZINC SULFATE 220 MG CAP PO SCH (08:41)
[2019-09-21] MEDS: FENTANYL CITRATE INJ 2,000 MCG in SODIUM CHLORIDE 0.9% 250ML 210 ML IV PRN ×2 (08:42→20:08)
[2019-09-21] MEDS: SENNOSIDES 8.6 MG TAB PO SCH ×2 (09:00→20:07)
--- NOTE | 2019-09-21 14:54 | Progress Note ---
DATE: SUBJECTIVE: Ms. Hernandez remains in intensive care unit and intubated, this is day #25. PHYSICAL EXAMINATION: HEENT: Normocephalic. NECK: Supple. CHEST: Crackles. HEART: S1, S2. ABDOMEN: Soft. Bowel sounds present. EXTREMITIES: No edema. LABORATORY DATA: Reviewed, white count is 14, which is down from 20, hemoglobin 10. Her sodium 132, potassium 3.8, creatinine 2.2. Currently on rocuronium, vitamin C, metronidazole, and cefepime. IMPRESSION: 1. COVID-19, respiratory failure, concerned about aspiration pneumonia. Continue current antibiotic for 7 days. Recheck CBC. Recheck Chem panel. 2. Renal failure, thrombocytopenia. Discussed with medical team and we will follow. MD KAMAR Galdamez/[place] /[id number]
--- NOTE | 2019-09-21 14:58 | Progress Note ---
DATE: 09/21/2019 Renal Progress Note SUBJECTIVE: Followed for acute kidney injury, sustained acute tubular necrosis secondary to COVID pneumonia. The patient is dialysis-dependent at present. Doing pretty much daily dialysis with alternate days of ultrafiltration and alternating with days of clearance and ultrafiltration. Remains on the vent. OBJECTIVE: VITAL SIGNS: Appeared to be stable. FiO2 is about 70% now. Last blood pressure 102/42, pulse 90, respirations in the 30s. The patient is afebrile. LUNGS: Bilateral rhonchi. CARDIOVASCULAR: S1 and S2. No rub. ABDOMEN: Soft. Positive bowel sounds. EXTREMITIES: 1 to 2+ edema. LABORATORY WORKUP: H and H are 10 and 30.8, white count is 14.6, and platelet counts of 143. Chemistries; today sodium 132, potassium 3.8, BUN 51, and creatinine 2.2. IMPRESSION AND PLAN: 1. Acute kidney injury secondary to sustained acute tubular necrosis from COVID pneumonia. We will continue dialysis today and likely will do another ultrafiltration tomorrow. We will do a followup chest x-ray to see if there has been any improvement in fluid overload. 2. Hypertension. Blood pressure is currently stable. The patient is not on any pressors at this time. 3. Anemia of chronic disease, stable H and H at this time. We will continue to monitor. 4. Fluid overload. We will ultrafilter with dialysis as allowed by blood pressure. Dao Diallo MD TH/MODL /[id number]
[2019-09-21] MEDS: CEFEPIME 1GM/NS 0.9% 50 ML 50 ML IV SCH (15:58)
--- NOTE | 2019-09-21 19:32 | Diagnostic Imaging Report ---
Examination: Single AP view of the chest. COMPARISON: September 19, 2019 INDICATION: Respiratory failure, pneumonia DISCUSSION: Lines/tubes: Right endotracheal tube is entering toward the right mainstem bronchus. Recommend approximately 3 cm retraction. Right PICC line, right IJ catheter, and enteric tube are stable. Lungs: Stable groundglass and airspace consolidative process throughout the lungs. Pleura: There is no pleural effusion or pneumothorax. Heart and mediastinum: The heart and the mediastinum are unremarkable. Bones and soft tissues: No acute bony abnormalities. Degenerative changes in the thoracic spine. IMPRESSION: 1. Endotracheal tube entering the right mainstem bronchus, recommend retraction approximately 3 cm. 2. Stable bilateral infectious process of the lungs from viral pneumonia. Signed by: Dr. Bryon France M.D. on 09/21/2019 7:29 PM
--- NOTE | 2019-09-21 19:35 | Progress Note ---
DATE: SUBJECTIVE: The patient received dialysis yesterday. packed red blood cells. The patient remains on mechanical ventilation. She is in the prone position. PHYSICAL EXAMINATION: VITAL SIGNS: The patient is afebrile. Blood pressure is 108/41 and pulse is 108. Respiratory rate is 36. She is on a PRVC of 36 with a FiO2 of 90%. She is on pressure control with a PEEP of 10 and pressure above PEEP of 35. HEENT: No facial swelling or erythema. There is an oral endotracheal tube. There is a right IJ dialysis catheter. The site looks clean. There is no drainage. CARDIAC: Reveals regular rate and rhythm with normal S1 and S2. LUNGS: Auscultation of lungs reveals rhonchorous breath sounds bilaterally. There is no wheezing. ABDOMEN: Soft and nontender. There is no rebound or guarding. EXTREMITIES: Shows no leg edema or calf tenderness. There is no cyanosis or clubbing. SKIN: Shows no rashes. LABORATORY DATA: BUN to creatinine ratio is 51 to 2.22. Sodium is 132. White blood cell count is 14.6 and hemoglobin is 10. The platelet count is 143. IMPRESSION: 1. Acute respiratory failure. 2. Acute renal failure. 3. Viral pneumonia and COVID-19 infection. 4. Thrombocytopenia. 5. Anemia secondary to chronic blood loss. 6. Diabetes. PLAN: 1. Continue ventilating in the prone position. 2. Monitor ABG. 3. Continue dialysis. 4. Continue enteral feedings. Alex Crews MD [facility]/MODL /[id number]
[2019-09-21] MEDS: INSULIN GLARGINE 100 UNITS/ML VIAL SQ SCH (20:07)
[2019-09-22] VITALS (66 sets, daily range): BP systolic 95–140; BP diastolic 44–66
[2019-09-22] MEDS: MIDAZOLAM HCL 50 MG in SODIUM CHLORIDE 0.9% 100 ML 90 ML IV PRN ×2 (00:34→19:35)
[2019-09-22] MEDS: ROCURONIUM BROMIDE 250 MG in SODIUM CHLORIDE 0.9% 250ML 225 ML IV SCH ×3 (00:35→19:35)
[2019-09-22 04:48] LABS: BASOPHILS # (AUTO) 0.1 (0.0-0.1); BASOPHILS % 0.4 % (0.0-1.0); EOSINOPHILS # (AUTO) 0.2 (0.0-0.4); EOSINOPHILS % 1.2 % (0.0-6.0); HEMATOCRIT 29.8 % (34.2-44.1); HEMOGLOBIN 9.8 g/dL (12.0-16.0); LYMPHOCYTES # (AUTO) 1.2 (1.0-3.2); LYMPHOCYTES % 8.4 % (18.0-39.1); MEAN CORPUSCULAR HEMOGLOBIN 29.6 pg (28-32); MEAN CORPUSCULAR HGB CONC 32.9 g/dL (31-35); MONOCYTES # (AUTO) 1.2 (0.2-0.8); MONOCYTES % 7.9 % (4.4-11.3); PLATELET COUNT 157 x10e3/uL (140-360); RED BLOOD COUNT 3.31 x10e6/uL (3.6-5.1); RED CELL DISTRIBUTION WIDTH 17.5 % (11.7-14.4)
[2019-09-22 05:14] LABS: ALBUMIN 2.2 g/dL (3.5-5.0); ALBUMIN/GLOBULIN RATIO 0.5 (0.8-2.0); ANION GAP 16.7 mmol/L (8-16); CALCIUM 7.5 mg/dL (8.4-10.2); CREATININE, SERUM 2.09 mg/dL (0.57-1.11); MAGNESIUM 1.7 MG/DL (1.3-2.1); PHOSPHORUS 5.3 MG/DL (2.3-4.7); POTASSIUM 3.7 mmol/L (3.5-5.1)
[2019-09-22] MEDS: INSULIN REGULAR, HUMAN 100 UNIT/1 ML 3ML VIAL SQ SCH ×4 (06:00→23:03)
--- NOTE | 2019-09-22 06:21 | NUR ---
IM- progress note O/N see below ROS; unreliable v/s; revd PE tired appearing; intubated; NGT anicteric ns1s2 reduced BS soft nt nd 1-2 plus LEG EDEMA skin dry flat affect adams labs/meds revd A/P; 73yoF Multifocal PNA- azithromycin/ceftriaxone/antitussives/loratadine/flonase/Pulm/ID consult COVID19 positive PNA- as above Sepsis- hold antiHTN meds; IV abx Acute resp failure-BIPAP/Hiflo; Now intubated; Hypokalemia- recheck HTN- cont home meds GERd- cont med Osteoporosis- hold med 09-12-19 remains intubated; f/u labs; continue zosyn; RADHA- recheck later today; give free water flushes with NGT; Thrombocytopenia- d/c lovenox; 09-12 check labs; cont vent support; 09-13 HD started; remains intubated; cont care; 09-14 cont care; monitor; labs rev/d 09-15 started on argatroban; falling Hb- recheck at 4pm. continue supportive care; Monitor BP 8-1 Hb better after 1 unit PRBC; 8-2 WBC worse today; Hb improved, now trending down again. 8-3 supportive care; Hyperkalemia- HD now; monitor H/H 8-4 worsened anemia on heparin- d/c heparin; give blood; 8-5 Hb improved after transfusion; HIT Ab positive; 8-6 D/w daughter Sharonda by phone; continue supportive care; remains intubated. Septic Shock- started on levophed. CleveO. Froylan MD, PhD.
--- NOTE | 2019-09-22 08:28 | Diagnostic Imaging Report ---
EXAM: CHEST SINGLE (PORTABLE) DATE: 09/22/2019 5:10 AM INDICATION: Intubated, viral pneumonia COMPARISON: 09/19/2019 FINDINGS: Endotracheal tube identified with distal tip projecting towards the right mainstem bronchus. Recommend retraction by at least 3 cm. Right IJ nontunneled dialysis catheter and right-sided PICC line identified in stable position. Enteric tube noted coursing below the diaphragm. Again identified are increased interstitial and airspace opacities present throughout the lungs bilaterally, similar to the prior examination. There is no evidence for pneumothorax or significant volume pleural effusion. The cardiomediastinal silhouette is stable in appearance. No acute osseous abnormality is identified. IMPRESSION: Endotracheal tube projects towards the right mainstem bronchus, recommend retraction by at least 3 cm. Grossly stable appearing patchy airspace and interstitial opacities identified throughout the lungs bilaterally which can be seen in the setting of a multifocal/viral infectious process. Signed by: Dr. Fabricio Snyder MD on 09/22/2019 8:25 AM
[2019-09-22] MEDS: PANTOPRAZOLE 40 MG 10ML VIAL IV SCH (08:36)
[2019-09-22] MEDS: METRONIDAZOLE 500MG/NS 100ML 100 ML IV SCH ×2 (08:36→15:53)
[2019-09-22] MEDS: DOCUSATE SODIUM LIQD 100 MG/10 ML UDC NG SCH (08:36)
[2019-09-22] MEDS: SENNOSIDES 8.6 MG TAB PO SCH ×2 (08:36→19:36)
[2019-09-22] MEDS: ZINC SULFATE 220 MG CAP PO SCH (08:37)
[2019-09-22] MEDS: ASCORBIC ACID 500 MG TAB PO SCH ×2 (08:37→19:36)
[2019-09-22] MEDS: BALSAM PERU/CASTOR OIL 60 GM OINT...G. TP SCH (08:37)
[2019-09-22 09:15] LABS: BAND NEUTROPHILS % (MANUAL) 5 %; EOSINOPHILS % (MANUAL) 1 % (0-7); LYMPHOCYTES % (MANUAL) 6 % (19-48); MONOCYTES % (MANUAL) 5 % (3.4-9.0); NEUTROPHILS % (MANUAL) 83 % (40-74)
[2019-09-22 09:21] LABS: ABG HCO3 25 mmol/L (22-26); ABG PCO2 55 mmHg (35-45); ABG PH 7.26 (7.35-7.45); ABG PO2 101 mmHg (80-105)
[2019-09-22 09:22] LABS: ABG TCO2 26
[2019-09-22] MEDS: FENTANYL CITRATE INJ 2,000 MCG in SODIUM CHLORIDE 0.9% 250ML 210 ML IV PRN ×2 (10:08→19:36)
--- NOTE | 2019-09-22 10:13 | Progress Note ---
DATE: SUBJECTIVE: The patient is currently in the prone position. She is on Versed and fentanyl as well as rocuronium. She received ultrafiltration yesterday and is scheduled to receive ultrafiltration again today. PHYSICAL EXAMINATION: VITAL SIGNS: The patient is afebrile. She is currently on a pressure control mode of ventilation at a rate of 36 with a PEEP of 10 and a pressure above PEEP of 36. Her FiO2 is set at 95%. HEENT: Shows no facial swelling or erythema. There is an oral endotracheal tube in place. There is a right IJ line. The site is clean. CARDIAC: Reveals regular rate and rhythm with a normal S1, S2. LUNGS: Auscultation of lungs reveals rhonchorous breath sounds bilaterally. There is no wheezing. ABDOMEN: Soft and nontender. There is no rebound or guarding. EXTREMITIES: Shows no leg edema or calf tenderness. There is no cyanosis or clubbing. SKIN: Shows no rashes. NEUROLOGICAL: Shows no focal abnormalities. The patient is sedated. LABORATORY DATA: White blood cell count is 14.5, hemoglobin is 9.8, and the platelet count is 157. The BUN to creatinine ratio is 40 to 2.09. The other electrolytes are within normal limits. Blood gas is 7.26, 55, 101, and 25. The radiographic data shows an endotracheal tube that is too far advance. There are bilateral infiltrates. IMPRESSION: 1. Acute respiratory failure. 2. Viral pneumonia and COVID-19 infection. 3. Acute renal failure. 4. Anemia secondary to chronic blood loss. 5. Diabetes. 6. Thrombocytopenia. PLAN: 1. Retract endotracheal tube 2 cm. 2. Continue current ventilation. We have decreased the pressure above PEEP and the PEEP to help control airway pressures. Continue to monitor ABGs. 3. The patient is scheduled for ultrafiltration again today. 4. Continue enteral feedings. 5. Continue current antibiotics. 6. Continue current insulin regimen. 7. Prognosis is very poor. The daughter is aware of the poor prognosis, but wishes to continue with full support. 8. Greater than 35 minutes in direct critical care time. Alex Crews MD LM/IGORL /[id number]
--- NOTE | 2019-09-22 10:27 | Progress Note ---
DATE: 09/22/2019 Renal Progress Note SUBJECTIVE: Followed for acute kidney injury with sustained acute tubular necrosis from COVID-19 pneumonia. Remains on the vent. Remains on high oxygen requirements. The patient is doing dialysis for fluid removal only today. Chest x-ray still shows bilateral infiltrates. OBJECTIVE: VITAL SIGNS: Noted. Blood pressure is 125/58, 80 pulse. The patient is afebrile. LUNGS: Rhonchi bilaterally. CARDIOVASCULAR: S1 and S2. No rub. ABDOMEN: Soft. Positive bowel sounds. EXTREMITIES: 1 to 2+ edema. LABORATORY DATA: H and H 9.8 and 29.8. Sodium 134, potassium 3.7, chloride 95, bicarb 26, BUN is 40, and creatinine is 2.09. IMPRESSION AND PLAN: 1. Acute kidney injury, sustained acute tubular necrosis, dialysis-dependent. We will do dialysis today for fluid removal only and we will do dialysis again, likely tomorrow for both clearance and ultrafiltration. 2. Hypertension. Blood pressure is on the low side of normal, but the patient is on low-dose Levophed to support the blood pressure. We will continue to monitor closely. 3. Anemia of chronic disease. Transfuse as needed per ICU. 4. Fluid overload. We will ultrafilter with dialysis today. 5. COVID pneumonia. Plan per Critical Care. Dao Diallo MD /MODL /[id number]
--- NOTE | 2019-09-22 12:20 | NUR ---
Nutrition Intervention Note RD Recommendation(s) for Physician: -Continue Vital AF 1.2. Recommend increasing goal rate in order to 50 mL/hr (provides 1440 kcal, 90 g protein) -Fluid management per MD Plan of Care: RD following, monitoring for tolerance and adequacy, tube feeding recommendation Nutrition reason for involvement: follow up RD Assessment 09/21: Follow up. Pt remains intubated, sedated, and paralyzed. Pt requiring low dose Levophed at 2 mcg/min. Pt on Vital AF at 30 ml/hr, not meeting needs. Pt currently proned and to have dialysis today. Pt requiring low dose Levophed. No BM recorded. Chart reviewed. Current rec's remain appropriate. Will continue to monitor. 09/19: Follow up. Pt remains intubated, sedated, and paralyzed. Pt requiring daily dialysis and proning. No pressor support. TF currently at 10 ml/hr while proned, previously infusing at 50 ml/hr when supine- meeting needs. Current TF rec's remain appropriate. Will continue to monitor. 09/15: Follow up. Pt remains intubated. Pt is being dialyzed for fluid overload and pulmonary edema per MD note. Last recorded tube feed rate was 20 mL/hr yesterday morning. Current recommendations remain appropriate. Will continue to monitor. 09/11: Follow up. Pt remains intubated. TF was recorded at 30 mL/hr this morning. Current recommendations remain appropriate at this time. Will continue to monitor. 09/06: Follow up. Pt is now mechanically ventilated and tube feeding of Vital AF was started. MD note today indicates pt is in the prone position. Tube feeding rate was recorded at 40 mL/hr yesterday. Will continue to monitor. (09/02/19) Pt is a 73 year old female admitted with pneumonia due to COVID-19 virus and respiratory failure. Unable to enter room due to isolation precautions. MD note indicates pt has some intermittent confusion. It is recorded that pt has been consuming 0-50% of meals during admission. There are no previous weights in chart. Recommend Ensure Compact BID for added nutrition. Will continue to monitor Principal Problems/Diagnoses: pneumonia due to COVID-19 virus and respiratory failure PMH: hypertension, chronic pain, gastroesophageal reflux, osteoporosis GI: last recorded BM 08/29 Skin: stage 2 sacrum pressure ulcer, bilateral cheek ulcerations 2/2 NGT clemente Labs: 09/21: Na 134, K 3.7, BUN 40, Cr 2.09, Gluc 94, Ca 7.5, Phos 5.3, Mg 1.7 09/19: Na 133, K 4.2, BUN 40, Cr 1.99, Gluc 144, Phos 5.4, Mg 1.8, POC Gluc 163-208 09/15: Na 138, K 4.2, BUN 29, Cr 1.72, Glu 101, Ca 7.4, Total Bili 1.8, AST 70 09/11: Na 137, K 4.3, BUN 38, Cr 1.63, Glu 134, Ca 7.4, Total bili 2.7 09/06: Na 145, K 5.0, BUN 29, Cr 0.60, Glu 334, Ca 7.5, AST 39 (09/01) Na 140, K 4.2, BUN 14, Cr 0.54, Glu 141, Ca 7.5 Meds: vitamin C, zinc sulfate, senokot, colace, protonix, insulin IVF/Drips: Levophed at 2 mcg/min, Rocuronium drip, Fentanyl drip, Versed drip Ht: 63 inches Wt: 206 lbs (09/21)- questionable wt gain, 180.5 lbs (09/19) 183.5 lbs (09/11) 162 lbs (09/04) 163 lbs (08/29) BMI: 28.8 kg/m2 using weight of 163 lbs IBW: 115 lbs Malnutrition Evaluation (09/07/19) The patient does not meet criteria for a specified degree of malnutrition at this time. Will re-evaluate at follow-up as appropriate. Energy intake: </= 50% of energy needs Weight loss: Unable to assess Fat loss: unable to evaluate Muscle loss: unable to evaluate Supporting Evidence: Fluid accumulation: no leg edema per MD note Functional Status: unable to evaluate Nutrition Prescription (Diet Order): Vital AF 1.2 @ 30 mL/hr (864 kcal and 54 gm protein) Estimated Nutritional Needs: 7240-5590 calories/day (18-20 kcal/kg CBW) 89-148 g protein/day (1.2-2 g pro/kg CBW) Diet Adequacy: Not meeting calorie needs, Not meeting protein needs- meeting needs while supine Tolerance: tolerating TF Diet Education Needs Assessment: Diet education not indicated; patient is intubated Nutrition Care Level: high- not meeting needs Nutrition Diagnosis: Inadequate oral intake related to acute respiratory failure/mechanical ventilation as evidenced by pt requiring enteral nutrition. Goal: Patient will meet 75-100% of estimated needs by follow up Progress: goal not met Interventions: -Composition/Rate/Route, Recommended modifications Monitoring/Evaluation: -Total energy intake, Total protein intake, Formula/Solution Signed: Roseann Dacosta RD, [place], [facility]
[2019-09-22] MEDS: CEFEPIME 1GM/NS 0.9% 50 ML 50 ML IV SCH (15:53)
--- NOTE | 2019-09-22 17:50 | Progress Note ---
DATE: SUBJECTIVE: Ms. Hernandez is not doing well. Remains on a ventilator, on vasopressin. PHYSICAL EXAMINATION: GENERAL: She is intubated. HEENT: Normocephalic. CHEST: Few crackles. COR: S1, S2. ABDOMEN: Soft. IMPRESSION: Respiratory failure, multiorgan failure. Prognosis is extremely poor. We will discuss with the family. MD KAMAR Galdamez/MODL /[id number]
[2019-09-22] MEDS: INSULIN GLARGINE 100 UNITS/ML VIAL SQ SCH (19:41)
[2019-09-22 20:04] LABS: ABG HCO3 24 mmol/L (22-26); ABG PCO2 57 mmHg (35-45); ABG PH 7.23 (7.35-7.45); ABG PO2 75 mmHg (80-105); ABG TCO2 26
[2019-09-22] MEDS ORDERED: IOPAMIDOL 370 MG/ML 200 ML INFUS..BTL INJ ONE (23:49)
[2019-09-22] MEDS ORDERED: SODIUM CHLORIDE 0.9% 50ML 50 ML ONE (23:49)
[2019-09-23] VITALS (68 sets, daily range): BP systolic 94–133; BP diastolic 45–67
[2019-09-23] MEDS: METRONIDAZOLE 500MG/NS 100ML 100 ML IV SCH ×4 (00:54→23:24)
--- NOTE | 2019-09-23 01:40 | Diagnostic Imaging Report ---
EXAM: CT Abdomen and Pelvis WITH contrast INDICATION: Concern for infection. COMPARISON: CT dated 01/07/2019.. TECHNIQUE: Abdomen and pelvis were scanned utilizing a multidetector helical scanner from the lung base to the pubic symphysis after administration of IV contrast. Coronal and sagittal reformations were obtained. Routine protocol was performed. Scan was performed when during portal venous phase. IV CONTRAST: 100 mL of Isovue 370 ORAL CONTRAST: None COMPLICATIONS: None RADIATION DOSE: Total DLP: 715.92 mGy*cm Estimated effective dose: (DLP x 0.015 x size factor) mSv CTDIvol has been reviewed. It is below the limits set by the Radiation Protocol Committee (RPC). Dose modulation, iterative reconstruction, and/or weight based adjustment of the mA/kV was utilized to reduce the radiation dose to as low as reasonably achievable. FINDINGS: LINES and TUBES: Enteric tube tip at the gastric fundus.. . LOWER THORAX: Diffuse bilateral consolidative and groundglass opacities at the lower lobes HEPATOBILIARY: No focal hepatic lesions. No biliary ductal dilation. GALLBLADDER: Gallbladder is distended without radio-opaque stones or sludge. No wall thickening. SPLEEN: No splenomegaly. PANCREAS: No focal masses or ductal dilatation. ADRENALS: Unchanged enhancing 2.6 cm left adrenal nodule. KIDNEYS/URETERS: Kidneys enhance symmetrically. No hydronephrosis. Unchanged benign simple left cyst.. No stones. GI TRACT: Colonic diverticulosis without evidence of acute diverticulitis. No dilated bowel loops. PELVIC ORGANS/BLADDER: The urinary bladder is decompressed. Status post hysterectomy. LYMPH NODES: No lymphadenopathy. 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 PERITONEUM / RETROPERITONEUM: There is a 7.1 x 11.0 x 8.9 cm thinly walled loculated fluid collection with an air-fluid level in the lower left hemiabdomen. The left inferior epigastric artery courses along the anterior medial aspect of the lesion. Additional suspected collections are in the lower pelvis interposed between bowel loops measuring 4.6 x 3.0 cm on series #2 image #62. And 2.3 x 2.3 cm adjacent to the rectosigmoid junction on series #2 image #67. , Otherwise, small to moderate volume simple appearing intraperitoneal ascites BONES: Unremarkable. SOFT TISSUES: Unremarkable. IMPRESSION: 1. Large loculated fluid collection with an air-fluid level in the left hemiabdomen measuring up to 11 cm concerning for intraperitoneal abscess. The left inferior gastric artery courses along the anterior and medial aspect of the lesion. This collection would be amenable to percutaneous drainage. 2. Two additional suspected small loculated fluid collections in the pelvis adjacent to small bowel measuring up to 4.6 cm and 2.3 cm respectively. 3. 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 4. Stable enhancing 2.6 cm left adrenal nodule. Nonemergent outpatient adrenal protocol MRI or CT is recommended for characterization. 5. Diffuse and less and consolidative opacities at the lung bases concerning for multifocal pneumonia including viral etiologies. Signed by: Froylan Salas MD on 09/23/2019 1:37 AM
[2019-09-23] MEDS: MIDAZOLAM HCL 50 MG in SODIUM CHLORIDE 0.9% 100 ML 90 ML IV PRN ×4 (01:55→20:37)
[2019-09-23] MEDS: ROCURONIUM BROMIDE 250 MG in SODIUM CHLORIDE 0.9% 250ML 225 ML IV SCH ×4 (03:35→22:47)
[2019-09-23 04:40] LABS: BASOPHILS # (AUTO) 0.1 (0.0-0.1); BASOPHILS % 0.8 % (0.0-1.0); EOSINOPHILS # (AUTO) 0.1 (0.0-0.4); EOSINOPHILS % 0.9 % (0.0-6.0); HEMATOCRIT 31.4 % (34.2-44.1); HEMOGLOBIN 10.2 g/dL (12.0-16.0); LYMPHOCYTES # (AUTO) 1.1 (1.0-3.2); LYMPHOCYTES % 7.2 % (18.0-39.1); MEAN CORPUSCULAR HEMOGLOBIN 29.1 pg (28-32); MEAN CORPUSCULAR HGB CONC 32.5 g/dL (31-35); MEAN CORPUSCULAR VOLUME 89.7 fL (81-99); MONOCYTES # (AUTO) 1.4 (0.2-0.8); MONOCYTES % 9.2 % (4.4-11.3); NEUTROPHILS # (AUTO) 11.2 (2.1-6.9); PLATELET COUNT 180 x10e3/uL (140-360)
[2019-09-23 05:02] LABS: ALBUMIN 2.2 g/dL (3.5-5.0); ALBUMIN/GLOBULIN RATIO 0.5 (0.8-2.0); ANION GAP 18.3 mmol/L (8-16); CALCIUM 7.8 mg/dL (8.4-10.2); CREATININE, SERUM 2.62 mg/dL (0.57-1.11); MAGNESIUM 1.7 MG/DL (1.3-2.1); PHOSPHORUS 7.4 MG/DL (2.3-4.7); POTASSIUM 4.3 mmol/L (3.5-5.1)
[2019-09-23] MEDS: INSULIN REGULAR, HUMAN 100 UNIT/1 ML 3ML VIAL SQ SCH ×4 (05:10→23:23)
--- NOTE | 2019-09-23 06:19 | NUR ---
IM- progress note O/N see below ROS; unreliable v/s; revd PE tired appearing; intubated; NGT anicteric ns1s2 reduced BS soft nt nd 1-2 plus LEG EDEMA skin dry flat affect adams labs/meds revd A/P; 73yoF Multifocal PNA- azithromycin/ceftriaxone/antitussives/loratadine/flonase/Pulm/ID consult COVID19 positive PNA- as above Sepsis- hold antiHTN meds; IV abx Acute resp failure-BIPAP/Hiflo; Now intubated; Hypokalemia- recheck HTN- cont home meds GERd- cont med Osteoporosis- hold med 09-12-19 remains intubated; f/u labs; continue zosyn; RADHA- recheck later today; give free water flushes with NGT; Thrombocytopenia- d/c lovenox; 09-12 check labs; cont vent support; 09-13 HD started; remains intubated; cont care; 09-14 cont care; monitor; labs rev/d 09-15 started on argatroban; falling Hb- recheck at 4pm. continue supportive care; Monitor BP 8-1 Hb better after 1 unit PRBC; 8-2 WBC worse today; Hb improved, now trending down again. 8-3 supportive care; Hyperkalemia- HD now; monitor H/H 8-4 worsened anemia on heparin- d/c heparin; give blood; 8-5 Hb improved after transfusion; HIT Ab positive; 8-6 D/w daughter Sharonda by phone; continue supportive care; remains intubated. Septic Shock- started on levophed. 8-7 Septic shock; Acute resp failure; RADHA with ESRD on HD, now Liver failure occurring; d/w daughter Sharonda by phone; Prognosis poor. Daughter continues to request Full Code. Therefore, LTAC [facility]. Estuardo. MD Froylan, PhD.
[2019-09-23] MEDS: BALSAM PERU/CASTOR OIL 60 GM OINT...G. TP SCH (08:48)
[2019-09-23] MEDS: ASCORBIC ACID 500 MG TAB PO SCH ×2 (08:48→20:35)
[2019-09-23] MEDS: DOCUSATE SODIUM LIQD 100 MG/10 ML UDC NG SCH (08:48)
[2019-09-23] MEDS: SENNOSIDES 8.6 MG TAB PO SCH ×2 (08:48→20:35)
[2019-09-23] MEDS: PANTOPRAZOLE 40 MG 10ML VIAL IV SCH (08:48)
[2019-09-23] MEDS: ZINC SULFATE 220 MG CAP PO SCH (08:48)
--- NOTE | 2019-09-23 08:59 | Diagnostic Imaging Report ---
EXAMINATION: CHEST SINGLE (PORTABLE) INDICATION: Respiratory failure COMPARISON: Chest radiograph 09/21/2019 FINDINGS: LINES/TUBES:Endotracheal tube has been slightly retracted, now terminating 1.5 cm above the harman. Other lines and tubes unchanged. LUNGS:The lung volumes remain low. Unchanged bilateral multifocal airspace opacities. PLEURA:No pleural effusion or pneumothorax. MEDIASTINUM:The cardiomediastinal silhouette appears unchanged in size and shape. BONES/SOFT TISSUES:No acute osseous injury. ABDOMEN:No free air under the diaphragm. IMPRESSION: Endotracheal tube has been slightly pulled back and now terminates 1.5 cm above the harman. Recommend further withdrawal by approximately 2 cm. Otherwise, no significant interval change. Signed by: Haroldo Miner MD on 09/23/2019 8:55 AM
--- NOTE | 2019-09-23 09:32 | Progress Note ---
DATE: 09/23/2019 Renal Progress Note SUBJECTIVE: The patient is followed for acute kidney injury, has sustained acute tubular necrosis. The patient is dialysis dependent. The patient has COVID pneumonia, remains on the vent, FiO2 better been around 100%, anuric, doing daily dialysis as alternating days with clearance and ultrafiltration. OBJECTIVE: VITAL SIGNS: Noted. Blood pressure 111/52, pulse in the 70s. Afebrile. LUNGS: Bilateral rhonchi. CARDIOVASCULAR: S1 and S2. No rub. ABDOMEN: Soft. Positive bowel sounds. EXTREMITIES: 1 to 2+ edema. LABORATORY WORKUP: Potassium is 4.3, sodium 131, BUN is 54, creatinine 2.6, phosphorus elevated at 7.4, and magnesium 1.7. IMPRESSION AND PLAN: 1. Acute kidney injury sustained acute tubular necrosis. Continue daily dialysis as outlined above. We will continue to monitor for any renal recovery. For now, there is no renal recovery. 2. Hypertension/hypotension. On low-dose Levophed. We will continue to monitor closely and ultrafiltrate as allowed by blood pressure and on dialysis. 3. Anemia of chronic disease, stable H and H, has been getting blood transfusion as well. 4. Fluid overload. We will ultrafilter with dialysis as allowed by blood pressure. 5. Metabolic acidosis is largely resolved with dialysis. 6. Hyperphosphatemia, not able to give any phosphorus containing binders, however, with daily dialysis, phosphorus should stay down within acceptable range. Dao Diallo MD [facility]/MODL /[id number]
[2019-09-23 10:09] LABS: ABG PH 7.18 (7.35-7.45)
[2019-09-23 10:10] LABS: ABG HCO3 22 mmol/L (22-26); ABG PCO2 59 mmHg (35-45); ABG PO2 73 mmHg (80-105); ABG TCO2 23
--- NOTE | 2019-09-23 11:48 | NUR ---
CALL RECEIVED FROM KAYE LEE AND ANJUM QUINTEROS REGARDING PT'S DISPO. KAYE STATES SHE SPOKE W THE DTR ABOUT PALLIATIVE CARE. THE DTR STATES SHE WOULD LIKE FOR HER MOTHER TO GO TO [facility] @ [phone]. 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 STATES SHE WOULD SPEAK W HER FAMILY FIRST. CM CALLED [facility] / DTR @ [phone]. NO ANSWER; LEFT VM. WILL AWAIT CALL BACK TO CONFIRM CHOICE FOR THE LTAC REFERRAL.
--- NOTE | 2019-09-23 12:31 | NUR ---
CALL RECEIVED FROM PT'S DTR, PIPER. DISCUSSED CHOICE FOR LTAC. DTR STATES SHE WOULD LIKE FOR HER MOTHER TO GO TO [facility] 1ST CHOICE. STATES HER PCP INFORMED HER [facility] HAD DONE WELL W COVID PTS AND REQUESTED IT A 2ND CHOICE. STATES MS. RESTREPO HAD DISCUSSED [facility] WITH HER ALSO; AND THAT WOULD BE HER 3RD CHOICE. CHOICE LETTER WAS SIGNED. MOT WAS INITIATED.
--- NOTE | 2019-09-23 12:43 | NUR ---
CALL TO [facility] @ [phone]. SPOKE W TAQUERIA PATIÑO. DISCUSSED REASON FOR TRANSFER. STATES THEY ARE NOT ACCEPTING COVID PT'S FROM THE OUTSIDE; ONLY INTERNAL PTS ARE ACCEPTED. INFORMED TAQUERIA THE PT'S DTR HAS WORKED W [facility] FOR 17YRS. TAQUERIA CHECKED W HER DIRECTOR. STATES THE [facility] ARE NOT EQUIPPED TO HANDLE ICU LOC. CALL BACK TO THE PT'S DTR TO INFORM OF THE ABOVE. REQUESTED CM PROCEED W [facility].
[2019-09-23] MEDS: FENTANYL CITRATE INJ 2,000 MCG in SODIUM CHLORIDE 0.9% 250ML 210 ML IV PRN (13:15)
--- NOTE | 2019-09-23 13:52 | NUR ---
CALLED TO CONFIRM Day[facility] THEY ARE ACCEPTING COVID ICU PT'S. REFERRAL FAXED TO [facility] @ [phone]
[2019-09-23] MEDS: CEFEPIME 1GM/NS 0.9% 50 ML 50 ML IV SCH (16:04)
--- NOTE | 2019-09-23 16:24 | Progress Note ---
DATE: SUBJECTIVE: The patient received dialysis again today. The patient continues on PRVC mode of ventilation. She is on pressure control. Case Management and palliative care contacted the family. They are considering transfer to LTAC. PHYSICAL EXAMINATION: VITAL SIGNS: The blood pressure is 95/45 and the heart rate is 100 to 110. The patient is currently on a PRVC at a rate of 36 with 90%. Her PEEP is set at 10 and her pressure above PEEP is 32. HEENT: Shows no facial swelling or erythema. There is an oral endotracheal tube. There is a right IJ line. CARDIAC: Reveals tachycardia with normal S1 and S2. LUNGS: Auscultation of the lungs shows crackles at the bases. There is no wheezing. ABDOMEN: Soft and nontender. There is no rebound or guarding. EXTREMITIES: Shows 1 to 2+ leg edema. LABORATORY DATA: The white blood cell count is 14.7 and hemoglobin is 10.2. The platelet count is 180. The BUN to creatinine ratio is 54 to 2.62. Sodium is 131. Albumin is 2.2. RADIOGRAPHIC DATA: Chest x-ray shows bilateral infiltrates. IMPRESSION: 1. Acute respiratory failure. 2. Acute renal failure. 3. Viral pneumonia and COVID-19 infection. 4. Anemia secondary to chronic blood loss. 5. Diabetes. 6. Thrombocytopenia. PLAN: 1. Continue current ventilator settings and monitor ABGs. 2. Continue dialysis. 3. Continue enteral feedings. 4. Complete antibiotics. 5. Continue insulin. 6. Prognosis remains poor. The daughter is considering transfer to LTAC. Greater than 35 minutes in direct critical care time. Alex Crews MD [facility]/MODL /[id number]
--- NOTE | 2019-09-23 17:09 | NUR ---
HEMATOLOGY/ONCOLOGY PROGRESS NOTE: REASON FOR CONSULTATION: Anticoagulation management HISTORY OF PRESENT ILLNESS: Events noted. Hgb stable. REVIEW OF SYSTEMS: 14 Point ROS unable to obtain secondary to patient intubated and sedated in COVID ICU unit. PHYSICAL EXAMINATION: VITAL SIGNS: Reviewed per [facility] PHYSICAL EXAM NOT PERFORMED PATIENT IS ON COVID19 ICU UNIT ON CONTACT PRECAUTIONS. LABORATORY/RADIOLOGY DATA: Reviewed per EMR. ASSESSMENT/PLAN: Ms. Hernandez is a 73-year-old female with past medical history of GERD, HTN, Chronic pain syndrome, and osteoporosis, who was admitted on 08/27/2019 with malaise and fever along with dyspnea nd cough found to have COVID19 pneumonia leading to acute respiratory failure requiring intubation and transfer to the [facility]. She has been on IV antibiotics, Vitamin C, Zinc, and started on pressor support on 09/11/2019. Patient was noted to have worsening renal failure with minimal urine output and clotting in Cherry catheter. Patient was on DVT proph with Lovenox 30mg sq daily, however, due to clots in Cherry catheter, Lovenox was discontinued and DIC and HIT panel were ordered. Hematology/Oncology has been consulted to assist with management. 1. COVID19 PNA/sepsis/resp failure: Patient is s/p antibiotics. Zinc, Vitamin C. Patient remains intubated and sedated. Leukocytosis stable. Managed per ICU/primary/pulmonary/ID teams on board. 2. Anticoagulation: Patient is at increased risk for microthrombotic event secondary to COVID19. Initial HIT panel negative, argatroban was subsequently discontinued and patient restarted on Heparin drip, now discontinued to due anemia requiring PRBC transfusion. Repeat HIT noted to be intermediate at 0.521, 4Ts score 3-4; overall low-intermediate risk of HIT. Continue to hold heparin drip. Will start patient on heparin 5000u sq q8h. Monitor closely. 3. Renal failure: Uncertain etiology. Could be secondary to COVID19 PNA however recommend avoiding nephrotoxic medications. Clots in cherry catheter noted on 09/13/19, does not appear DIC. S/p dialysis catheter placement. On HD per Nephrol erick on board. Managed per ICU/Primary/Nephrology team. 4. Thrombocytopenia: Appears acute as counts were normal on admission. Could be consumption secondary to sepsis as per #1. Does not appear DIC though. Acute hepatitis panel negative. HIT low-intermediate risk, as per #2. RESOLVED. Monito r closely. 5. Anemia: Likely multifactorial. Appears secondary to iron deficiency anemia. TIBC low and ferritin elevated likely as APR. S/p trial dose of IV Iron. Plan to limit IV Iron secondary to elevated ferritin level as above. S/p 2 unit PRBC transfused, H/H improving. Monitor for now. 6. GOC: Per my discussion with RN yesterday, palliative care on board for goals of care discussion with patient's family. Patient is currently full code. Possible transfer to LTAC. Above plan discussed with Dr. Franklin. Thank you for the consult. I will be available. Please call with questions.
[2019-09-23] MEDS: NOREPINEPHRINE 8 MG/D5W 250 ML 250 ML IV PRN (17:30)
--- NOTE | 2019-09-23 19:31 | Progress Note ---
DATE: SUBJECTIVE: Ms. Hernandez remains about the same on the ventilator on dialysis. I spoke with the family yesterday. They are well aware poor prognosis. PHYSICAL EXAMINATION: GENERAL: She is currently confused. VITAL SIGNS: Stable, afebrile. She is currently intubated, sedated. HEENT: Normocephalic. NECK: Supple. CHEST: Clear. HEART: S1, S2. No murmurs. ABDOMEN: Soft. IMPRESSION: Respiratory failure, coronavirus disease-19, renal failure. Continue as ordered. Discussed with medical team. Please refer to the orders in the chart. Anderson Perera MD [facility]/MODL /[id number]
[2019-09-23] MEDS: HEPARIN SOD (PORCINE) 5,000 UNIT/ML VIAL SC SCH (20:36)
[2019-09-23] MEDS: INSULIN GLARGINE 100 UNITS/ML VIAL SQ SCH (20:36)
[2019-09-24] VITALS (93 sets, daily range): BP systolic 102–132; BP diastolic 45–62
[2019-09-24] MEDS: NOREPINEPHRINE 8 MG/D5W 250 ML 250 ML IV PRN ×2 (01:05→10:36)
[2019-09-24] MEDS: MIDAZOLAM HCL 50 MG in SODIUM CHLORIDE 0.9% 100 ML 90 ML IV PRN ×2 (01:06→09:45)
[2019-09-24] MEDS: FENTANYL CITRATE INJ 2,000 MCG in SODIUM CHLORIDE 0.9% 250ML 210 ML IV PRN ×2 (01:06→14:30)
[2019-09-24 04:29] LABS: BASOPHILS # (AUTO) 0.1 (0.0-0.1); BASOPHILS % 0.4 % (0.0-1.0); EOSINOPHILS # (AUTO) 0.1 (0.0-0.4); EOSINOPHILS % 0.7 % (0.0-6.0); HEMATOCRIT 32.2 % (34.2-44.1); HEMOGLOBIN 9.9 g/dL (12.0-16.0); LYMPHOCYTES # (AUTO) 1.3 (1.0-3.2); LYMPHOCYTES % 9.2 % (18.0-39.1); MEAN CORPUSCULAR HEMOGLOBIN 28.2 pg (28-32); MEAN CORPUSCULAR HGB CONC 30.7 g/dL (31-35); MEAN CORPUSCULAR VOLUME 91.7 fL (81-99); MONOCYTES # (AUTO) 1.9 (0.2-0.8); MONOCYTES % 13.5 % (4.4-11.3); NEUTROPHILS # (AUTO) 9.2 (2.1-6.9); NEUTROPHILS % 66.4 % (38.7-80.0); PLATELET COUNT 231 x10e3/uL (140-360); RED BLOOD COUNT 3.51 x10e6/uL (3.6-5.1); RED CELL DISTRIBUTION WIDTH 18.7 % (11.7-14.4)
[2019-09-24 04:52] LABS: ALBUMIN 2.2 g/dL (3.5-5.0); ALBUMIN/GLOBULIN RATIO 0.4 (0.8-2.0); ANION GAP 15.2 mmol/L (8-16); CALCIUM 8.1 mg/dL (8.4-10.2); CREATININE, SERUM 2.07 mg/dL (0.57-1.11); MAGNESIUM 1.7 MG/DL (1.3-2.1); PHOSPHORUS 5.9 MG/DL (2.3-4.7); POTASSIUM 4.2 mmol/L (3.5-5.1)
[2019-09-24] MEDS: HEPARIN SOD (PORCINE) 5,000 UNIT/ML VIAL SC SCH ×3 (05:07→20:59)
[2019-09-24] MEDS: INSULIN REGULAR, HUMAN 100 UNIT/1 ML 3ML VIAL SQ SCH ×3 (05:08→18:00)
[2019-09-24] MEDS: ROCURONIUM BROMIDE 250 MG in SODIUM CHLORIDE 0.9% 250ML 225 ML IV SCH ×2 (06:21→21:00)
[2019-09-24] MEDS ORDERED: HEPARIN SOD (PORCINE) 1000 UNIT/ML SDV IV PRN (08:15)
[2019-09-24] MEDS ORDERED: SODIUM CHLORIDE 0.9% 1000ML 2,000 ML IV PRN (08:15)
[2019-09-24] MEDS ORDERED: SODIUM CHLORIDE 0.9% 250ML 500 ML IV PRN (08:15)
[2019-09-24] MEDS: METRONIDAZOLE 500MG/NS 100ML 100 ML IV SCH ×2 (08:21→16:13)
[2019-09-24] MEDS: PANTOPRAZOLE 40 MG 10ML VIAL IV SCH (08:25)
[2019-09-24] MEDS: SENNOSIDES 8.6 MG TAB PO SCH ×2 (08:26→20:58)
[2019-09-24] MEDS: ZINC SULFATE 220 MG CAP PO SCH (08:26)
[2019-09-24] MEDS: ASCORBIC ACID 500 MG TAB PO SCH ×2 (08:26→20:58)
[2019-09-24] MEDS: BALSAM PERU/CASTOR OIL 60 GM OINT...G. TP SCH (08:26)
[2019-09-24] MEDS: DOCUSATE SODIUM LIQD 100 MG/10 ML UDC NG SCH (08:26)
[2019-09-24 08:42] LABS: ABG HCO3 24 mmol/L (22-26); ABG PCO2 65 mmHg (35-45); ABG PH 7.17 (7.35-7.45); ABG PO2 93 mmHg (80-105); ABG TCO2 26
--- NOTE | 2019-09-24 13:03 | Progress Note ---
DATE: SUBJECTIVE: The patient did receive dialysis again today. She continues on a PRVC mode of ventilation with pressure control. Her rate is set at 36. Her FiO2 is 100%. Her pressure above PEEP is 36 and PEEP is set at 10. Her tidal volumes are 330. PHYSICAL EXAMINATION: VITAL SIGNS: Blood pressure is 123/51, pulse is 80. HEENT: Shows no facial swelling or erythema. There is an oral endotracheal tube. There is a right IJ line. The site is clean. There is no drainage. CARDIAC: Reveals regular rate and rhythm with normal S1 and S2. LUNGS: Auscultation of lungs reveals crackles at the bases. There is no wheezing. ABDOMEN: Soft and nontender. There is no rebound or guarding. EXTREMITIES: Shows some leg edema. LABORATORY DATA: White blood cell count is 13.8 and hemoglobin is 9.9. The platelet count is 231. The BUN to creatinine ratio is 36 to 2.07. The other electrolytes within normal limits. Albumin is 2.2. IMPRESSION: 1. Acute respiratory failure. 2. Viral pneumonia and COVID-19 infection. 3. Acute renal failure. 4. Anemia secondary to chronic blood loss. 5. Diabetes. 6. Thrombocytopenia. PLAN: 1. Continue current ventilator settings and monitor ABGs. 2. Continue dialysis. 3. Continue enteral feedings. 4. Continue antibiotics. 5. Continue insulin and monitoring of blood sugars. 6. Prognosis remains poor. 7. The daughter is considering transfer to LTAC. Greater than 35 minutes in direct critical care time. Alex Crews MD [facility]/MODL /[id number]
--- NOTE | 2019-09-24 13:21 | Diagnostic Imaging Report ---
EXAMINATION: CHEST SINGLE (PORTABLE) INDICATION: Pneumonia due to COVID . COMPARISON: Chest radiograph 09/23/2019 FINDINGS: LINES/TUBES:Endotracheal tube unchanged in position with distal tip approximately 5 cm proximal to the harman. Unchanged right upper extremity PICC, right IJ central venous catheter, and NG tube with distal tip projected on the gastric fundus. LUNGS:The lung volumes remain low. Stable bilateral multifocal airspace opacities most markedly involving the lower lobes. PLEURA:No pleural effusion or pneumothorax. MEDIASTINUM:The cardiomediastinal silhouette appears unchanged in size and shape. BONES/SOFT TISSUES:No acute osseous injury. ABDOMEN:No free air under the diaphragm. IMPRESSION: No significant interval change in bilateral multifocal pneumonia. Stable supporting tubes and lines. Signed by: Dr. Marianna Riavs M.D. on 09/24/2019 1:18 PM
--- NOTE | 2019-09-24 14:21 | NUR ---
IM- progress note O/N see below ROS; unreliable v/s; revd PE tired appearing; intubated; NGT anicteric ns1s2 reduced BS soft nt nd 1-2 plus LEG EDEMA skin dry flat affect adams labs/meds revd A/P; 73yoF Multifocal PNA- azithromycin/ceftriaxone/antitussives/loratadine/flonase/Pulm/ID consult COVID19 positive PNA- as above Sepsis- hold antiHTN meds; IV abx Acute resp failure-BIPAP/Hiflo; Now intubated; Hypokalemia- recheck HTN- cont home meds GERd- cont med Osteoporosis- hold med 09-12-19 remains intubated; f/u labs; continue zosyn; RADHA- recheck later today; give free water flushes with NGT; Thrombocytopenia- d/c lovenox; 09-12 check labs; cont vent support; 09-13 HD started; remains intubated; cont care; 09-14 cont care; monitor; labs rev/d 09-15 started on argatroban; falling Hb- recheck at 4pm. continue supportive care; Monitor BP 8-1 Hb better after 1 unit PRBC; 8-2 WBC worse today; Hb improved, now trending down again. 8-3 supportive care; Hyperkalemia- HD now; monitor H/H 8-4 worsened anemia on heparin- d/c heparin; give blood; 8-5 Hb improved after transfusion; HIT Ab positive; 8-6 D/w daughter Sharonda by phone; continue supportive care; remains intubated. Septic Shock- started on levophed. 8-7 Septic shock; Acute resp failure; RADHA with ESRD on HD, now Liver failure occurring; d/w daughter Sharonda by phone; Prognosis poor. Daughter continues to request Full Code. Therefore, LTAC eval. 8-8 supportive care; LTAC pending; No real change; not interactive; sedated; intubated; on pressors; d/w daughter by telephone; CleveO. Froylan MD, PhD.
[2019-09-24] MEDS: CEFEPIME 1GM/NS 0.9% 50 ML 50 ML IV SCH (16:13)
--- NOTE | 2019-09-24 16:23 | NUR ---
infectious disease per his note Patient MsNeftali intensive care is in very critical Ms. a ventilator Laboratory to review chart reviewed he patient did receive dialysis again today. She continues on a PRVC mode of ventilation with pressure control. Her rate is set at 36. Her FiO2 is 100%. Her pressure above PEEP is 36 and PEEP is set at 10. Her tidal volumes are 330. PHYSICAL EXAMINATION: VITAL SIGNS: Blood pressure is 123/51, pulse is 80. Patient is intubated sedated HEENT: Shows no facial swelling or erythema. There is an oral endotracheal tube. normocephalic There is a right IJ line. The site is clean. There is no drainage. CARDIAC: Reveals regular rate and rhythm with normal S1 and S2. LUNGS: Auscultation of lungs reveals crackles at the bases. There is no wheezing. ABDOMEN: Soft and nontender. There is no rebound or guarding. EXTREMITIES: Shows some leg edema. LABORATORY DATA: White blood cell count is 13.8 and hemoglobin is 9.9. The platelet count is 231. The BUN to creatinine ratio is 36 to 2.07. The other electrolytes within normal limits. Albumin is 2.2. IMPRESSION: 1. Acute respiratory failure. 2. Viral pneumonia and COVID-19 infection. 3. Acute renal failure. 4. Anemia secondary to chronic blood loss. 5. Diabetes. 6. Thrombocytopenia. this is very ill patient's prognosis is extremely poor family unrealistic expectation continue supportive care continue surveillance for aspiration pneumonia
--- NOTE | 2019-09-24 17:10 | Progress Note ---
DATE: 09/24/2019 Nephrology Followup Note SUBJECTIVE: Followed for acute kidney injury, oligoanuric. Now dialysis dependent. Has COVID pneumonia and bilateral lung opacities. Fluid overload, requiring daily ultrafiltration. The patient remains sedated and on 100% oxygen. OBJECTIVE: VITAL SIGNS: Blood pressure is supported by vasopressors. LUNGS: Bilateral air entry. CARDIOVASCULAR: S1, S2. ABDOMEN: Soft, nondistended. EXTREMITIES: 1 to 2+ pitting edema. LABORATORY DATA: Reviewed, serum chemistries stable on regular hemodialysis. IMPRESSION AND PLAN: 1. Acute kidney injury, secondary to ATN. The patient will ultrafilter today for 3.5 L. We will continue regular dialysis and ultrafiltration. 2. Hypertension, on IV Levophed. 3. Anemia, multifactorial. Being transfused as needed. 4. Fluid overload, dialysis and ultrafiltration as needed. 5. Electrolytes, stable on dialysis. Bishop Nation MD [facility]/MODL /[id number]
[2019-09-24 20:31] LABS: ABG HCO3 23 mmol/L (22-26); ABG PCO2 58 mmHg (35-45); ABG PH 7.21 (7.35-7.45); ABG PO2 108 mmHg (80-105)
[2019-09-24 20:32] LABS: ABG TCO2 25
[2019-09-24] MEDS: INSULIN GLARGINE 100 UNITS/ML VIAL SQ SCH (20:59)
[2019-09-25] VITALS (109 sets, daily range): BP systolic 98–200; BP diastolic 21–67
[2019-09-25] MEDS: METRONIDAZOLE 500MG/NS 100ML 100 ML IV SCH ×3 (00:06→16:09)
[2019-09-25 04:36] LABS: BASOPHILS # (AUTO) 0.1 (0.0-0.1); BASOPHILS % 0.9 % (0.0-1.0); EOSINOPHILS # (AUTO) 0.4 (0.0-0.4); EOSINOPHILS % 3.1 % (0.0-6.0); HEMATOCRIT 30.9 % (34.2-44.1); HEMOGLOBIN 9.7 g/dL (12.0-16.0); LYMPHOCYTES # (AUTO) 1.1 (1.0-3.2); LYMPHOCYTES % 8.2 % (18.0-39.1); MEAN CORPUSCULAR HEMOGLOBIN 28.4 pg (28-32); MEAN CORPUSCULAR HGB CONC 31.4 g/dL (31-35); MEAN CORPUSCULAR VOLUME 90.6 fL (81-99); MONOCYTES # (AUTO) 1.7 (0.2-0.8); MONOCYTES % 12.7 % (4.4-11.3); NEUTROPHILS # (AUTO) 8.8 (2.1-6.9); NEUTROPHILS % 64.4 % (38.7-80.0); PLATELET COUNT 205 x10e3/uL (140-360); RED BLOOD COUNT 3.41 x10e6/uL (3.6-5.1); RED CELL DISTRIBUTION WIDTH 18.4 % (11.7-14.4)
[2019-09-25 04:49] LABS: ALBUMIN 1.9 g/dL (3.5-5.0); ALBUMIN/GLOBULIN RATIO 0.4 (0.8-2.0); ANION GAP 16.1 mmol/L (8-16); CALCIUM 8.1 mg/dL (8.4-10.2); CREATININE, SERUM 2.34 mg/dL (0.57-1.11); POTASSIUM 4.1 mmol/L (3.5-5.1)
[2019-09-25] MEDS: HEPARIN SOD (PORCINE) 5,000 UNIT/ML VIAL SC SCH ×3 (05:18→20:02)
[2019-09-25] MEDS: INSULIN REGULAR, HUMAN 100 UNIT/1 ML 3ML VIAL SQ SCH ×5 (05:19→22:52)
--- NOTE | 2019-09-25 07:52 | Diagnostic Imaging Report ---
EXAMINATION: CHEST SINGLE (PORTABLE) COMPARISON: Chest x-ray 09/24/2019 INDICATION: ^resp failure ^[id number] ^[id number] DISCUSSION: HEART AND MEDIASTINUM: The cardiomediastinal silhouette is unremarkable. LINES: Endotracheal tube terminates 2 to 3 cm above the harman. Dual lumen central venous catheter remains in the SVC. Right PICC line terminates in the SVC. Enteric tube extends past the diaphragm LUNGS/PLEURA: Multifocal infiltrates are redemonstrated and unchanged. No large effusions or pneumothorax. BONES AND SOFT TISSUES: Unremarkable. IMPRESSION: Support devices as described above. No change in multifocal pulmonary infiltrates. Signed by: Dr. Lazaro Cabrera MD on 09/25/2019 7:48 AM
[2019-09-25] MEDS ORDERED: HEPARIN SOD (PORCINE) 1000 UNIT/ML SDV IV PRN (08:15)
[2019-09-25] MEDS ORDERED: SODIUM CHLORIDE 0.9% 250ML 500 ML IV PRN (08:15)
[2019-09-25] MEDS ORDERED: SODIUM CHLORIDE 0.9% 1000ML 2,000 ML IV PRN (08:15)
[2019-09-25] MEDS: SENNOSIDES 8.6 MG TAB PO SCH ×2 (09:00→20:01)
[2019-09-25] MEDS: DOCUSATE SODIUM LIQD 100 MG/10 ML UDC NG SCH (09:00)
[2019-09-25] MEDS: BALSAM PERU/CASTOR OIL 60 GM OINT...G. TP SCH (09:00)
[2019-09-25] MEDS: ZINC SULFATE 220 MG CAP PO SCH (09:00)
[2019-09-25] MEDS: PANTOPRAZOLE 40 MG 10ML VIAL IV SCH (09:00)
[2019-09-25] MEDS: ASCORBIC ACID 500 MG TAB PO SCH ×2 (09:00→20:01)
[2019-09-25] MEDS: NOREPINEPHRINE 8 MG/D5W 250 ML 250 ML IV PRN ×2 (09:20→22:52)
--- NOTE | 2019-09-25 09:26 | NUR ---
IM- progress note O/N see below ROS; unreliable v/s; revd PE tired appearing; intubated; NGT anicteric ns1s2 reduced BS soft nt nd 1-2 plus LEG EDEMA skin dry flat affect adams labs/meds revd A/P; 73yoF Multifocal PNA- azithromycin/ceftriaxone/antitussives/loratadine/flonase/Pulm/ID consult COVID19 positive PNA- as above Sepsis- hold antiHTN meds; IV abx Acute resp failure-BIPAP/Hiflo; Now intubated; Hypokalemia- recheck HTN- cont home meds GERd- cont med Osteoporosis- hold med 09-12-19 remains intubated; f/u labs; continue zosyn; RADHA- recheck later today; give free water flushes with NGT; Thrombocytopenia- d/c lovenox; 09-12 check labs; cont vent support; 09-13 HD started; remains intubated; cont care; 09-14 cont care; monitor; labs rev/d 09-15 started on argatroban; falling Hb- recheck at 4pm. continue supportive care; Monitor BP 8-1 Hb better after 1 unit PRBC; 8-2 WBC worse today; Hb improved, now trending down again. 8-3 supportive care; Hyperkalemia- HD now; monitor H/H 8-4 worsened anemia on heparin- d/c heparin; give blood; 8-5 Hb improved after transfusion; HIT Ab positive; 8-6 D/w daughter Sharonda by phone; continue supportive care; remains intubated. Septic Shock- started on levophed. 8-7 Septic shock; Acute resp failure; RADHA with ESRD on HD, now Liver failure occurring; d/w daughter Sharonda by phone; Prognosis poor. Daughter continues to request Full Code. Therefore, LTAC eval. 8-8 supportive care; LTAC pending; No real change; not interactive; sedated; intubated; on pressors; d/w daughter by telephone; 8-9 supportive care; called daughter Sharonda; discussed details about retesting; discussed 3500ml removed via HD. CleveO. Froylan MD, PhD.
--- NOTE | 2019-09-25 10:11 | NUR ---
Infectious disease progress note Patient seen and examined chart reviewed Patient Ms. intensive care unit intubated sedated extremely Physical examination she is intubated sedated but stable afebrile. HEENT normocephalic Neck supple chest few crackles bilateral \ heart normal sound S1-S2 Abdomen soft hypoactive present extremities no edema skin there is no rash abdomen soft review chart reviewed Covid 19 admission Respiratory failure Multiorgan failure Prognosis extremely poor Family aware but with unrealistic expectation
[2019-09-25] MEDS: ROCURONIUM BROMIDE 250 MG in SODIUM CHLORIDE 0.9% 250ML 225 ML IV SCH (10:35)
[2019-09-25 10:36] LABS: ABG HCO3 21 mmol/L (22-26); ABG PCO2 50 mmHg (35-45); ABG PH 7.23 (7.35-7.45); ABG PO2 82 mmHg (80-105); ABG TCO2 22
[2019-09-25 12:40] LABS: BAND NEUTROPHILS % (MANUAL) 4 %; EOSINOPHILS % (MANUAL) 9 % (0-7); LYMPHOCYTES % (MANUAL) 9 % (19-48); METAMYELOCYTES % (MANUAL) 1 % (0-0); MONOCYTES % (MANUAL) 6 % (3.4-9.0); MYELOCYTES % (MANUAL) 7 % (0-0); NEUTROPHILS % (MANUAL) 63 % (40-74); NUCLEATED RED BLOOD CELLS 1
[2019-09-25 12:41] LABS: ANISOCYTOSIS MODERATE; POLYCHROMASIA FEW; RBC MORPHOLOGY COMMENT ABNORMAL
[2019-09-25 12:42] LABS: PLATELET ESTIMATE ADEQUATE; PLATELET MORPHOLOGY COMMENT NORMAL
[2019-09-25] MEDS: CEFEPIME 1GM/NS 0.9% 50 ML 50 ML IV SCH (16:09)
[2019-09-25] MEDS ORDERED: FENTANYL CITRATE/PF 100MCG/2 ML INJ IV PRN (17:00)
[2019-09-25] MEDS ORDERED: MIDAZOLAM HCL 2 MG/2 ML VIAL IV PRN (17:00)
--- NOTE | 2019-09-25 19:20 | Progress Note ---
DATE: SUBJECTIVE: The patient is receiving dialysis on a daily basis. Continues on PRVC mode of ventilation with pressure control. She remains on rocuronium, Versed and fentanyl. PHYSICAL EXAMINATION: VITAL SIGNS: The patient is afebrile. The blood pressure is 119/61, saturation is 96%. She is on a PRVC with pressure control at a rate of 36. Her PEEP is set at 10 and her pressure above PEEP is 36. HEENT: Shows no facial swelling or erythema. She has an oral endotracheal tube in place. She has a right IJ line in place. She has a PICC line as well as an arterial line. CARDIAC: Reveals regular rate and rhythm with normal S1 and S2. LUNGS: Auscultation of lungs reveals rhonchorous breath sounds bilaterally. There is no wheezing. ABDOMEN: Soft and nontender. There is no rebound or guarding. EXTREMITIES: Shows no leg edema or calf tenderness. There is no cyanosis or clubbing. SKIN: Shows no rashes. LABORATORY DATA: White blood cell count is 13.7, hemoglobin is 9.7, platelet count is 205. The BUN to creatinine ratio is 44 to 2.34. The other electrolytes are within normal limits. RADIOGRAPHIC DATA: Chest x-ray shows bilateral infiltrates. IMPRESSION: 1. Acute respiratory failure. 2. Viral pneumonia and COVID-19 infection. 3. Acute renal failure. 4. Anemia secondary to chronic blood loss. 5. Diabetes. 6. Thrombocytopenia. PLAN: 1. Continue dialysis. 2. Continue current ventilator settings and adjust as tolerated. 3. Continue current feedings. 4. Complete antibiotics. 5. Monitor and control blood sugars. 6. Prognosis remains poor. Alex Crews MD [facility]/MODL /[id number]
--- NOTE | 2019-09-25 19:29 | Progress Note ---
DATE: 09/25/2019 Nephrology Progress Note. SUBJECTIVE: The patient remains bed-bound, on respiratory support using 100% FiO2. Blood pressure is still supported by IV vasopressor. Oligo anuric. Underwent ultrafiltration 3 L yesterday. It was repeated today to the tune of 3.5 L. COVID-19 pneumonia. PHYSICAL EXAMINATION: GENERAL: Sedated on mechanical ventilation. VITAL SIGNS: Blood pressure 115/50, pulse 88 per minute, oxygen saturation 98%. NECK: Unable to determine JVP. CHEST: Bilateral air entry to mechanical breath. CARDIOVASCULAR: S1, S2. ABDOMEN: Nondistended. EXTREMITIES: Without pitting edema or cyanosis. NEUROLOGIC: The patient is sedated. LABORATORY DATA: Hemoglobin 9.7, white count 13.7, normal platelet count. Sodium 130, potassium 4.1, chloride 97, bicarb 21, BUN 44, creatinine 2.34, glucose 123, calcium 8.9, albumin 1.9. IMPRESSION: 1. Acute kidney injury, oligoanuric. Dialysis dependent. 2. Fluid overload/COVID-19 pneumonia. Requiring almost daily fluid removal with either hemodialysis or isolated ultrafiltration. We will continue same. 3. Hypotension secondary to sepsis, on vasopressor support. 4. Mild hyponatremia, likely dilutional. Continue to address with dialysis. 5. Anemia. 6. Hypoalbuminemia, try to improve nutritional status. Bishop Nation MD [facility]/MODL /[id number]
[2019-09-25] MEDS: INSULIN GLARGINE 100 UNITS/ML VIAL SQ SCH (20:02)
[2019-09-25] MEDS: FENTANYL CITRATE INJ 2,000 MCG in SODIUM CHLORIDE 0.9% 250ML 210 ML IV PRN (22:52)
[2019-09-25] MEDS: MIDAZOLAM HCL 50 MG in SODIUM CHLORIDE 0.9% 100 ML 90 ML IV PRN (22:55)
[2019-09-26] VITALS (120 sets, daily range): BP systolic 84–127; BP diastolic 39–61
[2019-09-26] MEDS: METRONIDAZOLE 500MG/NS 100ML 100 ML IV SCH ×3 (00:30→16:18)
[2019-09-26 03:31] LABS: BASOPHILS # (AUTO) 0.1 (0.0-0.1); BASOPHILS % 0.5 % (0.0-1.0); EOSINOPHILS # (AUTO) 0.4 (0.0-0.4); EOSINOPHILS % 2.3 % (0.0-6.0); HEMATOCRIT 32.3 % (34.2-44.1); HEMOGLOBIN 10.1 g/dL (12.0-16.0); LYMPHOCYTES # (AUTO) 1.4 (1.0-3.2); LYMPHOCYTES % 8.1 % (18.0-39.1); MEAN CORPUSCULAR HGB CONC 31.3 g/dL (31-35); MEAN CORPUSCULAR VOLUME 92.8 fL (81-99); MONOCYTES # (AUTO) 1.9 (0.2-0.8); MONOCYTES % 10.9 % (4.4-11.3); NEUTROPHILS # (AUTO) 11.5 (2.1-6.9); NEUTROPHILS % 64.9 % (38.7-80.0); PLATELET COUNT 197 x10e3/uL (140-360); RED BLOOD COUNT 3.48 x10e6/uL (3.6-5.1); RED CELL DISTRIBUTION WIDTH 18.8 % (11.7-14.4)
[2019-09-26 03:54] LABS: ALBUMIN/GLOBULIN RATIO 0.4 (0.8-2.0); ANION GAP 17.2 mmol/L (8-16); CALCIUM 8.3 mg/dL (8.4-10.2); CREATININE, SERUM 2.61 mg/dL (0.57-1.11); POTASSIUM 4.2 mmol/L (3.5-5.1)
[2019-09-26] MEDS: HEPARIN SOD (PORCINE) 5,000 UNIT/ML VIAL SC SCH ×3 (05:14→19:58)
[2019-09-26] MEDS: INSULIN REGULAR, HUMAN 100 UNIT/1 ML 3ML VIAL SQ SCH ×3 (05:15→17:39)
[2019-09-26] MEDS: ROCURONIUM BROMIDE 250 MG in SODIUM CHLORIDE 0.9% 250ML 225 ML IV SCH ×3 (07:30→21:53)
[2019-09-26] MEDS: SENNOSIDES 8.6 MG TAB PO SCH ×2 (08:43→19:42)
[2019-09-26] MEDS: PANTOPRAZOLE 40 MG 10ML VIAL IV SCH (08:43)
[2019-09-26] MEDS: DOCUSATE SODIUM LIQD 100 MG/10 ML UDC NG SCH (08:43)
[2019-09-26] MEDS: BALSAM PERU/CASTOR OIL 60 GM OINT...G. TP SCH (08:44)
[2019-09-26] MEDS: ASCORBIC ACID 500 MG TAB PO SCH ×2 (08:44→19:42)
[2019-09-26] MEDS: ZINC SULFATE 220 MG CAP PO SCH (08:44)
--- NOTE | 2019-09-26 09:01 | Diagnostic Imaging Report ---
EXAMINATION: CHEST SINGLE (PORTABLE) INDICATION: Pneumonia due to COVID . COMPARISON: Chest radiograph 09/25/2019 FINDINGS: LINES/TUBES: Unchanged endotracheal tube, enteric tube, right arm PICC, and right IJ non tunneled hemodialysis catheter. LUNGS:The lung volumes remain low. Bilateral multifocal airspace and interstitial opacities, slightly decreased in the right upper lung, slightly increased in the left lung. PLEURA:No pleural effusion or pneumothorax. MEDIASTINUM:The cardiomediastinal silhouette appears unchanged in size and shape. BONES/SOFT TISSUES:No acute osseous injury. ABDOMEN:No free air under the diaphragm. IMPRESSION: Bilateral multifocal pneumonia, possibly with superimposed pulmonary edema, slightly decreased on the right and slightly increased on the left. Lines and tubes as above. No pneumothorax. Signed by: Dr. Serafin Maldonado MD on 09/26/2019 8:58 AM
--- NOTE | 2019-09-26 09:03 | NUR ---
Updated clinicals faxed to [facility].
--- NOTE | 2019-09-26 09:11 | Progress Note ---
DATE: 09/26/2019 Renal progress note SUBJECTIVE: Followed for acute kidney injury secondary to acute tubular necrosis from COVID pneumonia. The patient remains on the vent. The patient has been getting normal daily dialysis alternating days with ultrafiltration and clearance and ultrafiltration. The patient will require dialysis again today. Remains on the ventilator. FiO2 around 85%. OBJECTIVE: VITAL SIGNS: Have been noted. Blood pressure 109/52. The patient is on a low-dose Levophed. Afebrile. 75 pulse. LUNGS: Rhonchi bilaterally. CARDIOVASCULAR: S1, S2. No rub. ABDOMEN: Soft, nontender. EXTREMITIES: 1 to 2+ edema. LABORATORY DATA: Labs have been reviewed. H and H are 10.1 and 32.3. Sodium 130, potassium 4.2, BUN 56, and creatinine 2.6. IMPRESSION AND PLAN: 1. Acute kidney injury sustained acute tubular necrosis. We will continue to do dialysis today both for clearance and ultrafiltration. 2. Hypertension/hypotension. Continue the low-dose Levophed for vasopressor support. 3. Hyponatremia, likely from fluid overload. We will do ultrafiltration dialysis today. 4. Coronavirus disease pneumonia. Plan per Critical Care and Pulmonary. Dao Diallo MD [facility]/MODL /[id number]
[2019-09-26] MEDS: NOREPINEPHRINE 8 MG/D5W 250 ML 250 ML IV PRN ×2 (09:30→21:54)
--- NOTE | 2019-09-26 09:30 | NUR ---
CALL RECEIVED FROM PT'S DTR, PIPER BAUGH. STATES SHE RECEIVED A CALL FROM THE CLINICAL [facility] PER THE [facility]OSP[facility] ASST'S REQUEST TO REVEIW THE PT'S RECORDS. LIASON: KELTON FARIAS @ [phone]. PIPER ALSO EXPRESSED THAT SHE WOULD LIKE TO BE CALLED ONCE HER MOTHER IS MOVED TO A FACILITY AND WOULD LIKE TO MEET HER THERE. DISCUSSED THE RISKS OF TRYING TO MAKE CONTACT W HER MOTHER WHILE BEING TRANSPORTED. STATES SHE WILL ONLY STAY IN HER CAR AND HAVE PRAYER FOR HER MOTHER. INFORMED PIPER I WILL PASS THE INFO ON TO MY N. WHO IS THE CURRENT CM. CALL TO KELTON FARIAS, BUT NO ANSWER. CALL TO MY TO PROVIDE THIS INFO. STATES SHE WILL CALL LATER.
[2019-09-26 10:06] LABS: ABG HCO3 19 mmol/L (22-26); ABG PCO2 54 mmHg (35-45); ABG PH 7.15 (7.35-7.45); ABG PO2 100 mmHg (80-105); ABG TCO2 20
--- NOTE | 2019-09-26 10:30 | NUR ---
Called Sharan Alexis [phone] with [facility]. He states he received a call from his administration over the weekend regarding pt. They are willing to look at clinicals to see if pt could transfer there. Clinicals faxed to [phone].
[2019-09-26 10:49] LABS: BAND NEUTROPHILS % (MANUAL) 1 %; EOSINOPHILS % (MANUAL) 5 % (0-7); LYMPHOCYTES % (MANUAL) 10 % (19-48); METAMYELOCYTES % (MANUAL) 1 % (0-0); MONOCYTES % (MANUAL) 15 % (3.4-9.0); MYELOCYTES % (MANUAL) 9 % (0-0); NEUTROPHILS % (MANUAL) 57 % (40-74)
[2019-09-26 10:50] LABS: POLYCHROMASIA FEW
[2019-09-26 10:51] LABS: ANISOCYTOSIS MODERATE; OVALOCYTES FEW; PLATELET ESTIMATE ADEQUATE; PLATELET MORPHOLOGY COMMENT FEW LARGE; RBC MORPHOLOGY COMMENT ABNORMAL
[2019-09-26] MEDS: MIDAZOLAM HCL 50 MG in SODIUM CHLORIDE 0.9% 100 ML 90 ML IV PRN ×3 (11:34→21:54)
--- NOTE | 2019-09-26 12:20 | NUR ---
infectious disease progress note Patient seen and examined chart reviewed The patient remains in intensive care unit intubated Extremely poor prognosis Patient is intubated sedated noncommunicative he patient remains on the vent. The patient has been getting normal daily dialysis alternating days with ultrafiltration and clearance and ultrafiltration. The patient will require dialysis again today. Remains on the ventilator. FiO2 around 85%. OBJECTIVE: VITAL SIGNS: no fever present time Have been noted. Blood pressure 109/52. The patient is on a low-dose Levophed. Afebrile. 75 pulse. HEENT normal LUNGS: Rhonchi bilaterally. CARDIOVASCULAR: S1, S2. No rub. ABDOMEN: Soft, nontender. EXTREMITIES: 1 to 2+ edema. LABORATORY DATA: Labs have been reviewed. H and H are 10.1 and 32.3. Sodium 130, potassium 4.2, BUN 56, and creatinine 2.6. Covid 19 Respiratory failure Acute or chronic kidney disease Prognosis extremely poor Continue as ordered [place] is poor
--- NOTE | 2019-09-26 13:39 | NUR ---
called pt's daughter, Sharonda, to follow up. No answer. Will continue to follow as able. [facility] O: [phone]
[2019-09-26] MEDS: CEFEPIME 1GM/NS 0.9% 50 ML 50 ML IV SCH (16:18)
--- NOTE | 2019-09-26 16:19 | Progress Note ---
DATE: SUBJECTIVE: The patient continues on pressure control mode of ventilation with a PEEP 10 and pressure above PEEP of 36. Her rate is set at 36. FiO2 is set at 85%. She remains on Levophed at 8 mcg. She is continuing on Versed, fentanyl, and rocuronium. PHYSICAL EXAMINATION: VITAL SIGNS: The patient is afebrile. The blood pressure is 108/53, saturation is 95%. HEENT: No facial swelling or erythema. The oropharynx is normal. LYMPHATIC: No submandibular, cervical, or supraclavicular adenopathy. CARDIAC: Regular rate and rhythm with normal S1, S2. LUNGS: Auscultation of lungs reveals rhonchorous breath sounds bilaterally. There is no wheezing. ABDOMEN: Soft, nontender. There is no rebound or guarding. EXTREMITIES: There is no leg edema or calf tenderness. There is no cyanosis or clubbing. SKIN: No rashes. NEUROLOGICAL: No focal abnormalities. LABORATORY DATA: The white blood cell count is 17.7, hemoglobin is 10.1. The platelet count is 197,000. BUN to creatinine ratio is 54 to 2.61. The carbon dioxide is 19. The sodium is 130. Albumin is 2.0. RADIOGRAPHIC DATA: Chest x-ray shows bilateral infiltrates. IMPRESSION: 1. Acute respiratory failure. 2. Viral pneumonia and coronavirus disease-19 infection. 3. Acute renal failure. 4. Anemia secondary to chronic blood loss. 5. Diabetes. 6. Thrombocytopenia. PLAN: 1. Continue current ventilator settings and adjust as tolerated. 2. Repeat ABG. 3. Place the patient in prone position. 4. Continue dialysis. 5. Complete current antibiotics. 6. Monitor and control blood sugars. 7. Case discussed with nursing, Respiratory, Infectious Disease, Internal Medicine, and administration. Greater than 35 minutes in direct critical care time. Alex Crews MD [facility]/MODL /[id number]
--- NOTE | 2019-09-26 17:35 | NUR ---
Nutrition Intervention Note RD Recommendation(s) for Physician: -Continue Vital AF 1.2. Recommend increasing goal rate in order to 50 mL/hr (provides 1440 kcal, 90 g protein) -Fluid management per MD Plan of Care: RD following, monitoring for tolerance and adequacy, tube feeding recommendation Nutrition reason for involvement: follow up RD Assessment 09/25: Follow up. Chart reviewed. Pt remains intubated and requiring dialysis. Per documentation, pts tube feeding is at 20 mL/hr not meeting needs. No recent BM recorded. Current recommendations remain appropriate. Will continue to monitor. 09/21: Follow up. Pt remains intubated, sedated, and paralyzed. Pt requiring low dose Levophed at 2 mcg/min. Pt on Vital AF at 30 ml/hr, not meeting needs. Pt currently proned and to have dialysis today. Pt requiring low dose Levophed. No BM recorded. Chart reviewed. Current rec's remain appropriate. Will continue to monitor. 09/19: Follow up. Pt remains intubated, sedated, and paralyzed. Pt requiring daily dialysis and proning. No pressor support. TF currently at 10 ml/hr while proned, previously infusing at 50 ml/hr when supine- meeting needs. Current TF rec's remain appropriate. Will continue to monitor. 09/15: Follow up. Pt remains intubated. Pt is being dialyzed for fluid overload and pulmonary edema per MD note. Last recorded tube feed rate was 20 mL/hr yesterday morning. Current recommendations remain appropriate. Will continue to monitor. 09/11: Follow up. Pt remains intubated. TF was recorded at 30 mL/hr this morning. Current recommendations remain appropriate at this time. Will continue to monitor. 09/06: Follow up. Pt is now mechanically ventilated and tube feeding of Vital AF was started. MD note today indicates pt is in the prone position. Tube feeding rate was recorded at 40 mL/hr yesterday. Will continue to monitor. (09/02/19) Pt is a 73 year old female admitted with pneumonia due to COVID-19 virus and respiratory failure. Unable to enter room due to isolation precautions. MD note indicates pt has some intermittent confusion. It is recorded that pt has been consuming 0-50% of meals during admission. There are no previous weights in chart. Recommend Ensure Compact BID for added nutrition. Will continue to monitor Principal Problems/Diagnoses: pneumonia due to COVID-19 virus and respiratory failure PMH: hypertension, chronic pain, gastroesophageal reflux, osteoporosis GI: last recorded BM 08/29 Skin: stage 2 sacrum pressure ulcer, bilateral cheek ulcerations 2/2 NGT clemente Labs: 09/25: Na 130, K 4.2, BUN 54, Cr 2.61, Glu 100, Ca 8.3 09/21: Na 134, K 3.7, BUN 40, Cr 2.09, Gluc 94, Ca 7.5, Phos 5.3, Mg 1.7 09/19: Na 133, K 4.2, BUN 40, Cr 1.99, Gluc 144, Phos 5.4, Mg 1.8, POC Gluc 163-208 09/15: Na 138, K 4.2, BUN 29, Cr 1.72, Glu 101, Ca 7.4, Total Bili 1.8, AST 70 09/11: Na 137, K 4.3, BUN 38, Cr 1.63, Glu 134, Ca 7.4, Total bili 2.7 09/06: Na 145, K 5.0, BUN 29, Cr 0.60, Glu 334, Ca 7.5, AST 39 (09/01) Na 140, K 4.2, BUN 14, Cr 0.54, Glu 141, Ca 7.5 Meds: norepinephrine, vitamin C, zinc sulfate, senokot, protonix, insulin, antibiotic, rocuronium, colace, zofran Ht: 63 inches Wt: 203 lbs (09/24) 206 lbs (09/21)- questionable wt gain, 180.5 lbs (09/19) 183.5 lbs (09/11) 162 lbs (09/04) 163 lbs (08/29) BMI: 28.8 kg/m2 using weight of 163 lbs IBW: 115 lbs Malnutrition Evaluation (09/07/19) The patient does not meet criteria for a specified degree of malnutrition at this time. Will re-evaluate at follow-up as appropriate. Energy intake: </= 50% of energy needs Weight loss: Unable to assess Fat loss: unable to evaluate Muscle loss: unable to evaluate Supporting Evidence: Fluid accumulation: no leg edema per MD note Functional Status: unable to evaluate Nutrition Prescription (Diet Order): Vital AF 1.2 @ 30 mL/hr (864 kcal and 54 gm protein) infusing at 20 mL/hr Estimated Nutritional Needs: 8747-7138 calories/day (18-20 kcal/kg CBW) weight used 163 lbs 89-148 g protein/day (1.2-2 g pro/kg CBW) weight used 163 lbs Diet Adequacy: Not meeting calorie needs, Not meeting protein needs at this time Tolerance: tolerating TF Diet Education Needs Assessment: Diet education not indicated; patient is intubated Nutrition Care Level: high- not meeting needs Nutrition Diagnosis: Inadequate oral intake related to acute respiratory failure/mechanical ventilation as evidenced by pt requiring enteral nutrition. Goal: Patient will meet 75-100% of estimated needs by follow up Progress: goal not met Interventions: -Composition/Rate/Route, Recommended modifications Monitoring/Evaluation: -Total energy intake, Total protein intake, Formula/Solution Signed: Stephanie Willis RD, LD
[2019-09-26] MEDS: INSULIN GLARGINE 100 UNITS/ML VIAL SQ SCH (20:05)
[2019-09-26] MEDS: FENTANYL CITRATE INJ 2,000 MCG in SODIUM CHLORIDE 0.9% 250ML 210 ML IV PRN (21:54)
[2019-09-26 22:32] LABS: ABG HCO3 17 mmol/L (22-26); ABG PCO2 53 mmHg (35-45); ABG PH 7.12 (7.35-7.45); ABG PO2 84 mmHg (80-105)
[2019-09-26 22:33] LABS: ABG TCO2 19
[2019-09-27] VITALS (115 sets, daily range): BP systolic 77–147; BP diastolic 40–88
[2019-09-27] MEDS: METRONIDAZOLE 500MG/NS 100ML 100 ML IV SCH ×3 (00:16→16:24)
[2019-09-27 04:11] LABS: BASOPHILS # (AUTO) 0.1 (0.0-0.1); BASOPHILS % 0.3 % (0.0-1.0); EOSINOPHILS # (AUTO) 0.3 (0.0-0.4); HEMATOCRIT 33.8 % (34.2-44.1); HEMOGLOBIN 10.4 g/dL (12.0-16.0); LYMPHOCYTES # (AUTO) 1.3 (1.0-3.2); MEAN CORPUSCULAR HEMOGLOBIN 28.2 pg (28-32); MEAN CORPUSCULAR HGB CONC 30.8 g/dL (31-35); MEAN CORPUSCULAR VOLUME 91.6 fL (81-99); MONOCYTES # (AUTO) 2.5 (0.2-0.8); MONOCYTES % 9.4 % (4.4-11.3); NEUTROPHILS # (AUTO) 18.5 (2.1-6.9); PLATELET COUNT 230 x10e3/uL (140-360); RED BLOOD COUNT 3.69 x10e6/uL (3.6-5.1); RED CELL DISTRIBUTION WIDTH 19.5 % (11.7-14.4)
[2019-09-27 04:32] LABS: ALBUMIN/GLOBULIN RATIO 0.4 (0.8-2.0); ANION GAP 18.1 mmol/L (8-16); CALCIUM 8.2 mg/dL (8.4-10.2); CREATININE, SERUM 2.2 mg/dL (0.57-1.11); MAGNESIUM 1.7 MG/DL (1.3-2.1); PHOSPHORUS 5.6 MG/DL (2.3-4.7); POTASSIUM 4.1 mmol/L (3.5-5.1)
[2019-09-27] MEDS: HEPARIN SOD (PORCINE) 5,000 UNIT/ML VIAL SC SCH ×3 (05:25→20:14)
[2019-09-27] MEDS: INSULIN REGULAR, HUMAN 100 UNIT/1 ML 3ML VIAL SQ SCH ×3 (05:25→11:20)
[2019-09-27] MEDS: ROCURONIUM BROMIDE 250 MG in SODIUM CHLORIDE 0.9% 250ML 225 ML IV SCH ×2 (06:15→12:15)
[2019-09-27] MEDS: FENTANYL CITRATE INJ 2,000 MCG in SODIUM CHLORIDE 0.9% 250ML 210 ML IV PRN ×2 (06:15→16:26)
[2019-09-27] MEDS: MIDAZOLAM HCL 50 MG in SODIUM CHLORIDE 0.9% 100 ML 90 ML IV PRN ×3 (06:15→18:31)
--- NOTE | 2019-09-27 06:40 | NUR ---
IM- progress note O/N see below ROS; unreliable v/s; revd PE tired appearing; intubated; NGT anicteric ns1s2 reduced BS soft nt nd 1-2 plus LEG EDEMA skin dry flat affect adams labs/meds revd A/P; 73yoF Multifocal PNA- azithromycin/ceftriaxone/antitussives/loratadine/flonase/Pulm/ID consult COVID19 positive PNA- as above Sepsis- hold antiHTN meds; IV abx Acute resp failure-BIPAP/Hiflo; Now intubated; Hypokalemia- recheck HTN- cont home meds GERd- cont med Osteoporosis- hold med 09-12-19 remains intubated; f/u labs; continue zosyn; RADHA- recheck later today; give free water flushes with NGT; Thrombocytopenia- d/c lovenox; 09-12 check labs; cont vent support; 09-13 HD started; remains intubated; cont care; 09-14 cont care; monitor; labs rev/d 09-15 started on argatroban; falling Hb- recheck at 4pm. continue supportive care; Monitor BP 8-1 Hb better after 1 unit PRBC; 8-2 WBC worse today; Hb improved, now trending down again. 8-3 supportive care; Hyperkalemia- HD now; monitor H/H 8-4 worsened anemia on heparin- d/c heparin; give blood; 8-5 Hb improved after transfusion; HIT Ab positive; 8-6 D/w daughter Sharonda by phone; continue supportive care; remains intubated. Septic Shock- started on levophed. 8-7 Septic shock; Acute resp failure; RADHA with ESRD on HD, now Liver failure occurring; d/w daughter Sharonda by phone; Prognosis poor. Daughter continues to request Full Code. Therefore, LTAC eval. 8-8 supportive care; LTAC pending; No real change; not interactive; sedated; intubated; on pressors; d/w daughter by telephone; 8-9 supportive care; called daughter Sharonda; discussed details about retesting; discussed 3500ml removed via HD. 8-10 remain intubated; sedated; acidotic; prognosis poor; supportive care; 8-11 more acidotic; WBC worse; lung infiltrate worse; poor prognosis; supportive CleveO. Froylan MD, PhD.
[2019-09-27 06:58] LABS: BAND NEUTROPHILS % (MANUAL) 3 %; EOSINOPHILS % (MANUAL) 2 % (0-7); LYMPHOCYTES % (MANUAL) 5 % (19-48); MONOCYTES % (MANUAL) 6 % (3.4-9.0); MYELOCYTES % (MANUAL) 6 % (0-0); NEUTROPHILS % (MANUAL) 78 % (40-74)
[2019-09-27 06:59] LABS: ANISOCYTOSIS MODERATE; POLYCHROMASIA FEW; RBC MORPHOLOGY COMMENT ABNORMAL
[2019-09-27 07:01] LABS: HELMET CELLS RARE; OVALOCYTES F'XA
[2019-09-27 07:02] LABS: PLATELET ESTIMATE ADEQUATE; PLATELET MORPHOLOGY COMMENT FEW LARGE
[2019-09-27] MEDS: ASCORBIC ACID 500 MG TAB PO SCH ×2 (09:05→20:14)
[2019-09-27] MEDS: ZINC SULFATE 220 MG CAP PO SCH (09:05)
[2019-09-27] MEDS: BALSAM PERU/CASTOR OIL 60 GM OINT...G. TP SCH (09:05)
[2019-09-27] MEDS: DOCUSATE SODIUM LIQD 100 MG/10 ML UDC NG SCH (09:05)
[2019-09-27] MEDS: PANTOPRAZOLE 40 MG 10ML VIAL IV SCH (09:05)
[2019-09-27] MEDS: SENNOSIDES 8.6 MG TAB PO SCH ×2 (09:05→20:14)
--- NOTE | 2019-09-27 09:47 | Progress Note ---
DATE: 09/27/2019 Renal Progress Note SUBJECTIVE: Followed for acute kidney injury, secondary to acute tubular necrosis from COVID-19 pneumonia. The patient remains dialysis dependent, pretty much on a daily basis. The patient's creatinine is better today at 2.2, however, the patient has a bicarb of only 19. Sodium is also still low at 132, although it has improved from yesterday. Remains on the vent. Overall prognosis remains poor. OBJECTIVE: VITAL SIGNS: Have been noted. Blood pressure is 111/48, afebrile, 93 to 96 pulse. LUNGS: Rhonchi bilaterally. CARDIOVASCULAR: S1, S2. No rub. ABDOMEN: Soft, nontender. EXTREMITIES: 1 to 2+ edema. LABORATORY DATA: Sodium is 132, potassium is 4.1. BUN 40, creatinine is 2.2, bicarb of 19. IMPRESSION AND PLAN: 1. Acute kidney injury, sustained acute tubular necrosis, dialysis-dependent. We will do another dialysis sessions today especially because of the metabolic acidosis. We will also ultrafilter as allowed by blood pressure. 2. Hypertension, on low-dose Levophed. Continue to ultrafilter as allowed by blood pressure. 3. Anemia of chronic disease, stable H and H. 4. Fluid overload. We will ultrafilter with dialysis as outlined by blood pressure. 5. Coronavirus disease pneumonia. Plan would be as per primary and Critical Care recommendations. MD EUGENIA Serrano/MODL /[id number]
[2019-09-27 10:01] LABS: ABG HCO3 19 mmol/L (22-26); ABG PCO2 54 mmHg (35-45); ABG PH 7.16 (7.35-7.45); ABG PO2 83 mmHg (80-105); ABG TCO2 21
[2019-09-27] MEDS: NOREPINEPHRINE INJ 4MG/4ML 16 MG in DEXTROSE 5% 250ML 250 ML IV PRN ×2 (10:30→18:32)
--- NOTE | 2019-09-27 10:57 | NUR ---
Called Sharan with [facility] to get update on clinical review. Left a message for callback.
[2019-09-27] MEDS ORDERED: VANCOMYCIN 1GM/NS 250 ML 250 ML IV ONE (11:30)
--- NOTE | 2019-09-27 12:18 | Progress Note ---
DATE: SUBJECTIVE: The patient is still in the prone position. She is on pressure control ventilation at a rate of 36 with a PEEP of 8 and pressure above PEEP 38. She remains on Levophed at 20 mcg. She is continued on Versed and fentanyl as well as rocuronium. She is receiving intermittent dialysis. PHYSICAL EXAMINATION: VITAL SIGNS: The blood pressure is 111/50 and the pulse is 96. The saturation is 95%. HEENT: Shows no facial swelling or erythema. The oral and endotracheal tube are in good position. CARDIAC: Reveals a regular rate and rhythm. Normal S1, S2. LUNGS: Auscultation of lungs reveals crackles at the bases. There is no wheezing. ABDOMEN: Soft, nontender. There is no rebound or guarding. EXTREMITIES: Shows no leg edema or calf tenderness. There is no cyanosis or clubbing. SKIN: Shows no rashes. LABORATORY DATA: White blood cell count is 26.8 and hemoglobin is 10.4. The platelet count is 230. The BUN to creatinine ratio is 40 to 2.2 and the carbon dioxide is 19. Albumin is 2.0. Blood gas; 7.16, 54 with an O2 of 83 and a bicarbonate of 19. IMPRESSION: 1. Acute respiratory failure. 2. Viral pneumonia and COVID-19 infection. 3. Acute renal failure. 4. Secondary bacterial pneumonia and septic shock. 5. Thrombocytopenia. 6. Metabolic acidosis. 7. Anemia. PLAN: 1. Continue dialysis. 2. Escalate antibiotics. 3. Continue Levophed. 4. Continue current sedation. 5. Continue to monitor and control blood sugars. 6. Continue pressure control mode of ventilation with 100% of FiO2. 7. Prognosis is extremely poor. There is no hope of survival. 8. The daughter is aware of this, but still would like full measures. Greater than 35 minutes in direct critical care time. Alex Crews MD [facility]/MODL /[id number]
[2019-09-27] MEDS: MEROPENEM 1GM 100 ML IV SCH ×2 (12:51→20:14)
--- NOTE | 2019-09-27 14:07 | NUR ---
infectious disease progress note Patient seen and examined chart reviewed this is September 27, 2019 The patient is still in the prone position. She is on pressure control ventilation at a rate of 36 with a PEEP of 8 and pressure above PEEP 38. She remains on Levophed at 20 mcg. She is continued on Versed and fentanyl as well as rocuronium. She is receiving intermittent dialysis. PHYSICAL EXAMINATION: VITAL SIGNS: The blood pressure is 111/50 and the pulse is 96. The saturation is 95%. HEENT: Shows no facial swelling or erythema. The oral and endotracheal tube are in good position. CARDIAC: Reveals a regular rate and rhythm. Normal S1, S2. LUNGS: Auscultation of lungs reveals crackles at the bases. There is no wheezing. ABDOMEN: Soft, nontender. There is no rebound or guarding. EXTREMITIES: Shows no leg edema or calf tenderness. There is no cyanosis or clubbing. SKIN: Shows no rashes. LABORATORY DATA: White blood cell count is 26.8 and hemoglobin is 10.4. The platelet count is 230. The BUN to creatinine ratio is 40 to 2.2 and the carbon dioxide is 19. Albumin is 2.0. Blood gas; 7.16, 54 with an O2 of 83 and a bicarbonate of 19. IMPRESSION: 1. Acute respiratory failure. 2. Viral pneumonia and COVID-19 infection. 3. Acute renal failure. 4. Secondary bacterial pneumonia and septic shock. 5. Thrombocytopenia. 6. Metabolic acidosis. 7. Anemia.
--- NOTE | 2019-09-27 14:07 | NUR ---
Infectious disease progress note Patient seen and examined chart reviewed September 27, 2019 Patient remains intensive care unit discussed with the medical team The patient is still in the prone position. She is on pressure control ventilation at a rate of 36 with a PEEP of 8 and pressure above PEEP 38. She remains on Levophed at 20 mcg. She is continued on Versed and fentanyl as well as rocuronium. She is receiving intermittent dialysis. PHYSICAL EXAMINATION: VITAL SIGNS: The blood pressure is 111/50 and the pulse is 96. The saturation is 95%. HEENT: Shows no facial swelling or erythema. The oral and endotracheal tube are in good position. CARDIAC: Reveals a regular rate and rhythm. Normal S1, S2. LUNGS: Auscultation of lungs reveals crackles at the bases. There is no wheezing. ABDOMEN: Soft, nontender. There is no rebound or guarding. EXTREMITIES: Shows no leg edema or calf tenderness. There is no cyanosis or clubbing. SKIN: Shows no rashes. LABORATORY DATA: White blood cell count is 26.8 and hemoglobin is 10.4. The platelet count is 230. The BUN to creatinine ratio is 40 to 2.2 and the carbon dioxide is 19. Albumin is 2.0. Blood gas; 7.16, 54 with an O2 of 83 and a bicarbonate of 19. IMPRESSION: 1. Acute respiratory failure. 2. Viral pneumonia and COVID-19 infection. 3. Acute renal failure. 4. Secondary bacterial pneumonia and septic shock. 5. Thrombocytopenia. 6. Metabolic acidosis. 7. Anemia. Patient currently on meropenem Her prognosis remains extremely poor
--- NOTE | 2019-09-27 15:10 | NUR ---
Spoke with Sharan at [facility]. States they don't have COVID ICU capabilities. He has already reached out to pt's daughter to let her know. Currently still pending with Chante. Per Roxana, pt still on too high FiO2, PEEP and Rocuronium.
[2019-09-27] MEDS ORDERED: DEXTROSE 50% SYRINGE 50 ML IV ONE (20:05)
[2019-09-27 20:10] LABS: ABG HCO3 23 mmol/L (22-26); ABG PCO2 62 mmHg (35-45); ABG PH 7.18 (7.35-7.45); ABG PO2 78 mmHg (80-105); ABG TCO2 25
[2019-09-27] MEDS: INSULIN GLARGINE 100 UNITS/ML VIAL SQ SCH (20:14)
[2019-09-28] VITALS (71 sets, daily range): BP systolic 75–134; BP diastolic 30–64
[2019-09-28] MEDS: METRONIDAZOLE 500MG/NS 100ML 100 ML IV SCH ×2 (00:02→08:29)
[2019-09-28] MEDS: NOREPINEPHRINE INJ 4MG/4ML 16 MG in DEXTROSE 5% 250ML 250 ML IV PRN (00:35)
[2019-09-28] MEDS: ROCURONIUM BROMIDE 250 MG in SODIUM CHLORIDE 0.9% 250ML 225 ML IV SCH (00:35)
[2019-09-28] MEDS: MIDAZOLAM HCL 50 MG in SODIUM CHLORIDE 0.9% 100 ML 90 ML IV PRN (00:36)
[2019-09-28] MEDS: FENTANYL CITRATE INJ 2,000 MCG in SODIUM CHLORIDE 0.9% 250ML 210 ML IV PRN (00:36)
[2019-09-28] MEDS ORDERED: SODIUM CHLORIDE 0.9% 100 ML ONE (02:04)
[2019-09-28] MEDS ORDERED: DEXTROSE 5% 1,000 ML IV ONE (02:05)
[2019-09-28] MEDS ORDERED: VASOPRESSIN INJ 20 UNIT/ML VIAL ONE (02:06)
[2019-09-28] MEDS ORDERED: DEXTROSE 5% IV PRN (02:15)
[2019-09-28] MEDS ORDERED: VASOPRESSIN IV PRN (02:15)
[2019-09-28] MEDS ORDERED: SODIUM BICARBONATE 8.4% INJ 50 ML SYR IV STA (02:23)
[2019-09-28] MEDS ORDERED: SODIUM CHLORIDE 0.9% IV SCH (02:30)
[2019-09-28] MEDS ORDERED: PHENYLEPHRINE 10MG/ML VIAL 40 MG in DEXTROSE 5% 250ML 246 ML IV PRN (02:30)
[2019-09-28] MEDS ORDERED: SODIUM BICARBONATE 8.4% IV SCH (02:30)
--- NOTE | 2019-09-28 02:35 | NUR ---
PT SUDDENLY BECAME HYPOTENSIVE, DR RODRIGUEZ CALLED, ORDERS FOR 2AMPS BICARB PUSH, BICARB GTT @75ML/HR, VASO AND RAMONE RECEIVED AND GIVEN. PT DAUGHTER MADE AWARE, WANTS EVERYTHING DONE STILL. WILL CONTINUE TO MONITOR AND TREAT INDICATED. Addendum: 09/28/19 at 0306 by Oralia Chung RN PT FLIPPED FROM PRONE TO SUPINE. MAXED ON ALL PRESSORS, CURRENT BP 70/34. O2 89%.
[2019-09-28] MEDS ORDERED: PHENYLEPHRINE HCL 1% 10 MG/ML VIAL ONE (02:40)
[2019-09-28] MEDS ORDERED: SODIUM CHLORIDE 0.9% 250ML 250 ML ONE (02:40)
[2019-09-28 04:59] LABS: BASOPHILS % 0.2 % (0.0-1.0); EOSINOPHILS # (AUTO) 0.2 (0.0-0.4); EOSINOPHILS % 0.9 % (0.0-6.0); HEMATOCRIT 30.7 % (34.2-44.1); HEMOGLOBIN 9.8 g/dL (12.0-16.0); LYMPHOCYTES # (AUTO) 1.5 (1.0-3.2); LYMPHOCYTES % 5.7 % (18.0-39.1); MEAN CORPUSCULAR HEMOGLOBIN 28.7 pg (28-32); MEAN CORPUSCULAR HGB CONC 31.9 g/dL (31-35); MEAN CORPUSCULAR VOLUME 89.8 fL (81-99); MONOCYTES # (AUTO) 1.9 (0.2-0.8); MONOCYTES % 7.4 % (4.4-11.3); NEUTROPHILS # (AUTO) 18.2 (2.1-6.9); NEUTROPHILS % 71.6 % (38.7-80.0); PLATELET COUNT 178 x10e3/uL (140-360); RED BLOOD COUNT 3.42 x10e6/uL (3.6-5.1); RED CELL DISTRIBUTION WIDTH 19.5 % (11.7-14.4)
[2019-09-28] MEDS: HEPARIN SOD (PORCINE) 5,000 UNIT/ML VIAL SC SCH (05:04)
[2019-09-28 05:29] LABS: ALBUMIN 1.7 g/dL (3.5-5.0); ALBUMIN/GLOBULIN RATIO 0.3 (0.8-2.0); ANION GAP 16.7 mmol/L (8-16); CALCIUM 7.8 mg/dL (8.4-10.2); CREATININE, SERUM 1.89 mg/dL (0.57-1.11); POTASSIUM 3.7 mmol/L (3.5-5.1)
[2019-09-28] MEDS ORDERED: SODIUM BICARBONATE 8.4% SYRING 100 ML in DEXTROSE 5% 1,000 ML IV SCH (05:45)
[2019-09-28 05:51] LABS: MAGNESIUM 1.5 MG/DL (1.3-2.1); PHOSPHORUS 4.2 MG/DL (2.3-4.7)
[2019-09-28 07:11] LABS: BAND NEUTROPHILS % (MANUAL) 2 %; EOSINOPHILS % (MANUAL) 1 % (0-7); LYMPHOCYTES % (MANUAL) 5 % (19-48); MONOCYTES % (MANUAL) 6 % (3.4-9.0); MYELOCYTES % (MANUAL) 16 % (0-0); NEUTROPHILS % (MANUAL) 69 % (40-74); NUCLEATED RED BLOOD CELLS 2; PROMYELOCYTES % (MANUAL) 1 % (0-0)
[2019-09-28 07:12] LABS: PLATELET ESTIMATE ADEQUATE; RBC MORPHOLOGY COMMENT ABNORMAL
[2019-09-28 07:13] LABS: ANISOCYTOSIS MODERATE
[2019-09-28 07:14] LABS: POLYCHROMASIA FEW; TARGET CELLS FEW
[2019-09-28 07:15] LABS: PLATELET MORPHOLOGY COMMENT RARE EDTA CLUMPING
[2019-09-28 07:17] LABS: GIANT PLATELETS RARE; LARGE PLATELETS FEW
--- NOTE | 2019-09-28 08:20 | NUR ---
IM- progress note O/N see below ROS; unreliable v/s; revd PE tired appearing; intubated; NGT anicteric ns1s2 reduced BS soft nt nd 1-2 plus LEG EDEMA skin dry flat affect adams labs/meds revd A/P; 73yoF Multifocal PNA- azithromycin/ceftriaxone/antitussives/loratadine/flonase/Pulm/ID consult COVID19 positive PNA- as above Sepsis- hold antiHTN meds; IV abx Acute resp failure-BIPAP/Hiflo; Now intubated; Hypokalemia- recheck HTN- cont home meds GERd- cont med Osteoporosis- hold med 09-12-19 remains intubated; f/u labs; continue zosyn; RADHA- recheck later today; give free water flushes with NGT; Thrombocytopenia- d/c lovenox; 09-12 check labs; cont vent support; 09-13 HD started; remains intubated; cont care; 09-14 cont care; monitor; labs rev/d 09-15 started on argatroban; falling Hb- recheck at 4pm. continue supportive care; Monitor BP 8-1 Hb better after 1 unit PRBC; 8-2 WBC worse today; Hb improved, now trending down again. 8-3 supportive care; Hyperkalemia- HD now; monitor H/H 8-4 worsened anemia on heparin- d/c heparin; give blood; 8-5 Hb improved after transfusion; HIT Ab positive; 8-6 D/w daughter Sharonda by phone; continue supportive care; remains intubated. Septic Shock- started on levophed. 8-7 Septic shock; Acute resp failure; RADHA with ESRD on HD, now Liver failure occurring; d/w daughter Sharonda by phone; Prognosis poor. Daughter continues to request Full Code. Therefore, LTAC eval. 8-8 supportive care; LTAC pending; No real change; not interactive; sedated; intubated; on pressors; d/w daughter by telephone; 8-9 supportive care; called daughter Sharonda; discussed details about retesting; discussed 3500ml removed via HD. 8-10 remain intubated; sedated; acidotic; prognosis poor; supportive care; 8-11 more acidotic; WBC worse; lung infiltrate worse; poor prognosis; supportive 8-12 Hypotensive overnight; worsened; needed to advance to 3 pressors; d/w daughter Sharonda, now. After discussions with her family, they have decided to withdraw care; Her only request is that she be present or on facetime before withdrawal is initiated. discussed in detail with nursing staff. CleveO. Froylan MD, PhD.
--- NOTE | 2019-09-28 08:23 | NUR ---
Patient is on three pressors for blood pressure support with map in 50-60s. sedations are on hold and patient is non responsive to painful stimuli. Daughter (Sharonda) is aware of patient health status and she has made the decision to change the patient code status to DNR/ Withdraw all medical care. Patient is comfort care only. Dr Galeano and Dr Crews are aware also.
[2019-09-28] MEDS: SENNOSIDES 8.6 MG TAB PO SCH (08:30)
[2019-09-28] MEDS: DOCUSATE SODIUM LIQD 100 MG/10 ML UDC NG SCH (08:30)
[2019-09-28] MEDS: MEROPENEM 1GM 100 ML IV SCH (08:30)
[2019-09-28] MEDS: BALSAM PERU/CASTOR OIL 60 GM OINT...G. TP SCH (08:30)
[2019-09-28] MEDS: PANTOPRAZOLE 40 MG 10ML VIAL IV SCH (08:30)
--- NOTE | 2019-09-28 08:38 | NUR ---
HEMATOLOGY/ONCOLOGY PROGRESS NOTE: REASON FOR CONSULTATION: Anticoagulation management HISTORY OF PRESENT ILLNESS: Patient hypotensive overnight maxed out on pressors. Patient's daughter has made patient comfort care only. Will respect family wishes. REVIEW OF SYSTEMS: 14 Point ROS unable to obtain secondary to patient intubated and sedated in COVID ICU unit. PHYSICAL EXAMINATION: VITAL SIGNS: Reviewed per APR. PHYSICAL EXAM NOT PERFORMED PATIENT IS ON COVID19 ICU UNIT ON CONTACT PRECAUTIONS. LABORATORY/RADIOLOGY DATA: Reviewed per EMR. ASSESSMENT/PLAN: Ms. Hernandez is a 73-year-old female with past medical history of GERD, HTN, Chronic pain syndrome, and osteoporosis, who was admitted on 08/27/2019 with malaise and fever along with dyspnea nd cough found to have COVID19 pneumonia leading to acute respiratory failure requiring intubation and transfer to the [facility] ICU. She has been on IV antibiotics, Vitamin C, Zinc, and started on pressor support on 09/11/2019. Patient was noted to have worsening renal failure with minimal urine output and clotting in Cherry catheter. Patient was on DVT proph with Lovenox 30mg sq daily, however, due to clots in Cherry catheter, Lovenox was discontinued and DIC and HIT panel were ordered. Hematology/Oncology has been consulted to assist with management. 1. COVID19 PNA/sepsis/resp failure: Patient is s/p antibiotics. Zinc, Vitamin C. Patient remains intubated and sedated. Leukocytosis stable. Managed per ICU/primary/pulmonary/ID teams on board. 2. Anticoagulation: Patient is at increased risk for microthrombotic event secondary to COVID19. Initial HIT panel negative, argatroban was subsequently discontinued and patient restarted on Heparin drip, now discontinued to due anemia requiring PRBC transfusion. Repeat HIT noted to be intermediate at 0.521, 4Ts score 3-4; overall low-intermediate risk of HIT. Continue to hold heparin drip. Continue patient on heparin 5000u sq q8h. Monitor closely. 3. Renal failure: Uncertain etiology. Could be secondary to COVID19 PNA however recommend avoiding nephrotoxic medications. Clots in cherry catheter noted on 09/13/19, does not appear DIC. S/p dialysis catheter placement. On HD per Nephrol erick on board. Managed per ICU/Primary/Nephrology team. 4. Thrombocytopenia: Appears acute as counts were normal on admission. Could be consumption secondary to sepsis as per #1. Does not appear DIC though. Acute hepatitis panel negative. HIT low-intermediate risk, as per #2. RESOLVED. Monito r closely. 5. Anemia: Likely multifactorial. Appears secondary to iron deficiency anemia. TIBC low and ferritin elevated likely as APR. S/p trial dose of IV Iron. Plan to limit IV Iron secondary to elevated ferritin level as above. S/p 2 unit PRBC transfused, H/H improved, now appears stable. Monitor for now. 6. GOC: Patient transitioned to comfort care this morning per family wishes. Above plan discussed with Dr. Franklin. Thank you for the consult. I will be available. Please call with questions.
--- NOTE | 2019-09-28 08:39 | Diagnostic Imaging Report ---
EXAMINATION: CHEST SINGLE (PORTABLE) INDICATION: Viral pneumonia COMPARISON: Chest radiograph of 09/22/2019 FINDINGS: LINES/TUBES:Endotracheal tube has been pulled back, now terminating approximately 3 cm above the harman. Right IJ temporary dialysis catheter and right PICC line unchanged. NG tube projects below the diaphragm with tip in the stomach. EKG leads overlie the chest. LUNGS:The lungs are moderately inflated. Increasing right greater than left multifocal air space opacities. PLEURA:No pleural effusion or pneumothorax. MEDIASTINUM:The cardiomediastinal silhouette appears unchanged in size and shape. Small pneumomediastinum on the left. BONES/SOFT TISSUES:No acute osseous injury. ABDOMEN:No free air under the diaphragm. IMPRESSION: Interval development of small left pneumomediastinum. Increasing right greater than left lung multifocal airspace opacities. Signed by: Haroldo iMner MD on 09/28/2019 8:36 AM
[2019-09-28] MEDS ORDERED: MAGNESIUM SULFATE 2GM/50ML 50 ML IV ONE (09:00)
--- NOTE | 2019-09-28 09:12 | Progress Note ---
DATE: 09/28/2019 Renal Progress Note SUBJECTIVE: The patient is followed for acute kidney injury with sustained acute tubular necrosis secondary to COVID pneumonia. The patient remains on the ventilator and dialysis dependent on a daily basis. Had dialysis yesterday, however, not able to pull more than 2 L of fluid. Blood pressure is better today. OBJECTIVE: VITAL SIGNS: Blood pressure 111/47, 77 pulse, afebrile. The patient is on Levophed. LUNGS: Rhonchi bilaterally in the lung etienne. CARDIOVASCULAR: S1 and S2. No rub. ABDOMEN: Soft and nontender. EXTREMITIES: 1 to 2+ edema. LABORATORY DATA: White count is 25,000, H and H 9.8 and 30.7, and platelets of 178. Sodium 134, potassium 3.7, chloride 100, bicarb 21, BUN 30, creatinine is 1.9, calcium 7.8, magnesium is 1.5, and phosphorus is 4.2. IMPRESSION AND PLAN: 1. Acute kidney injury, sustained acute tubular necrosis. We will continue dialysis on a daily basis. The patient will benefit from alternate days of ultrafiltration only, however, clearance can also be necessary if the patient is developing metabolic acidosis. We will do both clearance and ultrafiltration today and we will watch on a daily basis. 2. Hypertension. Blood pressure remains on low-dose Levophed for blood pressure support. We will continue to ultrafilter as allowed by blood pressure. 3. Anemia of chronic disease, stable. 4. Fluid overload. We will ultrafilter with dialysis, as allowed by blood pressure. We will attempt to do 3-4 L of fluid removal each time. 5. COVID-19 pneumonia. Plan would be as per primary Critical Care recommendations. Dao Diallo MD /MODL /[id number]
--- NOTE | 2019-09-28 09:57 | Progress Note ---
DATE: SUBJECTIVE: The patient had low blood pressure last night. The Levophed was increased to maximum strength. The patient was subsequently started on Nguyễn-Synephrine and vasopressin. The patient continued on maximal support from the ventilator. This morning, the family has opted for a withdrawal of life support. PHYSICAL EXAMINATION: VITAL SIGNS: The patient is now on a PRVC mode of ventilation at a rate of 36 with a pressure control of 38 and the PEEP of 10. FiO2 is 100% and the saturations are in the low 90s. Blood pressure is now 110/50 on 3 pressors; Levophed, Nguyễn-Synephrine, and vasopressin as noted above. HEENT: There is an oral endotracheal tube. There is a right IJ line. The site looks clean. CARDIAC: Reveals regular and rhythm with normal S1 and S2. LUNGS: Auscultation of the lungs reveals crackles at the bases. There is no wheezing. ABDOMEN: Soft and nontender. There is no rebound or guarding. EXTREMITIES: Show no leg edema or calf tenderness. There is no cyanosis or clubbing. SKIN: Shows no rashes. NEUROLOGIC: Shows no focal abnormalities. LABORATORY DATA: White blood cell count is 25.4 and hemoglobin is 9.8. Platelet count is 178. BUN to creatinine ratio is 30 to 1.89. Other electrolytes are within normal limits. IMPRESSION: 1. Acute respiratory failure. 2. Viral pneumonia and coronavirus disease 2019 infection. 3. Acute renal failure. 4. Thrombocytopenia. 5. Metabolic acidosis. PLAN: 1. The patient's family has opted for withdrawal. 2. We will make arrangements for terminal extubation with comfort medications for palliative care. MD MATT Swanson/MODL /[id number]
[2019-09-28] MEDS ORDERED: LORAZEPAM INJ 2 MG/ML VIAL IV PRN (10:30)
[2019-09-28] MEDS ORDERED: MORPHINE SULFATE 2 MG/ML SYR 1ML IV PRN (10:30)
--- NOTE | 2019-09-28 15:16 | NUR ---
Patient at 1237 and was pronounced by Dr Crews. Dr Galeano the attending was notified. Patient family (Daughter and sister ) was on face-time at the time of . [facility] was alos notified within the hour of and patient was determine to not be a donor due to covid19 per [facility] personnel Marjorie Choudhury.Patient body is waiting to be bean picker by [facility] which was notified by RN.
--- NOTE | 2019-09-28 17:14 | NUR ---
patient body was picked up by [facility] home underwriting sales representative at [id number]
== END 2019-09-28 17:02 | disposition expired | DRG 870 ==
LOC: ER 15:23 → ERHOLD 15:33 → COVIDICU 17:37
PROVIDERS: ADMIT Internal Medicine; ATTEND Internal Medicine
PROC: 5A1955Z Respiratory Ventilation, Greater than 96 Consecutive Hours (ICD-10-PCS; principal; 2019-09-03)
PROC: 0BH18EZ Insertion of Endotracheal Airway into Trachea, Via Natural or Artificial Opening Endoscopic (ICD-10-PCS; 2019-09-03)
PROC: 03HY32Z Insertion of Monitoring Device into Upper Artery, Percutaneous Approach (ICD-10-PCS; 2019-09-03)
PROC: 02HV33Z Insertion of Infusion Device into Superior Vena Cava, Percutaneous Approach (ICD-10-PCS; 2019-09-04)
PROC: 02HV33Z Insertion of Infusion Device into Superior Vena Cava, Percutaneous Approach (ICD-10-PCS; 2019-09-13)
PROC: 30243N1 Transfusion of Nonautologous Red Blood Cells into Central Vein, Percutaneous Approach (ICD-10-PCS; 2019-09-16)
DX: A41.9 Sepsis, unspecified organism (principal); U07.1 COVID-19; J12.9 Viral pneumonia, unspecified; J96.00 Acute respiratory failure, unspecified whether with hypoxia or hypercapnia; N17.0 Acute kidney failure with tubular necrosis; J96.01 Acute respiratory failure with hypoxia; J15.9 Unspecified bacterial pneumonia; R65.21 Severe sepsis with septic shock; N17.9 Acute kidney failure, unspecified; E87.4 Mixed disorder of acid-base balance; E87.1 Hypo-osmolality and hyponatremia; E87.2 Acidosis; I10 Essential (primary) hypertension; M81.0 Age-related osteoporosis without current pathological fracture; K21.9 Gastro-esophageal reflux disease without esophagitis; D75.82 Heparin induced thrombocytopenia (HIT); Z99.0 Dependence on aspirator; Z51.5 Encounter for palliative care; D63.8 Anemia in other chronic diseases classified elsewhere; D69.6 Thrombocytopenia, unspecified; D50.0 Iron deficiency anemia secondary to blood loss (chronic); E88.09 Other disorders of plasma-protein metabolism, not elsewhere classified
CPT/HCPCS: 36415; 36569; 36600; 51700; 71045; 74018; 74177; 76770; 80048; 80053; 81001; 82550; 82553; 82607; 82728; 82746; 82805; 82948; 83036; 83540; 83605; 83735; 83880; 84100; 84132; 84466; 84484; 85014; 85018; 85025; 85045; 85379; 85384; 85610; 85730; 86022; 86140; 86704; 86706; 86850; 86900; 86920; 87040; 87070; 87071; 87086; 87205; 87340; 90962; 93005; 93306; 94002; 94003; 96372; 97139; 99285; J0330; J0456; J0692; J0696; J1100; J1450; J1644; J1650; J1720; J1815; J1817; J1940; J2060; J2150; J2250; J2270; J2370; J2405; J2543; J2916; J3370; J3475; J3480; J7030; J7040; J7050; J7070; J7121; J7799; P9016; P9047; Q9967; U0002